=== PATIENT | male | born 1960 | race African-American/Black ===

== ENCOUNTER 2016-08-30 18:08 | Emergency (ER) | payer MEDICAID, MEDICARE ==
[2016-08-30] MEDS ORDERED: ASPIRIN 81 MG TABLET, CHEWABLE PO ONE (18:42)
--- NOTE | 2016-08-30 18:42 | ER Document Report ---
ED Medical Screen (RME) - General Chief Complaint: Chest Pain Stated Complaint: CHEST PAIN,TIGHTNESS Time seen by provider: 18:39 Mode of Arrival: Wheelchair Information source: Patient Notes: 56-year-old male presents to ED for chest pain since Tuesday. States took baby aspirin state home and went to the doctor today and was sent out [facility] and get blood work, chest x-ray and EKG. Around 620 the doctor's office called and told him to come to the emergency room right away for an abnormal EKG. I have greeted and performed a rapid initial assessment of this patient. A comprehensive ED assessment and evaluation of the patient, analysis of test results and completion of medical decision making process will be conducted by an additional ED providers. TRAVEL OUTSIDE OF THE [place] IN LAST 30 DAYS: No - Related Data Allergies/Adverse Reactions: No Known Allergies Allergy (Verified 01/12/15 02:29) Past Medical History - Past Medical History Cardiac Medical History: Reports: Hx Hypertension Endocrine Medical History: Reports: Hx Diabetes Mellitus Type 1, Hx Diabetes Mellitus Type 2 Past Surgical History: Reports: Hx Genitourinary Surgery - biopsy of scrotum, Hx Orthopedic Surgery - torn meniscus in the right knee. bakers cyst - Immunizations Hx Diphtheria, Pertussis, Tetanus Vaccination: Yes
--- NOTE | 2016-08-30 19:00 | EKG REPORT ---
SEVERITY:- BORDERLINE ECG - SINUS RHYTHM LVH BY VOLTAGE : Confirmed by: Anel Escalante 30-Aug-2016 18:59:49
[2016-08-30 20:33] LABS: ABSOLUTE BASOPHILS # (AUTO) 0.1 10^3/uL (0.0-0.2); ABSOLUTE EOSINOPHILS # (AUTO) 0.2 10^3/uL (0.0-0.6); ABSOLUTE LYMPHOCYTES (AUTO) 3.2 10^3/uL (0.5-4.7); ABSOLUTE MONOCYTES (AUTO) 1.1 10^3/uL (0.1-1.4); ABSOLUTE NEUT (AUTO) 7.2 10^3/uL (1.7-8.2); BASOPHILS % (AUTO) 0.6 % (0-2); EOSINOPHILS % (AUTO) 1.8 % (0-6); HEMATOCRIT 34.1 % (37.9-51.0); HEMOGLOBIN 10.7 g/dL (13.5-17.0); LYMPHOCYTES % (AUTO) 27.4 % (13-45); MEAN CORPUSCULAR HEMOGLOBIN 23.6 pg (27.0-33.4); MEAN CORPUSCULAR HGB CONC 31.2 g/dL (32.0-36.0); MEAN CORPUSCULAR VOLUME 76 fl (80-97); RED BLOOD COUNT 4.51 10^6/uL (4.35-5.55); RED CELL DISTRIBUTION WIDTH 16.3 % (11.5-14.0); SEGMENTED NEUTROPHILS % (AUTO) 61.2 % (42-78); WHITE BLOOD COUNT 11.8 10^3/uL (4.0-10.5)
[2016-08-30 20:42] LABS: PROTHROMBIN TIME 13.5 SEC (11.4-15.4)
[2016-08-30 20:43] LABS: PARTIAL THROMBOPLASTIN TIME 33.7 SEC (23.5-35.8)
[2016-08-30 20:52] LABS: ALANINE AMINOTRANSFERASE 19 U/L (21-72); ALBUMIN 4.2 g/dL (3.5-5.0); ALKALINE PHOSPHATASE 76 U/L (38-126); ANION GAP 13 (5-19); ASPARTATE AMINO TRANSFERASE 13 U/L (17-59); BILIRUBIN,TOTAL 0.6 mg/dL (0.2-1.3); BLOOD UREA NITROGEN 21 mg/dL (7-20); CALCIUM 9.5 mg/dL (8.4-10.2); CARBON DIOXIDE 30 mmol/L (22-30); CHLORIDE 97 mmol/L (98-107); CREATINE KINASE 53 U/L (55-170); CREATININE RESULT 1.53 mg/dL (0.52-1.25); GLUCOSE 123 mg/dL (75-110); MAGNESIUM 1.8 mg/dL (1.6-2.3); POTASSIUM 3.3 mmol/L (3.6-5.0); SODIUM 139.9 mmol/L (137-145); TOTAL PROTEIN 7.6 g/dL (6.3-8.2)
[2016-08-30 21:03] LABS: CREATINE KINASE MB 0.31 ng/mL (<4.55); TROPONIN I 0.013 ng/mL
--- NOTE | 2016-08-31 01:52 | ER Document Report ---
ED Cardiac - General Chief Complaint: Abnormal Lab Results Stated Complaint: CHEST PAIN,TIGHTNESS Time seen by provider: 01:49 Mode of Arrival: Wheelchair TRAVEL OUTSIDE OF THE [place] IN LAST 30 DAYS: No - HPI Patient complains to provider of: Chest pain Was the onset of pain: Sudden When did pain begin: 2 days ago Is the pain a: New problem Chest pain location: Under breast - Left side Quality of pain: Sharp, Stabbing Severity now: None Severity at worst: Severe Pain level currently: Denies Chest pain precipitating factors: At Rest Cardiac risk factors: Diabetes, Hypertension, Smoker Positive cardiac history: No Associated symptoms: None Exacerbated by: Torso movement Relieved by: Nothing Similar symptoms previously: No Recently seen / treated by doctor: Yes - seen earlier in the day by Dr. Gamboa Notes: Patient is a 56-year-old male with a history of hypertension, diabetes, chronic back pain, chronic knee pain, anxiety, who was sent to the emergency room by primary care provider for chest pain, patient states this chest pain occurred on Tuesday, 2 days prior to his presentation to the emergency room, he states it was sharp and stabbing in nature in the left anterior chest wall, near the left breast, it lasted a few hours, he states he chewed 4 baby aspirin at home, sat up for an hour, took his blood pressure medications, then fell asleep, when he woke up on Tuesday morning the pain was completely gone and has not come back since, he denies having any shortness of breath with it, no diaphoresis, no cough, cold or congestion, he does report that he was burping excessively at the time he had the chest pain as well and certain movements of the upper trunk made his chest pain worse - Related Data Allergies/Adverse Reactions: No Known Allergies Allergy (Verified 01/12/15 02:29) Past Medical History - General Information source: Patient - Social History Smoking Status: Current Every Day Smoker Family History: Reviewed & Not Pertinent Patient has suicidal ideation: No Patient has homicidal ideation: No - Past Medical History Cardiac Medical History: Reports: Hx Hypertension Endocrine Medical History: Reports: Hx Diabetes Mellitus Type 1, Hx Diabetes Mellitus Type 2 Renal/ Medical History: Denies: Hx Peritoneal Dialysis Past Surgical History: Reports: Hx Genitourinary Surgery - biopsy of scrotum, Hx Orthopedic Surgery - torn meniscus in the right knee. bakers cyst - Immunizations Hx Diphtheria, Pertussis, Tetanus Vaccination: Yes Review of Systems - Review of Systems Constitutional: No symptoms reported EENT: No symptoms reported Cardiovascular: See HPI Respiratory: No symptoms reported Gastrointestinal: No symptoms reported Genitourinary: No symptoms reported Male Genitourinary: No symptoms reported Musculoskeletal: No symptoms reported Skin: No symptoms reported Hematologic/Lymphatic: No symptoms reported Neurological/Psychological: No symptoms reported -: Yes All other systems reviewed and negative Physical Exam - Vital signs Vitals: Temp Pulse Resp BP Pulse Ox 97.6 F 91 16 102/93 H 95 08/30/16 18:39 08/30/16 18:39 08/30/16 18:39 08/30/16 18:39 08/30/16 18:39 Interpretation: Normal - General General appearance: Appears well, Alert - HEENT Head: Normocephalic, Atraumatic Eyes: Normal Pupils: PERRL - Respiratory Respiratory status: No respiratory distress Chest status: Tender - Tender to palpate in the left anterior chest wall Breath sounds: Normal Chest palpation: Normal - Cardiovascular Rhythm: Regular Heart sounds: Normal auscultation Murmur: No - Abdominal Inspection: Normal Distension: No distension Bowel sounds: Normal Tenderness: Nontender Organomegaly: No organomegaly - Back Back: Normal, Nontender - Extremities General upper extremity: Normal inspection, Nontender, Normal color, Normal ROM , Normal temperature General lower extremity: Normal inspection, Nontender, Normal color, Normal ROM , Normal temperature, Normal weight bearing. No: Eddie's sign - Neurological Neuro grossly intact: Yes Cognition: Normal Orientation: AAOx4 [place] Coma Scale Eye Opening: Spontaneous [place] Coma Scale Verbal: Oriented [place] Coma Scale Motor: Obeys Commands [place] Coma Scale Total: 15 Speech: Normal Motor strength normal: LUE, RUE, LLE, RLE Sensory: Normal - Psychological Associated symptoms: Normal affect, Normal mood - Skin Skin Temperature: Warm Skin Moisture: Dry Skin Color: Normal Course - Re-evaluation Re-evalutation: 08/31/16 02:21 Lab and imaging findings discussed with patient and at bedside which are fairly unremarkable, cardiac enzymes 2 negative, EKG with no signs of ischemia , symptoms have been resolved for 2 days, patient was advised to follow-up with his primary care provider and a practice administrator or return if symptoms worsen, patient and acknowledge understanding and agreement with this plan - Vital Signs Vital signs: Temp Pulse Resp BP Pulse Ox 97.6 F 91 21 H 146/87 H 96 08/30/16 18:39 08/30/16 18:39 08/31/16 02:01 08/31/16 02:01 08/31/16 02:01 - Laboratory Result Diagrams: 08/30/16 20:05 08/30/16 20:05 Laboratory results interpreted by me: 08/30/16 08/30/16 08/31/16 20:05 20:05 01:30 WBC 11.8 H Hgb 10.7 L Hct 34.1 L MCV 76 L MCH 23.6 L MCHC 31.2 L RDW 16.3 H Potassium 3.3 L Chloride 97 L BUN 21 H Creatinine 1.53 H Est GFR ( Amer) 57 L Est GFR (Non-Af Amer) 47 L Glucose 123 H AST 13 L ALT 19 L Creatine Kinase 53 L 44 L - Diagnostic Test Radiology reviewed: Image reviewed, Reports reviewed - EKG Interpretation by Me EKG shows normal: Sinus rhythm Rate: Normal Rhythm: NSR When compared to previous EKG there are: No significant change Discharge - Discharge Clinical Impression: Chest pain Qualifiers: Chest pain type: unspecified Qualified Code(s): R07.9 - Chest pain, unspecified Condition: Stable Disposition: HOME, SELF-CARE Instructions: Chest Pain of Unclear Cause ([facility]) Additional Instructions: Follow up with your primary care provider in one to 2 days. Return to the emergency room immediately if symptoms worsen or any additional concerns. Forms: Smoking Cessation Education, Elevated Blood Pressure
[2016-08-31 02:17] LABS: CREATINE KINASE MB 0.3 ng/mL (<4.55); TROPONIN I 0.013 ng/mL
[2016-08-31 02:32] VITALS: BP 115/79
== END 2016-08-31 02:31 | disposition home or self-care (01) ==
LOC: ER 18:08
DX: R07.9 Chest pain, unspecified (principal); E11.9 Type 2 diabetes mellitus without complications; G89.29 Other chronic pain; M54.9 Dorsalgia, unspecified; M25.569 Pain in unspecified knee; F17.200 Nicotine dependence, unspecified, uncomplicated; I10 Essential (primary) hypertension
CPT/HCPCS: 93005 ×2; 99285; 36415; 82553; 82550; 83735; 85025; 85027; 85610; 85730; 80053; 84484; 83036; 80061; 71020; 93010; A9270

== ENCOUNTER → 2016-08-30 | Outpatient (CLI) | payer MEDICAID ==
[2016-08-30 13:24] LABS: HEMATOCRIT 35.1 % (37.9-51.0); HEMOGLOBIN 11.3 g/dL (13.5-17.0); HGB HCT DIFFERENCE -1.2; MEAN CORPUSCULAR HEMOGLOBIN 24.2 pg (27.0-33.4); MEAN CORPUSCULAR HGB CONC 32.2 g/dL (32.0-36.0); MEAN CORPUSCULAR VOLUME 75 fl (80-97); RED BLOOD COUNT 4.67 10^6/uL (4.35-5.55); RED CELL DISTRIBUTION WIDTH 16.2 % (11.5-14.0); WHITE BLOOD COUNT 11.6 10^3/uL (4.0-10.5)
[2016-08-30 13:56] LABS: ALANINE AMINOTRANSFERASE 20 U/L (21-72); ALBUMIN 4.3 g/dL (3.5-5.0); ALKALINE PHOSPHATASE 87 U/L (38-126); ANION GAP 13 (5-19); ASPARTATE AMINO TRANSFERASE 12 U/L (17-59); BILIRUBIN,TOTAL 0.9 mg/dL (0.2-1.3); BLOOD UREA NITROGEN 16 mg/dL (7-20); CALCIUM 9.9 mg/dL (8.4-10.2); CARBON DIOXIDE 31 mmol/L (22-30); CHLORIDE 98 mmol/L (98-107); CHOLESTEROL 242.63 mg/dL (0-200); CREATINE KINASE 41 U/L (55-170); CREATININE RESULT 0.91 mg/dL (0.52-1.25); Direct HDL 44 mg/dL (>40); GLUCOSE 139 mg/dL (75-110); POTASSIUM 3.3 mmol/L (3.6-5.0); SODIUM 141.8 mmol/L (137-145); TOTAL PROTEIN 7.8 g/dL (6.3-8.2); TRIGLYCERIDES 137 mg/dL (<150)
[2016-08-30 14:07] LABS: DIRECT LDL 173 mg/dL (<100)
--- NOTE | 2016-08-30 15:47 | EKG REPORT ---
SEVERITY:- ABNORMAL ECG - SINUS RHYTHM PROBABLE LEFT ATRIAL ABNORMALITY LEFT VENTRICULAR HYPERTROPHY ST ELEVATION, CONSIDER ANTERIOR INJURY VS LVH : Confirmed by: Anel Escalante 30-Aug-2016 15:46:48
== END ==
LOC: OD 12:33
PROVIDERS: ATTEND Obstetrics & Gynecology
DX: R07.9 Chest pain, unspecified (principal); E11.9 Type 2 diabetes mellitus without complications; I10 Essential (primary) hypertension; E78.5 Hyperlipidemia, unspecified
CPT/HCPCS: 36415; 71020; 80053; 80061; 82550; 83036; 85027; 93005; 93010

== ENCOUNTER → 2016-10-11 | Outpatient (CLI) | payer MEDICARE ==
[2016-10-11 12:52] LABS: HEMATOCRIT 24.1 % (37.9-51.0); HGB HCT DIFFERENCE -2.2; MEAN CORPUSCULAR HEMOGLOBIN 20.3 pg (27.0-33.4); MEAN CORPUSCULAR HGB CONC 30.3 g/dL (32.0-36.0); MEAN CORPUSCULAR VOLUME 67 fl (80-97); RED CELL DISTRIBUTION WIDTH 18.9 % (11.5-14.0); WHITE BLOOD COUNT 11.4 10^3/uL (4.0-10.5)
[2016-10-11 13:36] LABS: ANISOCYTOSIS 2+; BASOPHILS % (MANUAL) 0 % (0-2); EOSINOPHILS % (MANUAL) 1 % (0-6); HYPOCHROMASIA 2+; LYMPHOCYTES % (MANUAL) 18 % (13-45); MICROCYTOSIS 2+; POLYCHROMASIA 1+; ROULEAUX 3+; TOTAL CELLS COUNTED 100
[2016-10-11 13:37] LABS: OVALOCYTES SLIGHT; POIKILOCYTOSIS 1+; SCHISTOCYTES SLIGHT; TARGET CELLS 1+; TOXIC GRANULATION SLIGHT
[2016-10-11 13:38] LABS: HEMOGLOBIN 7.3 g/dL (13.5-17.0)
== END ==
LOC: OD 11:12
PROVIDERS: ATTEND Obstetrics & Gynecology
DX: D64.9 Anemia, unspecified (principal); D47.3 Essential (hemorrhagic) thrombocythemia; D72.829 Elevated white blood cell count, unspecified
CPT/HCPCS: 36415; 85025

== ENCOUNTER → 2016-10-13 | Outpatient (CLI) | payer MEDICARE ==
[2016-10-13 12:47] LABS: HEMATOCRIT 27.5 % (37.9-51.0); HEMOGLOBIN 8.8 g/dL (13.5-17.0); HGB HCT DIFFERENCE -1.1; MEAN CORPUSCULAR HEMOGLOBIN 22.2 pg (27.0-33.4); MEAN CORPUSCULAR HGB CONC 31.9 g/dL (32.0-36.0); MEAN CORPUSCULAR VOLUME 70 fl (80-97); RED BLOOD COUNT 3.94 10^6/uL (4.35-5.55); RED CELL DISTRIBUTION WIDTH 20.4 % (11.5-14.0); WHITE BLOOD COUNT 14.9 10^3/uL (4.0-10.5)
[2016-10-13 12:55] LABS: ALANINE AMINOTRANSFERASE 13 U/L (21-72); ALBUMIN 3.9 g/dL (3.5-5.0); ALKALINE PHOSPHATASE 76 U/L (38-126); ANION GAP 18 (5-19); ASPARTATE AMINO TRANSFERASE 14 U/L (17-59); BILIRUBIN,TOTAL 0.3 mg/dL (0.2-1.3); BLOOD UREA NITROGEN 16 mg/dL (7-20); CALCIUM 9.3 mg/dL (8.4-10.2); CARBON DIOXIDE 26 mmol/L (22-30); CHLORIDE 95 mmol/L (98-107); CREATININE RESULT 0.96 mg/dL (0.52-1.25); GLUCOSE 198 mg/dL (75-110); POTASSIUM 3.2 mmol/L (3.6-5.0); SODIUM 139.3 mmol/L (137-145)
[2016-10-13 13:25] LABS: BASOPHILS % (MANUAL) 1 % (0-2); EOSINOPHILS % (MANUAL) 5 % (0-6); LYMPHOCYTES % (MANUAL) 17 % (13-45); ROULEAUX 2+; TOTAL CELLS COUNTED 100
[2016-10-13 13:28] LABS: HYPOCHROMASIA 2+
[2016-10-13 13:31] LABS: MICROCYTOSIS 2+; OVALOCYTES 1+; POIKILOCYTOSIS 1+; POLYCHROMASIA 1+; SCHISTOCYTES SLIGHT; TARGET CELLS SLIGHT
[2016-10-13 13:32] LABS: ANISOCYTOSIS 2+
== END ==
LOC: OD 11:34
PROVIDERS: ATTEND Obstetrics & Gynecology
DX: D47.3 Essential (hemorrhagic) thrombocythemia (principal); D64.9 Anemia, unspecified; I10 Essential (primary) hypertension; E11.9 Type 2 diabetes mellitus without complications
CPT/HCPCS: 36415; 80053; 85025

== ENCOUNTER 2016-10-21 11:48 | Outpatient (CLI) | payer MEDICARE ==
[~2016-10-21 11:48] MED LIST: FERRIC CARBOXYMALTOSE 750 MG in NORMAL SALINE 250 ML IV PRN; NORMAL SALINE 250 ML IV PRN
[2016-10-21 12:24] VITALS: BP 146/72
== END 2016-10-21 13:33 | disposition home or self-care (01) ==
LOC: II 11:48 → 5TH 11:50 → II 13:33
PROVIDERS: ATTEND Internal Medicine
PROC: 3E033GC Introduction of Other Therapeutic Substance into Peripheral Vein, Percutaneous Approach (ICD-10-PCS; principal; 2016-10-21)
DX: D50.8 Other iron deficiency anemias (principal); K90.9 Intestinal malabsorption, unspecified
CPT/HCPCS: 96365; J7050; J1439

== ENCOUNTER 2016-10-28 07:58 | Outpatient (CLI) | payer MEDICARE ==
[2016-10-28 08:56] VITALS: BP 148/87
== END 2016-10-28 09:38 | disposition home or self-care (01) ==
LOC: II 07:58 → 5TH 07:59 → II 09:38
PROVIDERS: ATTEND Internal Medicine
DX: D50.8 Other iron deficiency anemias (principal); K90.9 Intestinal malabsorption, unspecified
CPT/HCPCS: 96365; J7050; J1439; 96367

== ENCOUNTER 2016-11-01 08:14 | Day surgery (SDC) | payer MEDICARE ==
[~2016-11-01 08:14] MED LIST changes: -FERRIC CARBOXYMALTOSE 750 MG in NORMAL SALINE 250 ML IV PRN; -NORMAL SALINE 250 ML IV PRN; +PROPOFOL INJ 200 MG/20 ML VIAL IV ONE
[2016-11-01 10:27] VITALS: BP 182/91
--- NOTE | 2016-11-01 13:25 | Operative Report ---
Operative Report DATE OF SURGERY: 11/01/16 Operative Report: The risks, benefits and alternatives of the procedure including risks of bleeding, perforation requiring surgery are explained to the patient detail and informed consent is obtained. Patient is taken back to the endoscopy suite and placed in a left, lateral decubital position. Timeout is called. Propofol medications administered. A rectal examination was done which did not reveal any masses, tears or fissures. An Olympus video scope was inserted into the patient's rectum. The scope was then gradually advanced all the way to the cecum. The cecum was identified by the usual anatomical landmarks including the ileocecal valve as well as the appendiceal office. Photodocumentation was obtained. Prep is good. Scope was then sequentially pulled back via the rest segments of the colon including the ascending colon, hepatic flexure, transverse colon, some bright flexure, descending colon and finally into the rectosigmoid portions of the colon. Retroflexion maneuvers performed. The risks benefits and alternatives of the procedure explained to the patient in detail and informed consent is obtained that GIF Olympus video scope was inserted into the patient's mouth and hypopharynx the esophagus is identified intubated and insufflated the scope was then advanced through the esophagus stomach and duodenum retroflexion maneuver is done the esophagus stomach and first and second portions of the duodenum examined PREOPERATIVE DIAGNOSIS: Personal history of polyps. Epigastric pain. Blood in stool POSTOPERATIVE DIAGNOSIS: AVMs in the cecum as noted and ablated in situ. Internal hemorrhoids. Nodular gastritis status post biopsy rule out Helicobacter pylori. OPERATION: Colonoscopy with ablation. EGD with biopsy SURGEON: MARQUIS CONWAY ANESTHESIA: LMAC TISSUE REMOVED OR ALTERED: Gastric mucosal specimens obtained to rule out for Helicobacter pylori. Patient has previously been treated for this. Documentation of eradication. COMPLICATIONS: None. ESTIMATED BLOOD LOSS: none. INTRAOPERATIVE FINDINGS: 2 small AVMs are noted in the cecum ablated using ERBE argon asset management lead device. Internal hemorrhoids. Nodular gastritis status post biopsy rule out Helicobacter pylori. PROCEDURE: Patient tolerated the procedure well. No immediate postprocedure complications are noted. Patient is discharged in good condition. Discharge date 11/01/2016. Discharge diet: Regular. Discharge activity: Regular. 2-3 week follow-up to discuss findings. We'll await biopsies. Patient is instructed to call the office or proceed to the emergency room should there be any further problems or questions. If needed he can be retreated for Helicobacter pylori
== END 2016-11-01 11:22 | disposition home or self-care (01) ==
LOC: END 08:14
PROVIDERS: ATTEND Internal Medicine Gastroenterology
PROC: 0D5H8ZZ Destruction of Cecum, Via Natural or Artificial Opening Endoscopic (ICD-10-PCS; principal; 2016-11-01 09:30)
DX: K31.9 Disease of stomach and duodenum, unspecified (principal); Q27.33 Arteriovenous malformation of digestive system vessel; K64.8 Other hemorrhoids; D50.9 Iron deficiency anemia, unspecified; Z87.11 Personal history of peptic ulcer disease; Z86.010 Personal history of colon polyps; Z87.19 Personal history of other diseases of the digestive system; E11.9 Type 2 diabetes mellitus without complications; I10 Essential (primary) hypertension; E78.5 Hyperlipidemia, unspecified; F17.210 Nicotine dependence, cigarettes, uncomplicated; Z79.82 Long term (current) use of aspirin; Z79.899 Other long term (current) drug therapy; Z79.84 Long term (current) use of oral hypoglycemic drugs
CPT/HCPCS: 43239; 45388; 82962; 88342 ×2; 88305 ×2; J2704; 740

== ENCOUNTER → 2016-12-22 | Outpatient (CLI) | payer MEDICARE | LOC: OD 11:42 | PROVIDERS: ATTEND Obstetrics & Gynecology | DX: M54.5 Low back pain (principal); M51.16 Intervertebral disc disorders with radiculopathy, lumbar region | CPT/HCPCS: 72070 ==

== ENCOUNTER → 2017-01-14 | Outpatient (CLI) | payer MEDICARE ==
[2017-01-14 16:33] LABS: ALANINE AMINOTRANSFERASE 19 U/L (21-72); ALBUMIN 4.2 g/dL (3.5-5.0); ALKALINE PHOSPHATASE 149 U/L (38-126); ANION GAP 13 (5-19); ASPARTATE AMINO TRANSFERASE 14 U/L (17-59); BILIRUBIN,DIRECT 0.4 mg/dL (0.0-0.4); BILIRUBIN,TOTAL 0.5 mg/dL (0.2-1.3); BLOOD UREA NITROGEN 16 mg/dL (7-20); CALCIUM 9.5 mg/dL (8.4-10.2); CARBON DIOXIDE 36 mmol/L (22-30); CHLORIDE 84 mmol/L (98-107); CREATININE RESULT 1.02 mg/dL (0.52-1.25); POTASSIUM 3.1 mmol/L (3.6-5.0); SODIUM 132.6 mmol/L (137-145)
[2017-01-14 17:47] LABS: GLUCOSE 515 mg/dL (75-110)
== END ==
LOC: OD 15:42
PROVIDERS: ATTEND Obstetrics & Gynecology
DX: E11.65 Type 2 diabetes mellitus with hyperglycemia (principal)
CPT/HCPCS: 36415; 80053

== ENCOUNTER → 2017-07-06 | Outpatient (CLI) | payer MEDICARE ==
[2017-07-06 19:05] LABS: ABSOLUTE BASOPHILS # (AUTO) 0.1 10^3/uL (0.0-0.2); ABSOLUTE EOSINOPHILS # (AUTO) 0.2 10^3/uL (0.0-0.6); ABSOLUTE LYMPHOCYTES (AUTO) 3.4 10^3/uL (0.5-4.7); ABSOLUTE MONOCYTES (AUTO) 0.8 10^3/uL (0.1-1.4); ABSOLUTE NEUT (AUTO) 5.8 10^3/uL (1.7-8.2); EOSINOPHILS % (AUTO) 1.7 % (0-6); HEMATOCRIT 38.2 % (37.9-51.0); HEMOGLOBIN 13.1 g/dL (13.5-17.0); HGB HCT DIFFERENCE 1.1; LYMPHOCYTES % (AUTO) 33.1 % (13-45); MEAN CORPUSCULAR HEMOGLOBIN 26.8 pg (27.0-33.4); MEAN CORPUSCULAR HGB CONC 34.3 g/dL (32.0-36.0); MEAN CORPUSCULAR VOLUME 78 fl (80-97); RED BLOOD COUNT 4.91 10^6/uL (4.35-5.55); RED CELL DISTRIBUTION WIDTH 15.5 % (11.5-14.0); SEGMENTED NEUTROPHILS % (AUTO) 56.2 % (42-78); WHITE BLOOD COUNT 10.4 10^3/uL (4.0-10.5)
[2017-07-06 19:22] LABS: ALANINE AMINOTRANSFERASE 21 U/L (21-72); ALKALINE PHOSPHATASE 107 U/L (38-126); ANION GAP 13 (5-19); ASPARTATE AMINO TRANSFERASE 15 U/L (17-59); BILIRUBIN,DIRECT 0.3 mg/dL (0.0-0.4); BILIRUBIN,TOTAL 0.4 mg/dL (0.2-1.3); BLOOD UREA NITROGEN 15 mg/dL (7-20); CALCIUM 9.2 mg/dL (8.4-10.2); CARBON DIOXIDE 31 mmol/L (22-30); CHLORIDE 92 mmol/L (98-107); CREATININE RESULT 0.95 mg/dL (0.52-1.25); GLUCOSE 284 mg/dL (75-110); POTASSIUM 3.4 mmol/L (3.6-5.0); SODIUM 135.9 mmol/L (137-145); TOTAL PROTEIN 6.8 g/dL (6.3-8.2)
== END ==
LOC: OD 17:22
PROVIDERS: ATTEND Obstetrics & Gynecology
DX: D47.3 Essential (hemorrhagic) thrombocythemia (principal); E11.9 Type 2 diabetes mellitus without complications; I10 Essential (primary) hypertension; D64.9 Anemia, unspecified
CPT/HCPCS: 36415; 80053; 85025

== ENCOUNTER 2017-08-08 15:09 | Inpatient (IN) | payer MEDICARE ==
[2017-08-08 15:31] LABS: ABSOLUTE BASOPHILS # (AUTO) 0.1 10^3/uL (0.0-0.2); ABSOLUTE LYMPHOCYTES (AUTO) 1.1 10^3/uL (0.5-4.7); ABSOLUTE MONOCYTES (AUTO) 0.5 10^3/uL (0.1-1.4); ABSOLUTE NEUT (AUTO) 16.6 10^3/uL (1.7-8.2); BASOPHILS % (AUTO) 0.6 % (0-2); HEMATOCRIT 42.7 % (37.9-51.0); HEMOGLOBIN 14.3 g/dL (13.5-17.0); LYMPHOCYTES % (AUTO) 5.7 % (13-45); MEAN CORPUSCULAR HGB CONC 33.5 g/dL (32.0-36.0); MEAN CORPUSCULAR VOLUME 78 fl (80-97); MONOCYTES % (AUTO) 2.9 % (3-13); PLATELET COUNT 521 10^3/uL (150-450); RED CELL DISTRIBUTION WIDTH 14.7 % (11.5-14.0); SEGMENTED NEUTROPHILS % (AUTO) 90.8 % (42-78); TOTAL CELLS COUNTED % (AUTO) 100 %; WHITE BLOOD COUNT 18.3 10^3/uL (4.0-10.5)
[2017-08-08 15:32] LABS: VENOUS BLOOD BASE EXCESS 9.2 mmol/L; VENOUS BLOOD HCO3 35.2 mmol/L (20-32); VENOUS BLOOD PCO2 52.9 mmHg (35-63); VENOUS BLOOD PH 7.44 (7.30-7.42)
[2017-08-08 15:38] LABS: INTERNATIONAL RATION (INR) 0.98; PROTHROMBIN TIME 13.7 SEC (11.4-15.4)
[2017-08-08 15:46] LABS: ALBUMIN 4.9 g/dL (3.5-5.0); ASPARTATE AMINO TRANSFERASE 12 U/L (17-59); BLOOD UREA NITROGEN 9 mg/dL (7-20); CALCIUM 10.8 mg/dL (8.4-10.2); CHLORIDE 85 mmol/L (98-107)
[2017-08-08 15:47] LABS: ALANINE AMINOTRANSFERASE 24 U/L (21-72); ALKALINE PHOSPHATASE 162 U/L (38-126); BILIRUBIN,DIRECT 0.5 mg/dL (0.0-0.4); BILIRUBIN,TOTAL 0.9 mg/dL (0.2-1.3); TOTAL PROTEIN 8.3 g/dL (6.3-8.2)
--- NOTE | 2017-08-08 15:59 | ER Document Report ---
ED Fever - General Chief Complaint: Fever Stated Complaint: FEVER Time Seen by Provider: 08/08/17 15:57 Mode of Arrival: Medic Information source: Patient, Relative, Emergency Med Personnel TRAVEL OUTSIDE OF THE [place] IN LAST 30 DAYS: No - HPI Onset: Other - 3 DAYS? Onset/Duration: Gradual Quality of pain: Achy, Dull Severity: Moderate Context: Other - RECENT CVA W/ LEFT SIDED WEAKNESS Associated symptoms: Fever, Headache, Weakness, Other - CONFUSION Similar symptoms previously: No Recently seen / treated by doctor: Yes - DR. BAUTISTA - Related Data Allergies/Adverse Reactions: No Known Allergies Allergy (Verified 11/01/16 08:11) Past Medical History - General Information source: Patient, Relative - Social History Smoking Status: Unknown if Ever Smoked Cigarette use (# per day): No Chew tobacco use (# tins/day): No Frequency of alcohol use: None Drug Abuse: None Lives with: Spouse/Significant other Family History: Reviewed & Not Pertinent - Past Medical History Cardiac Medical History: Reports: Hx Hypertension Denies: Hx Coronary Artery Disease, Hx Heart Attack Pulmonary Medical History: Denies: Hx Asthma, Hx Bronchitis, Hx COPD, Hx Pneumonia Neurological Medical History: Reports: Hx Cerebrovascular Accident. Denies: Hx Seizures Endocrine Medical History: Reports: Hx Diabetes Mellitus Type 1, Hx Diabetes Mellitus Type 2 Renal/ Medical History: Denies: Hx Peritoneal Dialysis Musculoskeltal Medical History: Reports Hx Arthritis Past Surgical History: Reports: Hx Genitourinary Surgery - biopsy of scrotum, Hx Orthopedic Surgery - torn meniscus in the right knee. bakers cyst - Immunizations Hx Diphtheria, Pertussis, Tetanus Vaccination: No Review of Systems - Review of Systems Constitutional: Fever EENT: No symptoms reported Cardiovascular: No symptoms reported Respiratory: No symptoms reported Gastrointestinal: No symptoms reported Musculoskeletal: No symptoms reported Skin: No symptoms reported Neurological/Psychological: See HPI, Confusion, Weakness, Headaches - BIFRONTAL Physical Exam - Vital signs Vitals: Resp BP Pulse Ox 22 H 196/111 H 94 08/08/17 15:20 08/08/17 15:20 08/08/17 15:20 Interpretation: Hypertensive, Tachycardic, Febrile. No: Hypoxic, Tachypneic - General General appearance: Lethargic In distress: None - HEENT Head: Normocephalic Eyes: Normal Conjunctiva: Normal Ears: Normal Nasal: Normal Mouth/Lips: Normal Mucous membranes: Normal Pharynx: Normal Neck: Supple - Respiratory Respiratory status: No respiratory distress Breath sounds: Normal - Cardiovascular Rhythm: Regular, Tachycardia Heart sounds: Normal auscultation Murmur: No - Abdominal Inspection: Normal Distension: No distension Bowel sounds: Hypoactive Tenderness: Nontender - Extremities General upper extremity: Normal inspection General lower extremity: Normal inspection - Neurological Neuro grossly intact: No - L. HEMIPLEGIA Orientation: AAOx4 Speech: Dysarthria Motor strength normal: RUE, RLE. No: LUE, LLE - Psychological Associated symptoms: Confused - Skin Skin Temperature: Hot Skin Moisture: Dry Skin Color: Normal Skin Turgor: Elastic Course - Vital Signs Vital signs: Temp Pulse Resp BP Pulse Ox 102.1 F H 18 199/100 H 95 08/08/17 18:00 08/09/17 00:13 08/09/17 00:11 08/09/17 00:13 - Laboratory Result Diagrams: 08/08/17 15:15 08/08/17 15:15 Laboratory results interpreted by me: 08/08/17 08/08/17 08/08/17 15:15 15:15 15:15 WBC 18.3 H MCV 78 L MCH 26.0 L RDW 14.7 H Plt Count 521 H Seg Neutrophils % 90.8 H Lymphocytes % 5.7 L Monocytes % 2.9 L Absolute Neutrophils 16.6 H VBG pH VBG HCO3 Potassium 3.0 L* Chloride 85 L Carbon Dioxide 35 H Anion Gap 22 H Glucose 586 H* POC Glucose Lactic Acid 2.3 H Calcium 10.8 H Phosphorus Magnesium Direct Bilirubin 0.5 H AST 12 L Alkaline Phosphatase 162 H Creatine Kinase Total Protein 8.3 H TSH Free T4 Urine Protein Urine Glucose (UA) Urine Ketones Urine Blood CSF Glucose CSF Total Protein 08/08/17 08/08/17 08/08/17 15:15 15:15 15:15 WBC MCV MCH RDW Plt Count Seg Neutrophils % Lymphocytes % Monocytes % Absolute Neutrophils VBG pH 7.44 H VBG HCO3 35.2 H Potassium Chloride Carbon Dioxide Anion Gap Glucose POC Glucose Lactic Acid Calcium Phosphorus 5.5 H Magnesium 1.5 L Direct Bilirubin AST Alkaline Phosphatase Creatine Kinase 51 L Total Protein TSH Free T4 Urine Protein Urine Glucose (UA) Urine Ketones Urine Blood CSF Glucose CSF Total Protein 08/08/17 08/08/17 08/08/17 15:15 15:50 21:26 WBC MCV MCH RDW Plt Count Seg Neutrophils % Lymphocytes % Monocytes % Absolute Neutrophils VBG pH VBG HCO3 Potassium Chloride Carbon Dioxide Anion Gap Glucose POC Glucose Lactic Acid Calcium Phosphorus Magnesium Direct Bilirubin AST Alkaline Phosphatase Creatine Kinase Total Protein TSH 0.19 L Free T4 2.48 H Urine Protein >=500 H Urine Glucose (UA) >=500 H Urine Ketones 20 H Urine Blood MODERATE H CSF Glucose 284 H CSF Total Protein 91 H 08/08/17 21:43 WBC MCV MCH RDW Plt Count Seg Neutrophils % Lymphocytes % Monocytes % Absolute Neutrophils VBG pH VBG HCO3 Potassium Chloride Carbon Dioxide Anion Gap Glucose POC Glucose > 550 H* Lactic Acid Calcium Phosphorus Magnesium Direct Bilirubin AST Alkaline Phosphatase Creatine Kinase Total Protein TSH Free T4 Urine Protein Urine Glucose (UA) Urine Ketones Urine Blood CSF Glucose CSF Total Protein - Diagnostic Test Radiology reviewed: Image reviewed, Reports reviewed - EKG Interpretation by Sd EKG shows normal: Sinus rhythm, [place], Intervals. abnormal: QRS Complexes, ST-T Waves Rate: Normal Rhythm: NSR Voltage: Consistant with LVH P Waves: LAE - Consults DR. ROWAN Time consulted: 23:02 Consulted provider: will come to ER Procedures - Lumbar Puncture Lumbar puncture Time completed: 21:25 Consent obtained: Yes Lumbar puncture pre-procedure: Sterile PPE donned, Betadine prep applied, Chloraprep applied, Sterile drapes applied Patient position: Lying Anesthetic type: 2% Lidocaine mL's of anesthetic: 4 Amount/type of drainage: 7 ml CLEAR COLORLESS Number of attempts: 1 Complications: No Critical Care Note - Critical Care Note Total time excluding time spent on procedures (mins): 120 Comments: UNSTABLE VITAL SIGNS REQUIRING AGGRESSIVE INTERVENTIONS, MULTIPLE ORGAN SYSTEM PATHOLOGY, COMPLEX DECISION-MAKING Discharge - Discharge Clinical Impression: Acute febrile illness, Hypertensive emergency, Hypokalemia Hyperglycemia due to type 2 diabetes mellitus Qualifiers: Diabetes mellitus detention insulin use: without detention use Qualified Code(s ): E11.65 - Type 2 diabetes mellitus with hyperglycemia Condition: Fair Disposition: ADMITTED INPATIENT Admitting Provider: Hospitalist Unit Admitted: ICU
[2017-08-08 16:01] LABS: CARBON DIOXIDE 35 mmol/L (22-30); SODIUM 141.5 mmol/L (137-145)
[2017-08-08 16:05] LABS: ANION GAP 22 (5-19)
[2017-08-08 16:07] LABS: GLUCOSE 586 mg/dL (75-110)
[2017-08-08 16:08] LABS: APPEARANCE,URINE CLEAR; BILIRUBIN,URINE NEGATIVE (NEGATIVE); COLOR,URINE STRAW; GLUCOSE, URINE >=500 mg/dL (NEGATIVE); KETONES,URINE 20 mg/dL (NEGATIVE); LEUKOCYTE ESTERASE,URINE NEGATIVE (NEGATIVE); NITRITE,URINE NEGATIVE (NEGATIVE); PROTEIN,URINE >=500 mg/dL (NEGATIVE); URINE SPECIFIC GRAVITY 1.026; UROBILINOGEN,URINE NEGATIVE mg/dL (<2.0)
[2017-08-08] MEDS ORDERED: LABETALOL HCL INJ 20 MG/4 ML DISP.SYRIN IV ONE ×2 (16:16→23:14)
[2017-08-08] MEDS ORDERED: CEFTRIAXONE 2 GM/D5W RTU 2 GM/50 ML RTUPB IV ONE (16:29)
--- NOTE | 2017-08-08 16:34 | RADIOLOGY REPORT (SQ) ---
EXAM DESCRIPTION: CHEST SINGLE VIEW COMPLETED DATE/TIME: 08/08/2017 4:16 pm REASON FOR STUDY: FEVER COMPARISON: 08/30/2016. NUMBER OF VIEWS: One view. TECHNIQUE: Single frontal radiographic view of the chest acquired. LIMITATIONS: None. FINDINGS: LUNGS AND PLEURA: No opacities, masses or pneumothorax. No pleural effusion. MEDIASTINUM AND HILAR STRUCTURES: No masses. Contour normal. HEART AND VASCULAR STRUCTURES: Heart normal in size. Normal vasculature. BONES: No acute findings. HARDWARE: None in the chest. OTHER: No other significant finding. IMPRESSION: NO SIGNIFICANT RADIOGRAPHIC FINDING IN THE CHEST. TECHNICAL DOCUMENTATION: JOB ID: [id number] [employer]- All Rights Reserved
[2017-08-08] MEDS: NICARDIPINE HCL RTU, ISO-OS 20 MG/200 ML RTUINJ IV PRN ×3 (16:54→22:32)
--- NOTE | 2017-08-08 17:49 | RADIOLOGY REPORT (SQ) ---
EXAM DESCRIPTION: CT HEAD WITHOUT COMPLETED DATE/TIME: 08/08/2017 5:39 pm REASON FOR STUDY: FEVER, HEADACHE, LEFT SIDED WEAKNESS COMPARISON: None. TECHNIQUE: Axial images acquired through the brain without intravenous contrast. Images reviewed wi th bone, brain and subdural windows. Images stored on PACS. All CT scanners at this facility use dose modulation, iterative reconstruction, and/or weight based d osing when appropriate to reduce radiation dose to as low as reasonably achievable (ALARA). [facility]: Dose Right [facility]: CareDose [facility]: Dose Right [facility]: Teradose 4D [facility]: [employer] RADIATION DOSE: CT Rad equipment meets quality standard of care and radiation dose reduction techniq ues were employed. CTDIvol: 67.0 mGy. DLP: 1316 mGy-cm. mGy. LIMITATIONS: Mildly skewed positioning in the CT gantry. FINDINGS: VENTRICLES: Normal size and contour. CEREBRUM: No masses. No hemorrhage. No midline shift. No evidence for acute infarction. Normal gra y/white matter differentiation. No areas of low density in the white matter. CEREBELLUM: No masses. No hemorrhage. No alteration of density. No evidence for acute infarction. EXTRAAXIAL SPACES: No fluid collections. No masses. ORBITS AND GLOBE: No intra- or extraconal masses. Normal contour of globe without masses. CALVARIUM: No fracture. PARANASAL SINUSES: No fluid or mucosal thickening. SOFT TISSUES: No mass or hematoma. OTHER: No other significant finding. IMPRESSION: NORMAL BRAIN CT WITHOUT CONTRAST. EVIDENCE OF ACUTE STROKE: NO. COMMENT: Quality ID # [id number]: Final reports with documentation of one or more dose reduction techniques (e.g., Automated exposure control, adjustment of the mA and/or kV according to patient size, use of iterative reconstruction technique) TECHNICAL DOCUMENTATION: JOB ID: [id number] [email or web address]- All Rights Reserved
[2017-08-08] MEDS: POTASSI CL 20 MEQ/50 ML RIDER 20 MEQ/50 ML RTUPB IV SCH ×2 (17:53→20:08)
[2017-08-08] MEDS ORDERED: ACETAMINOPHEN 325 MG TABLET PO ONE (18:15)
[2017-08-08] MEDS ORDERED: INSULIN REG, HUMAN 100 UNIT/ML 3 ML VIAL (PYX) IV ONE ×2 (19:41)
[2017-08-08] MEDS ORDERED: NORMAL SALINE 100 ML with INSULIN REGULAR, HUMAN 100 UNIT IV PRN ×4 (19:43→23:36)
[2017-08-08] MEDS ORDERED: LIDOCAINE 2% INJ (20 MG/ML) 20 ML MDV INJ ONE (20:13)
[2017-08-08 20:19] LABS: CREATINE KINASE MB 0.31 ng/mL (<4.55); TROPONIN I 0.014 ng/mL
[2017-08-08 21:25] LABS: URINE AMPHETAMINES SCREEN NEGATIVE; URINE BARBITURATES SCREEN NEGATIVE; URINE BENZODIAZEPINES SCREEN UNCONFIRMED POSITIVE; URINE COCAINE SCREEN NEGATIVE; URINE MARIJUANA (THC) SCREEN NEGATIVE; URINE METHADONE SCREEN NEGATIVE; URINE PHENCYCLIDINE SCREEN NEGATIVE
[2017-08-08 22:30] LABS: GLUCOSE,CSF 284 mg/dL (40-70); PROTEIN,CSF 91 mg/dL (12-60)
[2017-08-08 22:46] LABS: COLOR ALL TUBES COLORLESS; CSF TUBE NUMBER 1
[2017-08-08 22:47] LABS: APPEARANCE ALL TUBES CLEAR; VOLUME TUBE 1 1.5 CC; VOLUME TUBE 3 1.5 CC
[2017-08-08 22:49] LABS: RED BLOOD CELL,CSF 35 /uL (0-10)
[2017-08-08 22:51] LABS: WHITE BLOOD CELL,CSF 1 /uL (0-5)
[2017-08-08 22:52] LABS: APPEARANCE ALL TUBES CLEAR; COLOR ALL TUBES COLORLESS; CSF TUBE NUMBER 4
[2017-08-08 22:53] LABS: VOLUME TUBE 1 1.5 CC; VOLUME TUBE 3 1.5 CC
[2017-08-08 22:54] LABS: RED BLOOD CELL,CSF 0 /uL (0-10)
[2017-08-08 22:55] LABS: WHITE BLOOD CELL,CSF 0 /uL (0-5)
[2017-08-08] MEDS ORDERED: KETOROLAC TROMETHAMINE INJ/PF 30 MG/1 ML SDV IV ONE (23:12)
[2017-08-08] MEDS ORDERED: ACETAMINOPHEN 650 MG SUPP.RECT PR ONE ×3 (23:12→23:25)
[2017-08-08] MEDS ORDERED: NORMAL SALINE 1000 ML 2,500 ML IV ONE (23:13)
[2017-08-08] MEDS ORDERED: KETOROLAC TROMETHAMINE INJ/PF 30 MG/1 ML SDV ONE (23:23)
[2017-08-08] MEDS ORDERED: ONDANSETRON HCL INJ/PF 4 MG/2 ML SDV IV PRN (23:28)
[2017-08-08] MEDS ORDERED: NORMAL SALINE 1000 ML 1,000 ML IV PRN (23:28)
[2017-08-08] MEDS ORDERED: IPRATROPIUM/ALBUTEROL 0.5-2.5 MG/3 ML AMPUL NEB PRN (23:28)
[2017-08-08] MEDS ORDERED: LORAZEPAM INJ 2 MG/1 ML VIAL IV ONE ×2 (23:32)
[2017-08-08] MEDS ORDERED: LORAZEPAM INJ 2 MG/1 ML VIAL ONE (23:35)
[2017-08-08] MEDS ORDERED: GLUCAGON,HUMAN RECOMB 1 MG INJ IM PRN (23:36)
[2017-08-08] MEDS ORDERED: DEXTROSE 50%-WATER 25 GM/50 ML DISP.SYRIN IV PRN ×2 (23:36)
[2017-08-08] MEDS ORDERED: DEXTROSE 40% GEL 15 GM TUBE PO PRN ×2 (23:36)
[2017-08-08 23:38] LABS: MAGNESIUM 1.5 mg/dL (1.6-2.3); PHOSPHORUS 5.5 mg/dL (2.5-4.5)
[2017-08-08] MEDS ORDERED: VANCOMYCIN HCL 2,000 MG in DEXTROSE 5%-WATER 500 ML IV ONE (23:38)
[2017-08-08] MEDS ORDERED: ACETAMINOPHEN 650 MG SUPP.RECT PR PRN (23:51)
[2017-08-09] MEDS ORDERED: VANCOMYCIN HCL INJ 1000 MG VIAL IV PRN (00:03)
[2017-08-09] MEDS ORDERED: ENALAPRILAT DIHYDRATE INJ/PF 2.5 MG/2 ML SDV IV ONE (00:05)
[2017-08-09] MEDS ORDERED: ACYCLOVIR SODIUM INJ/PF 500 MG/10 ML SDV IV PRN ×2 (00:15→01:44)
[2017-08-09 00:17] LABS: H. INFLUENZAE TYPE B AG NEGATIVE (NEGATIVE); S. PNEUMONIAE AG NEGATIVE (NEGATIVE); STREP. GROUP B AG NEGATIVE (NEGATIVE)
[2017-08-09] MEDS ORDERED: ACYCLOVIR SODIUM 750 MG in NORMAL SALINE 250 ML IV ONE (00:30)
[2017-08-09 00:31] LABS: FREE T4 (FREE THYROXINE) 2.48 ng/dL (0.78-2.19)
[2017-08-09 00:45] LABS: THYROID STIMULATING HORMONE 0.19 uIU/mL (0.47-4.68)
[2017-08-09 00:46] LABS: INTERNATIONAL RATION (INR) 1.09; PROTHROMBIN TIME 14.9 SEC (11.4-15.4)
[2017-08-09 00:47] LABS: PARTIAL THROMBOPLASTIN TIME 29.1 SEC (23.5-35.8)
[2017-08-09 00:48] LABS: ARTERIAL BLOOD BASE EXCESS 4.7 mmol/L; ARTERIAL BLOOD H2CO3 0.98 mmol/L (1.05-1.35); ARTERIAL BLOOD HCO3 26.9 mmol/L (20-26); ARTERIAL BLOOD O2 SATURATION 96.1 % (94-98); ARTERIAL BLOOD PCO2 32.6 mmHg (35-45); ARTERIAL BLOOD PH 7.53 (7.35-7.45); ARTERIAL BLOOD PO2 71.7 mmHg (80-100); ARTERIAL BLOOD TOTAL CO2 27.9 mmol/L (23-27)
[2017-08-09 00:54] LABS: ARTERIAL BLOOD FIO2 21%
[2017-08-09 00:57] LABS: ANION GAP 15 (5-19); BLOOD UREA NITROGEN 14 mg/dL (7-20); CALCIUM 9.3 mg/dL (8.4-10.2); CARBON DIOXIDE 34 mmol/L (22-30); CHLORIDE 97 mmol/L (98-107); CREATINE KINASE 55 U/L (55-170); SODIUM 145.6 mmol/L (137-145)
[2017-08-09] MEDS: MAGNESIUM SULFATE/D5W 1 GM/100 ML RTUPB IV SCH ×2 (01:05→03:07)
[2017-08-09 01:38] LABS: CREATINE KINASE MB < 0.22 ng/mL (<4.55); GLUCOSE 458 mg/dL (75-110); POTASSIUM 2.5 mmol/L (3.6-5.0)
[2017-08-09] MEDS ORDERED: LORAZEPAM INJ 2 MG/1 ML VIAL ONE ×3 (01:44→03:00)
[2017-08-09] MEDS ORDERED: LORAZEPAM INJ 2 MG/1 ML VIAL IV ONE ×2 (01:44→03:00)
[2017-08-09] MEDS ORDERED: POTASSI CL 20 MEQ/50 ML RIDER 20 MEQ/50 ML RTUPB IV ONE (01:51)
[2017-08-09] MEDS ORDERED: ASPIRIN 600 MG SUPP, RECTAL PR ONE (01:52)
[2017-08-09] MEDS ORDERED: ACYCLOVIR SODIUM 800 MG in NORMAL SALINE 250 ML IV ONE (02:00)
[2017-08-09] MEDS: NORMAL SALINE 1000 ML 1,000 ML IV PRN ×2 (02:19→09:30)
[2017-08-09] MEDS ORDERED: ACETAMINOPHEN 650 MG SUPP.RECT PR PRN ×2 (02:35→08:30)
[2017-08-09] MEDS ORDERED: KETOROLAC TROMETHAMINE INJ/PF 30 MG/1 ML SDV IV PRN (02:36)
[2017-08-09] MEDS ORDERED: LORAZEPAM INJ 2 MG/1 ML VIAL IV PRN (02:58)
[2017-08-09] MEDS ORDERED: METOPROLOL TARTRATE PF/INJ 5 MG/5 ML SDV IV ONE (03:00)
--- NOTE | 2017-08-09 03:02 | PDOC H&P ---
History of Present Illness Admission Date/PCP: 08/08/17 23:12 CATALINO BAUTISTA MD History of Present Illness: LEN MACIAS is a 56 year old male with a past medical history of hypertension, diabetes mellitus, recent CVA, chronic benzodiazepine dependence, obesity who presents to the emergency department with fever and confusion. History is obtained from as patient is encephalopathic. She reports he has been fine and his new normal state of health since his CVA when except for today. He she reports a new onset of fever up to 104 in the emergency department and confusion. Patient is quite clearly encephalopathic and unable to provide any history. She is unable to provide a review of systems for him. Past Medical History Cardiac Medical History: Reports: Hypertension Denies: Coronary Artery Disease, Myocardial Infarction Pulmonary Medical History: Denies: Asthma, Bronchitis, Chronic Obstructive Pulmonary Disease (COPD), Pneumonia Neurological Medical History: Reports: Ischemic CVA Denies: Seizures Endocrine Medical History: Reports: Diabetes Mellitus Type 2 Musculoskeltal Medical History: Reports: Arthritis Psychiatric Medical History: Reports: Tobacco Dependency Hematology: Reports: Anemia Past Surgical History Past Surgical History: Reports: Orthopedic Surgery - torn meniscus in the right knee. bakers cyst Social History Lives with: Spouse/Significant other Smoking Status: Current Every Day Smoker Cigarettes Packs Per Day: 1 Frequency of Alcohol Use: None Hx Recreational Drug Use: No - Advance Directive Resuscitation Status: Full Code Surrogate healthcare decision maker:: Enl[place] Family History Family History: CAD, CVA, DM, Hypertension Parental Family History Reviewed: Yes Children Family History Reviewed: Yes Sibling(s) Family History Reviewed.: Yes Medication/Allergy Home Medications: Cyclobenzaprine HCl [Flexeril] 10 mg PO PRN PRN 02/05/12 Multivitamin [Multivitamins] 1 each PO DAILY 02/05/12 Oxycodone HCl/Acetaminophen [Percocet 10-325 Mg Tablet] 1 each PO Q6HP PRN #20 tablet 07/11/13 Alprazolam [Xanax XR 2 mg Tablet Extended Release] 1 tab PO TID 10/28/16 Amlodipine Besylate 10 mg PO DAILY 10/28/16 Aspirin [Aspirin EC] 81 mg PO DAILY 10/28/16 Cetirizine HCl [Zyrtec 10 mg Tablet] 10 mg PO DAILY 10/28/16 Cholecalciferol (Vitamin D3) [Vitamin D3 2000 unit Tablet] 1 tab PO DAILY Enalapril Maleate 20 mg PO DAILY 10/28/16 Ferrous Sulfate [Feosol] 1 tab PO DAILY 10/28/16 Metformin HCl [Glucophage XR 500 mg Tablet] 500 mg PO BID 10/28/16 Metoprolol Succinate 1 tab PO DAILY 10/28/16 Potassium Gluconate 1 tab PO DAILY 10/28/16 Rosuvastatin Calcium 1 tab PO DAILY 10/28/16 Triamterene/Hydrochlorothiazid [Maxzide-25 Tablet] 25 mg PO DAILY 10/28/16 Allergies/Adverse Reactions: No Known Allergies Allergy (Verified 11/01/16 08:11) Review of Systems ROS unobtainable: Due to mental status Physical Exam Vital Signs: Temp Pulse Resp BP Pulse Ox 102.1 F H 25 H 201/95 H 92 08/08/17 18:00 08/09/17 02:19 08/09/17 02:19 08/09/17 02:19 Intake & Output 08/07/17 08/08/17 08/09/17 06:59 06:59 06:59 Output Total 1000 Balance -1000 General appearance: PRESENT: obese, well-developed, well-nourished, other - moderate distress--thrashing Head exam: PRESENT: atraumatic, normocephalic Eye exam: PRESENT: conjunctival injection, conjunctiva pink, EOMI, PERRLA. ABSENT: scleral icterus Ear exam: PRESENT: normal external ear exam Mouth exam: PRESENT: dry mucosa, tongue midline Neck exam: PRESENT: lymphadenopathy. ABSENT: JVD, thyromegaly, tracheal deviation Respiratory exam: PRESENT: clear to auscultation rosa isela, symmetrical, tachypnea, unlabored. ABSENT: accessory muscle use, rales, rhonchi, wheezes Cardiovascular exam: PRESENT: RRR, +S1, +S2, tachycardia. ABSENT: diastolic murmur, gallop, rubs, systolic murmur Pulses: PRESENT: normal dorsalis pedis pul Vascular exam: PRESENT: normal capillary refill GI/Abdominal exam: PRESENT: normal bowel sounds, soft. ABSENT: distended, firm , guarding, mass, Toney's sign, organolmegaly, rebound, rigid, tenderness Rectal exam: PRESENT: deferred Extremities exam: PRESENT: clubbing. ABSENT: calf tenderness, pedal edema Neurological exam: PRESENT: altered, motor sensory deficit - left arm Psychiatric exam: PRESENT: agitated, anxious Skin exam: PRESENT: dry, intact, warm. ABSENT: cyanosis, rash Results Laboratory Results: 08/09/17 00:25 08/09/17 08/09/17 08/09/17 00:25 00:25 00:28 Carbonic Acid 0.98 L HCO3/H2CO3 Ratio 27:1 ABG pH 7.53 H ABG pCO2 32.6 L ABG pO2 71.7 L ABG HCO3 26.9 H ABG O2 Saturation 96.1 ABG Base Excess 4.7 FiO2 21% Sodium 145.6 H Potassium 2.5 L* Chloride 97 L Carbon Dioxide 34 H Anion Gap 15 BUN 14 Creatinine 1.10 Est GFR ( Amer) > 60 Est GFR (Non-Af Amer) > 60 Glucose 458 H* Calcium 9.3 Ammonia 19.5 08/09/17 08/09/17 00:25 00:25 Creatine Kinase 55 CK-MB (CK-2) < 0.22 Troponin I 0.080 08/08/17 08/08/17 08/08/17 15:15 15:15 15:15 WBC 18.3 H Hgb 14.3 MCV 78 L Plt Count 521 H PT INR APTT Lactic Acid 2.3 H Phosphorus 5.5 H Magnesium 1.5 L TSH Free T4 Urine Protein Urine Glucose (UA) Urine Ketones Urine Blood CSF Volume CSF Appearance CSF Color CSF WBC CSF RBC CSF Glucose CSF Total Protein 08/08/17 08/08/17 08/08/17 15:15 15:50 19:35 WBC Hgb MCV Plt Count PT INR APTT Lactic Acid 2.0 Phosphorus Magnesium TSH 0.19 L Free T4 2.48 H Urine Protein >=500 H Urine Glucose (UA) >=500 H Urine Ketones 20 H Urine Blood MODERATE H CSF Volume CSF Appearance CSF Color CSF WBC CSF RBC CSF Glucose CSF Total Protein 08/08/17 08/08/17 08/08/17 21:26 21:26 21:26 WBC Hgb MCV Plt Count PT INR APTT Lactic Acid Phosphorus Magnesium TSH Free T4 Urine Protein Urine Glucose (UA) Urine Ketones Urine Blood CSF Volume 8.0 CSF Appearance CLEAR CLEAR CSF Color COLORLESS COLORLESS CSF WBC 1 0 CSF RBC 35 0 CSF Glucose 284 H CSF Total Protein 91 H 08/09/17 00:25 WBC Hgb MCV Plt Count PT 14.9 INR 1.09 APTT 29.1 Lactic Acid Phosphorus Magnesium TSH Free T4 Urine Protein Urine Glucose (UA) Urine Ketones Urine Blood CSF Volume CSF Appearance CSF Color CSF WBC CSF RBC CSF Glucose CSF Total Protein Impressions: Chest X-Ray 08/08/17 16:03 IMPRESSION: NO SIGNIFICANT RADIOGRAPHIC FINDING IN THE CHEST. Head CT 08/08/17 16:23 IMPRESSION: NORMAL BRAIN CT WITHOUT CONTRAST. EVIDENCE OF ACUTE STROKE: NO. Assessment & Plan - Diagnosis (1) Viral meningitis Is this a current diagnosis for this admission?: Yes Plan: Place patient on treatment for both bacterial and viral meningitis until his directigen panel is negative. Check Bhargavi ink Check HIV Check HSV PCR Check enterovirus PCR Send influenza antibodies. Supportive care (2) Severe sepsis Is this a current diagnosis for this admission?: Yes Plan: Maintain map greater than 65 Present on admission Secondary to viral meningitis (3) Acute encephalopathy Is this a current diagnosis for this admission?: Yes Plan: Secondary to acute illness possibly also meningoencephalitis (4) Hypertensive emergency Is this a current diagnosis for this admission?: Yes Plan: Place patient on IV enalapril scheduled as he takes enalapril as an outpatient and scheduled IV metoprolol. Initially when I obtained this patient from the emergency department, his blood pressure had been taken from 210 systolic to 130 systolic. I stopped his Cardene drip at that time. (5) History of CVA (cerebrovascular accident) Is this a current diagnosis for this admission?: Yes Plan: Supportive care Seizure precautions (6) Hyperglycemia due to type 2 diabetes mellitus Qualifiers: Diabetes mellitus jail insulin use: without rat exterminator use Qualified Code(s): E11.65 - Type 2 diabetes mellitus with hyperglycemia Is this a current diagnosis for this admission?: Yes Plan: Place patient on insulin drip at 8 U/h check a q. Accu-Cheks every hour BMP every 4 hours (7) Hypokalemia Is this a current diagnosis for this admission?: Yes Plan: Monitor on telemetry with concern for arrhythmia. Replete and recheck (8) Obesity (BMI 30.0-34.9) Is this a current diagnosis for this admission?: Yes - Time Time Spent: Greater than 70 Minutes Critical Time spent with patient: 35 or more minutes Medications reviewed and adjusted accordingly: Yes - Inpatient Certification Based on my medical assessment, after consideration of the patient's comorbidities, presenting symptoms, or acuity I expect that the services needed warrant INPATIENT care.: Yes I certify that my determination is in accordance with my understanding of Medicare's requirements for reasonable and necessary INPATIENT services [42 CFR 412.3e].: Yes Medical Necessity: Need For IV Fluids, Need For Continuous Telemetry Monitoring , Need for IV Antibiotics Post Hospital Care: D/C Cook Dessert Documentation - Plan Summary Plan Summary: Total time spent with patient including patient family education, physical examination, discussion with ED physician, and formulation of plan was 60 minutes of critical care time.
[2017-08-09] MEDS ORDERED: ACYCLOVIR 800 MG TABLET ONE ×2 (03:08→03:11)
[2017-08-09] MEDS ORDERED: ASPIRIN 300 MG SUPP, RECTAL PR ONE (03:09)
[2017-08-09] MEDS ORDERED: VANCOMYCIN HCL INJ 1000 MG VIAL ONE (03:09)
[2017-08-09] MEDS: POTASSI CL 20 MEQ/50 ML RIDER 20 MEQ/50 ML RTUPB IV SCH ×3 (03:11→04:50)
--- NOTE | 2017-08-09 03:19 | RADIOLOGY REPORT (SQ) ---
EXAM DESCRIPTION: CHEST SINGLE VIEW CLINICAL HISTORY: 56 years, Male, Central line placement COMPARISON: 08/08/2017. FINDINGS: Right internal jugular central line tip at the right atrium; consider 8.7 cm retraction. Clear lung parenchyma, normal cardiac silhouette, no pneumothorax, and intact bony thorax. IMPRESSION: Right internal jugular central line tip at the right atrium; consider 8.7 cm retraction. 2011 [facility]- All Rights Reserved
[2017-08-09 04:13] LABS: APPEARANCE,URINE CLEAR; BILIRUBIN,URINE NEGATIVE (NEGATIVE); COLOR,URINE STRAW; GLUCOSE, URINE >=500 mg/dL (NEGATIVE); KETONES,URINE NEGATIVE (NEGATIVE); LEUKOCYTE ESTERASE,URINE NEGATIVE (NEGATIVE); NITRITE,URINE NEGATIVE (NEGATIVE); PROTEIN,URINE 100 mg/dL (NEGATIVE); URINE SPECIFIC GRAVITY 1.008; UROBILINOGEN,URINE NEGATIVE mg/dL (<2.0)
[2017-08-09] MEDS ORDERED: INFLUENZA ADLT QUAD (36MOS+) 2017-18 VAC 0.5 ML SYR IM PRN (04:14)
[2017-08-09 04:30] LABS: ANION GAP 16 (5-19); BLOOD UREA NITROGEN 10 mg/dL (7-20); CALCIUM 9.1 mg/dL (8.4-10.2); CARBON DIOXIDE 30 mmol/L (22-30); CHLORIDE 106 mmol/L (98-107); GLUCOSE 154 mg/dL (75-110); SODIUM 152.1 mmol/L (137-145)
[2017-08-09] MEDS ORDERED: ACYCLOVIR SODIUM INJ/PF 500 MG/10 ML SDV IV ONE (04:44)
[2017-08-09] MEDS ORDERED: NITROGLYCERIN 2% OINTMENT 1 GM PACKET TP ONE (04:45)
[2017-08-09] MEDS: METOPROLOL TARTRATE PF/INJ 5 MG/5 ML SDV IV SCH ×4 (05:36→23:56)
[2017-08-09] MEDS: ENALAPRILAT DIHYDRATE INJ/PF 1.25 MG/1 ML SDV IV SCH ×3 (05:37→17:20)
[2017-08-09 05:38] LABS: HEMATOCRIT 38.3 % (37.9-51.0); HEMOGLOBIN 12.9 g/dL (13.5-17.0); MEAN CORPUSCULAR HEMOGLOBIN 25.9 pg (27.0-33.4); MEAN CORPUSCULAR HGB CONC 33.6 g/dL (32.0-36.0); MEAN CORPUSCULAR VOLUME 77 fl (80-97); PLATELET COUNT 397 10^3/uL (150-450); RED BLOOD COUNT 4.97 10^6/uL (4.35-5.55); RED CELL DISTRIBUTION WIDTH 14.9 % (11.5-14.0); WHITE BLOOD COUNT 21.1 10^3/uL (4.0-10.5)
[2017-08-09] MEDS: HEPARIN SOD (PORCINE) 5,000 UNIT/ML 1 ML SYRINGE SUBCUT SCH ×3 (05:38→21:12)
[2017-08-09] MEDS: ACYCLOVIR SODIUM 800 MG in NORMAL SALINE 250 ML IV SCH ×3 (05:47→21:12)
[2017-08-09 05:50] LABS: ALANINE AMINOTRANSFERASE 25 U/L (21-72); ALBUMIN 3.9 g/dL (3.5-5.0); ALKALINE PHOSPHATASE 122 U/L (38-126); ANION GAP 11 (5-19); ASPARTATE AMINO TRANSFERASE 13 U/L (17-59); BILIRUBIN,DIRECT 0.3 mg/dL (0.0-0.4); BILIRUBIN,TOTAL 0.7 mg/dL (0.2-1.3); BLOOD UREA NITROGEN 9 mg/dL (7-20); CALCIUM 8.7 mg/dL (8.4-10.2); CARBON DIOXIDE 33 mmol/L (22-30); CHLORIDE 106 mmol/L (98-107); CREATINE KINASE 133 U/L (55-170); GLUCOSE 130 mg/dL (75-110); SODIUM 150.1 mmol/L (137-145); TOTAL PROTEIN 7.1 g/dL (6.3-8.2)
[2017-08-09 05:53] LABS: ABSOLUTE LYMPHOCYTES# (MANUAL) 3.8 10^3/uL (0.5-4.7); ABSOLUTE MONOCYTES # (MANUAL) 0.8 10^3/uL (0.1-1.4); ABSOLUTE NEUTROPHILS# (MANUAL) 16.5 10^3/uL (1.7-8.2); BAND NEUTROPHILS % (MANUAL) 1 % (3-5); BASOPHILS % (MANUAL) 0 % (0-2); EOSINOPHILS % (MANUAL) 0 % (0-6); LYMPHOCYTES % (MANUAL) 18 % (13-45); MONOCYTES % (MANUAL) 4 % (3-13); SEGMENTED NEUTROPHILS % (MAN) 77 % (42-78); TOTAL CELLS COUNTED 100
[2017-08-09 05:55] LABS: ANISOCYTOSIS SLIGHT; PLATELET COMMENT ADEQUATE; PLATELET LARGE PRESENT
[2017-08-09 05:56] LABS: POTASSIUM 2.9 mmol/L (3.6-5.0)
[2017-08-09 06:00] LABS: CREATINE KINASE MB 0.23 ng/mL (<4.55)
[2017-08-09] MEDS ORDERED: ENALAPRILAT DIHYDRATE INJ/PF 1.25 MG/1 ML SDV IV SCH (06:00)
[2017-08-09] MEDS ORDERED: ACYCLOVIR SODIUM 750 MG in NORMAL SALINE 250 ML IV SCH (06:00)
[2017-08-09 06:03] LABS: TROPONIN I 0.14 ng/mL
[2017-08-09] MEDS ORDERED: ACETAMINOPHEN 100 ML IV ONE ×2 (06:15→07:45)
[2017-08-09] MEDS: POTASSIUM CHLORIDE 20 MEQ/50 ML RTU IV SCH ×7 (06:16→23:56)
--- NOTE | 2017-08-09 06:34 | Operative Report ---
Operative Report DATE OF SURGERY: 08/09/17 PREOPERATIVE DIAGNOSIS: Sepsis POSTOPERATIVE DIAGNOSIS: Same OPERATION: 1. Ultrasound directed insertion of triple-lumen central venous access catheter. 2. Interpretation of portable chest x-ray SURGEON: MAREN AARON ANESTHESIA: Local TISSUE REMOVED OR ALTERED: None COMPLICATIONS: None ESTIMATED BLOOD LOSS: Minimal INTRAOPERATIVE FINDINGS: See below PROCEDURE: Informed consent was obtained. The patient was placed in Trendelenburg the right neck and chest wall were exposed, and prepped and draped in a sterile fashion. Surgical plan and surgical timeout discussed. The right neck was anesthetized with 1% lidocaine without epinephrine. Using the variable frequency linear transducer, real time, a 18-gauge needle and wire were threaded into the right internal jugular vein. The tract was dilated up, the dilator removed, and the triple-lumen central venous access catheter was threaded into the right internal jugular vein uneventfully to the hub. There was excellent aspiration and flush of saline through all 3 lumens. The catheter was affixed to the skin with a Biopatch and 2-0 silk suture; sterile dressing applied. The patient tolerated the procedure well. There were no complications. Portable upright chest x-ray showed no evidence pneumothorax, tip of the catheter in the right atrium. Results of the x-ray discussed with nursing staff
[2017-08-09] MEDS ORDERED: ONDANSETRON HCL INJ/PF 4 MG/2 ML SDV IV PRN (08:30)
[2017-08-09] MEDS ORDERED: IPRATROPIUM/ALBUTEROL 0.5-2.5 MG/3 ML AMPUL NEB PRN (08:30)
[2017-08-09] MEDS: LORAZEPAM INJ 2 MG/1 ML VIAL IV PRN ×2 (08:49→17:19)
[2017-08-09 09:14] LABS: ANION GAP 12 (5-19); BLOOD UREA NITROGEN 8 mg/dL (7-20); CALCIUM 8.5 mg/dL (8.4-10.2); CARBON DIOXIDE 31 mmol/L (22-30); CHLORIDE 104 mmol/L (98-107); GLUCOSE 133 mg/dL (75-110); POTASSIUM 3.1 mmol/L (3.6-5.0); SODIUM 147.4 mmol/L (137-145)
[2017-08-09] MEDS: CEFTRIAXONE 2 GM/D5W RTU 2 GM/50 ML RTUPB IV SCH ×2 (09:21→21:13)
[2017-08-09] MEDS: HYDRALAZINE HCL INJ/PF 20 MG/1 ML SDV IV PRN ×2 (09:27→15:06)
--- NOTE | 2017-08-09 09:28 | EKG REPORT ---
SEVERITY:- ABNORMAL ECG - SINUS RHYTHM PROBABLE LEFT ATRIAL ABNORMALITY LEFT VENTRICULAR HYPERTROPHY NONSPECIFIC ST-T CHANGES : Confirmed by: Anel Escalante 09-Aug-2017 09:27:38
[2017-08-09] MEDS ORDERED: DEXTROSE 50%-WATER 25 GM/50 ML DISP.SYRIN IV PRN ×2 (10:33)
[2017-08-09] MEDS ORDERED: DEXTROSE 40% GEL 15 GM TUBE PO PRN ×2 (10:33)
[2017-08-09] MEDS ORDERED: GLUCAGON,HUMAN RECOMB 1 MG INJ IM PRN (10:33)
[2017-08-09] MEDS: NITROGLYCERIN 2% OINTMENT 1 GM PACKET TP SCH ×3 (11:10→23:56)
[2017-08-09] MEDS: INSULIN LISPRO 100 UNIT/ML 3 ML VIAL SUBCUT PRN ×3 (11:12→22:09)
--- NOTE | 2017-08-09 12:59 | RADIOLOGY REPORT (SQ) ---
EXAM DESCRIPTION: MRI HEAD WITHOUT COMPLETED DATE/TIME: 08/09/2017 12:50 pm REASON FOR STUDY: ? Encephalitis COMPARISON: CT dated 08/08/2017. TECHNIQUE: Multiplanar imaging includes non-contrasted T1, T2, FLAIR, and diffusion with ADC map seq uences. Images stored on PACS. LIMITATIONS: Considerable motion artifact. FINDINGS: ANATOMY: No anomalies. Normal vascular flow voids. Pituitary fossa normal. CSF SPACES: Normal in size and contour. No hemorrhage. CEREBRUM: Sulci and gyri normal in size and contour. Normal white matter signal on FLAIR imaging. No evidence of hemorrhage, mass, or extraaxial fluid collection. POSTERIOR FOSSA: No signal alteration. No hemorrhage. No edema, masses or mass effect. Internal deidra tory canals, cerebello-pontine angles, mastoids normal. DIFFUSION IMAGING: Negative for acute or sub-acute infarction. ORBITS: No masses. Globes normal. PARANASAL SINUSES: No fluid levels. Mucosa normal. OTHER: No other significant finding. IMPRESSION: LIMITED STUDY. UNREMARKABLE MRI OF THE BRAIN WITHOUT INTRAVENOUS GADOLINIUM CONTRAST. EVIDENCE OF ACUTE STROKE: NO. TECHNICAL DOCUMENTATION: JOB ID: [id number] [employer]- All Rights Reserved
[2017-08-09 13:35] LABS: ANION GAP 13 (5-19); BLOOD UREA NITROGEN 9 mg/dL (7-20); CALCIUM 8.5 mg/dL (8.4-10.2); CARBON DIOXIDE 29 mmol/L (22-30); CHLORIDE 103 mmol/L (98-107); CREATINE KINASE 308 U/L (55-170); GLUCOSE 286 mg/dL (75-110); POTASSIUM 3.2 mmol/L (3.6-5.0); SODIUM 144.7 mmol/L (137-145)
[2017-08-09 13:46] LABS: CREATINE KINASE MB 0.77 ng/mL (<4.55); TROPONIN I 0.073 ng/mL
--- NOTE | 2017-08-09 17:12 | PDOC PROGRESS REPORT ---
Subjective Progress Note for:: 08/09/17 Subjective:: 56-year-old male with past medical history of diabetes Benzodiazepine dependence Obesity Hypertension Recent stroke. Nicotine dependence The patient presented to the emergency room on August 08 with sudden onset fever and confusion and was found to be encephalopathic in the emergency room and unable to provide a history. Lumbar puncture done in the emergency room showed the CSF to be clear and colorless with 1 WBC the first bottle and none in the second. CT of the head was unremarkable. Chest x-ray was normal. Is admitted to the intensive care unit with a suspected diagnosis of viral meningitis. Bhargavi ink, HSV PCR and HIV are pending. CSF bacterial antigen panel is pending. I spoke to the patient's this afternoon and she said that 3 weeks ago he developed left-sided weakness and was worked up as an outpatient by his primary care provider and was told he had had a stroke. On Tuesday the patient developed some dizziness and then on Tuesday he got some headache. Yesterday August 08 he developed worsening drooping of his left face and some stuttering so EMS was called and he was brought in to the emergency room and found to have fever and altered mentation. MRI of the brain without contrast was done this morning and there was motion artifact but no gross abnormalities were detected. I have ordered an MR I of the brain with contrast as well as MRA of the head and neck. Reason For Visit: SEVERE SEPSIS, HYPERGLYCEMIA, ACUTE ENCEPHALOPATHY Physical Exam Vital Signs: Temp Pulse Resp BP Pulse Ox 101.8 F H 97 21 H 180/90 H 96 08/09/17 07:43 08/09/17 07:43 08/09/17 07:43 08/09/17 07:43 08/09/17 07:43 Intake & Output 08/08/17 08/09/17 08/10/17 06:59 06:59 06:59 Intake Total 1245 Output Total 2800 420 Balance -1555 -420 Weight 107.8 kg Additional comments: Lased -[place]namese gentleman lying in bed not in acute distress he has periods of lucidity where he wakes up and talks. Currently he is fast asleep and groans to sternal rub. Moves all 4 extremities spontaneously Pupils equal reactive to light moist pink oropharyngeal mucosa Positive neck pain with flexion and is unable to completely touch his chin to the chest Lungs clear to auscultation bilaterally normal respiratory effort Cardiac: Sinus regular no peripheral edema no cyanosis no thrills palpable Abdomen: Soft, obese, no focal tenderness, bowel sounds heard Skin: Warm and dry Results Laboratory Results: 08/09/17 05:25 08/09/17 05:25 08/09/17 08/09/17 08/09/17 00:25 00:25 00:25 WBC RBC Hgb Hct MCV MCH MCHC RDW Plt Count Seg Neutrophils % Lymphocytes % Monocytes % Eosinophils % Basophils % Absolute Neutrophils Absolute Lymphocytes Absolute Monocytes Absolute Eosinophils Absolute Basophils Carbonic Acid HCO3/H2CO3 Ratio ABG pH ABG pCO2 ABG pO2 ABG HCO3 ABG O2 Saturation ABG Base Excess FiO2 Sodium 145.6 H Potassium 2.5 L* Chloride 97 L Carbon Dioxide 34 H Anion Gap 15 BUN 14 Creatinine 1.10 Est GFR ( Amer) > 60 Est GFR (Non-Af Amer) > 60 Glucose 458 H* Calcium 9.3 Total Bilirubin AST ALT Alkaline Phosphatase Ammonia 19.5 Total Protein Albumin Free T3 pg/mL 2.61 L Urine Color Urine Appearance Urine pH Ur Specific [place] Urine Protein Urine Glucose (UA) Urine Ketones Urine Blood Urine Nitrite Ur Leukocyte Esterase Urine WBC (Auto) Urine RBC (Auto) 08/09/17 08/09/17 08/09/17 00:28 03:55 04:01 WBC RBC Hgb Hct MCV MCH MCHC RDW Plt Count Seg Neutrophils % Lymphocytes % Monocytes % Eosinophils % Basophils % Absolute Neutrophils Absolute Lymphocytes Absolute Monocytes Absolute Eosinophils Absolute Basophils Carbonic Acid 0.98 L HCO3/H2CO3 Ratio 27:1 ABG pH 7.53 H ABG pCO2 32.6 L ABG pO2 71.7 L ABG HCO3 26.9 H ABG O2 Saturation 96.1 ABG Base Excess 4.7 FiO2 21% Sodium 152.1 H Potassium 3.0 L* Chloride 106 Carbon Dioxide 30 Anion Gap 16 BUN 10 Creatinine 0.89 Est GFR ( Amer) > 60 Est GFR (Non-Af Amer) > 60 Glucose 154 H Calcium 9.1 Total Bilirubin AST ALT Alkaline Phosphatase Ammonia Total Protein Albumin Free T3 pg/mL Urine Color STRAW Urine Appearance CLEAR Urine pH 6.0 Ur Specific [place] 1.008 Urine Protein 100 H Urine Glucose (UA) >=500 H Urine Ketones NEGATIVE Urine Blood MODERATE H Urine Nitrite NEGATIVE Ur Leukocyte Esterase NEGATIVE Urine WBC (Auto) 1 Urine RBC (Auto) 11 08/09/17 08/09/17 05:25 05:25 WBC 21.1 H RBC 4.97 Hgb 12.9 L Hct 38.3 MCV 77 L MCH 25.9 L MCHC 33.6 RDW 14.9 H Plt Count 397 Seg Neutrophils % Not Reportable Lymphocytes % Not Reportable Monocytes % Not Reportable Eosinophils % Not Reportable Basophils % Not Reportable Absolute Neutrophils Not Reportable Absolute Lymphocytes Not Reportable Absolute Monocytes Not Reportable Absolute Eosinophils Not Reportable Absolute Basophils Not Reportable Carbonic Acid HCO3/H2CO3 Ratio ABG pH ABG pCO2 ABG pO2 ABG HCO3 ABG O2 Saturation ABG Base Excess FiO2 Sodium 150.1 H Potassium 2.9 L* Chloride 106 Carbon Dioxide 33 H Anion Gap 11 BUN 9 Creatinine 0.85 Est GFR ( Amer) > 60 Est GFR (Non-Af Amer) > 60 Glucose 130 H Calcium 8.7 Total Bilirubin 0.7 AST 13 L ALT 25 Alkaline Phosphatase 122 Ammonia Total Protein 7.1 Albumin 3.9 Free T3 pg/mL Urine Color Urine Appearance Urine pH Ur Specific [place] Urine Protein Urine Glucose (UA) Urine Ketones Urine Blood Urine Nitrite Ur Leukocyte Esterase Urine WBC (Auto) Urine RBC (Auto) 08/09/17 08/09/17 08/09/17 00:25 00:25 05:25 Creatine Kinase 55 133 CK-MB (CK-2) < 0.22 Troponin I 0.080 08/09/17 05:25 Creatine Kinase CK-MB (CK-2) 0.23 Troponin I 0.140 Impressions: Head CT 08/08/17 16:23 IMPRESSION: NORMAL BRAIN CT WITHOUT CONTRAST. EVIDENCE OF ACUTE STROKE: NO. Chest X-Ray 08/09/17 00:00 IMPRESSION: Right internal jugular central line tip at the right atrium; consider 8.7 cm retraction. 2010 [employer]- All Rights Reserved Assessment & Plan - Diagnosis (1) Acute encephalopathy Is this a current diagnosis for this admission?: Yes (3) History of CVA (cerebrovascular accident) Is this a current diagnosis for this admission?: Yes (4) Hyperglycemia due to type 2 diabetes mellitus Qualifiers: Diabetes mellitus fci insulin use: without fci use Qualified Code(s): E11.65 - Type 2 diabetes mellitus with hyperglycemia Is this a current diagnosis for this admission?: Yes (5) Hypertensive emergency Is this a current diagnosis for this admission?: Yes (6) Hypokalemia Is this a current diagnosis for this admission?: Yes (7) Obesity (BMI 30.0-34.9) Is this a current diagnosis for this admission?: Yes (8) Viral meningitis Is this a current diagnosis for this admission?: Yes - Time Total Critical Time (Minutes): 60 - Plan Summary Plan Summary: Continue antibiotics and acyclovir. CSF studies pending. Check MRI/MRA. Continue aspirin.
[2017-08-09 17:50] LABS: ANION GAP 9 (5-19); BLOOD UREA NITROGEN 10 mg/dL (7-20); CALCIUM 8.3 mg/dL (8.4-10.2); CARBON DIOXIDE 31 mmol/L (22-30); CHLORIDE 105 mmol/L (98-107); GLUCOSE 229 mg/dL (75-110); POTASSIUM 3.4 mmol/L (3.6-5.0); SODIUM 144.6 mmol/L (137-145)
--- NOTE | 2017-08-09 19:27 | RADIOLOGY REPORT (SQ) ---
EXAM DESCRIPTION: MRI HEAD COMBO; MRA HEAD WITHOUT COMPLETED DATE/TIME: 08/09/2017 7:01 pm REASON FOR STUDY: CVA COMPARISON: CT brain 08/08/2017 MRI brain 08/09/2017 TECHNIQUE: Multiplanar imaging includes noncontrasted T1, T2, FLAIR, diffusion with ADC map and post gadolinium contrast T1 sequences. Images stored on PACS. 3D [id number] [place] MRA exam was performed, reviewed with source data and maximum inte nsity projected images in multiple orientations CONTRAST TYPE AND DOSE: 20 mL Multihance. RENAL FUNCTION: GFR > 60. LIMITATIONS: Motion artifact FINDINGS: ANATOMY: No congenital anomalies. Normal vascular flow voids. Pituitary fossa normal. CSF SPACES: Normal in size and contour. No hemorrhage. CEREBRUM: Sulci and gyri normal in size and contour. Normal white matter signal on FLAIR imaging. No evidence of hemorrhage, mass, or extraaxial fluid collection. No abnormal enhancement post contrast. POSTERIOR FOSSA: No signal alteration. No hemorrhage. No edema, masses, or mass effect. Internal deidra tory canals, cerebellopontine angles, mastoids normal. No enhancing lesions. No abnormal enhancement post contrast. DIFFUSION IMAGING: Negative for acute or subacute infarction. ORBITS: No masses. Globes normal. PARANASAL SINUSES: No fluid levels. Mucosa normal. [place] MRA: No other significant finding. No [place] stenosis, vascular malformat ion, or aneurysm. IMPRESSION: NORMAL MRI OF THE BRAIN WITHOUT AND WITH INTRAVENOUS GADOLINIUM CONTRAST. UNREMARKABLE [place] MRA EXAM EVIDENCE OF ACUTE STROKE: NO. TECHNICAL DOCUMENTATION: JOB ID: [id number] [employer]- All Rights Reserved
--- NOTE | 2017-08-09 19:27 | RADIOLOGY REPORT (SQ) ---
EXAM DESCRIPTION: MRI HEAD COMBO; MRA HEAD WITHOUT COMPLETED DATE/TIME: 08/09/2017 7:01 pm REASON FOR STUDY: CVA COMPARISON: CT brain 08/08/2017 MRI brain 08/09/2017 TECHNIQUE: Multiplanar imaging includes noncontrasted T1, T2, FLAIR, diffusion with ADC map and post gadolinium contrast T1 sequences. Images stored on PACS. 3D [id number]-psfmpk [place] MRA exam was performed, reviewed with source data and maximum inte nsity projected images in multiple orientations CONTRAST TYPE AND DOSE: 20 mL Multihance. RENAL FUNCTION: GFR > 60. LIMITATIONS: Motion artifact FINDINGS: ANATOMY: No congenital anomalies. Normal vascular flow voids. Pituitary fossa normal. CSF SPACES: Normal in size and contour. No hemorrhage. CEREBRUM: Sulci and gyri normal in size and contour. Normal white matter signal on FLAIR imaging. No evidence of hemorrhage, mass, or extraaxial fluid collection. No abnormal enhancement post contrast. POSTERIOR FOSSA: No signal alteration. No hemorrhage. No edema, masses, or mass effect. Internal deidra tory canals, cerebellopontine angles, mastoids normal. No enhancing lesions. No abnormal enhancement post contrast. DIFFUSION IMAGING: Negative for acute or subacute infarction. ORBITS: No masses. Globes normal. PARANASAL SINUSES: No fluid levels. Mucosa normal. [place] MRA: No other significant finding. No [place] stenosis, vascular malformat ion, or aneurysm. IMPRESSION: NORMAL MRI OF THE BRAIN WITHOUT AND WITH INTRAVENOUS GADOLINIUM CONTRAST. UNREMARKABLE [place] MRA EXAM EVIDENCE OF ACUTE STROKE: NO. TECHNICAL DOCUMENTATION: JOB ID: [id number] [employer]- All Rights Reserved
--- NOTE | 2017-08-09 19:32 | RADIOLOGY REPORT (SQ) ---
EXAM DESCRIPTION: MRA NECK COMBO COMPLETED DATE/TIME: 08/09/2017 7:01 pm REASON FOR STUDY: CVA COMPARISON: MRI brain 08/09/2017 CT brain 08/08/2017 TECHNIQUE: MRA of the carotid and vertebral arteries was performed using 2D and 3D lrgc-yn-mpuxal te chniques without and with the use of gadolinium. 3-D MIPs performed at the workstation and stored on PACS. CONTRAST TYPE AND DOSE: 20 mL Multihance. RENAL FUNCTION: Creatinine 0.85 LIMITATIONS: Motion artifact FINDINGS: GREAT VESSEL ORIGINS: Not well seen VERTEBRAL ARTERIES: Origins of the vertebral arteries are not well seen. Remainder of the vertebral arteries demonstrate no stenoses. No evidence for aneurysm or dissection. RIGHT CAROTID SYSTEM: No significant stenosis. LEFT CAROTID SYSTEM: No significant stenosis. OTHER: No other significant finding. IMPRESSION: LIMITED VISUALIZATION OF THE ORIGIN OF THE GREAT VESSELS AND PROXIMAL LEFT VERTEBRAL ART SANDY. OTHERWISE, NORMAL MRA OF THE CAROTIDS WITH AND WITHOUT CONTRAST. COMMENT: Quality ID #[id number]: Measurements of distal internal carotid diameter were used as the denomina tor for stenosis measurement. TECHNICAL DOCUMENTATION: JOB ID: [id number] [employer]- All Rights Reserved
[2017-08-09 21:26] LABS: ANION GAP 9 (5-19); BLOOD UREA NITROGEN 10 mg/dL (7-20); CALCIUM 8.2 mg/dL (8.4-10.2); CARBON DIOXIDE 29 mmol/L (22-30); CHLORIDE 104 mmol/L (98-107); GLUCOSE 216 mg/dL (75-110); POTASSIUM 3.2 mmol/L (3.6-5.0)
[2017-08-10] MEDS: ENALAPRILAT DIHYDRATE INJ/PF 1.25 MG/1 ML SDV IV SCH ×2 (00:47→05:21)
[2017-08-10 01:22] LABS: ANION GAP 9 (5-19); BLOOD UREA NITROGEN 11 mg/dL (7-20); CARBON DIOXIDE 30 mmol/L (22-30); CHLORIDE 106 mmol/L (98-107); GLUCOSE 203 mg/dL (75-110); POTASSIUM 3.9 mmol/L (3.6-5.0); SODIUM 145.4 mmol/L (137-145)
[2017-08-10] MEDS: INSULIN LISPRO 100 UNIT/ML 3 ML VIAL SUBCUT PRN ×4 (02:15→20:40)
[2017-08-10] MEDS: NORMAL SALINE 1000 ML 1,000 ML IV PRN (02:15)
[2017-08-10] MEDS: NITROGLYCERIN 2% OINTMENT 1 GM PACKET TP SCH (05:21)
[2017-08-10] MEDS: METOPROLOL TARTRATE PF/INJ 5 MG/5 ML SDV IV SCH (05:21)
[2017-08-10] MEDS: ACYCLOVIR SODIUM 800 MG in NORMAL SALINE 250 ML IV SCH (05:22)
[2017-08-10] MEDS: HEPARIN SOD (PORCINE) 5,000 UNIT/ML 1 ML SYRINGE SUBCUT SCH (05:23)
[2017-08-10 05:34] LABS: HEMATOCRIT 37.4 % (37.9-51.0); HEMOGLOBIN 12.2 g/dL (13.5-17.0); MEAN CORPUSCULAR HEMOGLOBIN 25.6 pg (27.0-33.4); MEAN CORPUSCULAR HGB CONC 32.5 g/dL (32.0-36.0); MEAN CORPUSCULAR VOLUME 79 fl (80-97); PLATELET COUNT 343 10^3/uL (150-450); RED BLOOD COUNT 4.74 10^6/uL (4.35-5.55); RED CELL DISTRIBUTION WIDTH 14.9 % (11.5-14.0); WHITE BLOOD COUNT 14.9 10^3/uL (4.0-10.5)
[2017-08-10 05:54] LABS: ALANINE AMINOTRANSFERASE 16 U/L (21-72); ALBUMIN 3.2 g/dL (3.5-5.0); ALKALINE PHOSPHATASE 94 U/L (38-126); ANION GAP 8 (5-19); ASPARTATE AMINO TRANSFERASE 17 U/L (17-59); BILIRUBIN,DIRECT 0.3 mg/dL (0.0-0.4); BILIRUBIN,TOTAL 0.8 mg/dL (0.2-1.3); BLOOD UREA NITROGEN 10 mg/dL (7-20); CALCIUM 8.2 mg/dL (8.4-10.2); CARBON DIOXIDE 31 mmol/L (22-30); CHLORIDE 106 mmol/L (98-107); CHOLESTEROL 200.84 mg/dL (0-200); GLUCOSE 184 mg/dL (75-110); MAGNESIUM 1.5 mg/dL (1.6-2.3); POTASSIUM 3.3 mmol/L (3.6-5.0); SODIUM 145.3 mmol/L (137-145); TOTAL PROTEIN 5.8 g/dL (6.3-8.2); TRIGLYCERIDES 223 mg/dL (<150)
[2017-08-10] MEDS: LORAZEPAM INJ 2 MG/1 ML VIAL IV PRN (05:58)
[2017-08-10 06:05] LABS: DIRECT LDL 129 mg/dL (<100)
[2017-08-10 06:06] LABS: VLDL CHOLESTEROL 44.6 mg/dL (10-31)
[2017-08-10] MEDS ORDERED: INSULIN GLARGINE,HUM.REC.ANLOG 1,000 UNIT/10 ML UNIT SUBCUT SCH (07:45)
[2017-08-10] MEDS ORDERED: DEXTROSE 40% GEL 15 GM TUBE PO PRN ×2 (08:11)
[2017-08-10] MEDS ORDERED: DEXTROSE 50%-WATER 25 GM/50 ML DISP.SYRIN IV PRN ×2 (08:11)
[2017-08-10] MEDS ORDERED: GLUCAGON,HUMAN RECOMB 1 MG INJ IM PRN (08:11)
[2017-08-10] MEDS: POTASSIUM CHLORIDE 20 MEQ/50 ML RTU IV SCH ×3 (08:24→22:54)
[2017-08-10 08:56] LABS: ABSOLUTE BASOPHILS # (AUTO) 0.2 10^3/uL (0.0-0.2); ABSOLUTE LYMPHOCYTES (AUTO) 3.1 10^3/uL (0.5-4.7); ABSOLUTE MONOCYTES (AUTO) 1.5 10^3/uL (0.1-1.4); ABSOLUTE NEUT (AUTO) 9.7 10^3/uL (1.7-8.2); BASOPHILS % (AUTO) 1.1 % (0-2); EOSINOPHILS % (AUTO) 0.1 % (0-6); HEMOGLOBIN 12.6 g/dL (13.5-17.0); LYMPHOCYTES % (AUTO) 21.4 % (13-45); MEAN CORPUSCULAR HGB CONC 33.1 g/dL (32.0-36.0); MEAN CORPUSCULAR VOLUME 79 fl (80-97); MONOCYTES % (AUTO) 10.1 % (3-13); PLATELET COUNT 357 10^3/uL (150-450); RED BLOOD COUNT 4.84 10^6/uL (4.35-5.55); RED CELL DISTRIBUTION WIDTH 14.9 % (11.5-14.0); SEGMENTED NEUTROPHILS % (AUTO) 67.3 % (42-78); TOTAL CELLS COUNTED % (AUTO) 100 %; WHITE BLOOD COUNT 14.4 10^3/uL (4.0-10.5)
[2017-08-10 09:10] LABS: ALANINE AMINOTRANSFERASE 24 U/L (21-72); ALBUMIN 3.4 g/dL (3.5-5.0); ALKALINE PHOSPHATASE 102 U/L (38-126); ANION GAP 13 (5-19); ASPARTATE AMINO TRANSFERASE 18 U/L (17-59); BILIRUBIN,DIRECT 0.3 mg/dL (0.0-0.4); BLOOD UREA NITROGEN 9 mg/dL (7-20); CALCIUM 8.3 mg/dL (8.4-10.2); CARBON DIOXIDE 27 mmol/L (22-30); CHLORIDE 103 mmol/L (98-107); GLUCOSE 209 mg/dL (75-110); MAGNESIUM 1.4 mg/dL (1.6-2.3); PHOSPHORUS 2.5 mg/dL (2.5-4.5); POTASSIUM 3.2 mmol/L (3.6-5.0); SODIUM 143.3 mmol/L (137-145); TOTAL PROTEIN 6.3 g/dL (6.3-8.2)
[2017-08-10] MEDS: MULTIVITAMIN TABLET PO SCH (09:39)
[2017-08-10] MEDS: ASPIRIN 325 MG TABLET, ENT COATED PO SCH (09:39)
[2017-08-10] MEDS: MAGNESIUM SULFATE 1 GM/D5W 100 ML IV SCH ×2 (09:41→10:32)
[2017-08-10] MEDS: CEFTRIAXONE 2 GM/D5W RTU 2 GM/50 ML RTUPB IV SCH (09:42)
[2017-08-10] MEDS ORDERED: ASPIRIN 300 MG SUPP, RECTAL PR SCH (10:00)
[2017-08-10] MEDS ORDERED: METOPROLOL SUCCINATE 50 MG TAB.SR.24H PO SCH (10:00)
[2017-08-10] MEDS ORDERED: ENOXAPARIN SODIUM INJ 40 MG/0.4 ML DISP.SYRIN SUBCUT SCH ×2 (10:00)
[2017-08-10] MEDS ORDERED: (PENDING PHARMACY ID) (Enalapril Maleate [Vasotec 20 Mg Tablet] 20 MG) PO SCH (10:00)
[2017-08-10] MEDS ORDERED: INSULIN GLARGINE,HUM.REC.ANLOG 300 UNIT/3 ML INSULN.PEN SUBCUT SCH (10:00)
[2017-08-10] MEDS ORDERED: LACTOBACILLUS ACIDOPHILUS 250 MG TAB PO SCH (10:00)
--- NOTE | 2017-08-10 10:29 | EKG REPORT ---
SEVERITY:- ABNORMAL ECG - SINUS TACHYCARDIA PROBABLE LEFT VENTRICULAR HYPERTROPHY : Confirmed by: Anel Escalante 10-Aug-2017 10:28:20
[2017-08-10] MEDS: ENALAPRIL MALEATE 10 MG TABLET PO SCH ×2 (10:33→20:34)
[2017-08-10] MEDS: ENOXAPARIN SODIUM INJ 40 MG/0.4 ML DISP.SYRIN SUBCUT SCH (10:44)
[2017-08-10 11:28] LABS: INTERNATIONAL RATION (INR) 1.03; PROTHROMBIN TIME 14.2 SEC (11.4-15.4)
[2017-08-10] MEDS ORDERED: LACTOBACILLUS ACIDOPHILUS 250 MG TAB PO ONE (12:00)
[2017-08-10 12:08] LABS: A TYPE INFLUENZA AG NEGATIVE (NEGATIVE); B INFLUENZA AG NEGATIVE (NEGATIVE)
[2017-08-10] MEDS: VANCOMYCIN HCL INJ 500 MG VIAL PO SCH ×3 (12:31→23:40)
[2017-08-10 14:03] LABS: ANION GAP 12 (5-19); BLOOD UREA NITROGEN 10 mg/dL (7-20); CALCIUM 8.8 mg/dL (8.4-10.2); CARBON DIOXIDE 28 mmol/L (22-30); CHLORIDE 100 mmol/L (98-107); GLUCOSE 324 mg/dL (75-110); POTASSIUM 3.6 mmol/L (3.6-5.0)
--- NOTE | 2017-08-10 15:04 | EEG PRO FEE REPORT ---
EEG INTERPRETATION PATIENT NAME: LEN MACIAS ROOM#: [id number] ORDER#: [id number] DATE OF STUDY: 08/09/2017 : 1960 REFERRING MD: VALERIY LOWE M.D. DIAGNOSIS: Seizures REPORT The background activity while the patient is somewhat drowsy is noted was around 6-7 Hz theta throughout. No clear focal slowing or amplitude asymmetry is seen although occasionally early drowsy bursts are noted motion artifact is seen. None of this on video is correlated with any seizure type activity. Again no amplitude asymmetry, focal slowing or epileptiform discharges are noted. IMPRESSION Normal drowsy EEG for age INTERPRETING PHYSICIAN: OTMA AYOUB M.D. /: MTEFFT TT: [id number] ID: [id number] /: [id number] TD: [id number] JOB: [id number] cc:Ana DENNISON M.D. MAY MOKBELPU, M.D. >
--- NOTE | 2017-08-10 16:17 | PDOC PROGRESS REPORT ---
Subjective Progress Note for:: 08/10/17 Subjective:: 56-year-old male with past medical history of diabetes Benzodiazepine dependence Obesity Hypertension Recent stroke. Nicotine dependence The patient presented to the emergency room on August 08 with sudden onset fever and confusion and was found to be encephalopathic in the emergency room and unable to provide a history. Lumbar puncture done in the emergency room showed the CSF to be clear and colorless with 1 WBC the first bottle and none in the second. MRI/MRA brain, MRA neck within normal limits. Likely has viral meningitis which is improving. he is up in his chair eating, oriented, alert. has diarrhea- C dif positive- started on PO Vanc. Reason For Visit: SEVERE SEPSIS, HYPERGLYCEMIA, ACUTE ENCEPHALOPATHY Physical Exam Vital Signs: Temp Pulse Resp BP Pulse Ox 98.4 F 103 H 12 165/95 H 100 08/10/17 14:00 08/10/17 14:00 08/10/17 14:00 08/10/17 14:00 08/10/17 14:00 Intake & Output 08/09/17 08/10/17 08/11/17 06:59 06:59 06:59 Intake Total 1245 4929 Output Total 2800 3890 2575 Balance -1555 1039 -2575 Weight 107.8 kg 106.7 kg Additional comments: AAOx3 no facial droop, moror 5/5 b/l upper and lower extremity sensation intact and equal speech clear and fluent no cerebellar signs/ no tremor cardiac s1 s2 reg. no edema, no cyanosis abdomen: soft, non tender, normal bowel sounds skin: warm and dry Results Laboratory Results: 08/10/17 08:30 08/10/17 13:20 08/09/17 08/09/17 08/10/17 17:10 21:00 00:55 WBC RBC Hgb Hct MCV MCH MCHC RDW Plt Count Seg Neutrophils % Lymphocytes % Monocytes % Eosinophils % Basophils % Absolute Neutrophils Absolute Lymphocytes Absolute Monocytes Absolute Eosinophils Absolute Basophils Sodium 144.6 142.0 145.4 H Potassium 3.4 L 3.2 L 3.9 Chloride 105 104 106 Carbon Dioxide 31 H 29 30 Anion Gap 9 9 9 BUN 10 10 11 Creatinine 0.72 0.68 0.64 Est GFR ( Amer) > 60 > 60 > 60 Est GFR (Non-Af Amer) > 60 > 60 > 60 Glucose 229 H 216 H 203 H Calcium 8.3 L 8.2 L 8.0 L Phosphorus Magnesium Total Bilirubin AST ALT Alkaline Phosphatase Total Protein Albumin Triglycerides Cholesterol LDL Cholesterol Direct VLDL Cholesterol HDL Cholesterol 08/10/17 08/10/17 08/10/17 04:55 04:55 08:30 WBC 14.9 H 14.4 H RBC 4.74 4.84 Hgb 12.2 L 12.6 L Hct 37.4 L 38.0 MCV 79 L 79 L MCH 25.6 L 26.0 L MCHC 32.5 33.1 RDW 14.9 H 14.9 H Plt Count 343 357 Seg Neutrophils % 67.3 Lymphocytes % 21.4 Monocytes % 10.1 Eosinophils % 0.1 Basophils % 1.1 Absolute Neutrophils 9.7 H Absolute Lymphocytes 3.1 Absolute Monocytes 1.5 H Absolute Eosinophils 0.0 Absolute Basophils 0.2 Sodium 145.3 H Potassium 3.3 L Chloride 106 Carbon Dioxide 31 H Anion Gap 8 BUN 10 Creatinine 0.60 Est GFR ( Amer) > 60 Est GFR (Non-Af Amer) > 60 Glucose 184 H Calcium 8.2 L Phosphorus Magnesium 1.5 L Total Bilirubin 0.8 AST 17 ALT 16 L Alkaline Phosphatase 94 Total Protein 5.8 L Albumin 3.2 L Triglycerides 223 H Cholesterol 200.84 H LDL Cholesterol Direct 129 H VLDL Cholesterol 44.6 H HDL Cholesterol 35 L 08/10/17 08/10/17 08:30 13:20 WBC RBC Hgb Hct MCV MCH MCHC RDW Plt Count Seg Neutrophils % Lymphocytes % Monocytes % Eosinophils % Basophils % Absolute Neutrophils Absolute Lymphocytes Absolute Monocytes Absolute Eosinophils Absolute Basophils Sodium 143.3 140.0 Potassium 3.2 L 3.6 Chloride 103 100 Carbon Dioxide 27 28 Anion Gap 13 12 BUN 9 10 Creatinine 0.62 0.62 Est GFR ( Amer) > 60 > 60 Est GFR (Non-Af Amer) > 60 > 60 Glucose 209 H 324 H Calcium 8.3 L 8.8 Phosphorus 2.5 Magnesium 1.4 L Total Bilirubin 1.0 AST 18 ALT 24 Alkaline Phosphatase 102 Total Protein 6.3 Albumin 3.4 L Triglycerides Cholesterol LDL Cholesterol Direct VLDL Cholesterol HDL Cholesterol 08/09/17 19:00 Sputum Gram Stain - Final 08/09/17 19:00 Sputum Sputum Culture - Final C.albicans/C.dubliniensis Normal Jen Absent 08/09/17 08/09/17 08/09/17 00:25 00:25 05:25 Creatine Kinase 55 133 CK-MB (CK-2) < 0.22 Troponin I 0.080 08/09/17 08/09/17 08/09/17 05:25 13:00 13:00 Creatine Kinase 308 H CK-MB (CK-2) 0.23 0.77 Troponin I 0.140 0.073 Impressions: Head CT 08/08/17 16:23 IMPRESSION: NORMAL BRAIN CT WITHOUT CONTRAST. EVIDENCE OF ACUTE STROKE: NO. Brain MRI with MRA 08/09/17 00:00 IMPRESSION: NORMAL MRI OF THE BRAIN WITHOUT AND WITH INTRAVENOUS GADOLINIUM CONTRAST. UNREMARKABLE [place] MRA EXAM EVIDENCE OF ACUTE STROKE: NO. Chest X-Ray 08/09/17 00:00 IMPRESSION: Right internal jugular central line tip at the right atrium; consider 8.7 cm retraction. 2010 [employer]- All Rights Reserved Head MRI 08/09/17 00:00 IMPRESSION: NORMAL MRI OF THE BRAIN WITHOUT AND WITH INTRAVENOUS GADOLINIUM CONTRAST. UNREMARKABLE [place] MRA EXAM EVIDENCE OF ACUTE STROKE: NO. Neck MRA 08/09/17 00:00 IMPRESSION: LIMITED VISUALIZATION OF THE ORIGIN OF THE [place] AND PROXIMAL LEFT VERTEBRAL ARTERY. OTHERWISE, NORMAL MRA OF THE CAROTIDS WITH AND WITHOUT CONTRAST. Assessment & Plan - Diagnosis (1) Acute encephalopathy Is this a current diagnosis for this admission?: Yes (3) History of CVA (cerebrovascular accident) Is this a current diagnosis for this admission?: Yes (4) Hyperglycemia due to type 2 diabetes mellitus Qualifiers: Diabetes mellitus rn long term care insulin use: without mcc use Qualified Code(s): E11.65 - Type 2 diabetes mellitus with hyperglycemia Is this a current diagnosis for this admission?: Yes (5) Hypertensive emergency Is this a current diagnosis for this admission?: Yes (6) Hypokalemia Is this a current diagnosis for this admission?: Yes (7) Obesity (BMI 30.0-34.9) Is this a current diagnosis for this admission?: Yes (8) Viral meningitis Is this a current diagnosis for this admission?: Yes - Time Time Spent with patient: 35 or more minutes - Plan Summary Plan Summary: Acute viral meningitis improving- cont supportive care PO vanc for c diff diarrhea bacterial meningitis ruled out- stop antibiotics history of TIA- continue Aspirin
[2017-08-10] MEDS: LACTOBACILLUS ACIDOPHILUS 250 MG TAB PO SCH (17:09)
[2017-08-10 18:03] LABS: ANION GAP 10 (5-19); BLOOD UREA NITROGEN 10 mg/dL (7-20); CALCIUM 9.3 mg/dL (8.4-10.2); CARBON DIOXIDE 30 mmol/L (22-30); CHLORIDE 99 mmol/L (98-107); GLUCOSE 291 mg/dL (75-110); POTASSIUM 3.2 mmol/L (3.6-5.0); SODIUM 139.4 mmol/L (137-145)
[2017-08-10] MEDS: ACETAMINOPHEN 325 MG TABLET PO PRN (18:05)
[2017-08-10 21:07] LABS: HSV I DNA Negative (Negative)
[2017-08-10 21:15] LABS: ANION GAP 10 (5-19); BLOOD UREA NITROGEN 9 mg/dL (7-20); CALCIUM 9.4 mg/dL (8.4-10.2); CARBON DIOXIDE 30 mmol/L (22-30); CHLORIDE 97 mmol/L (98-107); GLUCOSE 328 mg/dL (75-110); POTASSIUM 3.2 mmol/L (3.6-5.0); SODIUM 136.7 mmol/L (137-145)
[2017-08-10] MEDS: HYDRALAZINE HCL INJ/PF 20 MG/1 ML SDV IV PRN (23:00)
[2017-08-10] MEDS: ALPRAZOLAM 0.5 MG TABLET PO PRN (23:31)
[2017-08-11] MEDS ORDERED: FUROSEMIDE INJ/PF 40 MG/4 ML SDV ONE (00:02)
[2017-08-11] MEDS: HYDRALAZINE HCL INJ/PF 20 MG/1 ML SDV IV PRN ×3 (00:08→16:30)
[2017-08-11] MEDS: POTASSIUM CHLORIDE 20 MEQ/50 ML RTU IV SCH ×5 (00:09→13:12)
[2017-08-11] MEDS ORDERED: HYDRALAZINE HCL INJ/PF 20 MG/1 ML SDV IV ONE (00:15)
[2017-08-11] MEDS ORDERED: FUROSEMIDE INJ/PF 40 MG/4 ML SDV IV ONE (00:15)
[2017-08-11 02:09] LABS: ANION GAP 14 (5-19); BLOOD UREA NITROGEN 9 mg/dL (7-20); CALCIUM 9.2 mg/dL (8.4-10.2); CARBON DIOXIDE 25 mmol/L (22-30); CHLORIDE 100 mmol/L (98-107); GLUCOSE 317 mg/dL (75-110); POTASSIUM 3.3 mmol/L (3.6-5.0); SODIUM 138.6 mmol/L (137-145)
--- NOTE | 2017-08-11 03:46 | RADIOLOGY REPORT (SQ) ---
EXAM DESCRIPTION: CHEST SINGLE VIEW CLINICAL HISTORY: 57 years, Male, sob chf? COMPARISON: None. LIMITATIONS: None. FINDINGS: Adequate lung volume, clear parenchyma, normal cardiac silhouette, and intact bony thorax. Right jugular tip at the right atrium; consider 9 cm retraction. No pneumothorax. Stable. IMPRESSION: No acute cardiopulmonary findings. 2011 [employer]- All Rights Reserved
[2017-08-11] MEDS: VANCOMYCIN HCL INJ 500 MG VIAL PO SCH ×4 (05:10→23:38)
[2017-08-11] MEDS: LANSOPRAZOLE 30 MG TAB.RAP.DR PO SCH (05:11)
[2017-08-11] MEDS: GUAIFENESIN SYRP 200 MG/10 ML UDC PO PRN ×2 (05:11→14:23)
[2017-08-11 06:04] LABS: ANION GAP 11 (5-19); BLOOD UREA NITROGEN 9 mg/dL (7-20); C-REACTIVE PROTEIN 43.1 mg/L (<10.0); CALCIUM 9.2 mg/dL (8.4-10.2); CARBON DIOXIDE 28 mmol/L (22-30); CHLORIDE 100 mmol/L (98-107); GLUCOSE 331 mg/dL (75-110); POTASSIUM 3.7 mmol/L (3.6-5.0); SODIUM 138.9 mmol/L (137-145)
[2017-08-11 07:09] LABS: HSV II DNA Negative (Negative)
[2017-08-11] MEDS: INSULIN LISPRO 100 UNIT/ML 3 ML VIAL SUBCUT PRN ×4 (07:46→23:41)
[2017-08-11] MEDS ORDERED: METOPROLOL TARTRATE PF/INJ 5 MG/5 ML SDV IV ONE (08:24)
[2017-08-11] MEDS ORDERED: GLUCAGON,HUMAN RECOMB 1 MG INJ IM PRN (09:11)
[2017-08-11] MEDS ORDERED: DEXTROSE 50%-WATER 25 GM/50 ML DISP.SYRIN IV PRN ×2 (09:11)
[2017-08-11] MEDS ORDERED: DEXTROSE 40% GEL 15 GM TUBE PO PRN ×2 (09:11)
[2017-08-11] MEDS: LACTOBACILLUS ACIDOPHILUS 250 MG TAB PO SCH ×2 (09:22→18:49)
[2017-08-11] MEDS: ASPIRIN 325 MG TABLET, ENT COATED PO SCH (09:22)
[2017-08-11] MEDS: ACETAMINOPHEN 325 MG TABLET PO PRN (09:23)
[2017-08-11] MEDS: MULTIVITAMIN TABLET PO SCH (09:23)
[2017-08-11] MEDS: ENOXAPARIN SODIUM INJ 40 MG/0.4 ML DISP.SYRIN SUBCUT SCH (09:25)
[2017-08-11] MEDS: AMLODIPINE BESYLATE 5 MG TABLET PO SCH (09:34)
[2017-08-11] MEDS: METOPROLOL SUCCINATE 50 MG TAB.SR.24H PO SCH (09:35)
[2017-08-11] MEDS: INSULIN GLARGINE,HUM.REC.ANLOG 300 UNIT/3 ML INSULN.PEN SUBCUT SCH (09:36)
[2017-08-11] MEDS: ENALAPRIL MALEATE 10 MG TABLET PO SCH ×2 (09:38→22:26)
[2017-08-11] MEDS ORDERED: INSULIN GLARGINE,HUM.REC.ANLOG 300 UNIT/3 ML INSULN.PEN SUBCUT SCH (10:00)
[2017-08-11 10:21] LABS: ALANINE AMINOTRANSFERASE 22 U/L (21-72); ALBUMIN 3.9 g/dL (3.5-5.0); ALKALINE PHOSPHATASE 120 U/L (38-126); ANION GAP 11 (5-19); ASPARTATE AMINO TRANSFERASE 17 U/L (17-59); BILIRUBIN,DIRECT 0.2 mg/dL (0.0-0.4); BILIRUBIN,TOTAL 0.6 mg/dL (0.2-1.3); BLOOD UREA NITROGEN 9 mg/dL (7-20); CALCIUM 9.7 mg/dL (8.4-10.2); CARBON DIOXIDE 29 mmol/L (22-30); CHLORIDE 100 mmol/L (98-107); MAGNESIUM 1.7 mg/dL (1.6-2.3); PHOSPHORUS 2.1 mg/dL (2.5-4.5); POTASSIUM 3.3 mmol/L (3.6-5.0); SODIUM 139.7 mmol/L (137-145); TOTAL PROTEIN 6.8 g/dL (6.3-8.2)
[2017-08-11 10:33] LABS: GLUCOSE 421 mg/dL (75-110)
[2017-08-11] MEDS: CHOLESTYRAMINE/ASPARTAME 4 GM PACKET PO SCH ×3 (11:37→22:26)
[2017-08-11] MEDS: INSULIN LISPRO 100 UNIT/ML 3 ML VIAL SUBCUT SCH ×2 (11:46→16:42)
[2017-08-11] MEDS ORDERED: SODIUM PHOS,M-BASIC-D-BASIC 15 MMOL in NORMAL SALINE 250 ML IV ONE (13:00)
--- NOTE | 2017-08-11 16:56 | PDOC PROGRESS REPORT ---
Subjective Progress Note for:: 08/11/17 Subjective:: 56-year-old male with past medical history of diabetes Benzodiazepine dependence Obesity Hypertension Recent stroke. Nicotine dependence The patient presented to the emergency room on August 08 with sudden onset fever and confusion and was diagnosed with acute viral meningitis. He is doing much better now. He also developed diarrhea positive for C. difficile and is on oral vancomycin. He has an acute bronchitis. Chest x-ray was within normal limits. Reason For Visit: SEVERE SEPSIS, HYPERGLYCEMIA, ACUTE ENCEPHALOPATHY Physical Exam Vital Signs: Temp Pulse Resp BP Pulse Ox 99.0 F 114 H 15 159/105 H 100 08/11/17 12:00 08/11/17 14:00 08/11/17 14:00 08/11/17 12:09 08/11/17 12:09 Intake & Output 08/10/17 08/11/17 08/12/17 06:59 06:59 06:59 Intake Total 4929 1015 250 Output Total 3890 2575 500 Balance 1039 -1560 -250 Weight 106.7 kg 105.6 kg Additional comments: We will developed, well-nourished -Tajik gentleman sitting up in his chair not in acute distress Neuro: Awake and alert oriented 3 no facial droop speech is clear and fluent motor strength 5 out of 5 bilateral upper and lower extremities, sensation is equal and intact bilaterally No cerebellar signs no tremor Cardiac: S1-S2 regular no murmurs heard no peripheral edema no cyanosis no calf tenderness Respiratory: Scattered rhonchi bilaterally no wheezing or crackles normal respiratory effort Abdomen: Soft, no focal tenderness normal bowel sounds Skin: Warm and dry Results Laboratory Results: 08/10/17 08:30 08/11/17 09:50 08/10/17 08/10/17 08/11/17 17:15 20:40 01:48 Sodium 139.4 136.7 L 138.6 Potassium 3.2 L 3.2 L 3.3 L Chloride 99 97 L 100 Carbon Dioxide 30 30 25 Anion Gap 10 10 14 BUN 10 9 9 Creatinine 0.63 0.68 0.63 Est GFR ( Amer) > 60 > 60 > 60 Est GFR (Non-Af Amer) > 60 > 60 > 60 Glucose 291 H 328 H 317 H Calcium 9.3 9.4 9.2 Phosphorus Magnesium Total Bilirubin AST ALT Alkaline Phosphatase C-Reactive Protein Total Protein Albumin 08/11/17 08/11/17 05:24 09:50 Sodium 138.9 139.7 Potassium 3.7 3.3 L Chloride 100 100 Carbon Dioxide 28 29 Anion Gap 11 11 BUN 9 9 Creatinine 0.66 0.72 Est GFR ( Amer) > 60 > 60 Est GFR (Non-Af Amer) > 60 > 60 Glucose 331 H 421 H* Calcium 9.2 9.7 Phosphorus 2.1 L Magnesium 1.7 Total Bilirubin 0.6 AST 17 ALT 22 Alkaline Phosphatase 120 C-Reactive Protein 43.1 H Total Protein 6.8 Albumin 3.9 08/09/17 08/09/17 08/09/17 00:25 00:25 05:25 Creatine Kinase 55 133 CK-MB (CK-2) < 0.22 Troponin I 0.080 NT-Pro-B Natriuret Pep 08/09/17 08/09/17 08/09/17 05:25 13:00 13:00 Creatine Kinase 308 H CK-MB (CK-2) 0.23 0.77 Troponin I 0.140 0.073 NT-Pro-B Natriuret Pep 08/11/17 08/11/17 00:14 09:50 Creatine Kinase CK-MB (CK-2) Troponin I NT-Pro-B Natriuret Pep 212 191 Impressions: Head CT 08/08/17 16:23 IMPRESSION: NORMAL BRAIN CT WITHOUT CONTRAST. EVIDENCE OF ACUTE STROKE: NO. Brain MRI with MRA 08/09/17 00:00 IMPRESSION: NORMAL MRI OF THE BRAIN WITHOUT AND WITH INTRAVENOUS GADOLINIUM CONTRAST. UNREMARKABLE [place] MRA EXAM EVIDENCE OF ACUTE STROKE: NO. Head MRI 08/09/17 00:00 IMPRESSION: NORMAL MRI OF THE BRAIN WITHOUT AND WITH INTRAVENOUS GADOLINIUM CONTRAST. UNREMARKABLE [place] MRA EXAM EVIDENCE OF ACUTE STROKE: NO. Neck MRA 08/09/17 00:00 IMPRESSION: LIMITED VISUALIZATION OF THE ORIGIN OF THE [place] AND PROXIMAL LEFT VERTEBRAL ARTERY. OTHERWISE, NORMAL MRA OF THE CAROTIDS WITH AND WITHOUT CONTRAST. Chest X-Ray 08/10/17 00:00 IMPRESSION: No acute cardiopulmonary findings. 2010 [employer]- All Rights Reserved Assessment & Plan - Diagnosis (1) Acute encephalopathy Is this a current diagnosis for this admission?: Yes (3) History of CVA (cerebrovascular accident) Is this a current diagnosis for this admission?: Yes (4) Hyperglycemia due to type 2 diabetes mellitus Qualifiers: Diabetes mellitus shelter insulin use: without assistant terminal manager use Qualified Code(s): E11.65 - Type 2 diabetes mellitus with hyperglycemia Is this a current diagnosis for this admission?: Yes (5) Hypertensive emergency Is this a current diagnosis for this admission?: Yes (6) Hypokalemia Is this a current diagnosis for this admission?: Yes (7) Obesity (BMI 30.0-34.9) Is this a current diagnosis for this admission?: Yes (8) Viral meningitis Is this a current diagnosis for this admission?: Yes (10) Acute bronchitis Is this a current diagnosis for this admission?: Yes - Time Time Spent with patient: 25-34 minutes - Plan Summary Plan Summary: Continue symptomatic management for viral meningitis. Antitussives for acute bronchitis, most likely viral. Continue p.o. vancomycin for C. difficile diarrhea Continue aspirin and statin for recent stroke. Continue Enalapril. Norvasc added and metoprolol dose increased for better blood pressure control. Gated transfer to telemetry.
[2017-08-11] MEDS: ATORVASTATIN CALCIUM 40 MG TABLET PO SCH (22:22)
[2017-08-11 22:37] LABS: INFLUENZA A AB (SERUM) CF 1:16 (Neg:<1:8)
[2017-08-11] MEDS: ALPRAZOLAM 0.5 MG TABLET PO PRN (23:38)
[2017-08-12] MEDS: ACETAMINOPHEN 325 MG TABLET PO PRN (00:06)
[2017-08-12] MEDS: HYDRALAZINE HCL INJ/PF 20 MG/1 ML SDV IV PRN (00:07)
[2017-08-12 03:06] LABS: ALANINE AMINOTRANSFERASE 23 U/L (21-72); ALBUMIN 3.1 g/dL (3.5-5.0); ALKALINE PHOSPHATASE 87 U/L (38-126); ANION GAP 7 (5-19); ASPARTATE AMINO TRANSFERASE 15 U/L (17-59); BILIRUBIN,DIRECT 0.2 mg/dL (0.0-0.4); BILIRUBIN,TOTAL 0.5 mg/dL (0.2-1.3); BLOOD UREA NITROGEN 7 mg/dL (7-20); CALCIUM 8.8 mg/dL (8.4-10.2); CARBON DIOXIDE 29 mmol/L (22-30); CHLORIDE 105 mmol/L (98-107); GLUCOSE 215 mg/dL (75-110); MAGNESIUM 1.6 mg/dL (1.6-2.3); SODIUM 141.3 mmol/L (137-145); TOTAL PROTEIN 5.7 g/dL (6.3-8.2)
[2017-08-12 03:10] LABS: POTASSIUM 2.8 mmol/L (3.6-5.0)
[2017-08-12] MEDS ORDERED: MAGNESIUM SULFATE/D5W 1 GM/100 ML RTUPB IV ONE (04:00)
[2017-08-12] MEDS ORDERED: POTASSIUM CHLORIDE 10 MEQ TABLET.SA PO ONE (04:30)
[2017-08-12] MEDS: VANCOMYCIN HCL INJ 500 MG VIAL PO SCH ×4 (06:53→23:34)
[2017-08-12] MEDS: POTASSI CL 20 MEQ/50 ML RIDER 20 MEQ/50 ML RTUPB IV SCH ×2 (06:54→08:10)
[2017-08-12] MEDS: LANSOPRAZOLE 30 MG TAB.RAP.DR PO SCH (07:11)
[2017-08-12] MEDS: ENOXAPARIN SODIUM INJ 40 MG/0.4 ML DISP.SYRIN SUBCUT SCH (09:55)
[2017-08-12] MEDS: INSULIN GLARGINE,HUM.REC.ANLOG 300 UNIT/3 ML INSULN.PEN SUBCUT SCH (09:56)
[2017-08-12] MEDS: CHOLESTYRAMINE/ASPARTAME 4 GM PACKET PO SCH ×4 (10:00→23:34)
[2017-08-12] MEDS: MULTIVITAMIN TABLET PO SCH (10:01)
[2017-08-12] MEDS: METOPROLOL SUCCINATE 50 MG TAB.SR.24H PO SCH (10:01)
[2017-08-12] MEDS: ASPIRIN 325 MG TABLET, ENT COATED PO SCH (10:02)
[2017-08-12] MEDS: ENALAPRIL MALEATE 10 MG TABLET PO SCH ×2 (10:02→23:34)
[2017-08-12] MEDS: AMLODIPINE BESYLATE 5 MG TABLET PO SCH (10:02)
[2017-08-12] MEDS: LACTOBACILLUS ACIDOPHILUS 250 MG TAB PO SCH ×2 (10:02→17:17)
[2017-08-12] MEDS: INSULIN LISPRO 100 UNIT/ML 3 ML VIAL SUBCUT SCH ×3 (10:18→17:15)
[2017-08-12] MEDS: INSULIN LISPRO 100 UNIT/ML 3 ML VIAL SUBCUT PRN ×3 (11:53→23:34)
[2017-08-12] MEDS: GUAIFENESIN SYRP 200 MG/10 ML UDC PO PRN ×2 (11:58→23:35)
[2017-08-12 13:09] LABS: INFLUENZA B AB (SERUM) CF 1:16 (Neg:<1:8)
--- NOTE | 2017-08-12 17:29 | XCELERA REPORT ---
[address] [address] Transthoracic Echocardiogram Report Name: LEN MACIAS Age: 57 yrs Gender: Male : 1960 Patient Status: Inpatient Patient Location: [address] [place] [address] Study Date: 08/12/2017 10:29 AM Height: 72 in Weight: 232 lb BSA: 2.3 m2 Procedure: A two-dimensional transthoracic echocardiogram with color flow and Doppler was performed. The study was technically difficult with many images being suboptimal in quality. Reason For Study: LV function, recent CVA History: CVA. Ordering Physician: VALERIY MARTI Performed By: S[place]a [place] Interpretation Summary There is no obvious cardiac source of embolus noted on this transthoracic echocardiogram. Follow-up with a ANAR OSA is suggested if cardiac source is still suspected. A two-dimensional transthoracic echocardiogram with color flow and Doppler was performed. The study was technically difficult with many images being suboptimal in quality. CVA The left ventricle is normal in size. Mild LVH. LV EF is > than65% Left ventricular systolic function is normal. Doppler measurements suggest pseudonormalized left ventricular relaxation, which is associated with grade II/IV or mild to moderate diastolic dysfunction The left ventricular wall motion is normal. There is no thrombus. The right ventricle is grossly normal size. The left atrial size is normal. There is no evidence of mitral valve prolapse. There is no mitral valve stenosis. There is no mitral regurgitation noted. There is no aortic valve stenosis There is no LVOT obstruction. No aortic regurgitation is present. There is no tricuspid stenosis. No tricuspid regurgitation. Unable to calculate RVSP due to insufficient TR jet. There is no pericardial effusion. There is no obvious cardiac source of embolus noted on this transthoracic echocardiogram. Follow-up with a ANA ROSA is suggested if cardiac source is still suspected MMode/2D Measurements & Calculations RVDd: 2.8 cm LVIDd: 5.3 cmFS: 38.3 % Ao root diam: 3.7 cm IVSd: 1.3 cm LVIDs: 3.2 cmEDV(Teich): 132.7 ml LVPWd: 1.3 cmESV(Teich): 42.3 ml Ao root area: 11.0 cm2 EF(Teich): 68.1 % LVOT diam: 2.5 cm LVOT area: 5.0 cm2 Doppler Measurements & Calculations MV E max niya: MV dec slope: Ao V2 max: LV V1 max P.8 cm/sec 416.9 cm/sec2 159.7 cm/sec 5.2 mmHg MV A max niya: MV dec time: Ao max PG: LV V1 max: 121.9 cm/sec 0.16 sec 10.2 mmHg 114.0 cm/sec MV E/A: 0.56 SALTY(V,D): 3.6 cm2 PA V2 max: 110.5 cm/sec PA max P.9 mmHg Left Ventricle The left ventricle is normal in size. Mild LVH. LV EF is > than65%. Left ventricular systolic function is normal. Doppler measurements suggest pseudonormalized left ventricular relaxation, which is associated with grade II/IV or mild to moderate diastolic dysfunction. The left ventricular wall motion is normal. There is no thrombus. Right Ventricle The right ventricle is grossly normal size. The right ventricle is not well visualized secondary to technical limitations. Atria The right atrium is normal. The left atrial size is normal. Mitral Valve There is no evidence of mitral valve prolapse. There is no vegetation seen on the mitral valve. There is no mitral valve stenosis. There is no mitral regurgitation noted. Aortic Valve There is no aortic valvular vegetation. There is no aortic valve stenosis. There is no LVOT obstruction. No aortic regurgitation is present. Tricuspid Valve There is no tricuspid stenosis. No tricuspid regurgitation. Unable to calculate RVSP due to insufficient TR jet. Pulmonic Valve There is no pulmonic valvular stenosis. There is no pulmonic valvular regurgitation. Great Vessels The aortic root is not well visualized. Effusions There is no pericardial effusion. : VALERIY MARTI > Flor Pulido
--- NOTE | 2017-08-12 17:35 | PDOC PROGRESS REPORT ---
Subjective Reason For Visit: SEVERE SEPSIS, HYPERGLYCEMIA, ACUTE ENCEPHALOPATHY Physical Exam Vital Signs: Temp Pulse Resp BP Pulse Ox 98.3 F 102 H 16 162/93 H 97 08/12/17 11:47 08/12/17 11:47 08/12/17 11:47 08/12/17 11:47 08/12/17 11:47 Intake & Output 08/11/17 08/12/17 08/13/17 06:59 06:59 06:59 Intake Total 1015 1519 1680 Output Total 2575 800 700 Balance -1560 719 980 Weight 105.6 kg 106 kg Results Laboratory Results: 08/10/17 08:30 08/12/17 02:29 08/12/17 02:29 Sodium 141.3 Potassium 2.8 L* Chloride 105 Carbon Dioxide 29 Anion Gap 7 BUN 7 Creatinine 0.67 Est GFR ( Amer) > 60 Est GFR (Non-Af Amer) > 60 Glucose 215 H Calcium 8.8 Magnesium 1.6 Total Bilirubin 0.5 AST 15 L ALT 23 Alkaline Phosphatase 87 Total Protein 5.7 L Albumin 3.1 L 08/09/17 08/09/17 08/09/17 00:25 00:25 05:25 Creatine Kinase 55 133 CK-MB (CK-2) < 0.22 Troponin I 0.080 NT-Pro-B Natriuret Pep 08/09/17 08/09/17 08/09/17 05:25 13:00 13:00 Creatine Kinase 308 H CK-MB (CK-2) 0.23 0.77 Troponin I 0.140 0.073 NT-Pro-B Natriuret Pep 08/11/17 08/11/17 00:14 09:50 Creatine Kinase CK-MB (CK-2) Troponin I NT-Pro-B Natriuret Pep 212 191 Impressions: Head CT 08/08/17 16:23 IMPRESSION: NORMAL BRAIN CT WITHOUT CONTRAST. EVIDENCE OF ACUTE STROKE: NO. Brain MRI with MRA 08/09/17 00:00 IMPRESSION: NORMAL MRI OF THE BRAIN WITHOUT AND WITH INTRAVENOUS GADOLINIUM CONTRAST. UNREMARKABLE [place] MRA EXAM EVIDENCE OF ACUTE STROKE: NO. Head MRI 08/09/17 00:00 IMPRESSION: NORMAL MRI OF THE BRAIN WITHOUT AND WITH INTRAVENOUS GADOLINIUM CONTRAST. UNREMARKABLE [place] MRA EXAM EVIDENCE OF ACUTE STROKE: NO. Neck MRA 08/09/17 00:00 IMPRESSION: LIMITED VISUALIZATION OF THE ORIGIN OF THE [place] AND PROXIMAL LEFT VERTEBRAL ARTERY. OTHERWISE, NORMAL MRA OF THE CAROTIDS WITH AND WITHOUT CONTRAST. Chest X-Ray 08/10/17 00:00 IMPRESSION: No acute cardiopulmonary findings. 2010 [employer]- All Rights Reserved Assessment & Plan - Diagnosis (1) History of CVA (cerebrovascular accident) Is this a current diagnosis for this admission?: No Plan: Continue Aspirin, Statin, BP meds (2) Hyperglycemia due to type 2 diabetes mellitus Qualifiers: Diabetes mellitus penitentiary insulin use: without intermediate school teacher use Qualified Code(s): E11.65 - Type 2 diabetes mellitus with hyperglycemia Is this a current diagnosis for this admission?: Yes Plan: Continue Lantus and sliding scale (3) Hypertensive emergency Is this a current diagnosis for this admission?: Yes Plan: resolved. Continue current meds (4) Hypokalemia Is this a current diagnosis for this admission?: Yes Plan: replete (5) Obesity (BMI 30.0-34.9) Is this a current diagnosis for this admission?: Yes (6) Viral meningitis Is this a current diagnosis for this admission?: Yes Plan: Continue supportive care (7) C. difficile diarrhea Is this a current diagnosis for this admission?: Yes Plan: PO Vancomycin (8) Acute bronchitis Is this a current diagnosis for this admission?: Yes Plan: Antitussives, Doxycycline (9) Hypomagnesemia Is this a current diagnosis for this admission?: Yes - Time Time Spent with patient: 25-34 minutes
[2017-08-12] MEDS ORDERED: DOXYCYCLINE HYCLATE 100 MG TABLET PO ONE (18:00)
[2017-08-12] MEDS ORDERED: POTASSIUM CHLORIDE 20 MEQ/15 ML UDCUP PO ONE (18:30)
[2017-08-12] MEDS: MAGNESIUM OXIDE 400 MG TABLET PO SCH (18:37)
[2017-08-12] MEDS: ATORVASTATIN CALCIUM 40 MG TABLET PO SCH (23:33)
[2017-08-13] MEDS: LANSOPRAZOLE 30 MG TAB.RAP.DR PO SCH (05:20)
[2017-08-13] MEDS: DOXYCYCLINE HYCLATE 100 MG TABLET PO SCH ×2 (05:20→17:34)
[2017-08-13] MEDS: VANCOMYCIN HCL INJ 500 MG VIAL PO SCH ×4 (05:20→23:58)
[2017-08-13 05:59] LABS: ABSOLUTE BASOPHILS # (AUTO) 0.1 10^3/uL (0.0-0.2); ABSOLUTE EOSINOPHILS # (AUTO) 0.4 10^3/uL (0.0-0.6); ABSOLUTE LYMPHOCYTES (AUTO) 2.7 10^3/uL (0.5-4.7); ABSOLUTE MONOCYTES (AUTO) 1.2 10^3/uL (0.1-1.4); ABSOLUTE NEUT (AUTO) 6.2 10^3/uL (1.7-8.2); BASOPHILS % (AUTO) 0.6 % (0-2); EOSINOPHILS % (AUTO) 3.5 % (0-6); HEMATOCRIT 35.7 % (37.9-51.0); HEMOGLOBIN 11.6 g/dL (13.5-17.0); LYMPHOCYTES % (AUTO) 25.6 % (13-45); MEAN CORPUSCULAR HEMOGLOBIN 25.6 pg (27.0-33.4); MEAN CORPUSCULAR HGB CONC 32.4 g/dL (32.0-36.0); MEAN CORPUSCULAR VOLUME 79 fl (80-97); MONOCYTES % (AUTO) 11.3 % (3-13); PLATELET COUNT 356 10^3/uL (150-450); RED BLOOD COUNT 4.52 10^6/uL (4.35-5.55); RED CELL DISTRIBUTION WIDTH 14.8 % (11.5-14.0); TOTAL CELLS COUNTED % (AUTO) 100 %; WHITE BLOOD COUNT 10.5 10^3/uL (4.0-10.5)
[2017-08-13 06:14] LABS: ANION GAP 10 (5-19); BLOOD UREA NITROGEN 6 mg/dL (7-20); CALCIUM 9.2 mg/dL (8.4-10.2); CARBON DIOXIDE 25 mmol/L (22-30); CHLORIDE 104 mmol/L (98-107); GLUCOSE 219 mg/dL (75-110); MAGNESIUM 1.6 mg/dL (1.6-2.3); POTASSIUM 3.3 mmol/L (3.6-5.0); SODIUM 139.2 mmol/L (137-145)
[2017-08-13] MEDS: GUAIFENESIN SYRP 200 MG/10 ML UDC PO PRN ×2 (06:54→22:10)
[2017-08-13] MEDS: CHOLESTYRAMINE/ASPARTAME 4 GM PACKET PO SCH ×4 (08:04→22:12)
[2017-08-13] MEDS: INSULIN LISPRO 100 UNIT/ML 3 ML VIAL SUBCUT SCH ×3 (08:05→17:28)
[2017-08-13] MEDS: INSULIN LISPRO 100 UNIT/ML 3 ML VIAL SUBCUT PRN ×3 (08:07→17:31)
[2017-08-13] MEDS ORDERED: POTASSIUM CHLORIDE 10 MEQ TABLET.SA PO ONE (10:00)
[2017-08-13] MEDS: ENOXAPARIN SODIUM INJ 40 MG/0.4 ML DISP.SYRIN SUBCUT SCH (10:06)
[2017-08-13] MEDS: INSULIN GLARGINE,HUM.REC.ANLOG 300 UNIT/3 ML INSULN.PEN SUBCUT SCH (10:07)
[2017-08-13] MEDS: ENALAPRIL MALEATE 10 MG TABLET PO SCH ×2 (10:10→22:12)
[2017-08-13] MEDS: LACTOBACILLUS ACIDOPHILUS 250 MG TAB PO SCH ×2 (10:10→17:27)
[2017-08-13] MEDS: METOPROLOL SUCCINATE 50 MG TAB.SR.24H PO SCH (10:11)
[2017-08-13] MEDS: MULTIVITAMIN TABLET PO SCH (10:17)
[2017-08-13] MEDS: AMLODIPINE BESYLATE 5 MG TABLET PO SCH (10:17)
[2017-08-13] MEDS: MAGNESIUM OXIDE 400 MG TABLET PO SCH ×2 (10:17→17:26)
[2017-08-13] MEDS: ASPIRIN 325 MG TABLET, ENT COATED PO SCH (10:17)
[2017-08-13] MEDS: MAGNESIUM SULFATE/D5W 1 GM/100 ML RTUPB IV SCH ×3 (10:18→13:55)
[2017-08-13] MEDS ORDERED: OSELTAMIVIR PHOSPHATE 75 MG CAPSULE PO ONE (11:00)
[2017-08-13] MEDS ORDERED: IPRATROPIUM/ALBUTEROL 0.5-2.5 MG/3 ML AMPUL NEB PRN (16:10)
--- NOTE | 2017-08-13 16:40 | PDOC PROGRESS REPORT ---
Subjective Progress Note for:: 08/13/17 Subjective:: 56-year-old male with past medical history of diabetes Benzodiazepine dependence Obesity Hypertension Recent stroke. Nicotine dependence The patient presented to the emergency room on August 08 with sudden onset fever and confusion and was diagnosed with acute viral meningitis. He is doing much better now. He also developed diarrhea positive for C. difficile and is on oral vancomycin. He has an acute bronchitis. Chest x-ray was within normal limits. Seum Influenza A and B antibody titers were elevated. He was started on Tamiflu. Continue Doxycycline. Reason For Visit: SEVERE SEPSIS, HYPERGLYCEMIA, ACUTE ENCEPHALOPATHY Physical Exam Vital Signs: Temp Pulse Resp BP Pulse Ox 98.1 F 106 H 13 174/98 H 99 08/13/17 14:43 08/13/17 14:43 08/13/17 14:43 08/13/17 14:43 08/13/17 14:43 Intake & Output 08/12/17 08/13/17 08/14/17 06:59 06:59 06:59 Intake Total 1519 3324 804 Output Total 800 700 800 Balance 719 2624 4 Weight 106 kg 111.2 kg Additional comments: HEENT: pupils equal and reactive to light, normal external ears and nose Cardiac: S1-S2 regular no murmurs heard no peripheral edema no cyanosis no calf tenderness Respiratory: Scattered rhonchi bilaterally no wheezing or crackles normal respiratory effort Abdomen: Soft, no focal tenderness normal bowel sounds Skin: Warm and dry Neuro: Awake and alert oriented 3 no facial droop, speech is clear and fluent motor strength 5 out of 5 bilateral upper and lower extremities, sensation is equal and intact bilaterally No cerebellar signs no tremor Results Laboratory Results: 08/13/17 05:30 08/13/17 05:30 08/13/17 08/13/17 05:30 05:30 WBC 10.5 RBC 4.52 Hgb 11.6 L Hct 35.7 L MCV 79 L MCH 25.6 L MCHC 32.4 RDW 14.8 H Plt Count 356 Seg Neutrophils % 59.0 Lymphocytes % 25.6 Monocytes % 11.3 Eosinophils % 3.5 Basophils % 0.6 Absolute Neutrophils 6.2 Absolute Lymphocytes 2.7 Absolute Monocytes 1.2 Absolute Eosinophils 0.4 Absolute Basophils 0.1 Sodium 139.2 Potassium 3.3 L Chloride 104 Carbon Dioxide 25 Anion Gap 10 BUN 6 L Creatinine 0.70 Est GFR ( Amer) > 60 Est GFR (Non-Af Amer) > 60 Glucose 219 H Calcium 9.2 Magnesium 1.6 08/09/17 08/09/17 08/09/17 00:25 00:25 05:25 Creatine Kinase 55 133 CK-MB (CK-2) < 0.22 Troponin I 0.080 NT-Pro-B Natriuret Pep 08/09/17 08/09/17 08/09/17 05:25 13:00 13:00 Creatine Kinase 308 H CK-MB (CK-2) 0.23 0.77 Troponin I 0.140 0.073 NT-Pro-B Natriuret Pep 08/11/17 08/11/17 00:14 09:50 Creatine Kinase CK-MB (CK-2) Troponin I NT-Pro-B Natriuret Pep 212 191 Impressions: Head CT 08/08/17 16:23 IMPRESSION: NORMAL BRAIN CT WITHOUT CONTRAST. EVIDENCE OF ACUTE STROKE: NO. Brain MRI with MRA 08/09/17 00:00 IMPRESSION: NORMAL MRI OF THE BRAIN WITHOUT AND WITH INTRAVENOUS GADOLINIUM CONTRAST. UNREMARKABLE [place] MRA EXAM EVIDENCE OF ACUTE STROKE: NO. Head MRI 08/09/17 00:00 IMPRESSION: NORMAL MRI OF THE BRAIN WITHOUT AND WITH INTRAVENOUS GADOLINIUM CONTRAST. UNREMARKABLE [place] MRA EXAM EVIDENCE OF ACUTE STROKE: NO. Neck MRA 08/09/17 00:00 IMPRESSION: LIMITED VISUALIZATION OF THE ORIGIN OF THE [place] AND PROXIMAL LEFT VERTEBRAL ARTERY. OTHERWISE, NORMAL MRA OF THE CAROTIDS WITH AND WITHOUT CONTRAST. Chest X-Ray 08/10/17 00:00 IMPRESSION: No acute cardiopulmonary findings. 2010 [employer]- All Rights Reserved Assessment & Plan - Diagnosis (1) History of CVA (cerebrovascular accident) Is this a current diagnosis for this admission?: No (2) Hyperglycemia due to type 2 diabetes mellitus Qualifiers: Diabetes mellitus local company intermodal truck driver insulin use: without local company intermodal truck driver use Qualified Code(s): E11.65 - Type 2 diabetes mellitus with hyperglycemia Is this a current diagnosis for this admission?: Yes (3) Hypertensive emergency Is this a current diagnosis for this admission?: Yes (4) Hypokalemia Is this a current diagnosis for this admission?: Yes (5) Obesity (BMI 30.0-34.9) Is this a current diagnosis for this admission?: Yes (6) Viral meningitis Is this a current diagnosis for this admission?: Yes (7) C. difficile diarrhea Is this a current diagnosis for this admission?: Yes (8) Acute bronchitis Is this a current diagnosis for this admission?: Yes (9) Hypomagnesemia Is this a current diagnosis for this admission?: Yes (10) Influenza A Is this a current diagnosis for this admission?: Yes - Time Time Spent with patient: 25-34 minutes - Plan Summary Plan Summary: Continue antitussives, antibiotics, Tamiflu, neb treatments. Continue Enalapril and Toprol. Amlodipine dose increased for better blood pressure control. Continue statin. Continue Lantus and aspart for diabetes.
[2017-08-13] MEDS: OSELTAMIVIR PHOSPHATE 75 MG CAPSULE PO SCH (17:27)
[2017-08-13] MEDS: ACETAMINOPHEN 325 MG TABLET PO PRN (20:27)
[2017-08-13] MEDS: IPRATROPIUM/ALBUTEROL 0.5-2.5 MG/3 ML AMPUL NEB SCH (21:21)
[2017-08-13] MEDS: ATORVASTATIN CALCIUM 40 MG TABLET PO SCH (22:10)
[2017-08-14] MEDS: HYDRALAZINE HCL INJ/PF 20 MG/1 ML SDV IV PRN (04:06)
[2017-08-14] MEDS ORDERED: METOPROLOL TARTRATE PF/INJ 5 MG/5 ML SDV IV ONE (04:30)
[2017-08-14] MEDS ORDERED: DIAZEPAM INJ 10 MG/2 ML DISP.SYRIN IV ONE (05:30)
[2017-08-14] MEDS: LANSOPRAZOLE 30 MG TAB.RAP.DR PO SCH (05:52)
[2017-08-14] MEDS: DOXYCYCLINE HYCLATE 100 MG TABLET PO SCH ×2 (05:53→18:45)
[2017-08-14] MEDS: VANCOMYCIN HCL INJ 500 MG VIAL PO SCH ×3 (05:55→18:44)
[2017-08-14] MEDS: IPRATROPIUM/ALBUTEROL 0.5-2.5 MG/3 ML AMPUL NEB SCH (07:47)
[2017-08-14] MEDS: ALPRAZOLAM 0.5 MG TABLET PO PRN (08:08)
[2017-08-14] MEDS: INSULIN LISPRO 100 UNIT/ML 3 ML VIAL SUBCUT SCH ×3 (08:08→16:29)
[2017-08-14] MEDS: CHOLESTYRAMINE/ASPARTAME 4 GM PACKET PO SCH ×4 (08:08→21:18)
[2017-08-14] MEDS ORDERED: LEVALBUTEROL HCL NEB 0.63 MG/3 ML AMPUL NEB PRN (08:36)
[2017-08-14] MEDS ORDERED: AMLODIPINE BESYLATE 10 MG TABLET PO SCH (10:00)
[2017-08-14] MEDS: ENOXAPARIN SODIUM INJ 40 MG/0.4 ML DISP.SYRIN SUBCUT SCH (11:06)
[2017-08-14] MEDS: ENALAPRIL MALEATE 10 MG TABLET PO SCH ×2 (11:06→21:18)
[2017-08-14] MEDS: METOPROLOL SUCCINATE 50 MG TAB.SR.24H PO SCH ×2 (11:06→21:16)
[2017-08-14] MEDS: MAGNESIUM OXIDE 400 MG TABLET PO SCH ×2 (11:06→18:45)
[2017-08-14] MEDS: MULTIVITAMIN TABLET PO SCH (11:06)
[2017-08-14] MEDS: INSULIN GLARGINE,HUM.REC.ANLOG 300 UNIT/3 ML INSULN.PEN SUBCUT SCH (11:07)
[2017-08-14] MEDS: LACTOBACILLUS ACIDOPHILUS 250 MG TAB PO SCH ×2 (11:07→18:45)
[2017-08-14] MEDS: ASPIRIN 325 MG TABLET, ENT COATED PO SCH (11:07)
[2017-08-14] MEDS: OSELTAMIVIR PHOSPHATE 75 MG CAPSULE PO SCH ×2 (11:07→18:44)
[2017-08-14] MEDS: LEVALBUTEROL HCL NEB 1.25 MG/3 ML AMPUL NEB SCH ×2 (13:19→20:50)
[2017-08-14] MEDS: GUAIFENESIN SYRP 200 MG/10 ML UDC PO PRN (16:40)
--- NOTE | 2017-08-14 20:24 | PROGRESS NOTE E ---
Progress Note NAME: LEN MACIAS : 1960 AGE: 56Y DATE: 08/14/2017 ROOM: 435 SUBJECTIVE: The patient is doing well. His cough has improved. Diarrhea has also improved. OBJECTIVE: VITAL SIGNS: Stable. LUNGS: He has scattered rhonchi bilaterally. Normal respiratory effort. CARDIAC: S1, S2 regular. No peripheral edema. No cyanosis. ABDOMEN: Soft, no focal tenderness. Normal bowel sounds. SKIN: Warm and dry. ASSESSMENT: 1. INFLUENZA. 2. VIRAL MENINGITIS. 3. C. DIFF COLITIS. 4. HYPERTENSION. 5. RECENT STROKE. PLAN: Continue current medications; antibiotics, neb treatments, p.o. vancomycin and Tamiflu, as well as medications for his recent stroke and hypertension. TIME SPENT: Twenty minutes. DICTATING PHYSICIAN: VALERIY MARTI M.D. [id number] PHY#: [id number] ID: [id number] JOB#: [id number] ACCT: [id number] cc: >
[2017-08-14] MEDS: ACETAMINOPHEN WITH CODEINE #3 TABLET PO PRN (21:15)
[2017-08-14] MEDS: ATORVASTATIN CALCIUM 40 MG TABLET PO SCH (21:18)
[2017-08-14] MEDS: INSULIN LISPRO 100 UNIT/ML 3 ML VIAL SUBCUT PRN (21:42)
[2017-08-15] MEDS: VANCOMYCIN HCL INJ 500 MG VIAL PO SCH ×4 (00:05→19:15)
[2017-08-15] MEDS: ALPRAZOLAM 0.5 MG TABLET PO PRN (05:35)
[2017-08-15] MEDS: LANSOPRAZOLE 30 MG TAB.RAP.DR PO SCH (05:35)
[2017-08-15] MEDS: DOXYCYCLINE HYCLATE 100 MG TABLET PO SCH ×2 (05:35→19:12)
[2017-08-15] MEDS: LEVALBUTEROL HCL NEB 1.25 MG/3 ML AMPUL NEB SCH ×2 (07:28→13:59)
[2017-08-15 07:34] LABS: BLOOD UREA NITROGEN 10 mg/dL (7-20); CALCIUM 9.8 mg/dL (8.4-10.2); GLUCOSE 181 mg/dL (75-110); MAGNESIUM 1.7 mg/dL (1.6-2.3)
[2017-08-15 08:10] LABS: ANION GAP 12 (5-19); CARBON DIOXIDE 27 mmol/L (22-30); CHLORIDE 102 mmol/L (98-107); POTASSIUM 3.7 mmol/L (3.6-5.0); SODIUM 140.8 mmol/L (137-145)
[2017-08-15] MEDS: INSULIN LISPRO 100 UNIT/ML 3 ML VIAL SUBCUT SCH ×3 (08:22→19:21)
[2017-08-15] MEDS: CHOLESTYRAMINE/ASPARTAME 4 GM PACKET PO SCH ×3 (08:22→19:22)
[2017-08-15] MEDS: INSULIN LISPRO 100 UNIT/ML 3 ML VIAL SUBCUT PRN ×2 (08:22→19:21)
[2017-08-15] MEDS: OSELTAMIVIR PHOSPHATE 75 MG CAPSULE PO SCH ×2 (10:52→19:13)
[2017-08-15] MEDS: LACTOBACILLUS ACIDOPHILUS 250 MG TAB PO SCH ×2 (10:53→19:13)
[2017-08-15] MEDS: METOPROLOL SUCCINATE 50 MG TAB.SR.24H PO SCH (10:54)
[2017-08-15] MEDS: MULTIVITAMIN TABLET PO SCH (10:56)
[2017-08-15] MEDS: ASPIRIN 325 MG TABLET, ENT COATED PO SCH (10:56)
[2017-08-15] MEDS: ENALAPRIL MALEATE 10 MG TABLET PO SCH (10:57)
[2017-08-15] MEDS: ENOXAPARIN SODIUM INJ 40 MG/0.4 ML DISP.SYRIN SUBCUT SCH (10:57)
[2017-08-15] MEDS: MAGNESIUM OXIDE 400 MG TABLET PO SCH ×2 (10:57→19:14)
[2017-08-15] MEDS: INSULIN GLARGINE,HUM.REC.ANLOG 300 UNIT/3 ML INSULN.PEN SUBCUT SCH (10:57)
[2017-08-15] MEDS ORDERED: HYDRALAZINE HCL INJ/PF 20 MG/1 ML SDV IV PRN (13:00)
--- NOTE | 2017-08-15 13:55 | PDOC DISCHARGE SUMMARY ---
General - Admit/Disc Date/PCP Admission Date/Primary Care Provider: 08/08/17 23:12 CATALINO BAUTISTA MD Discharge Date: 08/15/17 - Discharge Diagnosis (1) Viral meningitis Is this a current diagnosis for this admission?: Yes (2) C. difficile diarrhea Is this a current diagnosis for this admission?: Yes (3) Influenza A Is this a current diagnosis for this admission?: Yes (4) History of CVA (cerebrovascular accident) Is this a current diagnosis for this admission?: No (5) Hyperglycemia due to type 2 diabetes mellitus Is this a current diagnosis for this admission?: Yes (6) Hypertensive emergency Is this a current diagnosis for this admission?: Yes (7) Hypokalemia Is this a current diagnosis for this admission?: Yes (8) Obesity (BMI 30.0-34.9) Is this a current diagnosis for this admission?: Yes (9) Acute bronchitis Is this a current diagnosis for this admission?: Yes (10) Hypomagnesemia Is this a current diagnosis for this admission?: Yes - Additional Information Resuscitation Status: Full Code Prescriptions: Atorvastatin Calcium [Lipitor 40 mg Tablet] 40 mg PO QHS 30 Days #30 tablet Acetaminophen with Codeine [Tylenol #3 Tablet] 1 each PO Q4HP PRN 3 Days #15 tablet PRN Reason: Cough Albuterol Sulfate [Proair Respiclick] 90 mcg IH Q4HP PRN 30 Days #1 aer.pow.ba PRN Reason: Shortness Of Breath Aspirin [Ecotrin 325 mg EC Tablet] 325 mg PO DAILY 30 Days #30 tabec Doxycycline Hyclate [Vibramycin 100 mg Tablet] 100 mg PO Q12A 5 Days #11 tablet Glucagon,Human Recombinant [Glucagen Inj 1 mg Vial] 1 mg IM PRN PRN 5 Days #1 vial PRN Reason: Insulin Glargine,Hum.rec.anlog [Lantus Insulin 100 Unit/mL] 22 unit SUBCUT DAILY 30 Days #1 insuln.pen Insulin Lispro [Humalog Insulin (Lispro) 100 unit/mL] 0 - 12 unit SUBCUT ACHSP PRN 30 Days #1 unit PRN Reason: Insulin Lispro [Humalog Insulin (Lispro) 100 unit/mL] 3 unit SUBCUT AC 30 Days # 1 unit Metoprolol Succinate [Toprol Xl 50 mg Tab.sr] 100 mg PO Q12 30 Days #60 tab.sr.24h Oseltamivir Phosphate [Tamiflu 75 mg Capsule] 75 mg PO BID 3 Days #7 capsule Home Medications: Alprazolam [Xanax] 2 mg PO Q8 08/09/17 Cholecalciferol (Vitamin D3) [Vitamin D3 1000 Unit Tablet] 1,000 unit PO DAILY 08/09/17 Cyclobenzaprine HCl [Flexeril 10 mg Tablet] 10 mg PO QHS 08/09/17 Dexlansoprazole [Dexilant 60 mg Capsule] 60 mg PO DAILY 08/09/17 Enalapril Maleate [Vasotec 20 mg Tablet] 20 mg PO Q12 08/09/17 Ferrous Sulfate [Feosol 325 mg Tablet] 325 mg PO DAILY 08/09/17 Metformin HCl [Glucophage 500 mg Tablet] 500 mg PO BIDACBS 08/09/17 Multivitamin [Tab-A-Jasson (Multiple Vitamin) Tablet] 1 tab PO DAILY 08/09/17 Oxycodone HCl [Oxy-Ir 5 mg Tablet] 20 mg PO Q6HP PRN 08/09/17 Acetaminophen with Codeine [Tylenol #3 Tablet] 1 each PO Q4HP PRN 3 Days #15 tablet 08/15/17 Albuterol Sulfate [Proair Respiclick] 90 mcg IH Q4HP PRN 30 Days #1 aer.pow.ba 08/15/17 Aspirin [Ecotrin 325 mg EC Tablet] 325 mg PO DAILY 30 Days #30 tabec 08/15/17 Atorvastatin Calcium [Lipitor 40 mg Tablet] 40 mg PO QHS 30 Days #30 tablet 03/25 Doxycycline Hyclate [Vibramycin 100 mg Tablet] 100 mg PO Q12A 5 Days #11 tablet 08/15/17 Glucagon,Human Recombinant [Glucagen Inj 1 mg Vial] 1 mg IM PRN PRN 5 Days #1 vial 08/15/17 Insulin Glargine,Hum.rec.anlog [Lantus Insulin 100 Unit/mL] 22 unit SUBCUT DAILY 30 Days #1 insuln.pen 08/15/17 Insulin Lispro [Humalog Insulin (Lispro) 100 unit/mL] 0 - 12 unit SUBCUT ACHSP PRN 30 Days #1 unit 08/15/17 Insulin Lispro [Humalog Insulin (Lispro) 100 unit/mL] 3 unit SUBCUT AC 30 Days # 1 unit 08/15/17 Metoprolol Succinate [Toprol Xl 50 mg Tab.sr] 100 mg PO Q12 30 Days #60 tab.sr.24h 08/15/17 Oseltamivir Phosphate [Tamiflu 75 mg Capsule] 75 mg PO BID 3 Days #7 capsule 03/25 History of Present Illness History of Present Illness: LEN MACIAS is a 57 year old male with past medical history of diabetes Diabetes Benzodiazepine dependence Obesity Hypertension Recent stroke. Nicotine dependence The patient presented to the emergency room on August 08 with sudden onset fever and confusion and was initially suspected to have meningitis. He was initially admitted to the ICU was close monitoring and was started on empiric antibiotics and Acyclovir for meningitis. CSF bacterial antigens and culture were negative. He was diagnosed with acute viral meningitis. Influenza A and B titers were elevated. He was treated with Tamiflu and Doxycycline and nebs for acute bronchitis. The patient developed diarrhea positive for C. difficile and is on oral vancomycin. Chest x-ray was within normal limits. Hemoglobin A1c was 12.8. He was treated with lantus and Humalog. He is doing better now. Headache cough and diarrhea have improved. He is ready for discharge home. Hospital Course Hospital Course: See above. Physical Exam Vital Signs: Temp Pulse Resp BP Pulse Ox 97.8 F 100 16 151/96 H 100 08/15/17 11:03 08/15/17 11:03 08/15/17 11:03 08/15/17 11:03 08/15/17 11:03 Intake & Output 08/14/17 08/15/17 08/16/17 06:59 06:59 06:59 Intake Total 1376 768 Output Total 1800 Balance -424 768 Weight 110.7 kg 110 kg Additional comments: Cardiac: S1-S2 regular no murmurs heard no peripheral edema no cyanosis no calf tenderness Respiratory: Scattered rhonchi bilaterally no wheezing or crackles normal respiratory effort Abdomen: Soft, no focal tenderness normal bowel sounds Results Laboratory Results: 08/13/17 05:30 08/15/17 06:51 08/15/17 06:51 Sodium 140.8 Potassium 3.7 Chloride 102 Carbon Dioxide 27 Anion Gap 12 BUN 10 Creatinine 0.79 Est GFR ( Amer) > 60 Est GFR (Non-Af Amer) > 60 Glucose 181 H Calcium 9.8 Phosphorus 4.0 Magnesium 1.7 08/09/17 08/09/17 08/09/17 00:25 00:25 05:25 Creatine Kinase 55 133 CK-MB (CK-2) < 0.22 Troponin I 0.080 NT-Pro-B Natriuret Pep 08/09/17 08/09/17 08/09/17 05:25 13:00 13:00 Creatine Kinase 308 H CK-MB (CK-2) 0.23 0.77 Troponin I 0.140 0.073 NT-Pro-B Natriuret Pep 08/11/17 08/11/17 00:14 09:50 Creatine Kinase CK-MB (CK-2) Troponin I NT-Pro-B Natriuret Pep 212 191 Impressions: Head CT 08/08/17 16:23 IMPRESSION: NORMAL BRAIN CT WITHOUT CONTRAST. EVIDENCE OF ACUTE STROKE: NO. Brain MRI with MRA 08/09/17 00:00 IMPRESSION: NORMAL MRI OF THE BRAIN WITHOUT AND WITH INTRAVENOUS GADOLINIUM CONTRAST. UNREMARKABLE [place] APACHE OF JACQUES MRA EXAM EVIDENCE OF ACUTE STROKE: NO. Head MRI 08/09/17 00:00 IMPRESSION: NORMAL MRI OF THE BRAIN WITHOUT AND WITH INTRAVENOUS GADOLINIUM CONTRAST. UNREMARKABLE [place] APACHE OF JACQUES MRA EXAM EVIDENCE OF ACUTE STROKE: NO. Neck MRA 08/09/17 00:00 IMPRESSION: LIMITED VISUALIZATION OF THE ORIGIN OF THE GREAT VESSELS AND PROXIMAL LEFT VERTEBRAL ARTERY. OTHERWISE, NORMAL MRA OF THE CAROTIDS WITH AND WITHOUT CONTRAST. Chest X-Ray 08/10/17 00:00 IMPRESSION: No acute cardiopulmonary findings. 2010 [employer]- All Rights Reserved Plan Discharge Plan: Follow up with PCP in 1 week. Time Spent: Greater than 30 Minutes
[2017-08-15] MEDS: ACETAMINOPHEN WITH CODEINE #3 TABLET PO PRN (19:20)
[2017-08-15 19:29] VITALS: BP 166/85
== END 2017-08-15 19:52 | disposition home health service (06) | DRG 871 ==
LOC: ER 15:09 → EH 23:12 → ICU 08-09 01:15 → 4S 08-11 19:40
PROVIDERS: ADMIT Family Medicine; ATTEND Family Medicine
PROC: 009U3ZX Drainage of Spinal Canal, Percutaneous Approach, Diagnostic (ICD-10-PCS; principal; 2017-08-08)
PROC: 02H633Z Insertion of Infusion Device into Right Atrium, Percutaneous Approach (ICD-10-PCS; 2017-08-09)
PROC: B244ZZ3 Ultrasonography of Right Heart, Intravascular (ICD-10-PCS; 2017-08-09)
PROC: 3E0234Z Introduction of Serum, Toxoid and Vaccine into Muscle, Percutaneous Approach (ICD-10-PCS; 2017-08-15)
DX: A41.9 Sepsis, unspecified organism (principal); G93.40 Encephalopathy, unspecified; A87.9 Viral meningitis, unspecified; A04.72 Enterocolitis due to Clostridium difficile, not specified as recurrent; I16.1 Hypertensive emergency; F13.20 Sedative, hypnotic or anxiolytic dependence, uncomplicated; I10 Essential (primary) hypertension; J20.9 Acute bronchitis, unspecified; E83.42 Hypomagnesemia; E87.6 Hypokalemia; E11.65 Type 2 diabetes mellitus with hyperglycemia; E66.9 Obesity, unspecified; F17.210 Nicotine dependence, cigarettes, uncomplicated; Z79.84 Long term (current) use of oral hypoglycemic drugs; Z79.82 Long term (current) use of aspirin; Z79.891 Long term (current) use of opiate analgesic; Z79.899 Other long term (current) drug therapy; Z68.32 Body mass index [BMI] 32.0-32.9, adult; Z86.73 Personal history of transient ischemic attack (TIA), and cerebral infarction without residual deficits; Z23 Encounter for immunization
CPT/HCPCS: 36415; 70450; 70544; 70549; 70551; 70553; 71045; 80048; 80053; 80061; 80307; 81001; 82140; 82550; 82553; 82803; 82945; 82962; 83036; 83605; 83735; 83880; 84100; 84157; 84439; 84443; 84481; 84484; 85025; 85027; 85610; 85652; 85730; 86140; 86403; 86701; 86710; 87040; 87070; 87086; 87205; 87210; 87493; 87498; 87529; 87804; 89050; 90686; 93005; 93010; 93306; 95819; 96365; 96366; 96367; 96368; 99291; 99292; A9577; C1751; G8978-GP; G8979-GP; G8987-GO; G8988-GO; G8989-GO; J0131; J0133; J0360; J0696; J1644; J1650; J1815; J1885; J1940; J2060; J2405; J3360; J3370; J3475; J3480; J3490; J7030; J7050; J7060; J7620

== ENCOUNTER → 2017-09-05 | Outpatient (CLI) | payer MEDICARE ==
[2017-09-05 13:22] LABS: ABSOLUTE BASOPHILS # (AUTO) 0.1 10^3/uL (0.0-0.2); ABSOLUTE EOSINOPHILS # (AUTO) 0.3 10^3/uL (0.0-0.6); ABSOLUTE LYMPHOCYTES (AUTO) 1.9 10^3/uL (0.5-4.7); ABSOLUTE MONOCYTES (AUTO) 0.8 10^3/uL (0.1-1.4); ABSOLUTE NEUT (AUTO) 8.9 10^3/uL (1.7-8.2); BASOPHILS % (AUTO) 0.8 % (0-2); EOSINOPHILS % (AUTO) 2.8 % (0-6); HEMATOCRIT 35.5 % (37.9-51.0); HEMOGLOBIN 11.8 g/dL (13.5-17.0); LYMPHOCYTES % (AUTO) 15.5 % (13-45); MEAN CORPUSCULAR HEMOGLOBIN 25.8 pg (27.0-33.4); MEAN CORPUSCULAR HGB CONC 33.2 g/dL (32.0-36.0); MEAN CORPUSCULAR VOLUME 78 fl (80-97); MONOCYTES % (AUTO) 6.6 % (3-13); PLATELET COUNT 497 10^3/uL (150-450); RED BLOOD COUNT 4.57 10^6/uL (4.35-5.55); SEGMENTED NEUTROPHILS % (AUTO) 74.3 % (42-78); TOTAL CELLS COUNTED % (AUTO) 100 %
[2017-09-05 13:42] LABS: ALANINE AMINOTRANSFERASE 25 U/L (21-72); ALKALINE PHOSPHATASE 84 U/L (38-126); ANION GAP 14 (5-19); ASPARTATE AMINO TRANSFERASE 17 U/L (17-59); BILIRUBIN,DIRECT 0.4 mg/dL (0.0-0.4); BILIRUBIN,TOTAL 0.5 mg/dL (0.2-1.3); BLOOD UREA NITROGEN 15 mg/dL (7-20); CALCIUM 9.7 mg/dL (8.4-10.2); CARBON DIOXIDE 27 mmol/L (22-30); CHLORIDE 98 mmol/L (98-107); GLUCOSE 83 mg/dL (75-110); POTASSIUM 3.6 mmol/L (3.6-5.0); SODIUM 139.1 mmol/L (137-145); TOTAL PROTEIN 7.2 g/dL (6.3-8.2)
--- NOTE | 2017-09-05 14:06 | RADIOLOGY REPORT (SQ) ---
EXAM DESCRIPTION: CHEST PA/LATERAL COMPLETED DATE/TIME: 09/05/2017 1:00 pm REASON FOR STUDY: PNEUMONIA, UNSPECIFIED ORGANISM, COPD COMPARISON: 08/11/2017 EXAM PARAMETERS: NUMBER OF VIEWS: two views TECHNIQUE: Digital Frontal and Lateral radiographic views of the chest acquired. RADIATION DOSE: NA LIMITATIONS: none FINDINGS: LUNGS AND PLEURA: No opacities, masses or pneumothorax. No pleural effusion. MEDIASTINUM AND HILAR STRUCTURES: No masses or contour abnormalities. HEART AND VASCULAR STRUCTURES: Heart normal size. No evidence for failure. BONES: No acute findings. HARDWARE: None in the chest. OTHER: No other significant finding. IMPRESSION: NO SIGNIFICANT RADIOGRAPHIC FINDING IN THE CHEST. TECHNICAL DOCUMENTATION: JOB ID: [id number] [email or web address]- All Rights Reserved
== END ==
LOC: OD 11:57
PROVIDERS: ATTEND Obstetrics & Gynecology
DX: Z51.89 Encounter for other specified aftercare (principal); J18.9 Pneumonia, unspecified organism; I10 Essential (primary) hypertension; E11.9 Type 2 diabetes mellitus without complications; Z51.81 Encounter for therapeutic drug level monitoring
CPT/HCPCS: 36415; 71046; 80053; 85025

== ENCOUNTER 2018-09-08 10:08 | Inpatient (IN) | payer MEDICARE ==
[2018-09-08 11:43] LABS: HEMATOCRIT 21.9 % (37.9-51.0); MEAN CORPUSCULAR HEMOGLOBIN 25.4 pg (27.0-33.4); MEAN CORPUSCULAR HGB CONC 34.3 g/dL (32.0-36.0); MEAN CORPUSCULAR VOLUME 74 fl (80-97); PLATELET COUNT 755 10^3/uL (150-450); RED BLOOD COUNT 2.95 10^6/uL (4.35-5.55); RED CELL DISTRIBUTION WIDTH 15.7 % (11.5-14.0); WHITE BLOOD COUNT 10.6 10^3/uL (4.0-10.5)
[2018-09-08 11:53] LABS: ALANINE AMINOTRANSFERASE 10 U/L (21-72); ALBUMIN 3.6 g/dL (3.5-5.0); ALKALINE PHOSPHATASE 79 U/L (38-126); ANION GAP 6 (5-19); ASPARTATE AMINO TRANSFERASE 25 U/L (17-59); BILIRUBIN,DIRECT 0.3 mg/dL (0.0-0.4); BILIRUBIN,TOTAL 0.5 mg/dL (0.2-1.3); BLOOD UREA NITROGEN 9 mg/dL (7-20); CARBON DIOXIDE 36 mmol/L (22-30); CHLORIDE 100 mmol/L (98-107); CREATINE KINASE 284 U/L (55-170); GLUCOSE 157 mg/dL (75-110); HEMOGLOBIN 7.5 g/dL (13.5-17.0); POTASSIUM 3.5 mmol/L (3.6-5.0); SODIUM 141.5 mmol/L (137-145); TOTAL PROTEIN 6.6 g/dL (6.3-8.2)
[2018-09-08] MEDS ORDERED: NORMAL SALINE 250 ML IV PRN (11:58)
[2018-09-08] MEDS ORDERED: PANTOPRAZOLE SODIUM 40 MG VIAL IV ONE (12:01)
--- NOTE | 2018-09-08 12:01 | EKG REPORT ---
SEVERITY:- ABNORMAL ECG - SINUS TACHYCARDIA ATRIAL PREMATURE COMPLEX PROBABLE LEFT ATRIAL ABNORMALITY LEFT VENTRICULAR HYPERTROPHY BORDERLINE PROLONGED QT INTERVAL : Confirmed by: Jose Luis Magana MD 08-Sep-2018 12:00:30
[2018-09-08 12:05] LABS: CREATINE KINASE MB 0.24 ng/mL (<4.55)
[2018-09-08 12:06] LABS: TROPONIN I < 0.012 ng/mL
[2018-09-08 12:53] LABS: ABSOLUTE LYMPHOCYTES# (MANUAL) 3.2 10^3/uL (0.5-4.7); ABSOLUTE MONOCYTES # (MANUAL) 1.3 10^3/uL (0.1-1.4); ABSOLUTE NEUTROPHILS# (MANUAL) 6.1 10^3/uL (1.7-8.2); BAND NEUTROPHILS % (MANUAL) 1 % (3-5); BASOPHILS % (MANUAL) 0 % (0-2); EOSINOPHILS % (MANUAL) 0 % (0-6); HYPOCHROMASIA 2+; LYMPHOCYTES % (MANUAL) 30 % (13-45); MONOCYTES % (MANUAL) 12 % (3-13); POLYCHROMASIA SLIGHT; SEGMENTED NEUTROPHILS % (MAN) 57 % (42-78); TOTAL CELLS COUNTED 100
[2018-09-08 12:54] LABS: ANISOCYTOSIS SLIGHT; PLATELET COMMENT ADEQUATE
[2018-09-08 13:05] LABS: APPEARANCE,URINE CLEAR; BILIRUBIN,URINE NEGATIVE (NEGATIVE); COLOR,URINE YELLOW; GLUCOSE, URINE 50 mg/dL (NEGATIVE); KETONES,URINE NEGATIVE (NEGATIVE); LEUKOCYTE ESTERASE,URINE NEGATIVE (NEGATIVE); NITRITE,URINE NEGATIVE (NEGATIVE); PROTEIN,URINE 30 mg/dL (NEGATIVE); URINE SPECIFIC GRAVITY 1.009
[2018-09-08] MEDS ORDERED: ONDANSETRON HCL INJ/PF 4 MG/2 ML SDV IV PRN (14:49)
[2018-09-08] MEDS ORDERED: PROMETHAZINE HCL INJ 25 MG/1 ML VIAL IV PRN (14:49)
[2018-09-08] MEDS ORDERED: IPRATROPIUM/ALBUTEROL 0.5-2.5 MG/3 ML AMPUL NEB PRN (14:49)
[2018-09-08] MEDS ORDERED: ACETAMINOPHEN 650 MG SUPP.RECT PR PRN (14:49)
[2018-09-08] MEDS ORDERED: GLUCAGON,HUMAN RECOMB 1 MG INJ IM PRN (14:56)
[2018-09-08] MEDS ORDERED: DEXTROSE 50%-WATER 25 GM/50 ML DISP.SYRIN IV PRN ×2 (14:56)
[2018-09-08] MEDS ORDERED: DEXTROSE 40% GEL 15 GM TUBE PO PRN ×2 (14:56)
[2018-09-08] MEDS ORDERED: HYDRALAZINE HCL INJ/PF 20 MG/1 ML SDV IV PRN (14:57)
[2018-09-08 15:19] LABS: ACETAMINOPHEN < 10 ug/mL (10-30); SALICYLATE < 1.0 mg/dL (2.0-20.0)
--- NOTE | 2018-09-08 15:24 | RADIOLOGY REPORT (SQ) ---
EXAM DESCRIPTION: CHEST SINGLE VIEW COMPLETED DATE/TIME: 09/08/2018 3:17 pm REASON FOR STUDY: chest pain COMPARISON: 08/30/2016 EXAM PARAMETERS: NUMBER OF VIEWS: One view. TECHNIQUE: Single frontal radiographic view of the chest acquired. RADIATION DOSE: NA LIMITATIONS: None. FINDINGS: LUNGS AND PLEURA: No opacities, masses or pneumothorax. No pleural effusion. MEDIASTINUM AND HILAR STRUCTURES: No masses. Contour normal. HEART AND VASCULAR STRUCTURES: Heart size is stable allowing for AP technique. No congestion. BONES: No acute findings. HARDWARE: None in the chest. OTHER: No other significant finding. IMPRESSION: NO ACUTE RADIOGRAPHIC FINDING IN THE CHEST. TECHNICAL DOCUMENTATION: JOB ID: [id number] [employer]- All Rights Reserved Reading location - IP/workstation name: [email or web address]
[2018-09-08] MEDS: SUCRALFATE SUSP 1 GM/10 ML UDCUP PO SCH ×2 (16:26→22:01)
--- NOTE | 2018-09-08 16:37 | ER Document Report ---
Entered by VINCENT FRAZIER SCRIBE 09/08/18 1105 Acting as scribe for:CHA SCOTT MD ED General - General Chief Complaint: Chest Pain Stated Complaint: ABNORMAL LAB RESULTS Time Seen by Provider: 09/08/18 10:30 Primary Care Provider: CATALINO BAUTISTA MD [Primary Care Provider] - Follow up as needed Mode of Arrival: Ambulatory Information source: Patient Notes: Patient is a 38-year-old male with hypertension, hyperlipidemia, type 2 diabetes and history of sepsis was sent to the emergency department by his PCP complaining of low hemoglobin. Patient saw his provider 2 days ago and was called and instructed to come into the emergency department for a blood transfusion. Lab work from physician's office showed the patient had a hemoglobin of 6.6 and MVC of 77. Patient also complains of dark stool and generalized weakness for the last few days. He describes his stool as like "dark chocolate ice cream" and further states "I've been unable to get a normal poop". He states that he takes a baby aspirin daily and has been taking BC powder due to his arthritis. Patient also complains of back pain that radiates into his right anterior chest wall. Patient states that he originally thought this was caused by a strained muscle. Patient states that he had a colonoscopy approximately a year ago where 3 polyps were found. He states that he is also prescribed oxycodone. Patient's PCP is Dr. Bautista. TRAVEL OUTSIDE OF THE [place] IN LAST 30 DAYS: No - Related Data Allergies/Adverse Reactions: No Known Allergies Allergy (Verified 09/08/18 10:11) Past Medical History - General Information source: Patient - Social History Smoking Status: Current Every Day Smoker Cigarette use (# per day): Yes - 1 cig PD Family History: CAD, CVA, DM, Hypertension - Past Medical History Cardiac Medical History: Reports: Hx Hypertension Neurological Medical History: Reports: Hx Cerebrovascular Accident Endocrine Medical History: Reports: Hx Diabetes Mellitus Type 2 Musculoskeletal Medical History: Reports Hx Arthritis Psychiatric Medical History: Reports: Hx Depression Past Surgical History: Reports: Hx Genitourinary Surgery - biopsy of scrotum, Hx Orthopedic Surgery - torn meniscus in the right knee. bakers cyst - Immunizations Hx Diphtheria, Pertussis, Tetanus Vaccination: No Review of Systems - Review of Systems Constitutional: See HPI, Weakness EENT: No symptoms reported Cardiovascular: See HPI, Chest pain Respiratory: No symptoms reported Gastrointestinal: See HPI, Other - Dark stool Genitourinary: No symptoms reported Male Genitourinary: No symptoms reported Musculoskeletal: See HPI, Back pain Skin: No symptoms reported Hematologic/Lymphatic: No symptoms reported Neurological/Psychological: No symptoms reported -: Yes All other systems reviewed and negative Physical Exam - Vital signs Vitals: Temp Pulse Resp BP Pulse Ox 99.3 F 101 H 18 167/78 H 97 09/08/18 10:27 09/08/18 10:27 09/08/18 10:27 09/08/18 10:09/08/18 10:27 - Notes Notes: GENERAL: Alert, interacts well. No acute distress. HEAD: Normocephalic, atraumatic. EYES: Pupils equal, round, and reactive to light. Extraocular movements intact. ENT: Oral mucosa moist, tongue midline. NECK: Full range of motion. Supple. Trachea midline. LUNGS: Clear to auscultation bilaterally, no wheezes, rales, or rhonchi. No respiratory distress. Right anterior chest wall tender to palpation. HEART: Regular rate and rhythm. No murmurs, gallops, or rubs. ABDOMEN: Soft, non-tender. Non-distended. Bowel sounds present in all 4 quadrants. EXTREMITIES: Moves all 4 extremities spontaneously. No edema, no cyanosis. NEUROLOGICAL: Alert and oriented x3. Normal speech. PSYCH: Normal affect, normal mood. SKIN: Warm, dry, normal turgor. No rashes or lesions noted. BACK: No tenderness palpation. RECTAL: Non-tender to palpation. No stool in vault, however there is a reddish mucus. Course - Re-evaluation Re-evalutation: 09/08/18 12:00 Today the patient's hemoglobin is 7.5, he will be transfused 2 units packed RBCs. I suspect he has an ulcer caused by his regular consumption of BC powders. His lab work and history would suggest a somewhat chronic blood loss anemia that has gotten more acute recently. - Vital Signs Vital signs: Temp Pulse Resp BP Pulse Ox 98.2 F 101 H 21 H 156/79 H 97 09/08/18 13:55 09/08/18 10:27 09/08/18 13:55 09/08/18 13:55 09/08/18 13:55 - Laboratory Result Diagrams: 09/08/18 11:19 09/08/18 11:19 Laboratory results interpreted by me: 09/08/18 09/08/18 09/08/18 11:19 11:19 11:19 WBC 10.6 H RBC 2.95 L Hgb 7.5 L Hct 21.9 L MCV 74 L MCH 25.4 L RDW 15.7 H Plt Count 755 H Band Neutrophils % 1 L Potassium 3.5 L Carbon Dioxide 36 H Glucose 157 H ALT 10 L Creatine Kinase 284 H Urine Protein Urine Glucose (UA) Urine Urobilinogen Crossmatch See Detail 09/08/18 12:04 WBC RBC Hgb Hct MCV MCH RDW Plt Count Band Neutrophils % Potassium Carbon Dioxide Glucose ALT Creatine Kinase Urine Protein 30 H Urine Glucose (UA) 50 H Urine Urobilinogen 2.0 H Crossmatch - EKG Interpretation by Me EKG shows normal: Sinus rhythm, [place], QRS Complexes, ST-T Waves. abnormal: Intervals - Borderline prolonged QT interval Rate: Tachycardia - 101 Rhythm: APC's Voltage: Consistant with LVH P Waves: LAE When compared to previous EKG there are: No significant change - Consults Dr. Parker Time consulted: 12:53 Consulted provider: will see as inpatient - Will be available for consultation if upper endoscopy is needed. Ivet Dyson Time consulted: 12:57 Consulted provider: will come to ER Critical Care Note - Critical Care Note Total time excluding time spent on procedures (mins): 30 Discharge - Discharge Clinical Impression: GI bleed due to NSAIDs, Symptomatic anemia Anemia Qualifiers: Anemia type: iron deficiency Iron deficiency anemia type: chronic blood loss Qualified Code(s): D50.0 - Iron deficiency anemia secondary to blood loss (chronic) Condition: Stable Disposition: ADMITTED INPATIENT Admitting Provider: Hospitalist Unit Admitted: Medical Floor Referrals: CATALINO BAUTISTA MD [Primary Care Provider] - Follow up as needed Scribe Attestation: 09/08/18 12:02 I personally performed the services described in the documentation, reviewed and edited the documentation which was dictated to the scribe in my presence, and it accurately records my words and actions. I personally performed the services described in the documentation, reviewed and edited the documentation which was dictated to the scribe in my presence, and it accurately records my words and actions.
[2018-09-08] MEDS: HYDROMORPHONE HCL INJ/PF 2 MG/ML AMPULE IV PRN ×2 (17:25→22:01)
--- NOTE | 2018-09-08 17:51 | PDOC H&P ---
History of Present Illness Admission Date/PCP: 09/08/18 15:21 CATALINO BAUTISTA MD Patient complains of: Anemia, GI bleed History of Present Illness: LEN MACIAS is a 58 year old male with a past medical history that is limited due to patient and family being poor historians but known to have degenerative disc disease with chronic pain and opiate dependence, anxiety with continuous benzodiazepine use, CVA, hypertension, and diabetes mellitus type 2 who presented to the emergency department today with a complaint of back pain times 3 days that has since resolved; worsened with movement. He reports that he is now having right chest wall pain, described as sharp, increased with movement, and resolved with application of pressure. He reports that he was called by his primary care provider today and told to report to the emergency department due to low hemoglobin. He states that his labs were drawn approximately 1 week ago when he was at the office for routine visit and felt well at that time. He does report possibility of slight melena intermittently for several days. He confirms heavy NSAID use; 4-5 BC powders daily for several months. Evaluation in the emergency department revealed hypertension, mild leukocytosis (WBCs 10.6), hemoglobin 7.5 (baseline of 11), unremarkable chemistry, normal troponin, and concerning urinalysis, and positive occult stool. Aspirin and acetaminophen levels were normal. EKG demonstrated sinus tachycardia (heart rate 101) with LVH, borderline QT interval, unchanged from previous. Chest x- ray was negative for acute findings. The emergency provider has placed him on a Protonix drip, started 2 units PRBC, and has referred the patient to the hospitalist service for admission and management of the above stated complaints. Per the emergency department provider, the surgeon, Dr. Parker, has agreed to assist with evaluation for upper GI bleed. Past Medical History Cardiac Medical History: Reports: Hyperlipidema, Hypertension Denies: Coronary Artery Disease, Myocardial Infarction Pulmonary Medical History: Denies: Asthma, Bronchitis, Chronic Obstructive Pulmonary Disease (COPD), Pneumonia EENT Medical History: Reports: None Neurological Medical History: Reports: Ischemic CVA Denies: Seizures Endocrine Medical History: Reports: Diabetes Mellitus Type 2 Renal/ Medical History: Reports: None Malignancy Medical History: Reports: None GI Medical History: Reports: Gastroesophageal Reflux Disease Musculoskeltal Medical History: Reports: Arthritis, Gout Skin Medical History: Reports: None Psychiatric Medical History: Reports: Depression, General Anxiety Disorder Traumatic Medical History: Reports: None Hematology: Reports: Anemia Past Surgical History Past Surgical History: Reports: Orthopedic Surgery - torn meniscus in the right knee. bakers cyst Social History Information Source: Patient Lives with: Spouse/Significant other Smoking Status: Current Every Day Smoker Cigarettes Packs Per Day: 0.2 Frequency of Alcohol Use: None Hx Recreational Drug Use: No Hx Prescription Drug Abuse: No - Advance Directive Resuscitation Status: Full Code Surrogate healthcare decision maker:: Patient's Family History Family History: CAD, CVA, DM, Hypertension Parental Family History Reviewed: Yes Children Family History Reviewed: Yes Sibling(s) Family History Reviewed.: Yes Medication/Allergy Home Medications: Alprazolam [Xanax] 2 mg PO TID 08/09/17 Dexlansoprazole [Dexilant 60 mg Capsule] 60 mg PO DAILY 08/09/17 Enalapril Maleate [Vasotec 20 mg Tablet] 20 mg PO Q12 08/09/17 Ferrous Sulfate [Feosol 325 mg Tablet] 325 mg PO DAILY 08/09/17 Metformin HCl [Glucophage 500 mg Tablet] 500 mg PO BIDACBS 08/09/17 Multivitamin [Tab-A-Jasson (Multiple Vitamin) Tablet] 1 tab PO DAILY 08/09/17 Atorvastatin Calcium [Lipitor 40 mg Tablet] 40 mg PO QHS 30 Days #30 tablet 08/15/17 Amlodipine Besylate [Norvasc 10 mg Tablet] 10 mg PO DAILY 09/08/18 Aspirin [Aspirin 81 mg Chewable Tablet] 81 mg PO DAILY 09/08/18 Oxycodone HCl 20 mg PO Q4HP PRN 09/08/18 Potassium Gluconate 500 mg PO Q12 09/08/18 Quetiapine Fumarate [Seroquel 100 mg Tablet] 100 mg PO QHS 09/08/18 Tamsulosin HCl [Flomax] 0.4 mg PO DAILY 09/08/18 Allergies/Adverse Reactions: No Known Allergies Allergy (Verified 09/08/18 15:32) Review of Systems Constitutional: PRESENT: chills, fatigue. ABSENT: fever(s), headache(s), weight gain, weight loss Eyes: ABSENT: visual disturbances Ears: ABSENT: hearing changes Cardiovascular: PRESENT: chest pain. ABSENT: dyspnea on exertion, edema, orthropnea, palpitations Respiratory: ABSENT: cough, hemoptysis Gastrointestinal: PRESENT: melena. ABSENT: abdominal pain, constipation, diarrh ea, hematemesis, hematochezia, nausea, vomiting Genitourinary: ABSENT: dysuria, hematuria Musculoskeletal: ABSENT: joint swelling Integumentary: ABSENT: rash, wounds Neurological: ABSENT: abnormal gait, abnormal speech, confusion, dizziness, focal weakness, syncope Psychiatric: ABSENT: anxiety, depression, homidical ideation, suicidal ideation Endocrine: ABSENT: cold intolerance, heat intolerance, polydipsia, polyuria Hematologic/Lymphatic: ABSENT: easy bleeding, easy bruising Physical Exam Vital Signs: Temp Pulse Resp BP Pulse Ox 98.1 F 93 22 H 182/93 H 96 09/08/18 17:27 09/08/18 17:27 09/08/18 17:27 09/08/18 17:27 09/08/18 17:27 Intake & Output 09/07/18 09/08/18 09/09/18 06:59 06:59 06:59 Intake Total 300 Balance 300 Weight 108.862 kg General appearance: PRESENT: no acute distress, obese, well-developed, well- nourished Head exam: PRESENT: atraumatic, normocephalic Eye exam: PRESENT: conjunctiva pink, EOMI, PERRLA. ABSENT: scleral icterus Ear exam: PRESENT: normal external ear exam Mouth exam: PRESENT: moist, tongue midline Neck exam: ABSENT: carotid bruit, JVD, lymphadenopathy, thyromegaly Respiratory exam: PRESENT: clear to auscultation rosa isela, symmetrical, unlabored. ABSENT: rales, rhonchi, wheezes Cardiovascular exam: PRESENT: RRR, +S1, +S2. ABSENT: diastolic murmur, rubs, systolic murmur Pulses: PRESENT: normal dorsalis pedis pul Vascular exam: PRESENT: normal capillary refill GI/Abdominal exam: PRESENT: normal bowel sounds, soft. ABSENT: distended, guarding, mass, organolmegaly, rebound, tenderness Rectal exam: PRESENT: deferred Extremities exam: PRESENT: full ROM. ABSENT: calf tenderness, clubbing, pedal edema Neurological exam: PRESENT: alert, awake, oriented to person, oriented to place, oriented to time, oriented to situation, CN II-XII grossly intact. ABSENT: motor sensory deficit Psychiatric exam: PRESENT: appropriate affect, normal mood. ABSENT: homicidal ideation, suicidal ideation Skin exam: PRESENT: dry, intact, pallor, warm. ABSENT: cyanosis, rash Results Laboratory Results: 09/08/18 11:19 09/08/18 11:19 09/08/18 09/08/18 09/08/18 11:19 11:19 11:19 WBC 10.6 H RBC 2.95 L Hgb 7.5 L Hct 21.9 L MCV 74 L MCH 25.4 L MCHC 34.3 RDW 15.7 H Plt Count 755 H Seg Neutrophils % Not Reportable Lymphocytes % Not Reportable Monocytes % Not Reportable Eosinophils % Not Reportable Basophils % Not Reportable Absolute Neutrophils Not Reportable Absolute Lymphocytes Not Reportable Absolute Monocytes Not Reportable Absolute Eosinophils Not Reportable Absolute Basophils Not Reportable Sodium 141.5 Potassium 3.5 L Chloride 100 Carbon Dioxide 36 H Anion Gap 6 BUN 9 Creatinine 0.89 Est GFR ( Amer) > 60 Est GFR (Non-Af Amer) > 60 Glucose 157 H Calcium 9.0 Total Bilirubin 0.5 AST 25 ALT 10 L Alkaline Phosphatase 79 Total Protein 6.6 Albumin 3.6 Urine Color Urine Appearance Urine pH Ur Specific [place] Urine Protein Urine Glucose (UA) Urine Ketones Urine Blood Urine Nitrite Ur Leukocyte Esterase Urine WBC (Auto) Urine RBC (Auto) Blood Type O POSITIVE Antibody Screen NEGATIVE 09/08/18 12:04 WBC RBC Hgb Hct MCV MCH MCHC RDW Plt Count Seg Neutrophils % Lymphocytes % Monocytes % Eosinophils % Basophils % Absolute Neutrophils Absolute Lymphocytes Absolute Monocytes Absolute Eosinophils Absolute Basophils Sodium Potassium Chloride Carbon Dioxide Anion Gap BUN Creatinine Est GFR ( Amer) Est GFR (Non-Af Amer) Glucose Calcium Total Bilirubin AST ALT Alkaline Phosphatase Total Protein Albumin Urine Color YELLOW Urine Appearance CLEAR Urine pH 9.0 Ur Specific [place] 1.009 Urine Protein 30 H Urine Glucose (UA) 50 H Urine Ketones NEGATIVE Urine Blood NEGATIVE Urine Nitrite NEGATIVE Ur Leukocyte Esterase NEGATIVE Urine WBC (Auto) 0 Urine RBC (Auto) 1 Blood Type Antibody Screen 09/08/18 09/08/18 11:19 11:19 Creatine Kinase 284 H CK-MB (CK-2) 0.24 Troponin I < 0.012 Impressions: Chest X-Ray 09/08/18 14:53 IMPRESSION: NO ACUTE RADIOGRAPHIC FINDING IN THE CHEST. Assessment & Plan - Diagnosis (1) Gastrointestinal hemorrhage due to nonsteroidal antiinflammatory drug Is this a current diagnosis for this admission?: Yes Plan: Patient reports melena intermittently times several weeks. He also reports sev eral months of daily BC powders; 4-5 packets daily. Hemoglobin at his primary care provider's office from last week was 6.6; on arrival today 7.5. Patient received a Protonix bolus and is now placed on Protonix drip. N.p.o. with maintenance IV fluids. Transfuse 2 units packed red blood cells; monitor serial chemistries and continue to transfuse as necessary. Continue the patient's home dose Carafate. Antiemetics as needed. Surgery is consulted; appreciate their assistance in evaluating for upper GI bleed. (2) Anemia Qualifiers: Anemia type: other cause Qualified Code(s): D50.0 - Iron deficiency anemia secondary to blood loss (chronic) Is this a current diagnosis for this admission?: Yes Plan: Acute blood loss anemia secondary to upper GI bleed related to chronic NSAID use. Patient does have a history of chronic iron deficiency anemia; baseline hemoglobin of 11. Hemoglobin was 7.5 on admission. Occult stool positive. Patient is being transfused 2 units packed red blood cells. We will monitor serial CBCs and continue to transfuse as necessary. Registered dietitian is consulted. Otherwise, management workup as above. (3) Hypertension Is this a current diagnosis for this admission?: Yes Plan: Patient was found to have elevated blood pressures today; reportedly has not taken his antihypertensive medications due to not feeling well. BP was noted to be 172/97. Have resumed his home medication regimen of amlodipine 10 mg daily and enalapril 20 mg twice daily. IV hydralazine as needed for blood pressure control. Consider beta-petros. (4) Diabetes Qualifiers: Diabetes mellitus type: type 2 Diabetes mellitus gunner's mate insulin use: without fci use Is this a current diagnosis for this admission?: Yes Plan: Patient is currently in n.p.o. status. Holding metformin while admitted. Accu-Cheks every 6 hours with Humalog for sliding scale coverage. Hypoglycemia protocol in place. Registered dietitian is consulted. (5) History of CVA (cerebrovascular accident) Is this a current diagnosis for this admission?: Yes - Time Time Spent: 50 to 70 Minutes Anticipated discharge: Home Within: within 72 hours - Inpatient Certification Based on my medical assessment, after consideration of the patient's comorbidities, presenting symptoms, or acuity I expect that the services needed warrant INPATIENT care.: Yes I certify that my determination is in accordance with my understanding of Medicare's requirements for reasonable and necessary INPATIENT services [42 CFR 412.3e].: Yes Medical Necessity: Need Close Monitoring Due to Risk of Patient Decompensation, Risk of Complication if Not Cared For in Hospital
[2018-09-08] MEDS: INSULIN LISPRO 100 UNIT/ML 3 ML VIAL SUBCUT SCH (18:00)
[2018-09-08] MEDS ORDERED: (PENDING PHARMACY ID) (Enalapril Maleate [Vasotec 20 Mg Tablet] 20 MG) PO SCH (22:00)
[2018-09-08] MEDS: QUETIAPINE FUMARATE 100 MG TABLET PO SCH (22:01)
[2018-09-08] MEDS: NORMAL SALINE 1000 ML 1,000 ML IV PRN (22:07)
[2018-09-08] MEDS: ENALAPRIL MALEATE 10 MG TABLET PO SCH (22:10)
[2018-09-09] MEDS: INSULIN LISPRO 100 UNIT/ML 3 ML VIAL SUBCUT SCH ×6 (00:01→21:16)
[2018-09-09 05:04] LABS: HEMATOCRIT 26.3 % (37.9-51.0); HEMOGLOBIN 8.9 g/dL (13.5-17.0); MEAN CORPUSCULAR HEMOGLOBIN 25.6 pg (27.0-33.4); MEAN CORPUSCULAR HGB CONC 33.7 g/dL (32.0-36.0); MEAN CORPUSCULAR VOLUME 76 fl (80-97); PLATELET COUNT 678 10^3/uL (150-450); RED BLOOD COUNT 3.47 10^6/uL (4.35-5.55); RED CELL DISTRIBUTION WIDTH 16.6 % (11.5-14.0); WHITE BLOOD COUNT 11.3 10^3/uL (4.0-10.5)
[2018-09-09 05:25] LABS: ANION GAP 8 (5-19); BLOOD UREA NITROGEN 8 mg/dL (7-20); CALCIUM 8.8 mg/dL (8.4-10.2); CARBON DIOXIDE 31 mmol/L (22-30); CHLORIDE 103 mmol/L (98-107); GLUCOSE 92 mg/dL (75-110); POTASSIUM 3.3 mmol/L (3.6-5.0); SODIUM 142.2 mmol/L (137-145)
[2018-09-09] MEDS: HYDROMORPHONE HCL INJ/PF 2 MG/ML AMPULE IV PRN ×2 (05:27→10:18)
[2018-09-09] MEDS ORDERED: LANSOPRAZOLE 30 MG TAB.RAP.DR PO SCH (06:00)
[2018-09-09] MEDS: SUCRALFATE SUSP 1 GM/10 ML UDCUP PO SCH ×4 (08:08→21:13)
[2018-09-09] MEDS: NORMAL SALINE 100 ML with PANTOPRAZOLE SODIUM 80 MG IV PRN ×4 (08:14→17:00)
[2018-09-09] MEDS ORDERED: ENALAPRIL MALEATE 10 MG TABLET PO ONE (09:00)
[2018-09-09] MEDS ORDERED: AMLODIPINE BESYLATE 10 MG TABLET PO ONE (09:00)
[2018-09-09] MEDS ORDERED: INSULIN GLARGINE,HUM.REC.ANLOG 300 UNIT/3 ML INSULN.PEN SUBCUT SCH (10:00)
[2018-09-09] MEDS: AMLODIPINE BESYLATE 10 MG TABLET PO SCH (10:21)
[2018-09-09] MEDS: NORMAL SALINE 1000 ML 1,000 ML IV PRN (10:23)
[2018-09-09] MEDS: ENALAPRIL MALEATE 10 MG TABLET PO SCH ×2 (10:58→21:13)
[2018-09-09] MEDS ORDERED: NORMAL SALINE 1000 ML 1,000 ML IV PRN (11:39)
--- NOTE | 2018-09-09 16:06 | PDOC PROGRESS REPORT ---
Subjective Progress Note for:: 09/09/18 Subjective:: The patient is a 58 year old male with a past medical history that is limited due to patient and family being poor historians but known to have degenerative disc disease with chronic pain and opiate dependence, anxiety with continuous benzodiazepine use, CVA, hypertension, and diabetes mellitus type 2 who was admitted 09/08/18 for acute blood loss anemia secondary to presumed upper GI bleed. The patient was seen on morning rounds. He was found resting in bed comfortably on room air with his present. He is very agitated today at his diet order; has been advanced from n.p.o. to clear liquids per surgery's recommendations. Surgery plans for EGD on Tuesday. Discussed with patient the importance of remaining on clear liquids until his procedure has been completed. Patient expresses understanding. Otherwise, he has no complaints today and states that he feels much better. He denies fever, chills, headaches, dizziness, chest pain, palpitations, dyspne a, orthopnea, abdominal pain, nausea vomiting and diarrhea. He has no other questions or concerns. Nursing reports that patient remains hypertensive; informs me that he is just now receiving his oral blood pressure medications as they were held while in n.p.o. status. Reason For Visit: ANEMIA,GI BLEED Physical Exam Vital Signs: Temp Pulse Resp BP Pulse Ox 98.1 F 62 14 185/100 H 96 09/09/18 12:00 09/09/18 12:38 09/09/18 12:38 09/09/18 12:00 09/09/18 12:38 Intake & Output 09/08/18 09/09/18 09/10/18 06:59 06:59 06:59 Intake Total 1150 550 Balance 1150 550 Weight 99.6 kg General appearance: PRESENT: no acute distress, obese, well-developed, well- nourished Head exam: PRESENT: atraumatic, normocephalic Eye exam: PRESENT: conjunctiva pink, EOMI, PERRLA. ABSENT: scleral icterus Ear exam: PRESENT: normal external ear exam Mouth exam: PRESENT: moist, tongue midline Neck exam: ABSENT: carotid bruit, JVD, lymphadenopathy, thyromegaly Respiratory exam: PRESENT: clear to auscultation rosa isela, symmetrical, unlabored. ABSENT: rales, rhonchi, wheezes Cardiovascular exam: PRESENT: RRR, +S1, +S2. ABSENT: diastolic murmur, rubs, systolic murmur Pulses: PRESENT: normal dorsalis pedis pul Vascular exam: PRESENT: normal capillary refill GI/Abdominal exam: PRESENT: normal bowel sounds, soft. ABSENT: distended, guarding, mass, organolmegaly, rebound, tenderness Rectal exam: PRESENT: deferred Extremities exam: PRESENT: full ROM. ABSENT: calf tenderness, clubbing, pedal edema Neurological exam: PRESENT: alert, awake, oriented to person, oriented to place, oriented to time, oriented to situation, CN II-XII grossly intact. ABSENT: motor sensory deficit Psychiatric exam: PRESENT: agitated, appropriate affect. ABSENT: homicidal ideation, suicidal ideation Skin exam: PRESENT: dry, intact, warm. ABSENT: cyanosis, rash Results Laboratory Results: 09/09/18 04:01 09/09/18 04:01 09/08/18 09/09/18 09/09/18 11:19 04:01 04:01 WBC 11.3 H RBC 3.47 L Hgb 8.9 L Hct 26.3 L MCV 76 L MCH 25.6 L MCHC 33.7 RDW 16.6 H Plt Count 678 H Sodium 142.2 Potassium 3.3 L Chloride 103 Carbon Dioxide 31 H Anion Gap 8 BUN 8 Creatinine 0.77 Est GFR ( Amer) > 60 Est GFR (Non-Af Amer) > 60 Glucose 92 Calcium 8.8 Blood Type O POSITIVE Antibody Screen NEGATIVE 09/08/18 09/08/18 11:19 11:19 Creatine Kinase 284 H CK-MB (CK-2) 0.24 Troponin I < 0.012 Impressions: Chest X-Ray 09/08/18 14:53 IMPRESSION: NO ACUTE RADIOGRAPHIC FINDING IN THE CHEST. Assessment & Plan - Diagnosis (1) Gastrointestinal hemorrhage due to nonsteroidal antiinflammatory drug Is this a current diagnosis for this admission?: Yes Plan: Patient reports melena intermittently times several weeks. He also reports several months of daily BC powders; 4-5 packets daily. Hemoglobin at his primary care provider's office from last week was 6.6; on arrival yesterday 7.5. Now s/p 2 units PRBC Patient received a Protonix bolus and is now placed on Protonix drip. Clear liquid diet. Continue the patient's home dose Carafate. Antiemetics as needed. Surgery is consulted; appreciate their assistance in evaluating for upper GI bleed. Planned EGD on Tuesday per Dr. Posadas. (2) Anemia Qualifiers: Anemia type: other cause Qualified Code(s): D50.0 - Iron deficiency anemia secondary to blood loss (chronic) Is this a current diagnosis for this admission?: Yes Plan: Acute blood loss anemia secondary to upper GI bleed related to chronic NSAID use. Patient does have a history of chronic iron deficiency anemia; baseline hemoglobin of 11. Hemoglobin was 7.5 on admission, now 8.9 Occult stool positive. Post transfusion 2 units packed red blood cells. We will monitor serial CBCs and continue to transfuse as necessary. Registered dietitian is consulted. Otherwise, management workup as above. (3) Hypertension Is this a current diagnosis for this admission?: Yes Plan: Patient was found to have elevated blood pressures today; reportedly has not taken his antihypertensive medications due to not feeling well. BP was noted to be 172/97. Have resumed his home medication regimen of amlodipine 10 mg daily and enalapril 20 mg twice daily; first doses this morning. Have added coreg 6.25 mg twice daily. IV hydralazine as needed for blood pressure control. Low sodium diet. 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 Holding metformin while admitted. Accu-Cheks before meals and at bedtime with Humalog for sliding scale coverage. Hypoglycemia protocol in place. Registered dietitian is consulted. (5) History of CVA (cerebrovascular accident) Is this a current diagnosis for this admission?: Yes - Time Time Spent with patient: 15-24 minutes Medications reviewed and adjusted accordingly: Yes Anticipated discharge: Home Within: within 72 hours
--- NOTE | 2018-09-09 17:07 | PDOC CONSULTATION ---
Consultation Consult Date: 09/09/18 Consult reason:: Anemia History of Present Illness Admission Date/PCP: 09/08/18 15:21 CATALINO BAUTISTA MD History of Present Illness: LEN MACIAS is a 58 year old malewith history of DM,hypertension,CVA noted to have a hgb of 6.6 at his PMD office and 7.4 on admission yesterday. Had 2 units PRBCs with Hgb today at 8.9. Has been taking BC powder 4-5 packets aday for months. Has + stool occult blood. Today claims had a pasty brownish BM. Denies abdominal pains, lightheadedness,fever,N/V.,diarrhea,or constipation.Denies dark stools. Past Medical History Cardiac Medical History: Reports: Hyperlipidema, Hypertension Denies: Coronary Artery Disease, Myocardial Infarction Pulmonary Medical History: Denies: Asthma, Bronchitis, Chronic Obstructive Pulmonary Disease (COPD), Pneumonia EENT Medical History: Reports: None Neurological Medical History: Reports: Ischemic CVA Denies: Seizures Endocrine Medical History: Reports: Diabetes Mellitus Type 1, Diabetes Mellitus Type 2 Renal/ Medical History: Reports: None Malignancy Medical History: Reports: None GI Medical History: Reports: Gastroesophageal Reflux Disease Musculoskeltal Medical History: Reports: Arthritis, Gout Skin Medical History: Reports: None Psychiatric Medical History: Reports: Depression, General Anxiety Disorder Traumatic Medical History: Reports: None Hematology: Reports: Anemia Past Surgical History Past Surgical History: Reports: Orthopedic Surgery - torn meniscus in the right knee. bakers cyst Social History Lives with: Spouse/Significant other Smoking Status: Current Every Day Smoker Cigarettes Packs Per Day: 0.2 Frequency of Alcohol Use: None Hx Recreational Drug Use: No Hx Prescription Drug Abuse: No - Advance Directive Resuscitation Status: Full Code Family History Family History: CAD, CVA, DM, Hypertension Parental Family History Reviewed: Yes Children Family History Reviewed: No Sibling(s) Family History Reviewed.: No Medication/Allergy Home Medications: Alprazolam [Xanax] 2 mg PO TID 08/09/17 Dexlansoprazole [Dexilant 60 mg Capsule] 60 mg PO DAILY 08/09/17 Enalapril Maleate [Vasotec 20 mg Tablet] 20 mg PO Q12 08/09/17 Ferrous Sulfate [Feosol 325 mg Tablet] 325 mg PO DAILY 08/09/17 Metformin HCl [Glucophage 500 mg Tablet] 500 mg PO BIDACBS 08/09/17 Multivitamin [Tab-A-Jasson (Multiple Vitamin) Tablet] 1 tab PO DAILY 08/09/17 Atorvastatin Calcium [Lipitor 40 mg Tablet] 40 mg PO QHS 30 Days #30 tablet 08/15/17 Amlodipine Besylate [Norvasc 10 mg Tablet] 10 mg PO DAILY 09/08/18 Aspirin [Aspirin 81 mg Chewable Tablet] 81 mg PO DAILY 09/08/18 Oxycodone HCl 20 mg PO Q4HP PRN 09/08/18 Potassium Gluconate 500 mg PO Q12 09/08/18 Quetiapine Fumarate [Seroquel 100 mg Tablet] 100 mg PO QHS 09/08/18 Tamsulosin HCl [Flomax] 0.4 mg PO DAILY 09/08/18 Allergies/Adverse Reactions: No Known Allergies Allergy (Verified 09/08/18 15:32) Review of Systems Constitutional: PRESENT: as per HPI Cardiovascular: PRESENT: other - no chest pains,cough Gastrointestinal: PRESENT: as per HPI Genitourinary: PRESENT: other - no dysuria Musculoskeletal: PRESENT: back pain Physical Exam Vital Signs: Temp Pulse Resp BP Pulse Ox 98.1 F 62 14 185/100 H 96 09/09/18 12:00 09/09/18 12:38 09/09/18 12:38 09/09/18 12:00 09/09/18 12:38 Intake & Output 09/08/18 09/09/18 09/10/18 06:59 06:59 06:59 Intake Total 1150 550 Balance 1150 550 Weight 99.6 kg General appearance: PRESENT: no acute distress Head exam: PRESENT: atraumatic Eye exam: PRESENT: conjunctiva pink Mouth exam: PRESENT: moist Neck exam: PRESENT: full ROM Respiratory exam: PRESENT: clear to auscultation rosa isela Cardiovascular exam: PRESENT: RRR Pulses: PRESENT: normal radial pulses Vascular exam: PRESENT: normal capillary refill GI/Abdominal exam: PRESENT: soft - non tender Rectal exam: PRESENT: deferred Extremities exam: PRESENT: full ROM Musculoskeletal exam: PRESENT: ambulatory Neurological exam: PRESENT: alert, oriented to person, oriented to place, oriented to time, oriented to situation Psychiatric exam: PRESENT: appropriate affect Skin exam: PRESENT: normal color, warm Results Laboratory Results: 09/09/18 04:01 09/09/18 04:01 09/08/18 09/09/18 09/09/18 11:19 04:01 04:01 WBC 11.3 H RBC 3.47 L Hgb 8.9 L Hct 26.3 L MCV 76 L MCH 25.6 L MCHC 33.7 RDW 16.6 H Plt Count 678 H Sodium 142.2 Potassium 3.3 L Chloride 103 Carbon Dioxide 31 H Anion Gap 8 BUN 8 Creatinine 0.77 Est GFR ( Amer) > 60 Est GFR (Non-Af Amer) > 60 Glucose 92 Calcium 8.8 Blood Type O POSITIVE Antibody Screen NEGATIVE 09/08/18 09/08/18 11:19 11:19 Creatine Kinase 284 H CK-MB (CK-2) 0.24 Troponin I < 0.012 Impressions: Chest X-Ray 09/08/18 14:53 IMPRESSION: NO ACUTE RADIOGRAPHIC FINDING IN THE CHEST. Assessment & Plan - Diagnosis (1) Anemia Qualifiers: Anemia type: other cause Qualified Code(s): D50.0 - Iron deficiency anemia secondary to blood loss (chronic) Is this a current diagnosis for this admission?: Yes (2) Diabetes Qualifiers: Diabetes mellitus type: type 2 Diabetes mellitus superintendent container terminal insulin use: without superintendent container terminal use Is this a current diagnosis for this admission?: Yes (3) Gastrointestinal hemorrhage due to nonsteroidal antiinflammatory drug Is this a current diagnosis for this admission?: Yes (4) Hypertension Is this a current diagnosis for this admission?: Yes (6) History of CVA (cerebrovascular accident) Is this a current diagnosis for this admission?: Yes - Time Time Spent: 30 to 50 Minutes - Inpatient Certification Medical Necessity: Need Close Monitoring Due to Risk of Patient Decompensation, Need For IV Fluids, Risk of Complication if Not Cared For in Hospital - Plan Summary Plan Summary: Continue monitor H/H OK to have clear diet Possible EGD Tuesday prior to discharge
[2018-09-09] MEDS: OXYCODONE HCL IR 5 MG TABLET PO PRN (20:23)
[2018-09-09] MEDS: ALPRAZOLAM 0.5 MG TABLET PO PRN (20:23)
[2018-09-09] MEDS: ATORVASTATIN CALCIUM 40 MG TABLET PO SCH (21:13)
[2018-09-09] MEDS: CARVEDILOL 6.25 MG TABLET PO SCH (21:14)
[2018-09-09] MEDS: QUETIAPINE FUMARATE 100 MG TABLET PO SCH (21:14)
[2018-09-10] MEDS: OXYCODONE HCL IR 5 MG TABLET PO PRN ×4 (00:32→21:11)
[2018-09-10] MEDS: NORMAL SALINE 100 ML with PANTOPRAZOLE SODIUM 80 MG IV PRN ×2 (03:48)
[2018-09-10 05:28] LABS: HEMATOCRIT 26.6 % (37.9-51.0); HEMOGLOBIN 8.9 g/dL (13.5-17.0); MEAN CORPUSCULAR HEMOGLOBIN 25.3 pg (27.0-33.4); MEAN CORPUSCULAR HGB CONC 33.5 g/dL (32.0-36.0); MEAN CORPUSCULAR VOLUME 76 fl (80-97); PLATELET COUNT 735 10^3/uL (150-450); RED BLOOD COUNT 3.52 10^6/uL (4.35-5.55); RED CELL DISTRIBUTION WIDTH 16.8 % (11.5-14.0); WHITE BLOOD COUNT 12.2 10^3/uL (4.0-10.5)
[2018-09-10 06:01] LABS: ANION GAP 8 (5-19); BLOOD UREA NITROGEN 8 mg/dL (7-20); CALCIUM 8.9 mg/dL (8.4-10.2); CARBON DIOXIDE 31 mmol/L (22-30); CHLORIDE 102 mmol/L (98-107); GLUCOSE 89 mg/dL (75-110); POTASSIUM 3.5 mmol/L (3.6-5.0)
[2018-09-10] MEDS: INSULIN LISPRO 100 UNIT/ML 3 ML VIAL SUBCUT SCH ×4 (08:01→21:13)
[2018-09-10] MEDS: SUCRALFATE SUSP 1 GM/10 ML UDCUP PO SCH ×4 (08:24→21:13)
[2018-09-10] MEDS: MULTIVITAMIN TABLET PO SCH (10:18)
[2018-09-10] MEDS: FERROUS SULFATE 325 MG TABLET PO SCH (10:18)
[2018-09-10] MEDS: AMLODIPINE BESYLATE 10 MG TABLET PO SCH (10:18)
[2018-09-10] MEDS: TAMSULOSIN HCL 0.4 MG CAP.SR.24H PO SCH (10:18)
[2018-09-10] MEDS: ENALAPRIL MALEATE 10 MG TABLET PO SCH ×2 (10:19→21:11)
[2018-09-10] MEDS: CARVEDILOL 6.25 MG TABLET PO SCH ×2 (10:19→21:12)
--- NOTE | 2018-09-10 13:15 | PDOC PROGRESS REPORT ---
Subjective Progress Note for:: 09/10/18 Subjective:: No pains. Hungry Reason For Visit: ANEMIA,GI BLEED Physical Exam Vital Signs: Temp Pulse Resp BP Pulse Ox 98.7 F 87 18 161/75 H 99 09/10/18 11:35 09/10/18 11:35 09/10/18 11:35 09/10/18 11:35 09/10/18 11:35 Intake & Output 09/09/18 09/10/18 09/11/18 06:59 06:59 06:59 Intake Total 1150 1558 Balance 1150 1558 Weight 99.6 kg 99.6 kg Exam: abdomen is soft and non tender Hemoglobin stable at 8.9 Results Laboratory Results: 09/10/18 04:01 09/10/18 04:01 09/10/18 09/10/18 04:01 04:01 WBC 12.2 H RBC 3.52 L Hgb 8.9 L Hct 26.6 L MCV 76 L MCH 25.3 L MCHC 33.5 RDW 16.8 H Plt Count 735 H Sodium 141.0 Potassium 3.5 L Chloride 102 Carbon Dioxide 31 H Anion Gap 8 BUN 8 Creatinine 1.07 Est GFR ( Amer) > 60 Est GFR (Non-Af Amer) > 60 Glucose 89 Calcium 8.9 09/08/18 09/08/18 11:19 11:19 Creatine Kinase 284 H CK-MB (CK-2) 0.24 Troponin I < 0.012 Impressions: Chest X-Ray 09/08/18 14:53 IMPRESSION: NO ACUTE RADIOGRAPHIC FINDING IN THE CHEST. Assessment & Plan - Diagnosis (1) Anemia Qualifiers: Anemia type: other cause Qualified Code(s): D50.0 - Iron deficiency anemia secondary to blood loss (chronic) Is this a current diagnosis for this admission?: Yes (2) Diabetes Qualifiers: Diabetes mellitus type: type 2 Diabetes mellitus tank terminal gauger insulin use: without tank terminal gauger use Is this a current diagnosis for this admission?: Yes (3) Gastrointestinal hemorrhage due to nonsteroidal antiinflammatory drug Is this a current diagnosis for this admission?: Yes (4) Hypertension Is this a current diagnosis for this admission?: Yes (6) History of CVA (cerebrovascular accident) Is this a current diagnosis for this admission?: Yes - Time Time Spent with patient: 15-24 minutes - Plan Summary Plan Summary: For EGD and colonoscopy tomorrow by Dr Castaneda Start bowel prep today
--- NOTE | 2018-09-10 14:15 | PDOC PROGRESS REPORT ---
Subjective Progress Note for:: 09/10/18 Subjective:: The patient is a 58 year old male with a past medical history that is limited due to patient and family being poor historians but known to have degenerative disc disease with chronic pain and opiate dependence, anxiety with continuous benzodiazepine use, CVA, hypertension, and diabetes mellitus type 2 who was admitted 09/08/18 for acute blood loss anemia secondary to presumed upper GI bleed. The patient was seen on morning rounds. He was found resting in bed comfortably on room air. His only complaint continues to be hunger; again requesting to eat. Otherwise, he has no complaints today and states that he feels much better. He denies fever, chills, headaches, dizziness, chest pain, palpitations, dyspnea, orthopnea, abdominal pain, nausea vomiting and diarrhea. He has no other questions or concerns. No concerns per nursing. Reason For Visit: ANEMIA,GI BLEED Physical Exam Vital Signs: Temp Pulse Resp BP Pulse Ox 98.7 F 87 18 161/75 H 99 09/10/18 11:35 09/10/18 11:35 09/10/18 11:35 09/10/18 11:35 09/10/18 11:35 Intake & Output 09/09/18 09/10/18 09/11/18 06:59 06:59 06:59 Intake Total 1150 1558 Balance 1150 1558 Weight 99.6 kg 99.6 kg General appearance: PRESENT: no acute distress, obese, well-developed, well- nourished Head exam: PRESENT: atraumatic, normocephalic Eye exam: PRESENT: conjunctiva pink, EOMI, PERRLA. ABSENT: scleral icterus Ear exam: PRESENT: normal external ear exam Mouth exam: PRESENT: moist, tongue midline Neck exam: ABSENT: carotid bruit, JVD, lymphadenopathy, thyromegaly Respiratory exam: PRESENT: clear to auscultation rosa isela, symmetrical, unlabored. ABSENT: rales, rhonchi, wheezes Cardiovascular exam: PRESENT: RRR, +S1, +S2. ABSENT: diastolic murmur, rubs, systolic murmur Pulses: PRESENT: normal dorsalis pedis pul Vascular exam: PRESENT: normal capillary refill GI/Abdominal exam: PRESENT: normal bowel sounds, soft. ABSENT: distended, guarding, mass, organolmegaly, rebound, tenderness Rectal exam: PRESENT: deferred Extremities exam: PRESENT: full ROM. ABSENT: calf tenderness, clubbing, pedal edema Neurological exam: PRESENT: alert, awake, oriented to person, oriented to place, oriented to time, oriented to situation, CN II-XII grossly intact. ABSENT: motor sensory deficit Psychiatric exam: PRESENT: appropriate affect, normal mood. ABSENT: homicidal ideation, suicidal ideation Skin exam: PRESENT: dry, intact, warm. ABSENT: cyanosis, rash Results Laboratory Results: 09/10/18 04:01 09/10/18 04:01 09/10/18 09/10/18 04:01 04:01 WBC 12.2 H RBC 3.52 L Hgb 8.9 L Hct 26.6 L MCV 76 L MCH 25.3 L MCHC 33.5 RDW 16.8 H Plt Count 735 H Sodium 141.0 Potassium 3.5 L Chloride 102 Carbon Dioxide 31 H Anion Gap 8 BUN 8 Creatinine 1.07 Est GFR ( Amer) > 60 Est GFR (Non-Af Amer) > 60 Glucose 89 Calcium 8.9 09/08/18 09/08/18 11:19 11:19 Creatine Kinase 284 H CK-MB (CK-2) 0.24 Troponin I < 0.012 Impressions: Chest X-Ray 09/08/18 14:53 IMPRESSION: NO ACUTE RADIOGRAPHIC FINDING IN THE CHEST. Assessment & Plan - Diagnosis (1) Gastrointestinal hemorrhage due to nonsteroidal antiinflammatory drug Is this a current diagnosis for this admission?: Yes Plan: Patient reports melena intermittently times several weeks. He also reports several months of daily BC powders; 4-5 packets daily. Hemoglobin at his primary care provider's office from last week was 6.6; on arrival yesterday 7.5. Now s/p 2 units PRBC Protonix twice daily. NPO after midnight with bowel prep for colonoscopy and EGD by surgery tomorrow. Continue the patient's home dose Carafate. Antiemetics as needed. Surgery is consulted; appreciate their assistance in evaluating for upper GI ble ed. (2) Anemia Qualifiers: Anemia type: other cause Qualified Code(s): D50.0 - Iron deficiency anemia secondary to blood loss (chronic) Is this a current diagnosis for this admission?: Yes Plan: Acute blood loss anemia secondary to upper GI bleed related to chronic NSAID use. Patient does have a history of chronic iron deficiency anemia; baseline hemoglobin of 11. Hemoglobin was 7.5 on admission, now 8.9 Occult stool positive. Post transfusion 2 units packed red blood cells. We will monitor serial CBCs and continue to transfuse as necessary. Registered dietitian is consulted. Otherwise, management and workup as above. (3) Hypertension Is this a current diagnosis for this admission?: Yes Plan: Improved with resumption of home medication regiment: amlodipine 10 mg daily and enalapril 20 mg twice daily. Have added coreg 6.25 mg twice daily. IV hydralazine as needed for blood pressure control. Low sodium diet. (4) Diabetes Qualifiers: Diabetes mellitus type: type 2 Diabetes mellitus terminal superintendent insulin use: without alf use Is this a current diagnosis for this admission?: Yes Plan: Cardiac/Consistent Carb clear liquid diet. Holding metformin while admitted. Accu-Cheks before meals and at bedtime with Humalog for sliding scale coverage. Hypoglycemia protocol in place. Registered dietitian is consulted. (5) History of CVA (cerebrovascular accident) Is this a current diagnosis for this admission?: Yes - Time Time Spent with patient: Less than 15 minutes Medications reviewed and adjusted accordingly: Yes Anticipated discharge: Home Within: within 48 hours
[2018-09-10] MEDS ORDERED: PEG 3350/NA SULF,BICARB,CL/KCL 4000 ML PO ONE (15:00)
[2018-09-10] MEDS: ALPRAZOLAM 0.5 MG TABLET PO PRN (21:11)
[2018-09-10] MEDS: ATORVASTATIN CALCIUM 40 MG TABLET PO SCH (21:12)
[2018-09-10] MEDS: PANTOPRAZOLE SODIUM 40 MG VIAL IV SCH (21:13)
[2018-09-10] MEDS: QUETIAPINE FUMARATE 100 MG TABLET PO SCH (21:13)
[2018-09-11 05:27] LABS: HEMATOCRIT 27.7 % (37.9-51.0); HEMOGLOBIN 9.5 g/dL (13.5-17.0); MEAN CORPUSCULAR HEMOGLOBIN 25.7 pg (27.0-33.4); MEAN CORPUSCULAR HGB CONC 34.4 g/dL (32.0-36.0); MEAN CORPUSCULAR VOLUME 75 fl (80-97); PLATELET COUNT 809 10^3/uL (150-450); RED CELL DISTRIBUTION WIDTH 16.6 % (11.5-14.0); WHITE BLOOD COUNT 12.4 10^3/uL (4.0-10.5)
[2018-09-11 05:57] LABS: ANION GAP 13 (5-19); BLOOD UREA NITROGEN 10 mg/dL (7-20); CALCIUM 8.9 mg/dL (8.4-10.2); CARBON DIOXIDE 28 mmol/L (22-30); CHLORIDE 102 mmol/L (98-107); GLUCOSE 113 mg/dL (75-110); POTASSIUM 3.5 mmol/L (3.6-5.0); SODIUM 142.7 mmol/L (137-145)
[2018-09-11] MEDS: SUCRALFATE SUSP 1 GM/10 ML UDCUP PO SCH ×4 (07:42→21:08)
[2018-09-11] MEDS: INSULIN LISPRO 100 UNIT/ML 3 ML VIAL SUBCUT SCH ×4 (07:42→21:09)
[2018-09-11] MEDS ORDERED: MIDAZOLAM 2 MG/2 ML INJ ONE (08:40)
[2018-09-11] MEDS ORDERED: PROPOFOL INJ 200 MG/20 ML VIAL IV ONE ×2 (08:40→09:44)
--- NOTE | 2018-09-11 09:39 | PDOC PROGRESS REPORT ---
Subjective Progress Note for:: 09/11/18 Subjective:: The patient is a 58 year old male with a past medical history that is limited due to patient and family being poor historians but known to have degenerative disc disease with chronic pain and opiate dependence, anxiety with continuous benzodiazepine use, CVA, hypertension, and diabetes mellitus type 2 who was admitted 09/08/18 for acute blood loss anemia secondary to presumed upper GI bleed. The patient was seen on morning rounds with his present. He was found resting in bed comfortably on room air. He reports that he is feeling well today and questions if he can be discharged following his planned procedures today. He is informed that depending upon findings, recovery, he may be ready for discharge late this afternoon versus early tomorrow morning. However, we will need the results of his endoscopy prior to being able to determine a safe discharge and follow-up plan. He denies fever, chills, headaches, dizziness, chest pain, palpitations, dyspne a, orthopnea, abdominal pain, nausea vomiting and diarrhea. He has no other questions or concerns. No concerns per nursing. Reason For Visit: ANEMIA,GI BLEED Physical Exam Vital Signs: Temp Pulse Resp BP Pulse Ox 98.1 F 88 18 139/85 H 95 09/11/18 08:35 09/11/18 08:35 09/11/18 08:35 09/11/18 08:35 09/11/18 08:35 Intake & Output 09/10/18 09/11/18 09/12/18 06:59 06:59 06:59 Intake Total 1558 3325 Balance 1558 3325 Weight 99.6 kg 98.2 kg General appearance: PRESENT: no acute distress, obese, well-developed, well- nourished Head exam: PRESENT: atraumatic, normocephalic Eye exam: PRESENT: conjunctiva pink, EOMI, PERRLA. ABSENT: scleral icterus Ear exam: PRESENT: normal external ear exam Mouth exam: PRESENT: moist, tongue midline Neck exam: ABSENT: carotid bruit, JVD, lymphadenopathy, thyromegaly Respiratory exam: PRESENT: clear to auscultation rosa isela, symmetrical, unlabored. ABSENT: rales, rhonchi, wheezes Cardiovascular exam: PRESENT: RRR, +S1, +S2. ABSENT: diastolic murmur, rubs, systolic murmur Pulses: PRESENT: normal dorsalis pedis pul Vascular exam: PRESENT: normal capillary refill GI/Abdominal exam: PRESENT: normal bowel sounds, soft. ABSENT: distended, guarding, mass, organolmegaly, rebound, tenderness Rectal exam: PRESENT: deferred Extremities exam: PRESENT: full ROM. ABSENT: calf tenderness, clubbing, pedal edema Neurological exam: PRESENT: alert, awake, oriented to person, oriented to place, oriented to time, oriented to situation, CN II-XII grossly intact. ABSENT: motor sensory deficit Psychiatric exam: PRESENT: appropriate affect, normal mood. ABSENT: homicidal ideation, suicidal ideation Skin exam: PRESENT: dry, intact, warm. ABSENT: cyanosis, rash Results Laboratory Results: 09/11/18 04:52 09/11/18 04:52 09/11/18 09/11/18 04:52 04:52 WBC 12.4 H RBC 3.70 L Hgb 9.5 L Hct 27.7 L MCV 75 L MCH 25.7 L MCHC 34.4 RDW 16.6 H Plt Count 809 H Sodium 142.7 Potassium 3.5 L Chloride 102 Carbon Dioxide 28 Anion Gap 13 BUN 10 Creatinine 1.10 Est GFR ( Amer) > 60 Est GFR (Non-Af Amer) > 60 Glucose 113 H Calcium 8.9 09/08/18 09/08/18 11:19 11:19 Creatine Kinase 284 H CK-MB (CK-2) 0.24 Troponin I < 0.012 Impressions: Chest X-Ray 09/08/18 14:53 IMPRESSION: NO ACUTE RADIOGRAPHIC FINDING IN THE CHEST. Assessment & Plan - Diagnosis (1) Gastrointestinal hemorrhage due to nonsteroidal antiinflammatory drug Is this a current diagnosis for this admission?: Yes Plan: Patient reports melena intermittently times several weeks. He also reports several months of daily BC powders; 4-5 packets daily. Hemoglobin at his primary care provider's office from last week was 6.6; on arrival 7.5. Now s/p 2 units PRBC Protonix twice daily. Plan the EGD and colonoscopy by Dr. Castaneda today. Continue the patient's home dose Carafate. Antiemetics as needed. Surgery is consulted; appreciate their assistance in evaluating for upper GI bleed. (2) Anemia Qualifiers: Anemia type: other cause Qualified Code(s): D50.0 - Iron deficiency anemia secondary to blood loss (chronic) Is this a current diagnosis for this admission?: Yes Plan: Acute blood loss anemia secondary to upper GI bleed related to chronic NSAID use. Patient does have a history of chronic iron deficiency anemia; baseline hemo globin of 11. Hemoglobin was 7.5 on admission, now 9.5 Occult stool positive. Post transfusion 2 units packed red blood cells. We will monitor serial CBCs and continue to transfuse as necessary. Registered dietitian is consulted. Otherwise, management and workup as above. (3) Hypertension Is this a current diagnosis for this admission?: Yes Plan: Significantly improved Continue home medication regiment: amlodipine 10 mg daily and enalapril 20 mg twice daily. Have added coreg 6.25 mg twice daily. IV hydralazine as needed for blood pressure control. Low sodium diet. (4) Diabetes Qualifiers: Diabetes mellitus type: type 2 Diabetes mellitus superintendent terminal insulin use: without correction use Is this a current diagnosis for this admission?: Yes Plan: Cardiac/Consistent Carb clear liquid diet. Holding metformin while admitted. Accu-Cheks before meals and at bedtime with Humalog for sliding scale coverage. Hypoglycemia protocol in place. Registered dietitian is consulted. (5) History of CVA (cerebrovascular accident) Is this a current diagnosis for this admission?: Yes - Time Time Spent with patient: Less than 15 minutes Medications reviewed and adjusted accordingly: Yes Anticipated discharge: Home Within: within 24 hours
[2018-09-11] MEDS ORDERED: DIPHENHYDRAMINE HCL 50 MG/ML VIAL IV PRN (09:54)
[2018-09-11] MEDS ORDERED: PROMETHAZINE HCL INJ 25 MG/1 ML VIAL IV PRN ×2 (09:54)
[2018-09-11] MEDS ORDERED: ONDANSETRON HCL INJ/PF 4 MG/2 ML SDV IV PRN (09:54)
[2018-09-11] MEDS ORDERED: MORPHINE SULFATE 10 MG/ML INJ IV PRN (09:54)
[2018-09-11] MEDS ORDERED: MEPERIDINE HCL/PF INJ 25 MG/1 ML DISP.SYRIN IV PRN (09:54)
[2018-09-11] MEDS ORDERED: FENTANYL CITRATE INJ/PF 100 MCG/2 ML AMPUL IV PRN ×3 (09:54)
--- NOTE | 2018-09-11 10:12 | Operative Report ---
Operative Report DATE OF SURGERY: 09/11/18 PREOPERATIVE DIAGNOSIS: 1. Blood loss anemia. 2. Diabetes mellitus. 3. Chr onic pain syndrome POSTOPERATIVE DIAGNOSIS: Same with. 1. Mild gastritis. 2. Sigmoid colon polyp. 3. No source of bleeding or clots identified on upper and lower endosco py OPERATION: 1. Esophagogastroduodenoscopy with cold forceps biopsy of gastric antrum. 2. Total colonoscopy to cecum with photodocumentation. 3. Cold forceps polypectomy of small sigmoid colon polyp SURGEON: MAREN AARON ANESTHESIA: LMAC TISSUE REMOVED OR ALTERED: Polyp and gastric antral biopsy COMPLICATIONS: None ESTIMATED BLOOD LOSS: Scant INTRAOPERATIVE FINDINGS: See below PROCEDURE: Patient was taken to the preop holding area the main operating room where LMAC anesthesia was induced. Patient placed in a semirecumbent position oral mouthpiece inserted and appropriate level of anesthesia confirmed. Surgical plan surgical timeout were conducted. The flexible upper endoscope was advanced to the oropharynx, down the esophagus into the stomach into the duodenum. This was well-tolerated by the patient. There is no evidence of tumor stricture bleeding or polyp in the duodenum stomach or the esophagus. No evidence of varices. The first and second portions of the duodenum were carefully examined. Normal bile identified. The scope was brought back to the pylorus which was grossly unremarkable. There was mild inflammation of the distal gastric antrum. A random biopsy was obtained of the distal antrum and sent for MAYA and histologic analysis. No evidence of retained gastric contents. Small hiatal hernia only. Scope was brought back through the GE junction, with visualization of the distal esophageal mucosa appreciated. Photos taken. No evidence of stricture bleeding tumor etc. No evidence of gastric varices. The scope was withdrawn to the patient's oropharynx. Tolerated procedure well Instrumentation was now set up for colonoscopy. The plan and surgical timeout were conducted The patient was placed in the left lateral decubitus position with knees to chest. A perianal examination was performed. There was no visible or palpable anorectal pathology. Sphincter tone was felt to be normal. The flexible adult colonoscope was advanced through the anal rectal canal, all the way to the cecum. Visualization of the cecum was achieved and the ileocecal valve, the appendiceal orifice and transillumination of the anterior abdominal wall. Unfortunately there was a significant amount of visible matter left in the cecum and ascending colon. We aspirated as much as we could but there was still some residual left. The colonoscope was withdrawn slowly and methodically checked and the mucosa carefully. There was no evidence of tumor, stricture, bleeding; in the sigmoid colon was a small sessile polyp consistent with hyperplastic pathology. It was removed with a cold forceps device. Bleeding minimal. Specimen sent as sigmoid colon polyp. There was no evidence of diverticuloses. The scope was slowly withdrawn through the anal rectal canal. Complete visualization of the rectum was achieved with photodocumentation. The scope was withdrawn to the patient's anus. The patient tolerated the procedure well and was taken to the recovery area in stable condition. Patient be appropriate candidate for follow-up colonoscopy in 3-5 years pending results of histologic analysis of sigmoid colon polyp Of note there was no upper or lower endoscopic evidence of gastrointestinal bleeding, or clots. Results shared with primary care team.
[2018-09-11 10:49] LABS: ABSOLUTE RETICS # 0.102 10^6/uL (0.028-0.122); RETICULOCYTE COUNT (AUTO) 2.69 % (0.66-2.85)
[2018-09-11 11:09] LABS: IRON(TIBC) 19.9 ug/dL (49-181)
[2018-09-11] MEDS: CARVEDILOL 6.25 MG TABLET PO SCH ×2 (11:23→21:09)
[2018-09-11] MEDS: PANTOPRAZOLE SODIUM 40 MG VIAL IV SCH ×2 (11:24→21:08)
[2018-09-11] MEDS: AMLODIPINE BESYLATE 10 MG TABLET PO SCH (11:24)
[2018-09-11] MEDS: ENALAPRIL MALEATE 10 MG TABLET PO SCH ×2 (11:24→21:08)
[2018-09-11] MEDS: FERROUS SULFATE 325 MG TABLET PO SCH (11:24)
[2018-09-11] MEDS: TAMSULOSIN HCL 0.4 MG CAP.SR.24H PO SCH (11:24)
[2018-09-11] MEDS: MULTIVITAMIN TABLET PO SCH (11:24)
[2018-09-11] MEDS: OXYCODONE HCL IR 5 MG TABLET PO PRN ×2 (11:30→19:35)
[2018-09-11] MEDS: ALPRAZOLAM 0.5 MG TABLET PO PRN ×2 (11:31→19:35)
[2018-09-11] MEDS: ATORVASTATIN CALCIUM 40 MG TABLET PO SCH (21:08)
[2018-09-11] MEDS: QUETIAPINE FUMARATE 100 MG TABLET PO SCH (21:08)
[2018-09-12 05:32] LABS: HEMATOCRIT 25.9 % (37.9-51.0); HEMOGLOBIN 8.6 g/dL (13.5-17.0); MEAN CORPUSCULAR HEMOGLOBIN 24.9 pg (27.0-33.4); MEAN CORPUSCULAR VOLUME 76 fl (80-97); PLATELET COUNT 731 10^3/uL (150-450); RED BLOOD COUNT 3.43 10^6/uL (4.35-5.55); RED CELL DISTRIBUTION WIDTH 16.4 % (11.5-14.0); WHITE BLOOD COUNT 11.6 10^3/uL (4.0-10.5)
[2018-09-12] MEDS: INSULIN LISPRO 100 UNIT/ML 3 ML VIAL SUBCUT SCH ×4 (08:22→21:34)
[2018-09-12] MEDS: SUCRALFATE SUSP 1 GM/10 ML UDCUP PO SCH ×4 (08:22→21:20)
[2018-09-12] MEDS: OXYCODONE HCL IR 5 MG TABLET PO PRN ×3 (08:26→21:20)
[2018-09-12] MEDS: PANTOPRAZOLE SODIUM 40 MG VIAL IV SCH ×2 (10:58→21:20)
[2018-09-12] MEDS: ENALAPRIL MALEATE 10 MG TABLET PO SCH ×2 (10:59→21:35)
[2018-09-12] MEDS: TAMSULOSIN HCL 0.4 MG CAP.SR.24H PO SCH (10:59)
[2018-09-12] MEDS: FERROUS SULFATE 325 MG TABLET PO SCH (10:59)
[2018-09-12] MEDS: MULTIVITAMIN TABLET PO SCH (10:59)
[2018-09-12] MEDS: AMLODIPINE BESYLATE 10 MG TABLET PO SCH (10:59)
[2018-09-12] MEDS: CARVEDILOL 6.25 MG TABLET PO SCH ×2 (10:59→21:39)
[2018-09-12] MEDS: ALPRAZOLAM 0.5 MG TABLET PO PRN ×2 (11:13→19:15)
[2018-09-12] MEDS: QUETIAPINE FUMARATE 100 MG TABLET PO SCH (21:21)
[2018-09-12] MEDS: ATORVASTATIN CALCIUM 40 MG TABLET PO SCH (21:34)
--- NOTE | 2018-09-12 22:23 | PDOC PROGRESS REPORT ---
Subjective Progress Note for:: 09/12/18 Subjective:: The patient is a 58 year old male with a past medical history that is limited due to patient and family being poor historians but known to have degenerative disc disease with chronic pain and opiate dependence, anxiety with continuous benzodiazepine use, CVA, hypertension, and diabetes mellitus type 2 who was admitted 09/08/18 for acute blood loss anemia secondary to presumed upper GI bleed. The patient denies abdominal pain, nausea, vomiting, diarrhea or bloody stools. Hgb dropping 9.6->8.6 today. Plan to keep him in patient once more day if hgb continues to drop, plan for transfusion. If hgb stable, can d/c home Reason For Visit: ANEMIA,GI BLEED Physical Exam Vital Signs: Temp Pulse Resp BP Pulse Ox 99.1 F 65 18 158/80 H 98 09/12/18 19:23 09/12/18 21:35 09/12/18 19:23 09/12/18 19:23 09/12/18 19:23 Intake & Output 09/11/18 09/12/18 09/13/18 06:59 06:59 06:59 Intake Total 3325 1143 1272 Output Total 0 Balance 3325 1143 1272 Weight 98.2 kg 98.5 kg General appearance: PRESENT: no acute distress, well-developed, well-nourished Head exam: PRESENT: atraumatic, normocephalic Eye exam: PRESENT: conjunctiva pink, EOMI, PERRLA. ABSENT: scleral icterus Ear exam: PRESENT: normal external ear exam Mouth exam: PRESENT: moist, tongue midline Neck exam: ABSENT: carotid bruit, JVD, lymphadenopathy, thyromegaly Respiratory exam: PRESENT: clear to auscultation rosa isela. ABSENT: rales, rhonchi, wheezes Cardiovascular exam: PRESENT: RRR. ABSENT: diastolic murmur, rubs, systolic murmur Pulses: PRESENT: normal dorsalis pedis pul Vascular exam: PRESENT: normal capillary refill GI/Abdominal exam: PRESENT: normal bowel sounds, soft. ABSENT: distended, guarding, mass, organolmegaly, rebound, tenderness Rectal exam: PRESENT: deferred Extremities exam: PRESENT: full ROM. ABSENT: calf tenderness, clubbing, pedal edema Neurological exam: PRESENT: alert, awake, oriented to person, oriented to place, oriented to time, oriented to situation, CN II-XII grossly intact. ABSENT: m otor sensory deficit Psychiatric exam: PRESENT: appropriate affect, normal mood. ABSENT: homicidal ideation, suicidal ideation Skin exam: PRESENT: dry, intact, warm. ABSENT: cyanosis, rash Results Laboratory Results: 09/12/18 04:15 09/11/18 04:52 09/12/18 04:15 WBC 11.6 H RBC 3.43 L Hgb 8.6 L Hct 25.9 L MCV 76 L MCH 24.9 L MCHC 33.0 RDW 16.4 H Plt Count 731 H 09/08/18 09/08/18 11:19 11:19 Creatine Kinase 284 H CK-MB (CK-2) 0.24 Troponin I < 0.012 Impressions: Chest X-Ray 09/08/18 14:53 IMPRESSION: NO ACUTE RADIOGRAPHIC FINDING IN THE CHEST. Status: Imported from PACS Assessment & Plan - Diagnosis (1) Gastrointestinal hemorrhage due to nonsteroidal antiinflammatory drug Is this a current diagnosis for this admission?: Yes Plan: Patient reports melena intermittently times several weeks. He also reports several months of daily BC powders; 4-5 packets daily. Hemoglobin at his primary care provider's office from last week was 6.6; on arrival 7.5. Now s/p 2 units PRBC Protonix twice daily. EGD and colonoscopy only show polpyps, which were removeed Continue the patient's home dose Carafate. Antiemetics as needed. Surgery is consulted; appreciate their assistance in evaluating for upper GI bleed. (2) Diabetes Qualifiers: Diabetes mellitus type: type 2 Diabetes mellitus detention insulin use: without detention use Diabetes mellitus complication status: without complication Qualified Code(s): E11.9 - Type 2 diabetes mellitus without complications Is this a current diagnosis for this admission?: Yes Plan: Cardiac/Consistent Carb clear liquid diet. Holding metformin while admitted. Accu-Cheks before meals and at bedtime with Humalog for sliding scale coverage. Hypoglycemia protocol in place. Registered dietitian is consulted. (3) Hypertension Is this a current diagnosis for this admission?: Yes Plan: Significantly improved Continue home medication regiment: amlodipine 10 mg daily and enalapril 20 mg twice daily. Have added coreg 6.25 mg twice daily. IV hydralazine as needed for blood pressure control. Low sodium diet. (4) History of CVA (cerebrovascular accident) Is this a current diagnosis for this admission?: Yes - Time Time Spent with patient: 15-24 minutes Medications reviewed and adjusted accordingly: Yes Anticipated discharge: Home - Inpatient Certification Based on my medical assessment, after consideration of the patient's comorbidities, presenting symptoms, or acuity I expect that the services needed warrant INPATIENT care.: Yes I certify that my determination is in accordance with my understanding of Medicare's requirements for reasonable and necessary INPATIENT services [42 CFR 412.3e].: Yes Medical Necessity: Risk of Complication if Not Cared For in Hospital
[2018-09-13] MEDS: OXYCODONE HCL IR 5 MG TABLET PO PRN ×3 (05:15→21:23)
[2018-09-13 07:26] LABS: HEMOGLOBIN 8.7 g/dL (13.5-17.0); MEAN CORPUSCULAR HEMOGLOBIN 24.3 pg (27.0-33.4); MEAN CORPUSCULAR HGB CONC 32.3 g/dL (32.0-36.0); MEAN CORPUSCULAR VOLUME 75 fl (80-97); PLATELET COUNT 711 10^3/uL (150-450); RED BLOOD COUNT 3.59 10^6/uL (4.35-5.55); RED CELL DISTRIBUTION WIDTH 16.4 % (11.5-14.0); WHITE BLOOD COUNT 12.6 10^3/uL (4.0-10.5)
[2018-09-13] MEDS: SUCRALFATE SUSP 1 GM/10 ML UDCUP PO SCH ×4 (07:41→21:09)
[2018-09-13] MEDS: INSULIN LISPRO 100 UNIT/ML 3 ML VIAL SUBCUT SCH ×4 (09:00→21:10)
[2018-09-13] MEDS: CARVEDILOL 6.25 MG TABLET PO SCH ×2 (09:35→21:09)
[2018-09-13] MEDS: AMLODIPINE BESYLATE 10 MG TABLET PO SCH (09:36)
[2018-09-13] MEDS: TAMSULOSIN HCL 0.4 MG CAP.SR.24H PO SCH (09:36)
[2018-09-13] MEDS: FERROUS SULFATE 325 MG TABLET PO SCH (09:36)
[2018-09-13] MEDS: MULTIVITAMIN TABLET PO SCH (09:36)
[2018-09-13] MEDS: PANTOPRAZOLE SODIUM 40 MG VIAL IV SCH (09:37)
[2018-09-13] MEDS: ENALAPRIL MALEATE 10 MG TABLET PO SCH ×2 (11:05→21:12)
[2018-09-13] MEDS ORDERED: SIMETHICONE 80 MG TAB.CHEW PO ONE (15:32)
--- NOTE | 2018-09-13 21:06 | PDOC PROGRESS REPORT ---
Subjective Progress Note for:: 09/13/18 Subjective:: The patient is a 58 year old male with a past medical history that is limited due to patient and family being poor historians but known to have degenerative disc disease with chronic pain and opiate dependence, anxiety with continuous benzodiazepine use, CVA, hypertension, and diabetes mellitus type 2 who was admitted 09/08/18 for acute blood loss anemia secondary to presumed upper GI bleed. The patient states he is wary about going home. He complains of RUQ pain that started 2 hours prior to my assessment. He states the pain improves when he applies pressure over the area. He states there is no change in his pain with inhalation. Vital signs are all at baseline. The patient also reports that he has not had a bowel movement in 2 days. The pain is believed to be gas. He was started on simethicone PRN. Hgb improved today from 8.6->8.7 today. Plan to keep him inpatient one more day. Will recheck hgb in AM and re-evaluate pain. Reason For Visit: ANEMIA,GI BLEED Physical Exam Vital Signs: Temp Pulse Resp BP Pulse Ox 98.4 F 71 16 155/85 H 98 09/13/18 11:28 09/13/18 11:28 09/13/18 11:28 09/13/18 11:28 09/13/18 11:28 Intake & Output 09/12/18 09/13/18 09/14/18 06:59 06:59 06:59 Intake Total 1143 1272 1080 Output Total 0 Balance 1143 1272 1080 Weight 98.5 kg General appearance: PRESENT: no acute distress, well-developed, well-nourished Head exam: PRESENT: atraumatic Eye exam: PRESENT: conjunctiva pink, PERRLA Mouth exam: PRESENT: moist, tongue midline Teeth exam: PRESENT: poor dentation Neck exam: PRESENT: full ROM Respiratory exam: PRESENT: symmetrical, unlabored Cardiovascular exam: PRESENT: +S1, +S2 Vascular exam: ABSENT: pallor GI/Abdominal exam: ABSENT: distended Rectal exam: PRESENT: deferred Extremities exam: PRESENT: full ROM Musculoskeletal exam: PRESENT: ambulatory, full ROM, normal inspection Neurological exam: PRESENT: alert, awake, oriented to person, oriented to place, oriented to time, oriented to situation Skin exam: PRESENT: dry, intact, normal color Results Laboratory Results: 09/13/18 06:15 09/11/18 04:52 09/13/18 06:15 WBC 12.6 H RBC 3.59 L Hgb 8.7 L Hct 27.0 L MCV 75 L MCH 24.3 L MCHC 32.3 RDW 16.4 H Plt Count 711 H 09/08/18 09/08/18 11:19 11:19 Creatine Kinase 284 H CK-MB (CK-2) 0.24 Troponin I < 0.012 Impressions: Chest X-Ray 09/08/18 14:53 IMPRESSION: NO ACUTE RADIOGRAPHIC FINDING IN THE CHEST. Status: Imported from PACS Assessment & Plan - Diagnosis (1) Gastrointestinal hemorrhage due to nonsteroidal antiinflammatory drug Is this a current diagnosis for this admission?: Yes Plan: Resolved Patient reports melena intermittently times several weeks. He also reports several months of daily BC powders; 4-5 packets daily. Hemoglobin at his primary care provider's office from last week was 6.6; on arri akil 7.5. Now s/p 2 units PRBC, Hgb has stabilized since then Protonix twice daily. EGD and colonoscopy only show polpyps, which were removed Continue the patient's home dose Carafate. Antiemetics as needed. Surgery is consulted; appreciate their assistance in evaluating for upper GI bleed. (2) Diabetes Qualifiers: Diabetes mellitus type: type 2 Diabetes mellitus senior living insulin use: without director long term care use Diabetes mellitus complication status: without complication Qualified Code(s): E11.9 - Type 2 diabetes mellitus without complications Is this a current diagnosis for this admission?: Yes Plan: Cardiac/Consistent Carb clear liquid diet. Holding metformin while admitted. Accu-Cheks before meals and at bedtime with Humalog for sliding scale coverage. Hypoglycemia protocol in place. Registered dietitian is consulted. (3) Hypertension Is this a current diagnosis for this admission?: Yes Plan: Resolved Continue home medication regiment: amlodipine 10 mg daily and enalapril 20 mg twice daily. Have added coreg 6.25 mg twice daily. IV hydralazine as needed for blood pressure control. Low sodium diet. (4) History of CVA (cerebrovascular accident) Is this a current diagnosis for this admission?: Yes - Time Time Spent with patient: 15-24 minutes Medications reviewed and adjusted accordingly: Yes Anticipated discharge: Home Within: within 24 hours - Inpatient Certification Based on my medical assessment, after consideration of the patient's comorbidities, presenting symptoms, or acuity I expect that the services needed warrant INPATIENT care.: Yes I certify that my determination is in accordance with my understanding of Medicare's requirements for reasonable and necessary INPATIENT services [42 CFR 412.3e].: Yes Medical Necessity: Risk of Complication if Not Cared For in Hospital - Plan Summary Plan Summary: D/C HOME IN AM. MONITOR HGB.
[2018-09-13] MEDS: ATORVASTATIN CALCIUM 40 MG TABLET PO SCH (21:08)
[2018-09-13] MEDS: ALPRAZOLAM 0.5 MG TABLET PO PRN (21:08)
[2018-09-13] MEDS: QUETIAPINE FUMARATE 100 MG TABLET PO SCH (21:09)
[2018-09-14 08:16] VITALS: BP 150/83
[2018-09-14] MEDS: SUCRALFATE SUSP 1 GM/10 ML UDCUP PO SCH (08:25)
[2018-09-14] MEDS: INSULIN LISPRO 100 UNIT/ML 3 ML VIAL SUBCUT SCH (09:15)
[2018-09-14] MEDS: OXYCODONE HCL IR 5 MG TABLET PO PRN (09:16)
[2018-09-14] MEDS: CARVEDILOL 6.25 MG TABLET PO SCH (09:17)
[2018-09-14] MEDS: FERROUS SULFATE 325 MG TABLET PO SCH (09:17)
[2018-09-14] MEDS: MULTIVITAMIN TABLET PO SCH (09:17)
[2018-09-14] MEDS: TAMSULOSIN HCL 0.4 MG CAP.SR.24H PO SCH (09:17)
[2018-09-14] MEDS: AMLODIPINE BESYLATE 10 MG TABLET PO SCH (09:17)
[2018-09-14] MEDS: ENALAPRIL MALEATE 10 MG TABLET PO SCH (09:20)
[2018-09-14] MEDS ORDERED: SIMETHICONE 80 MG TAB.CHEW PO ONE (09:30)
[2018-09-14] MEDS ORDERED: MAGNESIUM HYDROXIDE SUSP 30 ML UDCUP PO ONE (09:30)
--- NOTE | 2018-09-22 07:22 | PDOC DISCHARGE SUMMARY ---
General - Admit/Disc Date/PCP Admission Date/Primary Care Provider: 09/08/18 15:21 CATALINO BAUTISTA MD Discharge Date: 09/14/18 - Discharge Diagnosis (1) Gastrointestinal hemorrhage due to nonsteroidal antiinflammatory drug Is this a current diagnosis for this admission?: Yes (2) Diabetes Is this a current diagnosis for this admission?: Yes (3) Hypertension Is this a current diagnosis for this admission?: Yes (4) History of CVA (cerebrovascular accident) Is this a current diagnosis for this admission?: Yes - Additional Information Resuscitation Status: Full Code Discharge Diet: Other (Comments) Discharge Activity: Activity As Tolerated, Balance Activity w/Rest Home Medications: Alprazolam [Xanax] 2 mg PO TID 08/09/17 Dexlansoprazole [Dexilant 60 mg Capsule] 60 mg PO DAILY 08/09/17 Enalapril Maleate [Vasotec 20 mg Tablet] 20 mg PO Q12 08/09/17 Ferrous Sulfate [Feosol 325 mg Tablet] 325 mg PO DAILY 08/09/17 Metformin HCl [Glucophage 500 mg Tablet] 500 mg PO BIDACBS 08/09/17 Multivitamin [Tab-A-Jasson (Multiple Vitamin) Tablet] 1 tab PO DAILY 08/09/17 Atorvastatin Calcium [Lipitor 40 mg Tablet] 40 mg PO QHS 30 Days #30 tablet 08/15/17 Amlodipine Besylate [Norvasc 10 mg Tablet] 10 mg PO DAILY 09/08/18 Aspirin [Aspirin 81 mg Chewable Tablet] 81 mg PO DAILY 09/08/18 Oxycodone HCl 20 mg PO Q4HP PRN 09/08/18 Potassium Gluconate 500 mg PO Q12 09/08/18 Quetiapine Fumarate [Seroquel 100 mg Tablet] 100 mg PO QHS 09/08/18 Tamsulosin HCl [Flomax] 0.4 mg PO DAILY 09/08/18 Sucralfate [Carafate Susp 1 gm/10 ml Udcup] 1 gm PO ACHS udc 09/14/18 History of Present Illness History of Present Illness: LEN MACIAS is a 58 year old male with a past medical history that is limited due to patient and family being poor historians but known to have degenerative disc disease with chronic pain and opiate dependence, anxiety with continuous benzodiazepine use, CVA, hypertension, and diabetes mellitus type 2 who presented to the emergency department today with a complaint of back pain times 3 days that has since resolved; worsened with movement. He reports that he is now having right chest wall pain, described as sharp, increased with movement, and resolved with application of pressure. He reports that he was called by his primary care provider today and told to report to the emergency department due to low hemoglobin. He states that his labs were drawn approximately 1 week ago when he was at the office for routine visit and felt well at that time. He does report possibility of slight melena intermittently for several days. He confirms heavy NSAID use; 4-5 BC powders daily for several months. Evaluation in the emergency department revealed hypertension, mild leukocytosis (WBCs 10.6), hemoglobin 7.5 (baseline of 11), unremarkable chemistry, normal troponin, and concerning urinalysis, and positive occult stool. Aspirin and acetaminophen levels were normal. EKG demonstrated sinus tachycardia (heart rate 101) with LVH, borderline QT interval, unchanged from previous. Chest x- ray was negative for acute findings. The emergency provider has placed him on a Protonix drip, started 2 units PRBC, and has referred the patient to the hospitalist service for admission and management of the above stated complaints. Per the emergency department provider, the surgeon, Dr. Parker, has agreed to assist with evaluation for upper GI bleed. Hospital Course Hospital Course: The patient is a 58 year old male with a past medical history that is limited due to patient and family being poor historians but known to have degenerative disc disease with chronic pain and opiate dependence, anxiety with continuous benzodiazepine use, CVA, hypertension, and diabetes mellitus type 2 who was admitted 09/08/18 for acute blood loss anemia secondary to presumed upper GI bleed. The patient's Hgb was 6.6 upon arrival to [facility], for which he received 2 U PRBC. Once the patient's Hgb stabilized, an EGD and colonoscopy was preformed and only show polpyps, which were removed. The patient remained in the hospital for 2 days following his procedure for CBC monitoring. His Hgb began trending upward and the patient stopped passing blood from his rectum. The patient was deemed safe for discharge and instructed to follow up with a pumper head. Additionally, he was instructed to stop using BC packets for pain control and to switch to tylenol. Physical Exam Vital Signs: Temp Pulse Resp BP Pulse Ox 98.3 F 85 18 150/83 H 98 09/14/18 10:06 09/14/18 10:06 09/14/18 10:06 09/14/18 10:06 09/14/18 10:06 Results Laboratory Results: 09/13/18 06:15 09/11/18 04:52 09/08/18 09/08/18 11:19 11:19 Creatine Kinase 284 H CK-MB (CK-2) 0.24 Troponin I < 0.012 Impressions: Chest X-Ray 09/08/18 14:53 IMPRESSION: NO ACUTE RADIOGRAPHIC FINDING IN THE CHEST. Qualifiers - * PATIENT BEING DISCHARGED WITH ANY OF THE FOLLOWING DIAGNOSIS: No
== END 2018-09-14 10:20 | disposition home or self-care (01) | DRG 379 ==
LOC: ER 10:08 → EH 15:21 → 5 18:28
PROVIDERS: ADMIT Internal Medicine; ATTEND Internal Medicine
PROC: 30233N1 Transfusion of Nonautologous Red Blood Cells into Peripheral Vein, Percutaneous Approach (ICD-10-PCS; 2018-09-08)
PROC: 0DB68ZX Excision of Stomach, Via Natural or Artificial Opening Endoscopic, Diagnostic (ICD-10-PCS; principal; 2018-09-11 09:00)
PROC: 0DBN8ZX Excision of Sigmoid Colon, Via Natural or Artificial Opening Endoscopic, Diagnostic (ICD-10-PCS; 2018-09-11 09:00)
DX: K29.01 Acute gastritis with bleeding (principal); E11.9 Type 2 diabetes mellitus without complications; D72.829 Elevated white blood cell count, unspecified; E66.9 Obesity, unspecified; D50.0 Iron deficiency anemia secondary to blood loss (chronic); T39.395A Adverse effect of other nonsteroidal anti-inflammatory drugs [NSAID], initial encounter; G89.29 Other chronic pain; Z79.891 Long term (current) use of opiate analgesic; I10 Essential (primary) hypertension; M54.9 Dorsalgia, unspecified; R00.0 Tachycardia, unspecified; E78.5 Hyperlipidemia, unspecified; M19.90 Unspecified osteoarthritis, unspecified site; M10.9 Gout, unspecified; F32.9 Major depressive disorder, single episode, unspecified; F17.210 Nicotine dependence, cigarettes, uncomplicated; K21.9 Gastro-esophageal reflux disease without esophagitis; F41.1 Generalized anxiety disorder; K63.5 Polyp of colon; Z79.899 Other long term (current) drug therapy; Z86.73 Personal history of transient ischemic attack (TIA), and cerebral infarction without residual deficits; Z82.49 Family history of ischemic heart disease and other diseases of the circulatory system; Z83.3 Family history of diabetes mellitus; Z82.3 Family history of stroke; Z79.84 Long term (current) use of oral hypoglycemic drugs; Z79.82 Long term (current) use of aspirin; Z68.31 Body mass index [BMI] 31.0-31.9, adult
CPT/HCPCS: 00813; 36415; 36430; 43239; 45380; 71045; 80048; 80053; 80307; 81001; 82550; 82553; 82607; 82728; 82746; 82962; 83540; 83550; 84484; 85025; 85027; 85045; 86850; 86900; 86901; 86920; 88305; 93005; 93010; 96374; 99291; J1170; J1815; J2250; J2704; J3490; J7030; J7050; P9016; S0164

== ENCOUNTER 2018-09-23 14:33 | Emergency (ER) | payer MEDICARE ==
[2018-09-23] MEDS ORDERED: LABETALOL HCL 200 MG TABLET PO ONE (15:03)
--- NOTE | 2018-09-23 15:03 | ER Document Report ---
ED Medical Screen (RME) - General Chief Complaint: Leg Swelling Stated Complaint: RIGHT LOWER EXTREMITY SWELLING Time Seen by Provider: 09/23/18 14:57 Primary Care Provider: CATALINO BAUTISTA MD [Primary Care Provider] - Follow up as needed Mode of Arrival: Ambulatory Information source: Patient Notes: This is a 58-year-old man with complicated medical history (chronic back pain, hypertension, CVA, diabetes, recent GI bleed requiring transfusion and EGD) who presents to the emergency room with pain and swelling to the right calf after a recent hospitalization. She denies any chest pain or shortness of breath. Patient is in no acute distress in the emergency room. He does appear to have a superficial phlebitis to the right lower extremity. he is markedly hypertensive. The plan will be to observe his blood pressure, check his H&H given recent history, check a venous ultrasound to make sure there is nothing in the deep system. TRAVEL OUTSIDE OF THE [place] IN LAST 30 DAYS: No - Related Data Allergies/Adverse Reactions: No Known Allergies Allergy (Verified 09/23/18 14:34) Past Medical History - Social History Chew tobacco use (# tins/day): No Frequency of alcohol use: None Drug Abuse: None - Past Medical History Cardiac Medical History: Reports: Hx Hypercholesterolemia, Hx Hypertension Denies: Hx Coronary Artery Disease, Hx Heart Attack Pulmonary Medical History: Denies: Hx Asthma, Hx Bronchitis, Hx COPD, Hx Pneumonia Neurological Medical History: Reports: Hx Cerebrovascular Accident. Denies: Hx Seizures Endocrine Medical History: Reports: Hx Diabetes Mellitus Type 1, Hx Diabetes Mellitus Type 2 Renal/ Medical History: Denies: Hx Peritoneal Dialysis GI Medical History: Reports: Hx Gastroesophageal Reflux Disease Musculoskeltal Medical History: Reports Hx Arthritis, Reports Hx Gout Psychiatric Medical History: Reports: Hx Depression Past Surgical History: Reports: Hx Genitourinary Surgery - biopsy of scrotum, Hx Orthopedic Surgery - torn meniscus in the right knee. bakers cyst - Immunizations Hx Diphtheria, Pertussis, Tetanus Vaccination: No History of Influenza Vaccine for 05/2017 - 10/2017 Season: Unknown Physical Exam - Vital signs Vitals: Temp Pulse Resp BP Pulse Ox 99.0 F 121 H 15 186/113 H 97 09/23/18 14:42 09/23/18 14:42 09/23/18 14:42 09/23/18 14:42 09/23/18 14:42 Course - Vital Signs Vital signs: Temp Pulse Resp BP Pulse Ox 99.0 F 121 H 15 186/113 H 97 09/23/18 14:42 09/23/18 14:42 09/23/18 14:42 09/23/18 14:42 09/23/18 14:42 Doctor's Discharge - Discharge Referrals: CATALINO BAUTISTA MD [Primary Care Provider] - Follow up as needed
[2018-09-23 15:43] LABS: ABSOLUTE BASOPHILS # (AUTO) 0.1 10^3/uL (0.0-0.2); ABSOLUTE EOSINOPHILS # (AUTO) 0.2 10^3/uL (0.0-0.6); ABSOLUTE LYMPHOCYTES (AUTO) 2.8 10^3/uL (0.5-4.7); ABSOLUTE NEUT (AUTO) 7.6 10^3/uL (1.7-8.2); BASOPHILS % (AUTO) 0.7 % (0-2); EOSINOPHILS % (AUTO) 1.7 % (0-6); HEMATOCRIT 30.6 % (37.9-51.0); HEMOGLOBIN 10.2 g/dL (13.5-17.0); LYMPHOCYTES % (AUTO) 23.6 % (13-45); MEAN CORPUSCULAR HEMOGLOBIN 24.7 pg (27.0-33.4); MEAN CORPUSCULAR HGB CONC 33.5 g/dL (32.0-36.0); MEAN CORPUSCULAR VOLUME 74 fl (80-97); MONOCYTES % (AUTO) 8.9 % (3-13); PLATELET COUNT 659 10^3/uL (150-450); RED BLOOD COUNT 4.14 10^6/uL (4.35-5.55); RED CELL DISTRIBUTION WIDTH 16.7 % (11.5-14.0); SEGMENTED NEUTROPHILS % (AUTO) 65.1 % (42-78); TOTAL CELLS COUNTED % (AUTO) 100 %; WHITE BLOOD COUNT 11.7 10^3/uL (4.0-10.5)
--- NOTE | 2018-09-23 15:51 | ER Document Report ---
ED General - General Chief Complaint: Leg Swelling Stated Complaint: RIGHT LOWER EXTREMITY SWELLING Time Seen by Provider: 09/23/18 14:57 Primary Care Provider: CATALINO BAUTISTA MD [Primary Care Provider] - Follow up as needed Mode of Arrival: Ambulatory Notes: Patient is a 58-year-old male that presents today with pain to his right medial calf starting yesterday. Patient feels a small "hard area" there. Patient was released here 2 days ago after following up with his primary care physician for routine visit and found to have a hemoglobin of 6. Endoscopy and colonoscopy was performed and he states that they saw some irritation of the stomach line. They told him to stop his BC powders. Patient denies any and all chest pain or shortness of breath. He denies any cough or history of blood clots. Patient does have a history of abscess x1 in the past. He is a diabetic. He did state that he took his blood pressure medications this morning. He does have a primary care physician here locally in the area. Patient denies any radiation of the pain. He denies any extension into the thigh or groin. He denies any aggravating or relieving factors. TRAVEL OUTSIDE OF THE [place] IN LAST 30 DAYS: No - HPI Similar symptoms previously: No Recently seen / treated by doctor: Yes - Related Data Allergies/Adverse Reactions: No Known Allergies Allergy (Verified 09/23/18 14:34) Past Medical History - General Information source: Patient - Social History Smoking Status: Current Every Day Smoker Chew tobacco use (# tins/day): No Frequency of alcohol use: None Drug Abuse: None Family History: CAD, CVA, DM, Hypertension Patient has suicidal ideation: No Patient has homicidal ideation: No - Past Medical History Cardiac Medical History: Reports: Hx Hypercholesterolemia, Hx Hypertension Denies: Hx Coronary Artery Disease, Hx Heart Attack Pulmonary Medical History: Denies: Hx Asthma, Hx Bronchitis, Hx COPD, Hx Pneumonia Neurological Medical History: Reports: Hx Cerebrovascular Accident. Denies: Hx Seizures Endocrine Medical History: Reports: Hx Diabetes Mellitus Type 1, Hx Diabetes Mellitus Type 2 Renal/ Medical History: Denies: Hx Peritoneal Dialysis GI Medical History: Reports: Hx Gastroesophageal Reflux Disease Musculoskeletal Medical History: Reports Hx Arthritis, Reports Hx Gout Psychiatric Medical History: Reports: Hx Depression Past Surgical History: Reports: Hx Genitourinary Surgery - biopsy of scrotum, Hx Orthopedic Surgery - torn meniscus in the right knee. bakers cyst - Immunizations Hx Diphtheria, Pertussis, Tetanus Vaccination: No Review of Systems - Review of Systems Constitutional: denies: Fever EENT: denies: Eye discharge, Nose discharge Cardiovascular: denies: Chest pain, Palpitations Respiratory: denies: Short of breath Gastrointestinal: denies: Abdominal pain, Vomiting Neurological/Psychological: Other - no slurred speech -: Yes All other systems reviewed and negative Physical Exam - Vital signs Vitals: Temp Pulse Resp BP Pulse Ox 99.0 F 121 H 15 186/113 H 97 09/23/18 14:42 09/23/18 14:42 09/23/18 14:42 09/23/18 14:42 09/23/18 14:42 Notes: Reviewed vital signs and nursing note as charted by RN. CONSTITUTIONAL: Alert and oriented and responds appropriately to questions. Well-appearing; well-nourished HEAD: Normocephalic; atraumatic CARD: Regular rate and rhythm; no murmurs; symmetric distal pulses RESP: Normal chest excursion without splinting or tachypnea; breath sounds clear and equal bilaterally; no wheezes, no rhonchi, no rales ABD/GI: Normal bowel sounds; non-distended; soft, non-tender BACK: The back appears normal and is non-tender to palpation EXT: Normal ROM in all joints; patient has a small circular slightly tender area to the right medial calf. There is no fluctuance or induration present SKIN: See above NEURO: CN 2-12 intact; 5/5 bilateral upper and lower extremity strength with sensation intact to light touch PSYCH: The patient's mood and manner are appropriate. Grooming and personal hygiene are appropriate. Course - Re-evaluation Re-evalutation: 09/23/18 15:50 Given the history and physical examination the patient had a Doppler ultrasound ordered in triage. Given the small circular slightly tender area to the right medial calf, I am unsure whether this is a thrombophlebitis or an early abscess. I do believe DVT to be less likely. Blood pressure medications have been ordered in triage. Patient again denies any and all chest pain or shortness of breath. Patient has no edema to the leg and is neurovascularly intact distally. 09/23/18 17:14 Labs as recorded. Ultrasound Doppler results are pending. 09/23/18 17:35 I called and spoke to the vascular surgeon Dr. Kahn. He states that there is no DVT. He does see the same soft tissue area of swelling and believes that it possibly could be an abscess or hematoma. Did perform a bedside incision and drainage with serosanguineous fluid as well as some small blood clots. Repeat temperature is 98.6. Heart rate is currently 98. Blood pressure is 190/85. Patient's pain is much improved. Patient has no headache or chest pain. Patient is supposed to be on 3 different blood pressure medication since being discharged. He is unsure of his recent compliance. His is in the room and understands the importance of taking these medications. Given the possibility of a small abscess and/or possible thrombophlebitis, I will start the patient on a 7-day course of Bactrim. Strict return precautions have been explained, blood pressure medication adherence has been emphasized, and the patient will follow up with his primary care physician. Hemoglobin here as recorded. - Vital Signs Vital signs: Temp Pulse Resp BP Pulse Ox 98.6 F 121 H 15 190/93 H 95 09/23/18 17:35 09/23/18 14:42 09/23/18 17:34 09/23/18 17:34 09/23/18 17:34 - Laboratory Result Diagrams: 09/23/18 15:15 09/23/18 15:15 Laboratory results interpreted by me: 09/23/18 09/23/18 15:15 15:15 WBC 11.7 H RBC 4.14 L Hgb 10.2 L Hct 30.6 L MCV 74 L MCH 24.7 L RDW 16.7 H Plt Count 659 H Potassium 3.5 L Carbon Dioxide 32 H Glucose 130 H AST 16 L ALT 14 L Procedures - Incision and Drainage Left Leg Type: Simple Anesthetic type: 1% Lidocaine w/epi Blade size: 11 I&D procedure: Betadine prep applied, Chlorprep applied Incision Method: Incision made by scalpel Discharge - Discharge Clinical Impression: Abscess of leg, Elevated blood pressure reading Condition: Good Disposition: HOME, SELF-CARE Additional Instructions: Come back immediately for any increased pain, swelling, any headache or chest pain, shortness of breath, weakness or numbness, fevers, or any other acute problems. Please make sure that you take your blood pressure medications as prescribed. Please take the antibiotics that we have provided. Please follow- up with your primary care physician for reassessment as well as management of your blood pressure. Please change your dressings twice daily and keep the area clean and dry until healing. Prescriptions: Sulfamethoxazole/Trimethoprim [Bactrim Ds Tablet] 1 each PO BID 7 Days #14 tablet Referrals: CATALINO BAUTISTA MD [Primary Care Provider] - Follow up as needed
[2018-09-23 15:58] LABS: ALANINE AMINOTRANSFERASE 14 U/L (21-72); ALBUMIN 4.1 g/dL (3.5-5.0); ALKALINE PHOSPHATASE 114 U/L (38-126); ANION GAP 12 (5-19); ASPARTATE AMINO TRANSFERASE 16 U/L (17-59); BILIRUBIN,DIRECT 0.1 mg/dL (0.0-0.4); BILIRUBIN,TOTAL 0.5 mg/dL (0.2-1.3); BLOOD UREA NITROGEN 12 mg/dL (7-20); CALCIUM 9.4 mg/dL (8.4-10.2); CARBON DIOXIDE 32 mmol/L (22-30); CHLORIDE 100 mmol/L (98-107); GLUCOSE 130 mg/dL (75-110); POTASSIUM 3.5 mmol/L (3.6-5.0); SODIUM 143.9 mmol/L (137-145); TOTAL PROTEIN 7.1 g/dL (6.3-8.2)
[2018-09-23] MEDS ORDERED: LIDOCAINE 1%/EPINEPHRINE INJ 20 ML VIAL INJ ONE (16:16)
[2018-09-23] MEDS ORDERED: SULFAMETHOXAZOLE/TRIMETHOPRIM 800-160 MG TABLET PO ONE (17:42)
[2018-09-23] MEDS ORDERED: MORPHINE SULFATE 10 MG/ML INJ IV ONE (17:58)
[2018-09-23 18:16] VITALS: BP 158/92
--- NOTE | 2018-09-24 13:08 | XCELERA REPORT ---
[address] [place] [facility] [address] Lower Extremity Venous Evaluation Procedure: Color flow and duplex imaging of the veins of the right lower extremity as well as the left Common Femoral vein. Right Sided Venous Evaluation 3.8 x 2.9 x 0.7 cms mass in subcutaneous tissue. Complex with lucent, echogenic area, consistent with hematoma or abscess. Normal vessel filling wall to wall, compression and augmentation as well as Colour flow down to the infrageniculate veins. Critical Findings Discussed with Dr Garcia. Interpretation Summary No duplex evidence of DVT or obstruction in the right lower extremity nor in the left Common Femoral vein. Right calf subcutaneous mass, possible abscess, or hematoma. Name: LEN MACIAS Age: 58 yrs Gender: Male : 1960 Patient Status: Emergency Patient Location: ER Study Date: 09/23/2018 03:57 PM Reason For Study: rle swelling Ordering Physician: CYNDEE GARCIA Performed By: Kike Michael : CYNDEE GARCIA > Paco Kahn
== END 2018-09-23 18:20 | disposition home or self-care (01) ==
LOC: ER 14:33
DX: L02.416 Cutaneous abscess of left lower limb (principal); R22.9 Localized swelling, mass and lump, unspecified; R03.0 Elevated blood-pressure reading, without diagnosis of hypertension; F17.200 Nicotine dependence, unspecified, uncomplicated; E78.00 Pure hypercholesterolemia, unspecified; I10 Essential (primary) hypertension; Z86.73 Personal history of transient ischemic attack (TIA), and cerebral infarction without residual deficits
CPT/HCPCS: 99284; 96374; 36415; 85025; 80053; 93971 ×2; 10060; A9270 ×2; J3490; J2270

== ENCOUNTER 2019-03-19 10:35 | Emergency (ER) | payer MEDICARE ==
--- NOTE | 2019-03-19 11:39 | ER Document Report ---
ED Medical Screen (RME) - General Chief Complaint: Palpitations Stated Complaint: GROIN INJURY Time Seen by Provider: 03/19/19 11:20 Primary Care Provider: CATALINO BAUTISTA MD [Primary Care Provider] - Follow up as needed Notes: HPI: 58-year-old male with a history of a remote CVA, hypertension, here for multiple complaints to include intermittent/worsening left testicular pain/lump/swelling for the last month. he actually has an apt with urology tomorrow for this but since sx got worse he came in for eval. He states he felt a lump in his left testicle and he felt like it burst inside of his testicle yesterday and has had some increased pain and swelling. He also states since this lump burst inside of his testicle he feels like his penis has shrunk and he now has erectile dysfunction. no hx of this before. He denies any changes in medication or diet or trauma to the area. Denies any discharge. He states he has some decreased urinary output and trouble starting his stream. Denies prior history of prostate issues. He also complains of palpitations since yesterday around 5 PM. He also complains of some numbness and tingling in his left thumb and index finger. States he has some chest pain yesterday as well. He states it feels like when he had his previous stroke so his made him come in. Denies any chest pain currently. He states he is due for stress test. He does take a baby aspirin a day but denies any other blood thinners. He also has some mild shortness of breath. No fall or trauma. He is right-handed. Denies any other complaints at this time. ROS neg to include 10 systems, unless mentioned in the hpi. PE:>>>> PHYSICAL_EXAM: GENERAL_APPEARANCE: well_nourished, alert, cooperative, no_acute_distress, no_obvious_discomfort. pleasant, obese, middle-aged black male, smiling, speaking in full sentences, in no sign of pain or resp distress, VITALS: reviewed, see vital signs table. HEAD: no_swelling\tenderness on the head. normocephalic. atraumatic. no carr signs. no raccoons eyes. EYES: PERRL, EOMI, conjunctiva_clear. NOSE: no_nasal_discharge. MOUTH: (-)decreased moisture. THROAT: no_tonsilar_inflammation, no_airway_obstruction. no_lymphadenopathy NECK: supple, no_neck_tenderness, full rom. full strength. no meningeal signs. BACK: no_back_tenderness. CHEST_WALL: no_chest_tenderness. no overlying skin changes LUNGS: no_wheezing, ctab (-)accessory muscle use, good air exchange bilateral. HEART: normal_rate, normal_rhythm, pos systolic ejection 2-3/6_murmur, ABDOMEN: normal_BS, soft, no_abd_tenderness, (-)guarding, (-)rebound, no distension or peritoneal signs. no cva ttp GENITALIA: deferred as pt seen in triage EXTREMITIES: strength 5/5 in all_extremities, good pulses in all_extremities, no_swelling\tenderness in the extremities, no_edema. full rom. normal gait. good pulses. brisk cap refill. 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 neg evaristo sign NEURO: motor and sensation intact, SKIN: warm, dry, good_color, no_rash. MENTAL_STATUS: speech_clear, oriented_X_3, normal_affect, responds_appropriately to questions. MDM: I have ordered labs and initial work-up and patient will be transferred to the main ER for further work-up. I have greeted and performed a rapid initial assessment of this patient. A comprehensive ED assessment and evaluation of the patient, analysis of test results and completion of medical decision making process will be conducted by an additional ED providers. Documentation achieved through voice recording which my lead to some occasional accidental typographical errors. Extensive efforts have been made to proof read documentation to make sure these are the least as possible Temp Pulse Resp BP Pulse Ox 03/19/19 11:15 98.8 F 98 16 185/94 H 98 03/19/19 11:08 98.5 F 106 H 18 180/86 H 98 Category Date Time Status EKG Documentation STAT Care 03/19/19 10:54 Completed CHEST 2 VIEWS [RAD] Stat Exams 03/19/19 11:50 Ordered Testicular [U/S SCROTUM W/DOPPLER] [US] Stat Exams 03/19/19 11:51 Ordered CBC WITH DIFF [HEME] Stat Lab 03/19/19 11:50 Ordered COMPREHENSIVE METABOLIC PANEL [CHEM] Stat Lab 03/19/19 11:50 Ordered CREATINE KINASE MB [CHEM] Stat Lab 03/19/19 11:50 Ordered CREATINE KINASE [CHEM] Stat Lab 03/19/19 11:50 Ordered MAGNESIUM [CHEM] Stat Lab 03/19/19 11:51 Ordered NT PRO BNP [CHEM] Stat Lab 03/19/19 11:50 Ordered PARTIAL THROMBOPLASTIN TIME [COAG] Stat Lab 03/19/19 11:50 Ordered PROTHROMBIN TIME/INR [COAG] Stat Lab 03/19/19 11:50 Ordered T4 [FREE T4 (FREE THYROXINE)] [CHEM] Stat Lab 03/19/19 11:51 Ordered THYROID STIMULATING HORMONE [CHEM] Stat Lab 03/19/19 11:51 Ordered TROPONIN I [CHEM] Stat Lab 03/19/19 11:50 Ordered URINALYSIS [URIN] Stat Lab 03/19/19 11:50 Uncollected EKG ER ONLY [ER] Stat Oth 03/19/19 Active TRAVEL OUTSIDE OF THE [place] IN LAST 30 DAYS: No - Related Data Allergies/Adverse Reactions: No Known Allergies Allergy (Verified 09/23/18 14:34) Past Medical History - Past Medical History Cardiac Medical History: Reports: Hx Hypercholesterolemia, Hx Hypertension Denies: Hx Coronary Artery Disease, Hx Heart Attack Pulmonary Medical History: Denies: Hx Asthma, Hx Bronchitis, Hx COPD, Hx Pneumonia Neurological Medical History: Reports: Hx Cerebrovascular Accident. Denies: Hx Seizures Endocrine Medical History: Reports: Hx Diabetes Mellitus Type 1, Hx Diabetes Mellitus Type 2 Renal/ Medical History: Denies: Hx Peritoneal Dialysis GI Medical History: Reports: Hx Gastroesophageal Reflux Disease Musculoskeltal Medical History: Reports Hx Arthritis, Reports Hx Gout Psychiatric Medical History: Reports: Hx Depression Past Surgical History: Reports: Hx Genitourinary Surgery - biopsy of scrotum, Hx Orthopedic Surgery - torn meniscus in the right knee. bakers cyst - Immunizations Hx Diphtheria, Pertussis, Tetanus Vaccination: No History of Influenza Vaccine for 05/2017 - 10/2017 Season: Unknown Physical Exam - Vital signs Vitals: Temp Pulse Resp BP Pulse Ox 98.5 F 106 H 18 180/86 H 98 03/19/19 11:08 03/19/19 11:08 03/19/19 11:08 03/19/19 11:08 03/19/19 11:08 Course - Vital Signs Vital signs: Temp Pulse Resp BP Pulse Ox 98.8 F 98 16 185/94 H 98 03/19/19 11:15 03/19/19 11:15 03/19/19 11:15 03/19/19 11:15 03/19/19 11:15 Doctor's Discharge - Discharge Referrals: CATALINO BAUTISTA MD [Primary Care Provider] - Follow up as needed
--- NOTE | 2019-03-19 12:40 | RADIOLOGY REPORT (SQ) ---
EXAM DESCRIPTION: CHEST 2 VIEWS COMPLETED DATE/TIME: 03/19/2019 12:31 pm REASON FOR STUDY: palpitations COMPARISON: 09/08/2018. EXAM PARAMETERS: NUMBER OF VIEWS: two views TECHNIQUE: Digital Frontal and Lateral radiographic views of the chest acquired. RADIATION DOSE: NA LIMITATIONS: none FINDINGS: LUNGS AND PLEURA: No opacities, masses or pneumothorax. No pleural effusion. MEDIASTINUM AND HILAR STRUCTURES: No masses or contour abnormalities. HEART AND VASCULAR STRUCTURES: Heart normal size. No evidence for failure. BONES: No acute findings. Degenerative changes in the spine. HARDWARE: None in the chest. OTHER: No other significant finding. IMPRESSION: NO ACUTE RADIOGRAPHIC FINDING IN THE CHEST. TECHNICAL DOCUMENTATION: JOB ID: [id number] [employer] All Rights Reserved Reading location - IP/workstation name: [email or web address]
[2019-03-19 13:10] LABS: ABSOLUTE BASOPHILS # (AUTO) 0.1 10^3/uL (0.0-0.2); ABSOLUTE LYMPHOCYTES (AUTO) 1.5 10^3/uL (0.5-4.7); ABSOLUTE MONOCYTES (AUTO) 0.7 10^3/uL (0.1-1.4); ABSOLUTE NEUT (AUTO) 8.6 10^3/uL (1.7-8.2); BASOPHILS % (AUTO) 0.8 % (0-2); EOSINOPHILS % (AUTO) 0.1 % (0-6); HEMATOCRIT 39.3 % (37.9-51.0); HEMOGLOBIN 12.7 g/dL (13.5-17.0); LYMPHOCYTES % (AUTO) 13.7 % (13-45); MEAN CORPUSCULAR HEMOGLOBIN 23.4 pg (27.0-33.4); MEAN CORPUSCULAR HGB CONC 32.3 g/dL (32.0-36.0); MEAN CORPUSCULAR VOLUME 72 fl (80-97); PLATELET COUNT 542 10^3/uL (150-450); RED BLOOD COUNT 5.42 10^6/uL (4.35-5.55); RED CELL DISTRIBUTION WIDTH 18.2 % (11.5-14.0); SEGMENTED NEUTROPHILS % (AUTO) 79.4 % (42-78); TOTAL CELLS COUNTED % (AUTO) 100 %; WHITE BLOOD COUNT 10.9 10^3/uL (4.0-10.5)
[2019-03-19 13:17] LABS: INTERNATIONAL RATION (INR) 1.06; PROTHROMBIN TIME 13.8 SEC (11.4-15.4)
--- NOTE | 2019-03-19 14:04 | ER Document Report ---
Doctor's Note Notes: 03/19/19 14:02 Triage note -patient has 2 complaints. The most important complaint is he had some mild chest discomfort earlier. States it radiates to his left arm. It is now gone. Describes a sharp. The patient also complains that he felt as if he had a cyst in his scrotum that had ruptured. This happened several weeks ago. He states since then he has been able to obtain an erection he has a urology follow-up appointment this week. Cardiac work-up has been undertaken. Also ultrasound of the scrotum and urina lysis will be done the patient has a follow-up with urology this week and this is a nonemergent plaint we will evaluate his chest pain complaint.
--- NOTE | 2019-03-19 14:11 | RADIOLOGY REPORT (SQ) ---
EXAM DESCRIPTION: U/S SCROTUM W/DOPPLER COMPLETED DATE/TIME: 03/19/2019 2:00 pm REASON FOR STUDY: left testicular pain/swelling x1mth COMPARISON: 06/04/2014. TECHNIQUE: Static and realtime prescott scale imaging of the scrotum and testes. Selected color Doppler and spectral images recorded to document blood flow. LIMITATIONS: None. FINDINGS: RIGHT: TESTICLE: Normal size. Normal echotexture. Normal blood flow. No mass. EPIDIDYMIS: 3 mm cyst in the head of the abdomen. HYDROCELE OR VARICOCELE: No. HERNIA OR EXTRA-TESTICULAR MASS: No. OTHER: No other significant finding. LEFT: TESTICLE: Normal size. Normal echotexture. Normal blood flow. No mass. EPIDIDYMIS: Epididymal cysts measuring 7 mm and 14 mm. HYDROCELE OR VARICOCELE: No. HERNIA OR EXTRA-TESTICULAR MASS: No. OTHER: No other significant finding. IMPRESSION: BILATERAL EPIDIDYMAL CYSTS. OTHERWISE UNREMARKABLE SCROTAL ULTRASOUND. NO EVIDENCE OF T ESTICULAR MASS OR TORSION. TECHNICAL DOCUMENTATION: JOB ID: [id number] [employer]- All Rights Reserved Reading location - IP/workstation name: [email or web address]
[2019-03-19 14:49] LABS: ALBUMIN 4.6 g/dL (3.5-5.0); ALKALINE PHOSPHATASE 122 U/L (38-126); ANION GAP 15 (5-19); ASPARTATE AMINO TRANSFERASE 18 U/L (17-59); BILIRUBIN,DIRECT 0.1 mg/dL (0.0-0.4); BILIRUBIN,TOTAL 0.6 mg/dL (0.2-1.3); BLOOD UREA NITROGEN 12 mg/dL (7-20); CALCIUM 9.9 mg/dL (8.4-10.2); CARBON DIOXIDE 27 mmol/L (22-30); CHLORIDE 97 mmol/L (98-107); CREATINE KINASE 103 U/L (55-170); GLUCOSE 116 mg/dL (75-110)
[2019-03-19 15:07] LABS: FREE T4 (FREE THYROXINE) 2.2 ng/dL (0.78-2.19)
[2019-03-19 15:08] LABS: CREATINE KINASE MB 0.81 ng/mL (<4.55); TROPONIN I 0.017 ng/mL
[2019-03-19] MEDS ORDERED: POTASSIUM CHLORIDE 10 MEQ CAPSULE.ER PO ONE (15:13)
[2019-03-19] MEDS ORDERED: CLONIDINE HCL 0.1 MG TABLET PO ONE (15:16)
[2019-03-19 15:21] LABS: THYROID STIMULATING HORMONE 0.4 uIU/mL (0.47-4.68)
[2019-03-19] MEDS ORDERED: MAGNESIUM OXIDE 400 MG TABLET PO ONE (15:31)
[2019-03-19] MEDS ORDERED: AMLODIPINE BESYLATE 10 MG TABLET PO ONE (15:32)
--- NOTE | 2019-03-19 15:38 | ER Document Report ---
ED General - General Chief Complaint: Palpitations Stated Complaint: GROIN INJURY Time Seen by Provider: 03/19/19 11:20 Primary Care Provider: CATALINO BAUTISTA MD [Primary Care Provider] - Follow up as needed Notes: 58-year-old male with a history of a remote CVA, hypertension, here for multiple complaints to include intermittent/worsening left testicular pain/lump/swelling for the last month. he actually has an apt with urology tomorrow for this but since sx got worse he came in for eval. He states he felt a lump in his left testicle and he felt like it burst inside of his testicle yesterday and has had some increased pain and swelling. He also states since this lump burst inside of his testicle he feels like his penis has shrunk and he now has erectile dysfunction. no hx of this before. He denies any changes in medication or diet or trauma to the area. Denies any discharge. He states he has some decreased urinary output and trouble starting his stream. Denies prior history of prostate issues. He also complains of palpitations since yesterday around 5 PM. He also complains of some numbness and tingling in his left thumb and index finger. States he has some chest painmainly palpitations yesterday as well. He states it feels like when he had his previous stroke so his made him come in. Denies any chest pain currently. He states he is due for stress test. He does take a baby aspirin a day but denies any other blood thinners. He also has some mild shortness of breath. No fall or trauma. He is right-handed. Denies any other complaints at this time. TRAVEL OUTSIDE OF THE [place] IN LAST 30 DAYS: No - Related Data Allergies/Adverse Reactions: No Known Allergies Allergy (Verified 09/23/18 14:34) Past Medical History - Social History Smoking Status: Current Some Day Smoker Chew tobacco use (# tins/day): No Frequency of alcohol use: None Drug Abuse: None Family History: CAD, CVA, DM, Hypertension Patient has suicidal ideation: No Patient has homicidal ideation: No - Past Medical History Cardiac Medical History: Reports: Hx Hypercholesterolemia, Hx Hypertension Denies: Hx Coronary Artery Disease, Hx Heart Attack Pulmonary Medical History: Denies: Hx Asthma, Hx Bronchitis, Hx COPD, Hx Pneumonia Neurological Medical History: Reports: Hx Cerebrovascular Accident. Denies: Hx Seizures Endocrine Medical History: Reports: Hx Diabetes Mellitus Type 1, Hx Diabetes Mellitus Type 2 Renal/ Medical History: Denies: Hx Peritoneal Dialysis GI Medical History: Reports: Hx Gastroesophageal Reflux Disease Musculoskeletal Medical History: Reports Hx Arthritis, Reports Hx Gout Psychiatric Medical History: Reports: Hx Depression Past Surgical History: Reports: Hx Genitourinary Surgery - biopsy of scrotum, Hx Orthopedic Surgery - torn meniscus in the right knee. bakers cyst - Immunizations Hx Diphtheria, Pertussis, Tetanus Vaccination: No Review of Systems - Review of Systems Constitutional: Other - Hot hot flashes, Weight loss. denies: Chills, Fever EENT: denies: Nose congestion Cardiovascular: Chest pain, Palpitations, Heart racing. denies: Syncope, Dizziness, Edema Respiratory: denies: Hurts to breathe, Short of breath Gastrointestinal: Nausea. denies: Diarrhea, Vomiting Genitourinary: Other - Erectile dysfunction Male Genitourinary: denies: Testicular pain, Penile discharge Musculoskeletal: denies: Back pain Neurological/Psychological: denies: Headaches Physical Exam - Vital signs Vitals: Temp Pulse Resp BP Pulse Ox 98.5 F 106 H 18 180/86 H 98 03/19/19 11:08 03/19/19 11:08 03/19/19 11:08 03/19/19 11:08 03/19/19 11:08 - Notes Notes: GENERAL_APPEARANCE: well_nourished, alert, cooperative, no_acute_distress, no_obvious_discomfort. VITALS: reviewed, see vital signs table. HEAD: no_swelling\tenderness on the head. EYES: PERRL, EOMI, conjunctiva_clear. NOSE: no_nasal_discharge. MOUTH: (-)decreased moisture. THROAT: no_tonsilar_inflammation, no_airway_obstruction. no_lymphadenopathy NECK: supple, no_neck_tenderness, (-)thyromegaly. BACK: no_back_tenderness. CHEST_WALL: no_chest_tenderness. LUNGS: no_wheezing, no_rales, no_rhonchi, (-)accessory muscle use, good air exchange bilateral. HEART: normal_rate, normal_rhythm, normal_S1, normal_S2, (-)S3, (-)S4, no_murmur, no_rub. ABDOMEN: normal_BS, soft, no_abd_tenderness, (-)guarding, (-)rebound, no_organomegaly, no_abd_masses. MALE : No testicular pain at this time no redness no swelling no induration no ulcerations on the shaft of the penis no inguinal lymphadenopathy EXTREMITIES:good pulses in all_extremities, no_swelling\tenderness in the extremities, no_edema. SKIN: warm, dry, good_color, no_rash. MENTAL_STATUS: speech_clear, oriented_X_3, anxious_affect, responds_appropriately to questions. NEURO: Neg Motor or Sensory Deficits on exam, CN 2-12 intact, DTR 2+ symmetric x 4, No cerbellar signs Course - Re-evaluation Re-evalutation: 03/19/19 15:37 Who comes in complaining of chest discomfort palpitations hot flashes loss of weight and also erectile dysfunction. Patient's thyroid labs are indicative of hyperthyroidism. Is likely causing his palpitations hot flashes weight loss. We will start him on therapy for that. The patient's ultrasound of his testes show epididymal cyst but otherwise no acute abnormalities no abscess no other abnormalities. Patient has an appointment with urology this coming week there is nothing jana rgent that needs to be done and he can have urology investigate his erectile dysfunction further. As far as the chest discomfort and palpitations this is likely all driven by hyperthyroidism. We will start medications for him. Have him follow-up with his primary care doctor. 03/19/19 15:56 The patient does have a small urinary tract infection will add an antibiotic to his regiment. He was given a dose of antibiotics here. Again he is to follow-up with urology this week. - Vital Signs Vital signs: Temp Pulse Resp BP Pulse Ox 98.8 F 98 21 H 183/114 H 97 03/19/19 11:15 03/19/19 11:15 03/19/19 15:14 03/19/19 15:14 03/19/19 15:14 - Laboratory Result Diagrams: 03/19/19 13:00 03/19/19 14:17 Laboratory results interpreted by me: 03/19/19 03/19/19 03/19/19 13:00 14:17 14:17 WBC 10.9 H Hgb 12.7 L MCV 72 L MCH 23.4 L RDW 18.2 H Plt Count 542 H Seg Neutrophils % 79.4 H Absolute Neutrophils 8.6 H Potassium 3.0 L* Chloride 97 L Glucose 116 H Magnesium 1.5 L TSH 0.40 L Free T4 2.20 H Urine Protein Urine Ketones Urine Blood Urine Nitrite 03/19/19 15:32 WBC Hgb MCV MCH RDW Plt Count Seg Neutrophils % Absolute Neutrophils Potassium Chloride Glucose Magnesium TSH Free T4 Urine Protein 100 H Urine Ketones 20 H Urine Blood SMALL H Urine Nitrite POSITIVE H - Diagnostic Test Radiology reviewed: Reports reviewed Radiology results interpreted by me: 03/19/19 15:36 Chest X-Ray 03/19/19 11:50 IMPRESSION: NO ACUTE RADIOGRAPHIC FINDING IN THE CHEST. Scrotum Ultrasound 03/19/19 11:51 IMPRESSION: BILATERAL EPIDIDYMAL CYSTS. OTHERWISE UNREMARKABLE SCROTAL ULTRASOUND. NO EVIDENCE OF TESTICULAR MASS OR TORSION. - EKG Interpretation by Me EKG shows normal: Sinus rhythm Rate: Tachycardia Rhythm: NSR Discharge - Discharge Clinical Impression: Hyperthyroidism, Hypomagnesemia, Hypokalemia, Palpitations with regular cardiac rhythm Erectile dysfunction Qualifiers: Erectile dysfunction type: unspecified Qualified Code(s): N52.9 - Male erectile dysfunction, unspecified Urinary tract infection Qualifiers: Urinary tract infection type: acute cystitis Hematuria presence: without hematuria Qualified Code(s): N30.00 - Acute cystitis without hematuria Condition: Good Disposition: HOME, SELF-CARE Instructions: Hyperthyroidism ([facility]), Palpitations (Irregular or Rapid Heartrate) ([facility]), Urinary Tract Infection ([facility]) Prescriptions: Ciprofloxacin HCl [Cipro 500 mg Tablet] 500 mg PO BID #20 tablet Methimazole 10 mg PO DAILY #30 tablet Referrals: CATLAINO BAUTISTA MD [Primary Care Provider] - Follow up as needed
[2019-03-19 15:45] LABS: APPEARANCE,URINE CLEAR; BILIRUBIN,URINE NEGATIVE (NEGATIVE); GLUCOSE, URINE NEGATIVE (NEGATIVE); KETONES,URINE 20 mg/dL (NEGATIVE); LEUKOCYTE ESTERASE,URINE NEGATIVE (NEGATIVE); NITRITE,URINE POSITIVE (NEGATIVE); PROTEIN,URINE 100 mg/dL (NEGATIVE); URINE SPECIFIC GRAVITY 1.004; UROBILINOGEN,URINE NEGATIVE mg/dL (<2.0)
[2019-03-19 15:47] LABS: COLOR,URINE DARK YELLOW
[2019-03-19] MEDS ORDERED: AZITHROMYCIN 250 MG TABLET PO ONE (15:51)
[2019-03-19] MEDS ORDERED: CEFTRIAXONE 1 GM/D5W RTU 1 GM/50 ML RTUPB IV ONE (15:51)
[2019-03-19] MEDS ORDERED: CEFTRIAXONE INJ 1000 MG VIAL ONE (15:55)
[2019-03-19 16:26] VITALS: BP 179/95
--- NOTE | 2019-03-20 09:40 | EKG REPORT ---
SEVERITY:- ABNORMAL ECG - SINUS TACHYCARDIA ATRIAL PREMATURE COMPLEX PROBABLE LEFT ATRIAL ABNORMALITY LEFT VENTRICULAR HYPERTROPHY : Confirmed by: Anel Escalante 20-Mar-2019 09:39:48
== END 2019-03-19 16:27 | disposition home or self-care (01) ==
LOC: ER 10:35
DX: N52.9 Male erectile dysfunction, unspecified (principal); N30.00 Acute cystitis without hematuria; E05.90 Thyrotoxicosis, unspecified without thyrotoxic crisis or storm; E83.42 Hypomagnesemia; E87.6 Hypokalemia; R00.2 Palpitations; I10 Essential (primary) hypertension; N50.812 Left testicular pain; N50.89 Other specified disorders of the male genital organs; R20.0 Anesthesia of skin; R06.02 Shortness of breath; F17.200 Nicotine dependence, unspecified, uncomplicated; E11.9 Type 2 diabetes mellitus without complications
CPT/HCPCS: 93005; 36415; 84439; 82553; 82550; 83735; 84443; 85025; 85610; 85730; 80053; 81001; 84484; 83880; 71046; 76870; 93976; 93010; A9270 ×4; J0696; 96374; 99284

== ENCOUNTER 2019-09-07 08:45 | Inpatient (IN) | payer MEDICARE ==
[~2019-09-07 08:45] MED LIST changes: -PROPOFOL INJ 200 MG/20 ML VIAL IV ONE; +SUCCINYLCHOLINE CHLORIDE INJ 200 MG/10 ML VIAL ONE
[2019-09-07] MEDS ORDERED: NORMAL SALINE 1000 ML 1,000 ML IV ONE ×2 (08:51→09:39)
[2019-09-07] MEDS ORDERED: MIDAZOLAM 2 MG/2 ML INJ IV ONE ×2 (09:03→09:35)
[2019-09-07] MEDS ORDERED: MIDAZOLAM 2 MG/2 ML INJ ONE (09:04)
--- NOTE | 2019-09-07 09:12 | RADIOLOGY REPORT (SQ) ---
EXAM DESCRIPTION: CT HEAD WITHOUT COMPLETED DATE/TIME: 09/07/2019 8:56 am REASON FOR STUDY: Acute encephalopathy COMPARISON: CT of the head without contrast from 08/08/2017 TECHNIQUE: Axial images acquired through the brain without intravenous contrast. Images reviewed wi th bone, brain and subdural windows. Additional sagittal and coronal reconstructions were generated. Images stored on PACS. All CT scanners at this facility use dose modulation, iterative reconstruction, and/or weight based d osing when appropriate to reduce radiation dose to as low as reasonably achievable (ALARA). [facility]: Dose Right [facility]: CareDose [facility]: Dose Right [facility]: Teradose 4D [facility]: InSequent RADIATION DOSE: DLP 1017.17 mGy cm. LIMITATIONS: None. FINDINGS: There is no acute intracranial hemorrhage, vascular territorial infarct, extra-axial fluid collection, mass effect or midline shift. There is no effacement of the cerebral sulci or basal sub arachnoid cisterns. The prescott-white matter differentiation is preserved. The caliber of the ventricl es is concordant with the degree of sulcation. The orbits and globes are intact. The paranasal sinuses and the mastoid air cells are clear. There is no fracture of the calvarium. IMPRESSION: No acute intracranial abnormality. EVIDENCE OF ACUTE STROKE: NO. COMMENT: Quality ID # [id number]: Final reports with documentation of one or more dose reduction techniques (e.g., Automated exposure control, adjustment of the mA and/or kV according to patient size, use of iterative reconstruction technique) TECHNICAL DOCUMENTATION: JOB ID: [id number] [employer]- All Rights Reserved Reading location - IP/workstation name: [email or web address]
--- NOTE | 2019-09-07 09:13 | RADIOLOGY REPORT (SQ) ---
EXAM DESCRIPTION: CHEST SINGLE VIEW COMPLETED DATE/TIME: 09/07/2019 9:01 am REASON FOR STUDY: Hyperglycemia, acute encephalopathy COMPARISON: PA and lateral views of the chest from 03/19/2019. EXAM PARAMETERS: NUMBER OF VIEWS: One view. TECHNIQUE: An AP view of the chest was obtained. RADIATION DOSE: NA LIMITATIONS: None. FINDINGS: LUNGS AND PLEURA: Low inspiratory lung volumes without a superimposed consolidation, pleur al effusion or pneumothorax MEDIASTINUM AND HILAR STRUCTURES: No mediastinal or hilar contour abnormality. HEART AND VASCULAR STRUCTURES: The cardiac silhouette and pulmonary vasculature are within normal june its given the low inspiratory lung volumes. BONES: No acute findings. HARDWARE: None in the chest. OTHER: No other finding. IMPRESSION: Low inspiratory lung volumes without a superimposed acute cardiopulmonary process. TECHNICAL DOCUMENTATION: JOB ID: [id number] [employer]- All Rights Reserved Reading location - IP/workstation name: [email or web address]
[2019-09-07] MEDS ORDERED: LABETALOL HCL INJ 20 MG/4 ML DISP.SYRIN IV ONE ×2 (10:05→10:43)
[2019-09-07 10:08] LABS: VENOUS BLOOD BASE EXCESS 5.6 mmol/L; VENOUS BLOOD HCO3 31.2 mmol/L (20-32); VENOUS BLOOD PCO2 48.9 mmHg (35-63); VENOUS BLOOD PH 7.42 (7.30-7.42)
[2019-09-07 10:15] LABS: APPEARANCE,URINE CLEAR; BILIRUBIN,URINE NEGATIVE (NEGATIVE); GLUCOSE, URINE >=500 mg/dL (NEGATIVE); KETONES,URINE TRACE mg/dL (NEGATIVE); LEUKOCYTE ESTERASE,URINE NEGATIVE (NEGATIVE); NITRITE,URINE NEGATIVE (NEGATIVE); PROTEIN,URINE 30 mg/dL (NEGATIVE); URINE SPECIFIC GRAVITY 1.021; UROBILINOGEN,URINE NEGATIVE mg/dL (<2.0)
[2019-09-07 10:16] LABS: COLOR,URINE YELLOW
[2019-09-07 10:18] LABS: HEMATOCRIT 38.3 % (37.9-51.0); MEAN CORPUSCULAR HEMOGLOBIN 23.2 pg (27.0-33.4); MEAN CORPUSCULAR HGB CONC 31.2 g/dL (32.0-36.0); MEAN CORPUSCULAR VOLUME 74 fl (80-97); RED BLOOD COUNT 5.15 10^6/uL (4.35-5.55); RED CELL DISTRIBUTION WIDTH 16.4 % (11.5-14.0); WHITE BLOOD COUNT 11.3 10^3/uL (4.0-10.5)
[2019-09-07] MEDS ORDERED: LORAZEPAM INJ 2 MG/1 ML VIAL IV ONE (10:19)
[2019-09-07] MEDS ORDERED: LEVETIRACETAM 1500 MG/NACL-ISO 1,500 MG/100 ML RTUPB IV ONE (10:20)
[2019-09-07 10:24] LABS: URINE AMPHETAMINES SCREEN NEGATIVE; URINE BARBITURATES SCREEN NEGATIVE; URINE COCAINE SCREEN NEGATIVE; URINE MARIJUANA (THC) SCREEN NEGATIVE; URINE METHADONE SCREEN NEGATIVE; URINE PHENCYCLIDINE SCREEN NEGATIVE
[2019-09-07 10:27] LABS: URINE BENZODIAZEPINES SCREEN UNCONFIRMED POSITIVE
[2019-09-07] MEDS ORDERED: NICARDIPINE HCL RTU, ISO-OS 20 MG/200 ML RTUINJ IV PRN (10:37)
[2019-09-07 10:40] LABS: ABSOLUTE LYMPHOCYTES# (MANUAL) 1.9 10^3/uL (0.5-4.7); ABSOLUTE MONOCYTES # (MANUAL) 0.3 10^3/uL (0.1-1.4); ALBUMIN 4.2 g/dL (3.5-5.0); ALKALINE PHOSPHATASE 194 U/L (38-126); ANION GAP 17 (5-19); ASPARTATE AMINO TRANSFERASE 14 U/L (17-59); BASOPHILS % (MANUAL) 0 % (0-2); BILIRUBIN,DIRECT 0.5 mg/dL (0.0-0.4); BILIRUBIN,TOTAL 0.8 mg/dL (0.2-1.3); BLOOD UREA NITROGEN 13 mg/dL (7-20); CALCIUM 9.9 mg/dL (8.4-10.2); CARBON DIOXIDE 30 mmol/L (22-30); CHLORIDE 88 mmol/L (98-107); CREATINE KINASE 45 U/L (55-170); EOSINOPHILS % (MANUAL) 1 % (0-6); LYMPHOCYTES % (MANUAL) 17 % (13-45); MONOCYTES % (MANUAL) 3 % (3-13); POTASSIUM 3.1 mmol/L (3.6-5.0); SEGMENTED NEUTROPHILS % (MAN) 79 % (42-78); TOTAL CELLS COUNTED 100; TOTAL PROTEIN 7.8 g/dL (6.3-8.2)
[2019-09-07 10:42] LABS: ANISOCYTOSIS 1+; PLATELET CLUMPS PRESENT; PLATELET COMMENT INCREASED; PLATELET COUNT 537 10^3/uL (150-450)
[2019-09-07 10:46] LABS: CREATINE KINASE MB 0.69 ng/mL (<4.55); TROPONIN I 0.013 ng/mL
[2019-09-07] MEDS: INSULIN REG, HUMAN 100 UNIT/ML 3 ML VIAL (PYX) IV ONE ×2 (10:51→11:03)
[2019-09-07 10:55] LABS: GLUCOSE 1049 mg/dL (75-110)
[2019-09-07] MEDS ORDERED: DEXTROSE 5%-WATER 250 ML with NITROPRUSSIDE SODIUM 50 MG IV PRN ×4 (10:56→18:51)
[2019-09-07] MEDS ORDERED: LABETALOL HCL INJ 20 MG/4 ML DISP.SYRIN IV PRN ×2 (10:57→16:18)
[2019-09-07] MEDS ORDERED: DEXTROSE 40% GEL 15 GM TUBE PO PRN ×4 (10:58→13:07)
[2019-09-07] MEDS ORDERED: NORMAL SALINE 100 ML with INSULIN REGULAR, HUMAN 100 UNIT IV PRN ×2 (10:58)
[2019-09-07] MEDS ORDERED: GLUCAGON,HUMAN RECOMB 1 MG INJ IM PRN ×2 (10:58→13:07)
[2019-09-07] MEDS ORDERED: DEXTROSE 50%-WATER 25 GM/50 ML DISP.SYRIN IV PRN ×4 (10:58→13:07)
[2019-09-07] MEDS ORDERED: NITROPRUSSIDE SODIUM 2 ML IV ONE (11:04)
[2019-09-07] MEDS ORDERED: NITROPRUSSIDE 50 MG/2 ML IV PRN (11:15)
[2019-09-07 11:41] LABS: ARTERIAL BLOOD BASE EXCESS 3.9 mmol/L; ARTERIAL BLOOD H2CO3 1.83 mmol/L (1.05-1.35); ARTERIAL BLOOD HCO3 31.5 mmol/L (20-24); ARTERIAL BLOOD O2 SATURATION 48.5 % (94-98); ARTERIAL BLOOD PCO2 60.9 mmHg (35-45); ARTERIAL BLOOD PH 7.33 (7.35-7.45); ARTERIAL BLOOD TOTAL CO2 33.3 mmol/L (23-27)
[2019-09-07 11:50] LABS: ARTERIAL BLOOD FIO2 2L
[2019-09-07 11:52] LABS: ARTERIAL BLOOD PO2 28.7 mmHg (80-100)
[2019-09-07] MEDS: POTASSI CL 20 MEQ/50 ML RIDER 20 MEQ/50 ML RTUPB IV SCH ×2 (12:11→13:57)
[2019-09-07 12:29] LABS: ANION GAP 14 (5-19); BLOOD UREA NITROGEN 14 mg/dL (7-20); CARBON DIOXIDE 33 mmol/L (22-30); CHLORIDE 94 mmol/L (98-107); POTASSIUM 3.4 mmol/L (3.6-5.0)
[2019-09-07 12:40] LABS: GLUCOSE 814 mg/dL (75-110)
[2019-09-07] MEDS ORDERED: PROPOFOL 1,000 MG/100 ML INFUS..BTL IV ONE (12:45)
[2019-09-07] MEDS ORDERED: ETOMIDATE INJ/PF 20 MG/10 ML SDV IV ONE (12:45)
[2019-09-07] MEDS: PROPOFOL 1,000 MG/100 ML INFUS..BTL IV PRN ×3 (12:52→21:04)
[2019-09-07] MEDS ORDERED: GLUCAGON,HUMAN RECOMB 1 MG INJ SUBCUT PRN (12:54)
[2019-09-07] MEDS ORDERED: ACETAMINOPHEN 325 MG TABLET PO PRN (12:54)
[2019-09-07] MEDS ORDERED: IPRATROPIUM/ALBUTEROL 0.5-2.5 MG/3 ML AMPUL NEB PRN (12:54)
--- NOTE | 2019-09-07 12:59 | EKG REPORT ---
SEVERITY:- ABNORMAL ECG - SINUS RHYTHM ALIVIA, CONSIDER BIATRIAL ABNORMALITIES NONSPECIFIC INTRAVENTRICULAR CONDUCTION DELAY LEFT VENTRICULAR HYPERTROPHY : Confirmed by: Anel Escalante 07-Sep-2019 12:58:10
[2019-09-07] MEDS: NORMAL SALINE 1000 ML 1,000 ML IV PRN (13:00)
[2019-09-07] MEDS ORDERED: VANCOMYCIN HCL 0 MG in DEXTROSE 5%-WATER 250 ML IV NR (13:15)
[2019-09-07] MEDS ORDERED: PHARMACY COMMUNICATION ORDER MC NR (13:15)
[2019-09-07] MEDS ORDERED: FENTANYL CITRATE INJ/PF 100 MCG/2 ML AMPUL ONE (13:16)
--- NOTE | 2019-09-07 13:24 | Progress Note ---
Provider Note Provider Note: Procedure: endotracheal intubation Indication: altered mental status, seizures, hypertensive encephalopathy Technique: pt was pre-oxygentated via BVM. Pt was medicated with Etomide 20 mg IV and succinylcholine 100 mg IV. Pt was intubated with a size 7.5 ET tube using the Glidescope. Tube placement was confirmed with good color change on the ETCO2 detector. Pt tolerated the procedure well. CXR pending.
--- NOTE | 2019-09-07 13:40 | RADIOLOGY REPORT (SQ) ---
EXAM DESCRIPTION: CHEST SINGLE VIEW COMPLETED DATE/TIME: 09/07/2019 1:25 pm REASON FOR STUDY: intubation COMPARISON: 09/07/2018 0842 hours EXAM PARAMETERS: NUMBER OF VIEWS: One view TECHNIQUE: Single frontal radiograph of the chest. RADIATION DOSE: N/A LIMITATIONS: None. FINDINGS: TEMPORARY SUPPORT DEVICES:ETT in expected location. NG tube courses below the junior-diaphr agm in to the stomach. LUNGS AND PLEURA: No opacities. No masses. No effusions. No pneumothorax. MEDIASTINUM AND HILAR STRUCTURES: No masses. Contour normal. HEART AND VASCULAR STRUCTURES: Heart size normal. Normal vascularity. Aorta normal for age BONES: No acute findings. OTHER: No other significant finding. IMPRESSION: NO ACUTE RADIOGRAPHIC FINDING IN THE CHEST. SUPPORT DEVICE(S) IN EXPECTED LOCATIONS. TECHNICAL DOCUMENTATION: JOB ID: [id number] [employer]- All Rights Reserved Reading location - IP/workstation name: [email or web address]
[2019-09-07] MEDS: MIDAZOLAM HCL 50 MG/100 ML RTUINJ IV PRN ×2 (13:59→22:11)
[2019-09-07] MEDS ORDERED: FENTANYL CITRATE INJ/PF 100 MCG/2 ML AMPUL IV ONE (14:00)
[2019-09-07] MEDS ORDERED: CEFTRIAXONE 2 GM/D5W RTU 2 GM/50 ML RTUPB IV SCH (14:00)
--- NOTE | 2019-09-07 14:01 | RADIOLOGY REPORT (SQ) ---
EXAM DESCRIPTION: KUB/ABDOMEN (SINGLE VIEW) COMPLETED DATE/TIME: 09/07/2019 1:26 pm REASON FOR STUDY: Check Placement of NG Tube COMPARISON: None. NUMBER OF VIEWS: One view. TECHNIQUE: Supine radiographic image of the abdomen acquired. LIMITATIONS: None. FINDINGS: An NG tube is present. The tube extends to the greater curvature of the stomach. Approxi mately 7 or 8 cm of the tube is in the stomach. IMPRESSION: NG tube placement. TECHNICAL DOCUMENTATION: JOB ID: [id number] [employer]- All Rights Reserved Reading location - IP/workstation name: [email or web address]
--- NOTE | 2019-09-07 14:16 | CRITICAL CARE ADMISSION REPORT ---
HPI Date:: 09/07/19 - Critical Care Attending Note Time:: 13:59 Reason for ICU Reason:: seizures, coma, hypertensive emergency, hypertensive encephalopathy HPI: Pt is a 59 yo man with HTN, DM, CVA who presented to the ED via AMS. His called EMS because pt became confused this am. 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 She states that around 8 am this am, she heard him stumbling around the house. When she we nt to check on him, he was unable to talk. She called EMS and his blood sugar read as "hi". Upon evaluation in the ED, his SBP was 230 and his blood sugar was over 1000. He also had several witnessed seizures. He was started on an insulin drip, given ativan and keppra. Upon arrival to the ICU, I intubated the pt. His SBP was in the 200s and he was obtunded. I spoke to his and his daughter. They stated that pt had not been taking his medications properly and had not been compliant with his diet. - Diagnosis/Plan (1) Hypertensive emergency Is this a current diagnosis for this admission?: Yes (2) Hypertensive encephalopathy Is this a current diagnosis for this admission?: Yes (3) Seizure Is this a current diagnosis for this admission?: Yes (4) Acute respiratory failure Qualifiers: Respiratory failure complication: unspecified whether with hypoxia or hypercapnia Qualified Code(s): J96.00 - Acute respiratory failure, unspecified whether with hypoxia or hypercapnia Is this a current diagnosis for this admission?: Yes (5) Leukocytosis Is this a current diagnosis for this admission?: Yes (6) HHNC (hyperglycemic hyperosmolar nonketotic coma) Is this a current diagnosis for this admission?: Yes (7) Type II diabetes mellitus Qualifiers: Diabetes mellitus termination clerk insulin use: unspecified termination clerk insulin use status Diabetes mellitus complication status: with hyperglycemia Qualified Code(s): E11.65 - Type 2 diabetes mellitus with hyperglycemia Past Medical History Cardiac Medical History: Reports: Hyperlipidema, Hypertension Denies: Coronary Artery Disease, Myocardial Infarction Pulmonary Medical History: Denies: Asthma, Bronchitis, Chronic Obstructive Pulmonary Disease (COPD), Pneumonia Neurological Medical History: Denies: Seizures Endocrine Medical History: Reports: Diabetes Mellitus Type 1, Diabetes Mellitus Type 2 GI Medical History: Reports: Gastroesophageal Reflux Disease Musculoskeltal Medical History: Reports: Arthritis, Gout Psychiatric Medical History: Reports: Depression Hematology: Reports: Anemia Past Surgical History Past Surgical History: Reports: Orthopedic Surgery - torn meniscus in the right knee. bakers cyst Social/Family History - Social History Smoking Status: Current Every Day Smoker Frequency of Alcohol Use: None Hx Recreational Drug Use: No Hx Prescription Drug Abuse: No - Medication/Allergies Home Medications: Alprazolam [Xanax] 2 mg PO TID 08/09/17 Dexlansoprazole [Dexilant 60 mg Capsule] 60 mg PO DAILY 08/09/17 Enalapril Maleate [Vasotec 20 mg Tablet] 20 mg PO Q12 08/09/17 Ferrous Sulfate [Feosol 325 mg Tablet] 325 mg PO DAILY 08/09/17 Metformin HCl [Glucophage 500 mg Tablet] 500 mg PO BIDACBS 08/09/17 Multivitamin [Tab-A-Jasson (Multiple Vitamin) Tablet] 1 tab PO DAILY 08/09/17 Atorvastatin Calcium [Lipitor 40 mg Tablet] 40 mg PO QHS 30 Days #30 tablet 0 08/15/17 Amlodipine Besylate [Norvasc 10 mg Tablet] 10 mg PO DAILY 09/08/18 Aspirin [Aspirin 81 mg Chewable Tablet] 81 mg PO DAILY 09/08/18 Oxycodone HCl 20 mg PO Q4HP PRN 09/08/18 Potassium Gluconate 500 mg PO Q12 09/08/18 Quetiapine Fumarate [Seroquel 100 mg Tablet] 100 mg PO QHS 09/08/18 Tamsulosin HCl [Flomax] 0.4 mg PO DAILY 09/08/18 Sucralfate [Carafate Susp 1 gm/10 ml Udcup] 1 gm PO ACHS udc 09/14/18 Sulfamethoxazole/Trimethoprim [Bactrim Ds Tablet] 1 each PO BID 7 Days #14 tablet 09/23/18 Ciprofloxacin HCl [Cipro 500 mg Tablet] 500 mg PO BID #20 tablet 03/19/19 Methimazole 10 mg PO DAILY #30 tablet 03/19/19 Allergies/Adverse Reactions: No Known Allergies Allergy (Verified 09/23/18 14:34) Review of Systems ROS unobtainable: Due to endotracheal tube Physical Exam Vital Signs: Temp Pulse Resp BP Pulse Ox 100.7 F H 116 H 29 H 200/113 H 95 09/07/19 13:02 09/07/19 13:02 09/07/19 13:02 09/07/19 13:02 09/07/19 13:02 Intake & Output 09/06/19 09/07/19 09/08/19 06:59 06:59 06:59 Intake Total 2100 Balance 2100 Weight 101.4 kg Weight/Height Weight 101.4 kg Height 6 ft 1 in General appearance: PRESENT: well-developed, well-nourished, other - intubated, sedated, NAD Head exam: PRESENT: atraumatic, normocephalic Respiratory exam: PRESENT: clear to auscultation rosa isela, unlabored Cardiovascular exam: PRESENT: RRR GI/Abdominal exam: PRESENT: soft Gentrourinary exam: PRESENT: indwelling catheter Extremities exam: PRESENT: other - no edema Neurological exam: PRESENT: other - sedated Laboratory/Radiographs Laboratory Results: 09/07/19 09:55 09/07/19 11:53 09/07/19 09/07/19 09/07/19 08:30 08:30 09:30 WBC Cancelled RBC Cancelled Hgb Cancelled Hct Cancelled MCV Cancelled MCH Cancelled MCHC Cancelled RDW Cancelled Plt Count Cancelled Seg Neutrophils % Cancelled Carbonic Acid HCO3/H2CO3 Ratio ABG pH ABG pCO2 ABG pO2 ABG HCO3 ABG O2 Saturation ABG Base Excess VBG pH VBG pCO2 VBG HCO3 VBG Base Excess FiO2 Sodium Cancelled Potassium Cancelled Chloride Cancelled Carbon Dioxide Cancelled Anion Gap Cancelled BUN Cancelled Creatinine Cancelled Est GFR ( Amer) Cancelled Est GFR (Non-Af Amer) Cancelled Glucose Cancelled Calcium Cancelled Magnesium Cancelled Total Bilirubin Cancelled AST Cancelled Alkaline Phosphatase Cancelled Total Protein Cancelled Albumin Cancelled Urine Color YELLOW Urine Appearance CLEAR Urine pH 8.0 Ur Specific [place] 1.021 Urine Protein 30 H Urine Glucose (UA) >=500 H Urine Ketones TRACE H Urine Blood NEGATIVE Urine Nitrite NEGATIVE Ur Leukocyte Esterase NEGATIVE Urine WBC (Auto) 0 Urine RBC (Auto) 0 09/07/19 09/07/19 09/07/19 09:55 09:55 09:55 WBC 11.3 H RBC 5.15 Hgb 12.0 L Hct 38.3 MCV 74 L MCH 23.2 L MCHC 31.2 L RDW 16.4 H Plt Count 537 H Seg Neutrophils % Not Reportable Carbonic Acid HCO3/H2CO3 Ratio ABG pH ABG pCO2 ABG pO2 ABG HCO3 ABG O2 Saturation ABG Base Excess VBG pH 7.42 VBG pCO2 48.9 VBG HCO3 31.2 VBG Base Excess 5.6 FiO2 Sodium 134.9 L Potassium 3.1 L Chloride 88 L Carbon Dioxide 30 Anion Gap 17 BUN 13 Creatinine 0.69 Est GFR ( Amer) > 60 Est GFR (Non-Af Amer) Glucose 1049 H* Calcium 9.9 Magnesium 1.7 Total Bilirubin 0.8 AST 14 L Alkaline Phosphatase 194 H Total Protein 7.8 Albumin 4.2 Urine Color Urine Appearance Urine pH Ur Specific [place] Urine Protein Urine Glucose (UA) Urine Ketones Urine Blood Urine Nitrite Ur Leukocyte Esterase Urine WBC (Auto) Urine RBC (Auto) 09/07/19 09/07/19 11:21 11:53 WBC RBC Hgb Hct MCV MCH MCHC RDW Plt Count Seg Neutrophils % Carbonic Acid 1.83 H HCO3/H2CO3 Ratio 17:1 ABG pH 7.33 L ABG pCO2 60.9 H ABG pO2 28.7 L* ABG HCO3 31.5 H ABG O2 Saturation 48.5 L ABG Base Excess 3.9 VBG pH VBG pCO2 VBG HCO3 VBG Base Excess FiO2 2L Sodium 140.5 Potassium 3.4 L Chloride 94 L Carbon Dioxide 33 H Anion Gap 14 BUN 14 Creatinine 0.76 Est GFR ( Amer) > 60 Est GFR (Non-Af Amer) Glucose 814 H* Calcium 10.0 Magnesium Total Bilirubin AST Alkaline Phosphatase Total Protein Albumin Urine Color Urine Appearance Urine pH Ur Specific [place] Urine Protein Urine Glucose (UA) Urine Ketones Urine Blood Urine Nitrite Ur Leukocyte Esterase Urine WBC (Auto) Urine RBC (Auto) 09/07/19 09/07/19 09/07/19 08:30 08:30 09:55 Creatine Kinase Cancelled 45 L CK-MB (CK-2) Cancelled Troponin I Cancelled 09/07/19 09:55 Creatine Kinase CK-MB (CK-2) 0.69 Troponin I 0.013 Impressions: Head CT 09/07/19 08:49 IMPRESSION: No acute intracranial abnormality. EVIDENCE OF ACUTE STROKE: NO. Chest X-Ray 09/07/19 12:53 IMPRESSION: NO ACUTE RADIOGRAPHIC FINDING IN THE CHEST. SUPPORT DEVICE(S) IN EXPECTED LOCATIONS. EKG: [SR] . SINUS RHYTHM [LAACB] . ALIVIA, CONSIDER BIATRIAL ABNORMALITIES [NIVCD] . NONSPECIFIC INTRAVENTRICULAR CONDUCTION DELAY [LVH1] . LEFT VENTRICULAR HYPERTROPHY All labs, radiographs, diagnostic studies and EKGs were personally reviewed: Yes Critical Time Critical Time (minutes): 60 -: The care of a critically ill patient is dynamic. This note represents a static moment in the admission process. 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 This patient requires Critical Care secondary to life threatening organ or limb dysfunction. Without Critical Care services, the patient is at risk for increased mortality and morbidity. Provider Note Provider Note: Assessment: Critically ill 59 yo man with hypertensive emergency, hypetensive encephalopathy, seizures, HONK, acute respiratory failure, leukcytosis, h/o CVA Plan: 1. Respiratory: acute respiratory failure. I intubated the pt. Post-intubation ABG pending 2. CV: hypertensive emergency. Continue nipride drip and wean as tolerated. Follow troponins. Echo ordered 3. Neuro: hypertensive encephalopathy, seizures. Keppra, propofol. LP by radiology. No EEG available until 09/11. MRI when more stable 4. ID: leukocytosis. No obvious source. LP pending. Will start vanc, ampicillin, rocephin. Cultures pending 5. Endocrine: Type II DM, HONK. Continue insulin drip 6. Nutrition: NPO 7. Prophylaxis: scds. No pharmacologic DVT prophylaxis due to LP 8. and daughter at bedside. Updated on pt conditino and plan of care. Critical care time= 60 min, excluding procedures
[2019-09-07] MEDS: VANCOMYCIN HCL 1,500 MG in DEXTROSE 5%-WATER 250 ML IV SCH (14:40)
[2019-09-07] MEDS: ACETAMINOPHEN 325 MG TABLET NG PRN ×2 (14:50→21:12)
[2019-09-07] MEDS: AMPICILLIN SODIUM 2 GM in NORMAL SALINE 100 ML IV SCH ×3 (15:20→21:13)
[2019-09-07 16:03] LABS: INTERNATIONAL RATION (INR) 1.08
[2019-09-07 16:53] LABS: GLUCOSE,CSF 393 mg/dL (40-70); PROTEIN,CSF 123 mg/dL (12-60)
--- NOTE | 2019-09-07 17:03 | RADIOLOGY REPORT (SQ) ---
EXAM DESCRIPTION: LUMBAR PUNCTURE; FLUORO/NEEDLE PLACEMENT/SPINE COMPLETED DATE/TIME: 09/07/2019 4:28 pm REASON FOR STUDY: altered mental status; AMS COMPARISON: CT brain 09/07/2019 Lumbar spine 01/31/2008 FLUOROSCOPY TIME: 23 seconds 2 digital fluoroscopic images saved to PACS. TECHNIQUE: Fluoroscopic guided lumbar puncture. LIMITATIONS: None. PROCEDURE: After written consent and assessment were obtained, the patient was brought into the fluo roscopy room and placed prone on the table. The patient's lower back was prepped in a sterile fashio n and an entry site was selected under live fluoroscopic guidance. The entry site was anesthetized wi th 1% lidocaine. A 22 gauge needle was advanced through the skin and into the thecal sac at the left paracentral L3-4 level. New After approximately 10.5 ml was drained, the needle was removed and a st erile bandage was placed of the site. Specimens were sent to the lab for testing. A fluoroscopic sp ot image was saved to PACS confirming level access. FINDINGS: Clear CSF, laboratory studies pending IMPRESSION: Lumbar puncture under fluoroscopy. No immediate complication. COMMENT: Patient medication list reviewed: Yes- Quality ID# [id number]:Eligible professional attests to doc umenting in the medical record they obtained, updated, or reviewed the patient's current medications. . Quality ID 145: Final reports for procedures using fluoroscopy that document radiation exposure shalini conner, or exposure time and number of fluorographic images (if radiation exposure indices are not avail able) Procedure performed by Dr. Agosto TECHNICAL DOCUMENTATION: JOB ID: [id number] [employer]- All Rights Reserved Reading location - IP/workstation name: [email or web address]
--- NOTE | 2019-09-07 17:03 | RADIOLOGY REPORT (SQ) ---
EXAM DESCRIPTION: LUMBAR PUNCTURE; FLUORO/NEEDLE PLACEMENT/SPINE COMPLETED DATE/TIME: 09/07/2019 4:28 pm REASON FOR STUDY: altered mental status; AMS COMPARISON: CT brain 09/07/2019 Lumbar spine 01/31/2008 FLUOROSCOPY TIME: 23 seconds 2 digital fluoroscopic images saved to PACS. TECHNIQUE: Fluoroscopic guided lumbar puncture. LIMITATIONS: None. PROCEDURE: After written consent and assessment were obtained, the patient was brought into the fluo roscopy room and placed prone on the table. The patient's lower back was prepped in a sterile fashio n and an entry site was selected under live fluoroscopic guidance. The entry site was anesthetized wi th 1% lidocaine. A 22 gauge needle was advanced through the skin and into the thecal sac at the left paracentral L3-4 level. New After approximately 10.5 ml was drained, the needle was removed and a st erile bandage was placed of the site. Specimens were sent to the lab for testing. A fluoroscopic sp ot image was saved to PACS confirming level access. FINDINGS: Clear CSF, laboratory studies pending IMPRESSION: Lumbar puncture under fluoroscopy. No immediate complication. COMMENT: Patient medication list reviewed: Yes- Quality ID# [id number]:Eligible professional attests to doc umenting in the medical record they obtained, updated, or reviewed the patient's current medications. . Quality ID 145: Final reports for procedures using fluoroscopy that document radiation exposure shalini conner, or exposure time and number of fluorographic images (if radiation exposure indices are not avail able) Procedure performed by Dr. Agosto TECHNICAL DOCUMENTATION: JOB ID: [id number] [employer]- All Rights Reserved Reading location - IP/workstation name: [facility]
[2019-09-07] MEDS: HYDRALAZINE HCL INJ/PF 20 MG/1 ML SDV IV PRN (17:05)
[2019-09-07 17:15] LABS: ARTERIAL BLOOD BASE EXCESS 6.2 mmol/L; ARTERIAL BLOOD FIO2 98%; ARTERIAL BLOOD H2CO3 1.47 mmol/L (1.05-1.35); ARTERIAL BLOOD HCO3 31.7 mmol/L (20-24); ARTERIAL BLOOD O2 SATURATION 98.9 % (94-98); ARTERIAL BLOOD PCO2 48.9 mmHg (35-45); ARTERIAL BLOOD PH 7.43 (7.35-7.45); ARTERIAL BLOOD TOTAL CO2 33.2 mmol/L (23-27)
[2019-09-07] MEDS: NORMAL SALINE 100 ML with INSULIN REGULAR, HUMAN 100 UNIT IV PRN ×4 (17:16→23:40)
[2019-09-07] MEDS: TAMSULOSIN HCL 0.4 MG CAP.SR.24H PO SCH (17:20)
[2019-09-07] MEDS: AMLODIPINE BESYLATE 10 MG TABLET PO SCH (17:20)
[2019-09-07] MEDS: ENALAPRIL MALEATE 10 MG TABLET PO SCH (17:21)
[2019-09-07 18:10] LABS: COLOR TUBE 1 COLORLESS; COLOR TUBE 2 COLORLESS; COLOR TUBE 3 COLORLESS; CSF TUBE NUMBER 3
[2019-09-07 18:11] LABS: APPEARANCE ALL TUBES CLEAR; COLOR ALL TUBES COLORLESS; COLOR TUBE 4 COLORLESS
[2019-09-07 18:12] LABS: CSF TOTAL VOLUME 10.7 CC; VOLUME TUBE 3 2.2 CC; VOLUME TUBE 4 3.5 CC
[2019-09-07 18:15] LABS: RED BLOOD CELL,CSF 2 /uL (0-10); WHITE BLOOD CELL,CSF 1 /uL (0-5)
[2019-09-07 20:51] LABS: ANION GAP 18 (5-19); BLOOD UREA NITROGEN 17 mg/dL (7-20); CALCIUM 10.3 mg/dL (8.4-10.2); CARBON DIOXIDE 26 mmol/L (22-30); CHLORIDE 103 mmol/L (98-107); GLUCOSE 327 mg/dL (75-110); PHOSPHORUS 1.4 mg/dL (2.5-4.5)
[2019-09-07] MEDS: FAMOTIDINE INJ/PF 20 MG/2 ML SDV IV SCH (21:13)
[2019-09-07] MEDS: LEVETIRACETAM 500 MG/NACL-ISO 500 MG/100 ML RTUPB IV SCH (21:13)
[2019-09-07] MEDS ORDERED: LEVETIRACETAM 500 MG in NORMAL SALINE 100 ML IV SCH (22:00)
[2019-09-07] MEDS ORDERED: METOPROLOL TARTRATE 50 MG TABLET PO SCH (22:00)
[2019-09-08] MEDS: POTASSI CL 20 MEQ/50 ML RIDER 20 MEQ/50 ML RTUPB IV SCH ×2 (01:23→02:43)
[2019-09-08] MEDS: NORMAL SALINE 1000 ML 1,000 ML IV PRN ×2 (02:40→17:48)
[2019-09-08] MEDS: AMPICILLIN SODIUM 2 GM in NORMAL SALINE 100 ML IV SCH ×6 (02:43→21:22)
[2019-09-08] MEDS: PROPOFOL 1,000 MG/100 ML INFUS..BTL IV PRN ×7 (02:44→23:01)
[2019-09-08] MEDS: VANCOMYCIN HCL 1,500 MG in DEXTROSE 5%-WATER 250 ML IV SCH (03:30)
[2019-09-08] MEDS: HYDRALAZINE HCL INJ/PF 20 MG/1 ML SDV IV PRN ×2 (03:41→17:12)
[2019-09-08] MEDS: ACETAMINOPHEN 325 MG TABLET NG PRN ×3 (06:03→21:24)
[2019-09-08] MEDS: ENALAPRIL MALEATE 10 MG TABLET PO SCH (06:03)
[2019-09-08 06:58] LABS: INTERNATIONAL RATION (INR) 1.19; PROTHROMBIN TIME 15.2 SEC (11.4-15.4)
[2019-09-08] MEDS: MIDAZOLAM HCL 50 MG/100 ML RTUINJ IV PRN ×2 (07:15→15:52)
[2019-09-08 07:17] LABS: ALBUMIN 3.7 g/dL (3.5-5.0); ALKALINE PHOSPHATASE 137 U/L (38-126); ANION GAP 14 (5-19); ASPARTATE AMINO TRANSFERASE 15 U/L (17-59); BILIRUBIN,DIRECT 0.3 mg/dL (0.0-0.4); BILIRUBIN,TOTAL 0.7 mg/dL (0.2-1.3); BLOOD UREA NITROGEN 19 mg/dL (7-20); CALCIUM 9.2 mg/dL (8.4-10.2); CARBON DIOXIDE 24 mmol/L (22-30); CHLORIDE 105 mmol/L (98-107); POTASSIUM 3.2 mmol/L (3.6-5.0); TOTAL PROTEIN 7.1 g/dL (6.3-8.2)
[2019-09-08 07:47] LABS: HEMATOCRIT 37.3 % (37.9-51.0); HEMOGLOBIN 11.6 g/dL (13.5-17.0); MEAN CORPUSCULAR HEMOGLOBIN 22.9 pg (27.0-33.4); MEAN CORPUSCULAR HGB CONC 31.2 g/dL (32.0-36.0); MEAN CORPUSCULAR VOLUME 74 fl (80-97); PLATELET COUNT 450 10^3/uL (150-450); RED BLOOD COUNT 5.08 10^6/uL (4.35-5.55); RED CELL DISTRIBUTION WIDTH 16.5 % (11.5-14.0)
[2019-09-08 07:53] LABS: GLUCOSE 406 mg/dL (75-110)
[2019-09-08 08:20] LABS: WHITE BLOOD COUNT 24.2 10^3/uL (4.0-10.5)
[2019-09-08] MEDS ORDERED: POTASSIUM CHLORIDE 20 MEQ PACKET PO ONE (09:30)
[2019-09-08] MEDS: METOPROLOL TARTRATE 50 MG TABLET PO SCH ×2 (09:38→21:21)
[2019-09-08] MEDS: ASPIRIN 81 MG TABLET, ENT COATED PO SCH (09:39)
[2019-09-08] MEDS: AMLODIPINE BESYLATE 10 MG TABLET PO SCH (09:39)
[2019-09-08] MEDS: LEVETIRACETAM 500 MG/NACL-ISO 500 MG/100 ML RTUPB IV SCH ×2 (09:40→21:20)
[2019-09-08] MEDS: CEFEPIME 1 GM/D5W RTU 1 GM/50 ML RTUPB IV SCH ×2 (09:40→21:20)
[2019-09-08] MEDS: FAMOTIDINE INJ/PF 20 MG/2 ML SDV IV SCH ×2 (09:41→21:22)
--- NOTE | 2019-09-08 11:08 | XCELERA REPORT ---
[address] [address] Transthoracic Echocardiogram Report Name: LEN MACIAS Age: 59 yrs Gender: Male : 1960 Patient Status: Inpatient Patient Location: ICU^606^A Study Date: 09/07/2019 07:18 PM Height: 73 in Weight: 223 lb BSA: 2.3 m2 Procedure: A complete two-dimensional transthoracic echocardiogram was performed (2D, M-mode, spectral and color flow Doppler). The study was technically difficult with many images being suboptimal in quality. Reason For Study: hypertensive emergency Ordering Physician: HALEY TREVIÑO Performed By: Nayana Byrd Interpretation Summary Patient was tachycardic during the study. The left ventricular ejection fraction is normal. There is mild concentric left ventricular hypertrophy. The left ventricle is grossly normal size. Doppler measurements suggest pseudonormalized left ventricular relaxation, which is associated with grade II/IV or mild to moderate diastolic dysfunction Wall motion cannot be accurately commented on, but no definite regional wall motion abnormalities noted. The right ventricular systolic function is normal. The left atrium is mildly dilated. The right atrium is normal. There is a trace amount of mitral regurgitation There is no mitral valve stenosis. No aortic regurgitation is present. There is no aortic valve stenosis There is a trace or physiologic amount of tricuspid regurgitation Tricuspid regurgitation jet envelope not well defined to measure RV systolic pressure accurately. The aortic root is not well visualized but is probably normal size. The inferior vena cava appeared normal and decreased > 50% with respiration (RAP 5-10 mmHg) Minimal pericardial effusion. MMode/2D Measurements & Calculations RVDd: 2.5 cm LVIDd: 4.7 cm FS: 41.8 % Ao root diam: 3.3 cm IVSd: 1.6 cm LVIDs: 2.8 cm EDV(Teich): 104.1 ml Ao root area: 8.5 cm2 LVPWd: 1.4 cm ESV(Teich): 28.4 ml LA dimension: 2.7 cm EF(Teich): 72.7 % Doppler Measurements & Calculations MV E max niya: MV P1/2t max niya: Ao V2 max: LV V1 max P.2 cm/sec 67.8 cm/sec 139.0 cm/sec 7.7 mmHg MV A max niya: MV P1/2t: 73.1 msec Ao max P.7 mmHgLV V1 max: 128.3 cm/sec MVA(P1/2t): 3.0 cm2 138.8 cm/sec MV E/A: 0.48 MV dec slope: 271.4 cm/sec2 MV dec time: 0.20 sec PA V2 max: TR max niya: MV P1/2t-pr_phl: 121.6 cm/sec 179.0 cm/sec 73.1 msec PA max P.9 mmHgTR max P.8 mmHg Left Ventricle The left ventricle is grossly normal size. There is mild concentric left ventricular hypertrophy. The left ventricular ejection fraction is normal. Doppler measurements suggest pseudonormalized left ventricular relaxation, which is associated with grade II/IV or mild to moderate diastolic dysfunction. Wall motion cannot be accurately commented on, but no definite regional wall motion abnormalities noted. Right Ventricle The right ventricle is grossly normal size. There is normal right ventricular wall thickness. The right ventricular systolic function is normal. Atria The right atrium is normal. The left atrium is mildly dilated. Interarterial septum not well visualized and not well dopplered. Cannot comment on ASD/PFO presence. Mitral Valve The mitral valve leaflets are sclerotic, but show no functional abnormalities. There is no mitral valve stenosis. There is a trace amount of mitral regurgitation. Aortic Valve The aortic valve opens well. There is no aortic valve stenosis. No aortic regurgitation is present. Tricuspid Valve The tricuspid valve is not well visualized, but is grossly normal. There is no tricuspid stenosis. There is a trace or physiologic amount of tricuspid regurgitation. Tricuspid regurgitation jet envelope not well defined to measure RV systolic pressure accurately. Pulmonic Valve The pulmonic valve is not well visualized. Great Vessels The aortic root is not well visualized but is probably normal size. The inferior vena cava appeared normal and decreased > 50% with respiration (RAP 5-10 mmHg). Effusions Minimal pericardial effusion. : HALEY TREVIÑO Shyamal
--- NOTE | 2019-09-08 11:15 | PDOC CRITICAL CARE PROG REPORT ---
General Date:: 09/08/19 - Critical Care Attending Resuscitation Status: Full Code Events in the past 12 to 24 Hours:: Pt remains intubated and sedated. Is off nipride. Had NSVT this am. Reason for ICU Addmission:: seizures, coma, hypertensive emergency, hypertensive encephalopathy - Medications: Medications reviewed and adjusted accordingly: Yes Physical Exam Vital Signs: Temp Pulse Resp BP Pulse Ox 100.0 F 105 H 16 134/81 H 100 09/08/19 10:00 09/08/19 10:00 09/08/19 10:00 09/08/19 10:00 09/08/19 10:00 Intake & Output 09/07/19 09/08/19 09/09/19 06:59 06:59 06:59 Intake Total 4815 418 Output Total 1480 165 Balance 3335 253 Weight 98.6 kg 98.6 kg Weight/Height Weight 98.6 kg Height 6 ft 1 in General appearance: PRESENT: no acute distress, well-developed, well-nourished, other - intubated and sedated Head exam: PRESENT: atraumatic, normocephalic Respiratory exam: PRESENT: decreased breath sounds, unlabored Cardiovascular exam: PRESENT: RRR, other - no mrg GI/Abdominal exam: PRESENT: soft Gentrourinary exam: PRESENT: indwelling catheter Extremities exam: PRESENT: other - no pretibial edema Laboratory/Radiographs Laboratory Results: 09/08/19 06:41 09/08/19 06:41 09/07/19 09/07/19 09/07/19 11:21 11:53 15:26 WBC RBC Hgb Hct MCV MCH MCHC RDW Plt Count Carbonic Acid 1.83 H 1.47 H HCO3/H2CO3 Ratio 17:1 21:1 ABG pH 7.33 L 7.43 ABG pCO2 60.9 H 48.9 H ABG pO2 28.7 L* 144.0 H ABG HCO3 31.5 H 31.7 H ABG O2 Saturation 48.5 L 98.9 H ABG Base Excess 3.9 6.2 FiO2 2L 98% Sodium 140.5 Potassium 3.4 L Chloride 94 L Carbon Dioxide 33 H Anion Gap 14 BUN 14 Creatinine 0.76 Est GFR ( Amer) > 60 Glucose 814 H* Calcium 10.0 Phosphorus Magnesium Total Bilirubin AST Alkaline Phosphatase Ammonia Total Protein Albumin TSH Fluid Tube Number CSF Volume CSF Appearance CSF Color CSF WBC CSF RBC CSF Color (1) CSF Color (2) CSF Color (3) CSF Color (4) CSF Glucose CSF Total Protein 09/07/19 09/07/19 09/07/19 16:12 16:12 20:15 WBC RBC Hgb Hct MCV MCH MCHC RDW Plt Count Carbonic Acid HCO3/H2CO3 Ratio ABG pH ABG pCO2 ABG pO2 ABG HCO3 ABG O2 Saturation ABG Base Excess FiO2 Sodium 146.5 H Potassium 3.0 L* Chloride 103 Carbon Dioxide 26 Anion Gap 18 BUN 17 Creatinine 1.46 H Est GFR ( Amer) > 60 Glucose 327 H Calcium 10.3 H Phosphorus 1.4 L Magnesium 1.7 Total Bilirubin AST Alkaline Phosphatase Ammonia Total Protein Albumin TSH Fluid Tube Number 3 CSF Volume 10.7 CSF Appearance CLEAR CSF Color COLORLESS CSF WBC 1 CSF RBC 2 CSF Color (1) COLORLESS CSF Color (2) COLORLESS CSF Color (3) COLORLESS CSF Color (4) COLORLESS CSF Glucose 393 H CSF Total Protein 123 H 09/08/19 09/08/19 09/08/19 06:41 06:41 06:41 WBC 24.2 H D RBC 5.08 Hgb 11.6 L Hct 37.3 L MCV 74 L MCH 22.9 L MCHC 31.2 L RDW 16.5 H Plt Count 450 Carbonic Acid HCO3/H2CO3 Ratio ABG pH ABG pCO2 ABG pO2 ABG HCO3 ABG O2 Saturation ABG Base Excess FiO2 Sodium 143.4 Potassium 3.2 L Chloride 105 Carbon Dioxide 24 Anion Gap 14 BUN 19 Creatinine 2.08 H Est GFR ( Amer) 40 L Glucose 406 H* Calcium 9.2 Phosphorus Magnesium 1.7 Total Bilirubin 0.7 AST 15 L Alkaline Phosphatase 137 H Ammonia < 8.7 L Total Protein 7.1 Albumin 3.7 TSH Fluid Tube Number CSF Volume CSF Appearance CSF Color CSF WBC CSF RBC CSF Color (1) CSF Color (2) CSF Color (3) CSF Color (4) CSF Glucose CSF Total Protein 09/08/19 06:41 WBC RBC Hgb Hct MCV MCH MCHC RDW Plt Count Carbonic Acid HCO3/H2CO3 Ratio ABG pH ABG pCO2 ABG pO2 ABG HCO3 ABG O2 Saturation ABG Base Excess FiO2 Sodium Potassium Chloride Carbon Dioxide Anion Gap BUN Creatinine Est GFR ( Amer) Glucose Calcium Phosphorus Magnesium Total Bilirubin AST Alkaline Phosphatase Ammonia Total Protein Albumin TSH 0.05 L Fluid Tube Number CSF Volume CSF Appearance CSF Color CSF WBC CSF RBC CSF Color (1) CSF Color (2) CSF Color (3) CSF Color (4) CSF Glucose CSF Total Protein 09/07/19 09/07/19 09/07/19 08:30 08:30 09:55 Creatine Kinase Cancelled 45 L CK-MB (CK-2) Cancelled Troponin I Cancelled 09/07/19 09/07/19 09/07/19 09:55 13:05 20:15 Creatine Kinase CK-MB (CK-2) 0.69 Troponin I 0.013 0.016 0.080 09/08/19 02:27 Creatine Kinase CK-MB (CK-2) Troponin I 0.132 Impressions: Guidance Fluoroscopy 09/07/19 00:00 IMPRESSION: Lumbar puncture under fluoroscopy. No immediate complication. Lumbar Puncture 09/07/19 00:00 IMPRESSION: Lumbar puncture under fluoroscopy. No immediate complication. Head CT 09/07/19 08:49 IMPRESSION: No acute intracranial abnormality. EVIDENCE OF ACUTE STROKE: NO. KUB X-Ray 09/07/19 13:13 IMPRESSION: NG tube placement. All labs, radiographs, diagnostic studies and EKGs were personally reviewed: Yes Assessment and Plan - Diagnosis (1) Hypertensive emergency Is this a current diagnosis for this admission?: Yes (2) Hypertensive encephalopathy Is this a current diagnosis for this admission?: Yes (3) Seizure Is this a current diagnosis for this admission?: Yes (4) Acute respiratory failure Qualifiers: Respiratory failure complication: unspecified whether with hypoxia or hy percapnia Qualified Code(s): J96.00 - Acute respiratory failure, unspecified whether with hypoxia or hypercapnia Is this a current diagnosis for this admission?: Yes (5) Leukocytosis Qualifiers: Leukocytosis type: unspecified Qualified Code(s): D72.829 - Elevated white blood cell count, unspecified Is this a current diagnosis for this admission?: Yes (6) HHNC (hyperglycemic hyperosmolar nonketotic coma) Is this a current diagnosis for this admission?: Yes (7) Type II diabetes mellitus Qualifiers: Diabetes mellitus 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 Respiratory: acute respiratory failure.Vent day 2. Continue full vent support. 2. CV: hypertensive emergency,resolved. Off nipride. Had NSVT today. Will increase lopressor. Start oral hydralzine. D/C vasoctec due to DONN. Echo pending. Elevated troponin. Trop is 0.137. On asa. No systemic anticoagulation b/c pt had LP yesterday. Will repeat troponins 3. Neuro: hypertensive encephalopathy, seizures. Keppra, propofol. LP by radiology 09/07/2019. No EEG available until 09/11. MRI when more stable 4. ID: Aspiration PNA. ATBX Day 2. Vanc, ampicillin, rocephin. Will d/c rocephin and start zosyn. Cultures pending 5. Endocrine: Type II DM, HONK. Continue insulin drip 6. Renal: DONN. Cr has increased to 2.08. D/C vasotec. Order renal US and renal artery duplex studies. Hypokalemia, replace potassium 6. Nutrition: tube feeds 7. Prophylaxis: scds. Sq heparin Critical Time Critical Time (minutes): 50 Level of Care: ICU -: 1. The care of a critical patient is a dynamic process. This note is a employment program representative synopsis but static in nature. The timeframe for treatments given in order is not necessarily the actual time these treatments may have been done. 2. This patient requires critical care secondary to ongoing requirements for therapy not offered or safe outside the critical care environment. Transfer to a lower level of care will result in altered life or limb morbidity and mortality. 3. Multidisciplinary rounds completed. 4. ABCDE bundle addressed.
--- NOTE | 2019-09-08 11:18 | RADIOLOGY REPORT (SQ) ---
EXAM DESCRIPTION: CHEST SINGLE VIEW COMPLETED DATE/TIME: 09/08/2019 6:37 am REASON FOR STUDY: resp failure COMPARISON: 09/07/2019 EXAM PARAMETERS: NUMBER OF VIEWS: One view TECHNIQUE: Single frontal radiograph of the chest. RADIATION DOSE: N/A LIMITATIONS: None. FINDINGS: TEMPORARY SUPPORT DEVICES:ETT in expected location. NG tube courses below the junior-diaphr agm in to the stomach. LUNGS AND PLEURA: No opacities. No masses. No effusions. No pneumothorax. MEDIASTINUM AND HILAR STRUCTURES: No masses. Contour normal. HEART AND VASCULAR STRUCTURES: Heart size normal. Normal vascularity. Aorta normal for age BONES: No acute findings. OTHER: No other significant finding. IMPRESSION: NO ACUTE RADIOGRAPHIC FINDING IN THE CHEST. SUPPORT DEVICE(S) IN EXPECTED LOCATIONS. TECHNICAL DOCUMENTATION: JOB ID: [id number] [employer]- All Rights Reserved Reading location - IP/workstation name: [email or web address]
--- NOTE | 2019-09-08 12:11 | RADIOLOGY REPORT (SQ) ---
EXAM DESCRIPTION: DUPLEX ART/MADDISON FLOW COMPLETE COMPLETED DATE/TIME: 09/08/2019 10:34 am REASON FOR STUDY: severe HTN, eval for renal artery stenosis COMPARISON: None. TECHNIQUE: Realtime and static grayscale images acquired. Selected color Doppler, velocities and spe ctral images recorded. LIMITATIONS: None. FINDINGS: RIGHT KIDNEY: RENAL ARTERY VELOCITIES: 61 cm/sec. Segmental artery velocity 82 cm/sec. RENAL VEIN: Color doppler flow present, patent. VELOCITY RATIO: 0.5. Normal waveforms. KIDNEY: Normal size. No significant pathology. LEFT KIDNEY: RENAL ARTERY VELOCITIES: 61 cm/sec. Segmental artery velocity 49 cm/sec. RENAL VEIN: Color doppler flow present, patent. VELOCITY RATIO: 0.5. Normal waveforms. KIDNEY: Normal size. No significant pathology. BLADDER: Not visualized. Hernández catheter present. OTHER: No other significant finding. IMPRESSION: NO DOPPLER EVIDENCE OF HEMODYNAMICALLY SIGNIFICANT RENAL ARTERY STENOSIS. COMMENT: NORMAL RENAL ARTERY/AORTA VELOCITY RATIO IS LESS THAN OR EQUAL TO 3.5. TECHNICAL DOCUMENTATION: JOB ID: [id number] [employer]- All Rights Reserved Reading location - IP/workstation name: [email or web address]
[2019-09-08] MEDS: HYDRALAZINE HCL 50 MG TABLET PO SCH ×2 (14:59→21:21)
[2019-09-08] MEDS: TAMSULOSIN HCL 0.4 MG CAP.SR.24H PO SCH (17:42)
[2019-09-08] MEDS: HEPARIN SOD (PORCINE) 5,000 UNIT/ML 1 ML VIAL SUBCUT SCH (21:21)
[2019-09-08] MEDS ORDERED: DEXTROSE 50%-WATER 25 GM/50 ML DISP.SYRIN IV PRN ×2 (21:34)
[2019-09-08] MEDS ORDERED: GLUCAGON,HUMAN RECOMB 1 MG INJ IM PRN (21:34)
[2019-09-08] MEDS ORDERED: DEXTROSE 40% GEL 15 GM TUBE PO PRN ×2 (21:34)
[2019-09-08] MEDS ORDERED: INSULIN REG, HUMAN 100 UNIT/ML 3 ML VIAL (PYX) SUBCUT SCH (21:45)
[2019-09-08] MEDS: INSULIN REG, HUMAN 100 UNIT/ML 3 ML VIAL (PYX) SUBCUT SCH (22:29)
[2019-09-09] MEDS: INSULIN REG, HUMAN 100 UNIT/ML 3 ML VIAL (PYX) SUBCUT SCH ×2 (01:36→05:43)
[2019-09-09] MEDS: AMPICILLIN SODIUM 2 GM in NORMAL SALINE 100 ML IV SCH ×4 (01:49→17:02)
[2019-09-09] MEDS: MIDAZOLAM HCL 50 MG/100 ML RTUINJ IV PRN ×2 (01:54→12:55)
[2019-09-09] MEDS: PROPOFOL 1,000 MG/100 ML INFUS..BTL IV PRN ×6 (03:01→21:33)
[2019-09-09] MEDS ORDERED: NORMAL SALINE 1000 ML 1,000 ML IV PRN (04:12)
[2019-09-09] MEDS: HYDRALAZINE HCL 50 MG TABLET PO SCH ×3 (05:34→21:34)
[2019-09-09 05:44] LABS: ANION GAP 11 (5-19); BLOOD UREA NITROGEN 31 mg/dL (7-20); CALCIUM 8.4 mg/dL (8.4-10.2); CARBON DIOXIDE 23 mmol/L (22-30); CHLORIDE 110 mmol/L (98-107); GLUCOSE 334 mg/dL (75-110)
[2019-09-09 06:01] LABS: POTASSIUM 2.8 mmol/L (3.6-5.0)
[2019-09-09 06:06] LABS: HEMATOCRIT 30.4 % (37.9-51.0); HEMOGLOBIN 9.7 g/dL (13.5-17.0); MEAN CORPUSCULAR HEMOGLOBIN 22.7 pg (27.0-33.4); MEAN CORPUSCULAR HGB CONC 31.9 g/dL (32.0-36.0); MEAN CORPUSCULAR VOLUME 71 fl (80-97); PLATELET COUNT 389 10^3/uL (150-450); RED BLOOD COUNT 4.26 10^6/uL (4.35-5.55); RED CELL DISTRIBUTION WIDTH 16.3 % (11.5-14.0)
[2019-09-09] MEDS ORDERED: POTASSI CL 20 MEQ/50 ML RIDER 20 MEQ/50 ML RTUPB IV ONE (06:14)
[2019-09-09] MEDS: POTASSI CL 20 MEQ/50 ML RIDER 20 MEQ/50 ML RTUPB IV SCH ×2 (06:35→09:31)
--- NOTE | 2019-09-09 08:52 | RADIOLOGY REPORT (SQ) ---
EXAM DESCRIPTION: CHEST SINGLE VIEW COMPLETED DATE/TIME: 09/09/2019 6:21 am REASON FOR STUDY: resp failure COMPARISON: 09/08/2019. EXAM PARAMETERS: NUMBER OF VIEWS: One view. TECHNIQUE: Single frontal radiographic view of the chest acquired. RADIATION DOSE: NA LIMITATIONS: None. FINDINGS: LUNGS AND PLEURA: Elevated right hemidiaphragm. Faint densities in the left lung base. MEDIASTINUM AND HILAR STRUCTURES: No masses. Contour normal. HEART AND VASCULAR STRUCTURES: Heart normal in size. Normal vasculature. BONES: No acute findings. HARDWARE: Stable endotracheal tube and nasogastric tube. OTHER: No other significant finding. IMPRESSION: ELEVATED RIGHT HEMIDIAPHRAGM. FAINT DENSITIES IN THE LEFT LUNG BASE, PROBABLY MILD ATEL ECTASIS. STABLE LIFE LINES. TECHNICAL DOCUMENTATION: JOB ID: [id number] [employer]- All Rights Reserved Reading location - IP/workstation name: [email or web address]
[2019-09-09] MEDS ORDERED: HYDRALAZINE HCL 50 MG TABLET PO ONE (09:00)
[2019-09-09] MEDS: POTASSI CL 20 MEQ/1/2NS 1L 20 MEQ/1,000 ML RTUINJ IV PRN (09:29)
[2019-09-09] MEDS: VANCOMYCIN HCL 1,500 MG in DEXTROSE 5%-WATER 250 ML IV SCH (09:31)
[2019-09-09] MEDS: NORMAL SALINE 100 ML with INSULIN REGULAR, HUMAN 100 UNIT IV PRN ×2 (09:45)
[2019-09-09] MEDS: ASPIRIN 81 MG TABLET, ENT COATED PO SCH (09:46)
[2019-09-09] MEDS: METOPROLOL TARTRATE 50 MG TABLET PO SCH ×2 (09:46→21:34)
[2019-09-09] MEDS: NITROGLYCERIN 5 MG (0.2 MG/HR) PATCH.TD24 TD SCH (09:46)
[2019-09-09] MEDS: AMLODIPINE BESYLATE 10 MG TABLET PO SCH (09:47)
[2019-09-09] MEDS: HEPARIN SOD (PORCINE) 5,000 UNIT/ML 1 ML VIAL SUBCUT SCH ×2 (09:47→21:35)
[2019-09-09] MEDS: FAMOTIDINE INJ/PF 20 MG/2 ML SDV IV SCH ×2 (09:47→21:34)
[2019-09-09] MEDS: LEVETIRACETAM 500 MG/NACL-ISO 500 MG/100 ML RTUPB IV SCH ×2 (09:55→21:34)
[2019-09-09] MEDS: CEFEPIME 1 GM/D5W RTU 1 GM/50 ML RTUPB IV SCH ×2 (09:55→21:34)
--- NOTE | 2019-09-09 10:41 | PDOC CRITICAL CARE PROG REPORT ---
General Date:: 09/09/19 - Critical Care Attending Resuscitation Status: Full Code Events in the past 12 to 24 Hours:: Pt remains intubated and sedated. He aspirated tube feeds overnight. Reason for ICU Addmission:: seizures, coma, hypertensive emergency, hypertensive encephalopathy - Medications: Medications reviewed and adjusted accordingly: Yes Physical Exam Vital Signs: Temp Pulse Resp BP Pulse Ox 99.0 F 94 15 113/68 100 09/09/19 08:00 09/09/19 08:00 09/09/19 08:00 09/09/19 08:00 09/09/19 09:15 Intake & Output 09/08/19 09/09/19 09/10/19 06:59 06:59 06:59 Intake Total 4815 3573 383 Output Total 1480 1250 35 Balance 3335 2323 348 Weight 98.6 kg 102.1 kg Weight/Height Weight 102.1 kg Height 6 ft 1 in General appearance: PRESENT: no acute distress, well-developed, well-nourished, other - intubated and sedated Head exam: PRESENT: atraumatic, normocephalic Respiratory exam: PRESENT: clear to auscultation rosa isela, unlabored Cardiovascular exam: PRESENT: RRR GI/Abdominal exam: PRESENT: soft Gentrourinary exam: PRESENT: indwelling catheter Extremities exam: PRESENT: other - trace pretibial edema Laboratory/Radiographs Laboratory Results: 09/09/19 03:54 09/09/19 03:54 09/08/19 09/08/19 09/09/19 11:14 12:04 03:54 WBC RBC Hgb Hct MCV MCH MCHC RDW Plt Count Sodium Potassium Chloride Carbon Dioxide Anion Gap BUN Creatinine Est GFR ( Amer) Glucose Calcium Magnesium 1.8 Triglycerides 166 H Free T4 1.72 09/09/19 09/09/19 09/09/19 03:54 03:54 03:54 WBC 17.0 H RBC 4.26 L Hgb 9.7 L Hct 30.4 L MCV 71 L MCH 22.7 L MCHC 31.9 L RDW 16.3 H Plt Count 389 Sodium 144.0 Potassium 2.8 L* Chloride 110 H Carbon Dioxide 23 Anion Gap 11 BUN 31 H Creatinine 2.52 H Est GFR ( Amer) 32 L Glucose 334 H Calcium 8.4 Magnesium 1.9 Triglycerides Free T4 09/07/19 09/07/19 09/07/19 08:30 08:30 09:55 Creatine Kinase Cancelled 45 L CK-MB (CK-2) Cancelled Troponin I Cancelled 09/07/19 09/07/19 09/07/19 09:55 13:05 20:15 Creatine Kinase CK-MB (CK-2) 0.69 Troponin I 0.013 0.016 0.080 09/08/19 09/08/19 09/08/19 02:27 12:04 19:03 Creatine Kinase CK-MB (CK-2) Troponin I 0.132 0.097 0.062 Impressions: Guidance Fluoroscopy 09/07/19 00:00 IMPRESSION: Lumbar puncture under fluoroscopy. No immediate complication. Lumbar Puncture 09/07/19 00:00 IMPRESSION: Lumbar puncture under fluoroscopy. No immediate complication. Head CT 09/07/19 08:49 IMPRESSION: No acute intracranial abnormality. EVIDENCE OF ACUTE STROKE: NO. KUB X-Ray 09/07/19 13:13 IMPRESSION: NG tube placement. Renal Artery Duplex 09/08/19 00:00 IMPRESSION: NO DOPPLER EVIDENCE OF HEMODYNAMICALLY SIGNIFICANT RENAL ARTERY STENOSIS. Chest X-Ray 09/09/19 06:00 IMPRESSION: ELEVATED RIGHT HEMIDIAPHRAGM. FAINT DENSITIES IN THE LEFT LUNG BASE, PROBABLY MILD ATELECTASIS. STABLE LIFE LINES. Assessment and Plan - Diagnosis (1) Hypertensive emergency Is this a current diagnosis for this admission?: Yes (2) Hypertensive encephalopathy Is this a current diagnosis for this admission?: Yes (3) Seizure Is this a current diagnosis for this admission?: Yes (4) Acute respiratory failure Qualifiers: Respiratory failure complication: unspecified whether with hypoxia or hypercapnia Qualified Code(s): J96.00 - Acute respiratory failure, unspecified whether with hypoxia or hypercapnia Is this a current diagnosis for this admission?: Yes (5) Leukocytosis Qualifiers: Leukocytosis type: unspecified Qualified Code(s): D72.829 - Elevated white blood cell count, unspecified Is this a current diagnosis for this admission?: Yes (6) HHNC (hyperglycemic hyperosmolar nonketotic coma) Is this a current diagnosis for this admission?: Yes (7) Type II diabetes mellitus Qualifiers: Diabetes mellitus manager intermediate insulin use: unspecified residential insulin use status Diabetes mellitus complication status: with hyperglycemia Qualified Code(s): E11.65 - Type 2 diabetes mellitus with hyperglycemia Is this a current diagnosis for this admission?: Yes (8) Aspiration pneumonia Qualifiers: Laterality: right Is this a current diagnosis for this admission?: Yes Plan Summary: Assessment: Critically ill 59 yo man with hypertensive emergency, hypetensive encephalopathy, seizures, HONK, acute respiratory failure, leukcytosis, h/o CVA, DONN Plan: 1. Respiratory: acute respiratory failure.Vent day 3. Continue full vent support. 2. CV: hypertensive urgency. Will start NTG infusion and NTG paste Continue lopressor, norvasc. Increase hydralazine. Kane stopped due to worsening renal failure. Elevated troponin. It is trending down. Is 0.62 today. Will repeat. Echo pending. Asa. Systemic anticoagulation not started b/c pt had LP. 3. Neuro: hypertensive encephalopathy, seizures. Keppra, propofol. Wean propofol as tolerated. LP by radiology 09/07/2019. No EEG available until 09/11. MRI when more stable 4. ID: Aspiration PNA. ATBX Day 3. Vanc, ampicillin, cefepime 5. Endocrine: Type II DM, HONK. Still with elevated blood sugars. Resume insulin drip 6. Renal: DONN. Cr has increased to 2.52. Vasotec stopped. Hypokalemia, replace potassium 6. Nutrition: tube feeds on hold due to aspiration. Will resume IVF at low rate 7. Prophylaxis: scds. Sq heparin 8. Spoke with and daughter in law for about 30 min yesterday. Update them on pt condition and plan of care. Critical Time Critical Time (minutes): 50 Level of Care: ICU -: 1. The care of a critical patient is a dynamic process. This note is a claim representative synopsis but static in nature. The timeframe for treatments given in order is not necessarily the actual time these treatments may have been done. 2. This patient requires critical care secondary to ongoing requirements for therapy not offered or safe outside the critical care environment. Transfer to a lower level of care will result in altered life or limb morbidity and mo rtality. 3. Multidisciplinary rounds completed. 4. ABCDE bundle addressed.
[2019-09-09] MEDS: TAMSULOSIN HCL 0.4 MG CAP.SR.24H PO SCH (17:03)
[2019-09-10] MEDS: AMPICILLIN SODIUM 2 GM in NORMAL SALINE 100 ML IV SCH ×3 (00:02→11:24)
[2019-09-10] MEDS: POTASSI CL 20 MEQ/1/2NS 1L 20 MEQ/1,000 ML RTUINJ IV PRN ×2 (00:04→15:52)
[2019-09-10] MEDS: PROPOFOL 1,000 MG/100 ML INFUS..BTL IV PRN ×4 (00:15→10:20)
[2019-09-10] MEDS: HYDRALAZINE HCL 50 MG TABLET PO SCH ×3 (05:50→21:01)
[2019-09-10 07:27] LABS: HEMATOCRIT 29.3 % (37.9-51.0); HEMOGLOBIN 9.5 g/dL (13.5-17.0); MEAN CORPUSCULAR HEMOGLOBIN 22.9 pg (27.0-33.4); MEAN CORPUSCULAR HGB CONC 32.4 g/dL (32.0-36.0); MEAN CORPUSCULAR VOLUME 71 fl (80-97); PLATELET COUNT 372 10^3/uL (150-450); RED BLOOD COUNT 4.14 10^6/uL (4.35-5.55); RED CELL DISTRIBUTION WIDTH 16.9 % (11.5-14.0); WHITE BLOOD COUNT 12.3 10^3/uL (4.0-10.5)
[2019-09-10 07:43] LABS: ALBUMIN 2.8 g/dL (3.5-5.0); ALKALINE PHOSPHATASE 83 U/L (38-126); ANION GAP 6 (5-19); ASPARTATE AMINO TRANSFERASE 22 U/L (17-59); BILIRUBIN,DIRECT 0.3 mg/dL (0.0-0.4); BILIRUBIN,TOTAL 0.6 mg/dL (0.2-1.3); BLOOD UREA NITROGEN 28 mg/dL (7-20); CALCIUM 8.3 mg/dL (8.4-10.2); CARBON DIOXIDE 23 mmol/L (22-30); CHLORIDE 116 mmol/L (98-107); GLUCOSE 114 mg/dL (75-110); POTASSIUM 3.4 mmol/L (3.6-5.0); TOTAL PROTEIN 5.9 g/dL (6.3-8.2)
[2019-09-10 07:47] LABS: VANCOMYCIN,TROUGH 17.3 ug/mL (5.0-20.0)
[2019-09-10] MEDS: VANCOMYCIN HCL 1,500 MG in DEXTROSE 5%-WATER 250 ML IV SCH (08:19)
--- NOTE | 2019-09-10 08:26 | RADIOLOGY REPORT (SQ) ---
EXAM DESCRIPTION: CHEST SINGLE VIEW COMPLETED DATE/TIME: 09/10/2019 6:56 am REASON FOR STUDY: resp failure COMPARISON: None. EXAM PARAMETERS: NUMBER OF VIEWS: One view. TECHNIQUE: Single frontal radiographic view of the chest acquired. RADIATION DOSE: NA LIMITATIONS: None. FINDINGS: LUNGS AND PLEURA: Improved left basilar aeration. No new airspace disease, pleural effusi on or pneumothorax. MEDIASTINUM AND HILAR STRUCTURES: No masses. Contour normal. HEART AND VASCULAR STRUCTURES: Heart normal in size. Normal vasculature. BONES: No acute findings. HARDWARE: Endotracheal tube tip overlies midthoracic trachea. Enteric tube tip overlies proximal gas tric body with side port at GE junction. OTHER: No other significant finding. IMPRESSION: Improved left basilar aeration. No evidence of new cardiopulmonary complication. Enteric tube side port at GE junction. Consider advancing 5-10 cm. TECHNICAL DOCUMENTATION: JOB ID: [id number] [employer]- All Rights Reserved Reading location - IP/workstation name: [email or web address]
[2019-09-10] MEDS ORDERED: (PENDING PHARMACY ID) (Enalapril Maleate [Vasotec 20 Mg Tablet] 20 MG) PO SCH (10:00)
[2019-09-10] MEDS: FAMOTIDINE INJ/PF 20 MG/2 ML SDV IV SCH ×2 (10:20→21:27)
[2019-09-10] MEDS: NITROGLYCERIN 5 MG (0.2 MG/HR) PATCH.TD24 TD SCH (10:21)
[2019-09-10] MEDS: ENALAPRIL MALEATE 10 MG TABLET PO SCH ×2 (10:22→21:28)
[2019-09-10] MEDS: AMLODIPINE BESYLATE 10 MG TABLET PO SCH (10:22)
[2019-09-10] MEDS: METOPROLOL SUCCINATE 50 MG TAB.SR.24H PO SCH ×2 (10:22→21:28)
[2019-09-10] MEDS: CEFEPIME 1 GM/D5W RTU 1 GM/50 ML RTUPB IV SCH (10:22)
[2019-09-10] MEDS: ASPIRIN 81 MG TABLET, ENT COATED PO SCH (10:22)
[2019-09-10] MEDS: LEVETIRACETAM 500 MG/NACL-ISO 500 MG/100 ML RTUPB IV SCH ×2 (10:23→21:27)
[2019-09-10] MEDS: HEPARIN SOD (PORCINE) 5,000 UNIT/ML 1 ML VIAL SUBCUT SCH ×2 (10:23→21:27)
[2019-09-10] MEDS: MULTIVITAMIN TABLET PO SCH (10:24)
--- NOTE | 2019-09-10 10:26 | ER Document Report ---
Entered by NASRA LOWERY SCRIBKareem 09/07/19 0847 Acting as scribe for:CHA SCOTT MD ED Neuro Symptoms/Deficit - General Stated Complaint: POSSIBLE STROKE Mode of Arrival: Medic Information source: Emergency Med Personnel, [facility] Records Cannot obtain history due to: Altered mental status Notes: This 59-year-old male patient brought from home by EMS for altered mental status. reports that he was last seen normal about 4:00 AM this morning. She reports that he was up and down all night going to get something to drink from the kitchen because he was thirsty, and up to the bathroom at least twice tonight. She noted about 8:00 AM this morning that he did not look okay, and he was not responding to his name when she would call it to him. She states he walked to the door which he does not normally do, seemed confused. States he was making noise in his mouth. States he was pointing at his ear indicating he could not hear her. This is when she called 911. EMS reports that on scene the patient was semi-combative, seemed confused, did not seem oriented at all. He states his blood pressure was elevated. His Accu- Chek was too high to read. He was brought to emergency room for further evaluation. His reports that he takes pills for his diabetes does not take insulin. When I asked her about his admission here in August 2017 which seemed to have very similar appearance to what is going on today, she stated that he had a stroke that time. I believe she is mistaken and that the stroke had occurred previously to that admission. The admission in August 2017 was diagnosed as hypoglycemia, hypertensive emergency, encephalopathy, viral meningitis among many other less serious diagnoses. TRAVEL OUTSIDE OF THE [place] IN LAST 30 DAYS: No - Related Data Allergies/Adverse Reactions: No Known Allergies Allergy (Verified 09/23/18 14:34) Past Medical History - General Information source: Emergency Med Personnel, [facility] Records Cannot obtain history due to: Altered mental status - Social History Smoking Status: Current Every Day Smoker Cigarette use (# per day): Yes Chew tobacco use (# tins/day): No Smoking Education Provided: No Frequency of alcohol use: None Lives with: Spouse/Significant other Family History: CAD, CVA, DM, Hypertension - Past Medical History Cardiac Medical History: Reports: Hx Hypercholesterolemia, Hx Hypertension Neurological Medical History: Reports: Hx Cerebrovascular Accident Endocrine Medical History: Reports: Hx Diabetes Mellitus Type 2 GI Medical History: Reports: Hx Gastroesophageal Reflux Disease Musculoskeletal Medical History: Reports Hx Arthritis, Reports Hx Gout Psychiatric Medical History: Reports: Hx Depression Past Surgical History: Reports: Hx Genitourinary Surgery - biopsy of scrotum, Hx Orthopedic Surgery - torn meniscus in the right knee. bakers cyst - Immunizations Hx Diphtheria, Pertussis, Tetanus Vaccination: No Review of Systems - Review of Systems -: Yes ROS unobtainable due to patient's medical condition Physical Exam - Vital signs Interpretation: Hypertensive - General General appearance: Other - Patient is minimally responsive other than noxious stimulus. He is somewhat combative when stimulated. - HEENT Head: Normocephalic, Atraumatic Eyes: Other - Arcus senilis. Patient's eyes are deviated upward. Pupils appear normal and reactive. Conjunctiva: Normal Pupils: PERRL Neck: Supple - Respiratory Respiratory status: No respiratory distress Breath sounds: Normal - Cardiovascular Rhythm: Regular Heart sounds: Normal auscultation Murmur: No - Abdominal Inspection: Normal Bowel sounds: Normal Tenderness: Nontender - Back Back: Normal - Extremities General upper extremity: Normal inspection General lower extremity: Normal inspection - Neurological Notes: Patient does move all extremities. On stroking the bottom of his feet, he briskly withdrawals, the toes do not go up. He does appear to be a little hyperreflexic. The patient occasionally grimaces tightening the muscles in the left face. - Psychological Associated symptoms: Other - Unable to evaluate due to encephalopathic presentation - Skin Skin Temperature: Warm Skin Moisture: Dry Skin Color: Normal Course - Re-evaluation Re-evalutation: 09/07/19 10:58 About 1015 the patient appeared to be having seizure with clenched teeth, breathing fast and deep and tensing up. He also became quite tachycardic during this time. About the same time this started he was being given his first dose of IV labetalol 20 mg. His heart rate dropped after that but the seizure like activity continued. He was given Ativan 2 mg IV, and then a loading dose of Keppra 1500 mg IV. Shortly after the Ativan, he seemed to stop the active seizing, pulse ox dropped to 91% briefly and when he was stimulated he started breathing a little better and pulse ox began coming up. He was put on supplemental oxygen at this time. We were eventually able to get a manual blood pressure to confirm that his systolic was about 235 despite labetalol 20 mg IV twice. At this point he was started on a night pride drip after I found that the hospital does not have nicardipine. I did discuss the case with Dr. Fonseca the media technician who is going to come see the patient - Laboratory Result Diagrams: 09/10/19 07:00 09/10/19 07:00 - Diagnostic Test Radiology reviewed: Image reviewed, Reports reviewed - Chest x-ray shows low lung volumes without acute changes. CT scan of the head does not show acute changes. - EKG Interpretation by Me EKG shows normal: Sinus rhythm, [place], Intervals, QRS Complexes, ST-T Waves Rate: Normal - 99 Rhythm: NSR [place]/QRS: IVCD Voltage: Consistant with LVH P Waves: LAE When compared to previous EKG there are: No significant change Critical Care Note - Critical Care Note Total time excluding time spent on procedures (mins): 55 Comments: Multiple evaluations with minute to minute management of his multiple presenting problems. Several conversations with the media technician as his medical status evolved here in the emergency room. He did have blood sugar greater than 1000, potassium of 3.1, a generalized seizure, hypertensive crisis, encephalopathy. ED Alteplase Inc/Exc Criteria - Inclusion Criteria: 1: Patient presented to ED within 3 hours of acute ischemic stroke symptom onset? -: Yes 2: Did baseline CT exclude intracranial hemorrhage and/or other risk factors? -: Yes 3: Is the age of the patient 18 years of age or greater? -: Yes : If any of the above questions are answered "NO" then stop, patient is not a candidate for Alteplase, : If all of the above questions are answered "YES" then continue with Exclusion Criteria. - Exclusion Criteria: 1: Is there evidence of intracranial hemorrhage on baseline CT? -: No 2: Is there suspicion of subarachnoid hemorrhage (even if CT negative)? -: No 3: Is there a history of serious head trauma, recent previous stroke or MT within 3 months? -: No 4: Does the patient have a clinical presentation consistent with MT or post-MT pericarditis? -: No 5: Is there history of intracranial hemorrhage? -: No 6: On repeated measurement is Systolic BP greater than 185mmHg or Diastolic BP greater that 110 mmHg and is aggressive treatment needed to reduce blood pressure to these limits (e.g. constant infusion of an anti-hypertensive)? -: Yes 7: Did the patient awake with stroke symptoms? -: No 8: Has the patient had a lumbar puncture or an arterial puncture at a non- compressile site within 7 days? -: No 9: With in the last 14 days did the patient have surgery or major trauma? -: No 10: Is the patient or less than 2 weeks? -: No 11: Was there any active bleeding or acute trauma? -: No 12: Does the patient have intracranial neoplasm, arteriovenous malformation or aneurysm? -: No 13: Does the patient have abnormal glucose (less than 50 or greater than 400mg/dl)? Record glucose in Comment. -: Yes 14: Patient has rapidly improving symptoms at the time Alteplase is to be Administered. -: No 15: Does the patient have any risks for bleeding, including but not limited to: a.: Current use of Coumadin with PT greater than 15 seconds or INR greater than 1.7. b.: Current use of Pradaxa (Dabigatran). c.: Heparin administereed within the past 48 hours and PTT elevated. d.: Platelet count less than 100,000/mm. e.: Major surgery or serious trauma within 14 days. f.: Gastrointestinal or gynecological urinary bleeding within 14 days. g.: Myocardial Infarction (MT) within 3 months. -: No : If the answer to any of the above questions is "YES" then stop, the patient is not a candidate for Alteplase. : If the answer to all of the above questions is "NO" then the patient may be eligible for the Administration of Alteplase. : If the patient is noted to have seizure activity at onset of Stroke symptoms; Consult Neurologist for further evaluation. - The patient is: -: Included and is eligible to receive Alteplase. *Initiate bed placement at higher level of care* --: No - Patient does not have localizing symptoms, hypertensive encephalopathy Reviewed risks & benefits of thrombolytic therapy: I have reviewed the risks and benefits of thrombolytic therapy with the patient and/or his/her family. No -: Excluded and not eligible to receive Alteplase for the above exclusions. --: Yes - Hypertensive emergency, blood sugar greater than 1,000 -: Excluded and not eligible to receive Alteplase for other reasons (specify in comments): - Diagnosis of TIA: -: Patient presented with transient symptoms that are now resolved and no other neurologic findings are currently present. List symptoms in comments. -: Patient is NOT a candidate for tPA. -: Yes -: ____(put name in comment) has been consulted for admission and continued evaluation of risk factor assessment. Comment: Dr. Fonseca Discharge - Discharge Clinical Impression: Hypertensive emergency, History of CVA (cerebrovascular accident), Seizures, Encephalopathy acute Hyperglycemia due to type 2 diabetes mellitus Qualifiers: Diabetes mellitus adjunct faculty for medical terminology insulin use: without adjunct faculty for medical terminology use Qualified Code(s): E11.65 - Type 2 diabetes mellitus with hyperglycemia Diabetes Qualifiers: Diabetes mellitus type: type 2 Diabetes mellitus adjunct faculty for medical terminology insulin use: without adjunct faculty for medical terminology use Diabetes mellitus complication status: without complication Qualified Code(s): E11.9 - Type 2 diabetes mellitus without complications Hypertension Qualifiers: Hypertension type: unspecified Qualified Code(s): I10 - Essential (primary) hyp ertension Condition: Critical Disposition: ADMITTED INPATIENT Unit Admitted: ICU - Dr. Fonseca Scribe Attestation: 09/07/19 10:49 I personally performed the services described in the documentation, reviewed and edited the documentation which was dictated to the scribe in my presence, and it accurately records my words and actions. I personally performed the services described in the documentation, reviewed and edited the documentation which was dictated to the scribe in my presence, and it accurately records my words and actions.
[2019-09-10] MEDS: HYDRALAZINE HCL INJ/PF 20 MG/1 ML SDV IV PRN ×2 (12:04→15:44)
[2019-09-10] MEDS: ALPRAZOLAM 0.5 MG TABLET PO SCH ×2 (13:28→21:28)
[2019-09-10 13:46] LABS: ARTERIAL BLOOD BASE EXCESS -1.1 mmol/L; ARTERIAL BLOOD H2CO3 0.97 mmol/L (1.05-1.35); ARTERIAL BLOOD HCO3 22.2 mmol/L (20-24); ARTERIAL BLOOD O2 SATURATION 98.6 % (94-98); ARTERIAL BLOOD PCO2 32.2 mmHg (35-45); ARTERIAL BLOOD PH 7.46 (7.35-7.45); ARTERIAL BLOOD PO2 120.5 mmHg (80-100); ARTERIAL BLOOD TOTAL CO2 23.2 mmol/L (23-27)
[2019-09-10 13:50] LABS: ARTERIAL BLOOD FIO2 35%
--- NOTE | 2019-09-10 14:26 | PDOC CRITICAL CARE PROG REPORT ---
General Date:: 09/10/19 ICU Day:: 3 Ventilator Day:: 3 Hospital Day:: 3 Resuscitation Status: Full Code Events in the past 12 to 24 Hours:: To be extubated. Review of systems relevant to events:: Awake enough to be extubated. Neuro, CV Reason for ICU Addmission:: seizures, coma, hypertensive emergency, hypertensive encephalopathy - Medications: Medications reviewed and adjusted accordingly: Yes Vasopressors:: None Sedation:: Versed and propofol, now off. Physical Exam Vital Signs: Temp Pulse Resp BP Pulse Ox 96.8 F L 116 H 32 H 192/95 H 98 09/10/19 12:00 09/10/19 13:52 09/10/19 13:52 09/10/19 13:52 09/10/19 13:52 Intake & Output 09/09/19 09/10/19 09/11/19 06:59 06:59 06:59 Intake Total 3573 5276 147 Output Total 1250 1645 755 Balance 2323 3631 -608 Weight 102.1 kg 104.2 kg Weight/Height Weight 104.2 kg Height 6 ft 1 in General appearance: PRESENT: no acute distress, cooperative Head exam: PRESENT: atraumatic, normocephalic Eye exam: PRESENT: conjunctiva pink, EOMI, PERRLA. ABSENT: scleral icterus Ear exam: PRESENT: normal external ear exam Mouth exam: PRESENT: moist, tongue midline Respiratory exam: PRESENT: clear to auscultation rosa isela, rhonchi - Occassional. ABSENT: rales, wheezes Cardiovascular exam: PRESENT: RRR. ABSENT: diastolic murmur, rubs, systolic murmur GI/Abdominal exam: PRESENT: normal bowel sounds, soft. ABSENT: distended, guarding, mass, organolmegaly, rebound, tenderness Rectal exam: PRESENT: deferred Gentrourinary exam: PRESENT: indwelling catheter Extremities exam: PRESENT: pedal edema Musculoskeletal exam: PRESENT: normal inspection Neurological exam: PRESENT: alert, awake, other - Cant aasess orientation due to ETT. Skin exam: PRESENT: dry, intact, warm. ABSENT: cyanosis, rash Tubes/Lines: PRESENT: Endotracheal Tube, Nasogastic Tube Laboratory/Radiographs Laboratory Results: 09/10/19 07:00 09/10/19 07:00 09/10/19 09/10/19 09/10/19 07:00 07:00 07:00 WBC 12.3 H RBC 4.14 L Hgb 9.5 L Hct 29.3 L MCV 71 L MCH 22.9 L MCHC 32.4 RDW 16.9 H Plt Count 372 Carbonic Acid HCO3/H2CO3 Ratio ABG pH ABG pCO2 ABG pO2 ABG HCO3 ABG O2 Saturation ABG Base Excess FiO2 Sodium 144.9 Potassium 3.4 L Chloride 116 H Carbon Dioxide 23 Anion Gap 6 BUN 28 H Creatinine 1.64 H Est GFR ( Amer) 52 L Glucose 114 H Calcium 8.3 L Magnesium 1.9 Total Bilirubin 0.6 AST 22 Alkaline Phosphatase 83 Total Protein 5.9 L Albumin 2.8 L 09/10/19 12:50 WBC RBC Hgb Hct MCV MCH MCHC RDW Plt Count Carbonic Acid 0.97 L HCO3/H2CO3 Ratio 22:1 ABG pH 7.46 H ABG pCO2 32.2 L ABG pO2 120.5 H ABG HCO3 22.2 ABG O2 Saturation 98.6 H ABG Base Excess -1.1 FiO2 35% Sodium Potassium Chloride Carbon Dioxide Anion Gap BUN Creatinine Est GFR ( Amer) Glucose Calcium Magnesium Total Bilirubin AST Alkaline Phosphatase Total Protein Albumin 09/07/19 13:01 Sputum Gram Stain - Final 09/07/19 13:01 Sputum Sputum Culture - Final C.albicans/C.dubliniensis Group B Beta Streptococcus Normal Jen 09/07/19 16:12 Cerebral Spinal Fluid - Tube 1 (Csf) Gram Stain - Final 09/07/19 16:12 Cerebral Spinal Fluid - Tube 1 (Csf) CSF Culture - Final NO GROWTH 3 DAYS 09/07/19 09/07/19 09/07/19 08:30 08:30 09:55 Creatine Kinase Cancelled 45 L CK-MB (CK-2) Cancelled Troponin I Cancelled 09/07/19 09/07/19 09/07/19 09:55 13:05 20:15 Creatine Kinase CK-MB (CK-2) 0.69 Troponin I 0.013 0.016 0.080 09/08/19 09/08/19 09/08/19 02:27 12:04 19:03 Creatine Kinase CK-MB (CK-2) Troponin I 0.132 0.097 0.062 Impressions: Guidance Fluoroscopy 09/07/19 00:00 IMPRESSION: Lumbar puncture under fluoroscopy. No immediate complication. Lumbar Puncture 09/07/19 00:00 IMPRESSION: Lumbar puncture under fluoroscopy. No immediate complication. Head CT 09/07/19 08:49 IMPRESSION: No acute intracranial abnormality. EVIDENCE OF ACUTE STROKE: NO. KUB X-Ray 09/07/19 13:13 IMPRESSION: NG tube placement. Renal Artery Duplex 09/08/19 00:00 IMPRESSION: NO DOPPLER EVIDENCE OF HEMODYNAMICALLY SIGNIFICANT RENAL ARTERY STENOSIS. Chest X-Ray 09/10/19 06:00 IMPRESSION: Improved left basilar aeration. No evidence of new cardiopulmonary complication. Enteric tube side port at [facility]. Consider advancing 5-10 cm. All labs, radiographs, diagnostic studies and EKGs were personally reviewed: Yes In addition, reports of radiographic and diagnostic studies were read: Yes Assessment and Plan - Diagnosis (1) Acute encephalopathy Is this a current diagnosis for this admission?: Yes Plan: He now seems to be more oriented. To reassess when ETT is out. Likely due to HHNK as well as HTN, both better controlled. (2) HHNC (hyperglycemic hyperosmolar nonketotic coma) Is this a current diagnosis for this admission?: Yes Plan: BG down to about 200, insulin drip off sliding scale, hold off on metformin until eating. (3) Hypertensive encephalopathy Is this a current diagnosis for this admission?: Yes Plan: Seems to be improved. BP should drop when he is extubated. Plan Summary: Extubate and downgrade later today or in AM. Critical Time Critical Time (minutes): 35 Level of Care: ICU Anticipated discharge: Home Within: within 72 hours -: 1. The care of a critical patient is a dynamic process. This note is a technical sales representatives synopsis but static in nature. The timeframe for treatments g iven in order is not necessarily the actual time these treatments may have been done. 2. This patient requires critical care secondary to ongoing requirements for therapy not offered or safe outside the critical care environment. Transfer to a lower level of care will result in altered life or limb morbidity and mortality. 3. Multidisciplinary rounds completed. 4. ABCDE bundle addressed.
[2019-09-10] MEDS: LABETALOL HCL INJ 20 MG/4 ML DISP.SYRIN IV PRN ×2 (17:20→20:56)
[2019-09-10] MEDS: TAMSULOSIN HCL 0.4 MG CAP.SR.24H PO SCH (18:21)
[2019-09-11] MEDS: LABETALOL HCL INJ 20 MG/4 ML DISP.SYRIN IV PRN ×2 (00:12→16:52)
[2019-09-11] MEDS ORDERED: ENALAPRILAT DIHYDRATE INJ/PF 2.5 MG/2 ML SDV IV ONE (01:53)
[2019-09-11] MEDS ORDERED: LABETALOL HCL INJ 20 MG/4 ML DISP.SYRIN IV PRN ×2 (01:54→01:58)
[2019-09-11] MEDS: ENALAPRIL MALEATE 10 MG TABLET PO SCH ×3 (02:10→21:27)
[2019-09-11] MEDS: METOPROLOL SUCCINATE 50 MG TAB.SR.24H PO SCH ×3 (02:11→21:26)
[2019-09-11] MEDS: ALPRAZOLAM 0.5 MG TABLET PO SCH ×4 (02:11→21:26)
[2019-09-11 04:09] LABS: HEMATOCRIT 30.7 % (37.9-51.0); MEAN CORPUSCULAR HEMOGLOBIN 22.9 pg (27.0-33.4); MEAN CORPUSCULAR HGB CONC 32.4 g/dL (32.0-36.0); MEAN CORPUSCULAR VOLUME 71 fl (80-97); PLATELET COUNT 412 10^3/uL (150-450); RED BLOOD COUNT 4.36 10^6/uL (4.35-5.55); RED CELL DISTRIBUTION WIDTH 16.9 % (11.5-14.0); WHITE BLOOD COUNT 11.5 10^3/uL (4.0-10.5)
[2019-09-11 04:29] LABS: ANION GAP 9 (5-19); BLOOD UREA NITROGEN 20 mg/dL (7-20); CALCIUM 8.5 mg/dL (8.4-10.2); CARBON DIOXIDE 26 mmol/L (22-30); CHLORIDE 111 mmol/L (98-107); GLUCOSE 256 mg/dL (75-110)
[2019-09-11 04:41] LABS: POTASSIUM 2.7 mmol/L (3.6-5.0)
[2019-09-11] MEDS ORDERED: POTASSI CL 20 MEQ/50 ML RIDER 20 MEQ/50 ML RTUPB IV ONE ×2 (05:48→06:07)
[2019-09-11] MEDS: HYDRALAZINE HCL INJ/PF 20 MG/1 ML SDV IV PRN (06:08)
[2019-09-11] MEDS: HYDRALAZINE HCL 50 MG TABLET PO SCH ×3 (06:09→21:27)
[2019-09-11] MEDS: POTASSI CL 20 MEQ/1/2NS 1L 20 MEQ/1,000 ML RTUINJ IV PRN (06:16)
[2019-09-11] MEDS: NORMAL SALINE 100 ML with INSULIN REGULAR, HUMAN 100 UNIT IV PRN ×2 (08:29)
[2019-09-11] MEDS: LEVETIRACETAM 500 MG/NACL-ISO 500 MG/100 ML RTUPB IV SCH ×2 (10:17→21:22)
[2019-09-11] MEDS: NITROGLYCERIN 5 MG (0.2 MG/HR) PATCH.TD24 TD SCH (10:17)
[2019-09-11] MEDS: AMLODIPINE BESYLATE 10 MG TABLET PO SCH (10:17)
[2019-09-11] MEDS: HEPARIN SOD (PORCINE) 5,000 UNIT/ML 1 ML VIAL SUBCUT SCH ×2 (10:17→21:27)
[2019-09-11] MEDS: ASPIRIN 81 MG TABLET, ENT COATED PO SCH (10:18)
[2019-09-11] MEDS: MULTIVITAMIN TABLET PO SCH (10:18)
[2019-09-11] MEDS: FAMOTIDINE INJ/PF 20 MG/2 ML SDV IV SCH (10:18)
[2019-09-11 10:23] LABS: ALBUMIN 3.2 g/dL (3.5-5.0); ALKALINE PHOSPHATASE 108 U/L (38-126); ANION GAP 9 (5-19); ASPARTATE AMINO TRANSFERASE 15 U/L (17-59); BILIRUBIN,DIRECT 0.1 mg/dL (0.0-0.4); BILIRUBIN,TOTAL 0.7 mg/dL (0.2-1.3); BLOOD UREA NITROGEN 17 mg/dL (7-20); CALCIUM 8.8 mg/dL (8.4-10.2); CARBON DIOXIDE 24 mmol/L (22-30); CHLORIDE 112 mmol/L (98-107); GLUCOSE 179 mg/dL (75-110); POTASSIUM 3.1 mmol/L (3.6-5.0); TOTAL PROTEIN 6.5 g/dL (6.3-8.2)
[2019-09-11 10:41] LABS: PHOSPHORUS 2.5 mg/dL (2.5-4.5)
--- NOTE | 2019-09-11 14:51 | PDOC CRITICAL CARE PROG REPORT ---
General Date:: 09/11/19 ICU Day:: 4 Hospital Day:: 4 Resuscitation Status: Full Code Events in the past 12 to 24 Hours:: Off insulin drip. Eating. Still hypertensive. Review of systems relevant to events:: CV. Endocrine. Reason for ICU Addmission:: seizures, coma, hypertensive emergency, hypertensive encephalopathy - Medications: Medications reviewed and adjusted accordingly: Yes Vasopressors:: None Sedation:: None Physical Exam Vital Signs: Temp Pulse Resp BP Pulse Ox 99.9 F 115 H 27 H 186/102 H 95 09/11/19 12:00 09/11/19 14:00 09/11/19 14:00 09/11/19 14:00 09/11/19 14:00 Intake & Output 09/10/19 09/11/19 09/12/19 06:59 06:59 06:59 Intake Total 5276 2449 266 Output Total 1645 4240 1615 Balance 3631 -1791 -1349 Weight 104.2 kg 101.8 kg Weight/Height Weight 101.8 kg Height 6 ft 1 in General appearance: PRESENT: no acute distress, cooperative Head exam: PRESENT: atraumatic, normocephalic Eye exam: PRESENT: conjunctiva pink, EOMI, PERRLA. ABSENT: scleral icterus Ear exam: PRESENT: normal external ear exam Mouth exam: PRESENT: moist, tongue midline Neck exam: ABSENT: carotid bruit, JVD, lymphadenopathy, thyromegaly Respiratory exam: PRESENT: clear to auscultation rosa isela. ABSENT: rales, rhonchi, wheezes Cardiovascular exam: PRESENT: RRR. ABSENT: diastolic murmur, rubs, systolic murmur GI/Abdominal exam: PRESENT: normal bowel sounds, soft. ABSENT: distended, guarding, mass, organolmegaly, rebound, tenderness Rectal exam: PRESENT: deferred Gentrourinary exam: PRESENT: indwelling catheter Extremities exam: PRESENT: pedal edema Musculoskeletal exam: PRESENT: normal inspection Neurological exam: PRESENT: alert, awake, oriented to person, oriented to place, oriented to time, oriented to situation, other - Much more oriented. Skin exam: PRESENT: dry, intact, warm. ABSENT: cyanosis, rash Laboratory/Radiographs Laboratory Results: 09/11/19 03:56 09/11/19 08:45 09/11/19 09/11/19 09/11/19 03:56 03:56 08:45 WBC 11.5 H RBC 4.36 Hgb 10.0 L Hct 30.7 L MCV 71 L MCH 22.9 L MCHC 32.4 RDW 16.9 H Plt Count 412 Sodium 146.4 H Potassium 2.7 L* Chloride 111 H Carbon Dioxide 26 Anion Gap 9 BUN 20 Creatinine 1.05 Est GFR ( Amer) > 60 Glucose 256 H Calcium 8.5 Phosphorus 2.5 Magnesium 1.7 Total Bilirubin AST Alkaline Phosphatase Total Protein Albumin 09/11/19 08:45 WBC RBC Hgb Hct MCV MCH MCHC RDW Plt Count Sodium 144.9 Potassium 3.1 L Chloride 112 H Carbon Dioxide 24 Anion Gap 9 BUN 17 Creatinine 0.99 Est GFR ( Amer) > 60 Glucose 179 H Calcium 8.8 Phosphorus Magnesium Total Bilirubin 0.7 AST 15 L Alkaline Phosphatase 108 Total Protein 6.5 Albumin 3.2 L 09/07/19 13:01 Sputum Gram Stain - Final 09/07/19 13:01 Sputum Sputum Culture - Final C.albicans/C.dubliniensis Group B Beta Streptococcus Normal Jen 09/07/19 09/07/19 09/07/19 08:30 08:30 09:55 Creatine Kinase Cancelled 45 L CK-MB (CK-2) Cancelled Troponin I Cancelled 09/07/19 09/07/19 09/07/19 09:55 13:05 20:15 Creatine Kinase CK-MB (CK-2) 0.69 Troponin I 0.013 0.016 0.080 09/08/19 09/08/19 09/08/19 02:27 12:04 19:03 Creatine Kinase CK-MB (CK-2) Troponin I 0.132 0.097 0.062 Impressions: Guidance Fluoroscopy 09/07/19 00:00 IMPRESSION: Lumbar puncture under fluoroscopy. No immediate complication. Lumbar Puncture 09/07/19 00:00 IMPRESSION: Lumbar puncture under fluoroscopy. No immediate complication. Head CT 09/07/19 08:49 IMPRESSION: No acute intracranial abnormality. EVIDENCE OF ACUTE STROKE: NO. KUB X-Ray 09/07/19 13:13 IMPRESSION: NG tube placement. Renal Artery Duplex 09/08/19 00:00 IMPRESSION: NO DOPPLER EVIDENCE OF HEMODYNAMICALLY SIGNIFICANT RENAL ARTERY STENOSIS. Chest X-Ray 02/03/20 06:00 IMPRESSION: Improved left basilar aeration. No evidence of new cardiopulmonary complication. Enteric tube side port at GE junction. Consider advancing 5-10 cm. All labs, radiographs, diagnostic studies and EKGs were personally reviewed: Yes In addition, reports of radiographic and diagnostic studies were read: Yes Assessment and Plan - Diagnosis (1) Acute encephalopathy Is this a current diagnosis for this admission?: Yes Plan: Resolving. Likely due to both HTN and BG. Both improving as is mental status. (2) HHNC (hyperglycemic hyperosmolar nonketotic coma) Is this a current diagnosis for this admission?: Yes Plan: Off insulin drip. On lantus and diabetic diet. (3) Hypertensive encephalopathy Is this a current diagnosis for this admission?: Yes Plan: Resolving. Plan Summary: Control BNP by PO meds as much as possible. Not yet ready for downgrade. Critical Time Critical Time (minutes): 35 Level of Care: ICU Anticipated discharge: Home Within: Other - Too soon to tell. -: 1. The care of a critical patient is a dynamic process. This note is a environmental marketing representative synopsis but static in nature. The timeframe for treatments given in order is not necessarily the actual time these treatments may have been done. 2. This patient requires critical care secondary to ongoing requirements for therapy not offered or safe outside the critical care environment. Transfer to a lower level of care will result in altered life or limb morbidity and mortality. 3. Multidisciplinary rounds completed. 4. ABCDE bundle addressed.
[2019-09-11] MEDS: INSULIN GLARGINE,HUM.REC.ANLOG 1,000 UNIT/10 ML VIAL SUBCUT SCH ×2 (15:58→21:28)
[2019-09-11] MEDS: TAMSULOSIN HCL 0.4 MG CAP.SR.24H PO SCH (18:55)
[2019-09-11] MEDS ORDERED: CLONIDINE 0.3 MG/24 HR PATCH.TDWK TD SCH (22:15)
[2019-09-12] MEDS: LABETALOL HCL INJ 20 MG/4 ML DISP.SYRIN IV PRN ×5 (00:52→14:52)
[2019-09-12 03:40] LABS: HEMATOCRIT 30.7 % (37.9-51.0); HEMOGLOBIN 10.1 g/dL (13.5-17.0); MEAN CORPUSCULAR HEMOGLOBIN 23.2 pg (27.0-33.4); MEAN CORPUSCULAR VOLUME 70 fl (80-97); PLATELET COUNT 455 10^3/uL (150-450); RED BLOOD COUNT 4.38 10^6/uL (4.35-5.55); RED CELL DISTRIBUTION WIDTH 16.9 % (11.5-14.0); WHITE BLOOD COUNT 12.6 10^3/uL (4.0-10.5)
[2019-09-12 03:59] LABS: ALBUMIN 3.4 g/dL (3.5-5.0); ALKALINE PHOSPHATASE 100 U/L (38-126); ANION GAP 11 (5-19); ASPARTATE AMINO TRANSFERASE 19 U/L (17-59); BILIRUBIN,DIRECT 0.4 mg/dL (0.0-0.4); BILIRUBIN,TOTAL 0.6 mg/dL (0.2-1.3); BLOOD UREA NITROGEN 16 mg/dL (7-20); CALCIUM 8.9 mg/dL (8.4-10.2); CARBON DIOXIDE 26 mmol/L (22-30); CHLORIDE 106 mmol/L (98-107); GLUCOSE 142 mg/dL (75-110); TOTAL PROTEIN 6.9 g/dL (6.3-8.2)
[2019-09-12 04:01] LABS: POTASSIUM 2.6 mmol/L (3.6-5.0)
[2019-09-12] MEDS ORDERED: POTASSI CL 20 MEQ/50 ML RIDER 20 MEQ/50 ML RTUPB IV ONE (04:02)
[2019-09-12] MEDS: ALPRAZOLAM 0.5 MG TABLET PO SCH ×3 (06:39→21:26)
[2019-09-12] MEDS: HYDRALAZINE HCL 50 MG TABLET PO SCH ×3 (06:40→22:48)
[2019-09-12] MEDS: POTASSIUM CHLORIDE 10 MEQ TABLET.ER PO SCH ×2 (06:40→14:53)
[2019-09-12] MEDS: ENALAPRIL MALEATE 10 MG TABLET PO SCH ×2 (10:16→22:49)
[2019-09-12] MEDS: NITROGLYCERIN 5 MG (0.2 MG/HR) PATCH.TD24 TD SCH (10:17)
[2019-09-12] MEDS: HEPARIN SOD (PORCINE) 5,000 UNIT/ML 1 ML VIAL SUBCUT SCH ×2 (10:18→21:23)
[2019-09-12] MEDS: METOPROLOL SUCCINATE 50 MG TAB.SR.24H PO SCH ×2 (10:18→22:47)
[2019-09-12] MEDS: ASPIRIN 81 MG TABLET, ENT COATED PO SCH (10:18)
[2019-09-12] MEDS: AMLODIPINE BESYLATE 10 MG TABLET PO SCH (10:18)
[2019-09-12] MEDS: MULTIVITAMIN TABLET PO SCH (10:18)
[2019-09-12] MEDS: LEVETIRACETAM 500 MG/NACL-ISO 500 MG/100 ML RTUPB IV SCH ×2 (10:19→21:22)
[2019-09-12] MEDS: INSULIN GLARGINE,HUM.REC.ANLOG 1,000 UNIT/10 ML VIAL SUBCUT SCH ×2 (11:42→21:23)
[2019-09-12] MEDS ORDERED: NIFEDIPINE 30 MG TAB.ER.24 PO ONE (14:00)
--- NOTE | 2019-09-12 14:28 | PDOC CRITICAL CARE PROG REPORT ---
General Date:: 09/12/19 ICU Day:: 6 Hospital Day:: 6 Resuscitation Status: Full Code Events in the past 12 to 24 Hours:: Still having high BP near 200 on several antihypertensives. Somewhat confused. Review of systems relevant to events:: Neuro and CV Reason for ICU Addmission:: seizures, coma, hypertensive emergency, hypertensive encephalopathy - Medications: Medications reviewed and adjusted accordingly: Yes Vasopressors:: None Sedation:: None Physical Exam Vital Signs: Temp Pulse Resp BP Pulse Ox 99.6 F 104 H 24 H 197/100 H 87 L 09/12/19 12:00 09/12/19 12:00 09/12/19 12:04 09/12/19 12:04 09/12/19 12:04 Intake & Output 09/11/19 09/12/19 09/13/19 06:59 06:59 06:59 Intake Total 2449 1000 150 Output Total 4240 2850 650 Balance -1791 -1850 -500 Weight 101.8 kg 102.4 kg Weight/Height Weight 102.4 kg Height 6 ft 1 in General appearance: PRESENT: no acute distress, cooperative Head exam: PRESENT: atraumatic Eye exam: PRESENT: conjunctiva pink, EOMI, PERRLA. ABSENT: scleral icterus Ear exam: PRESENT: normal external ear exam Mouth exam: PRESENT: moist, tongue midline Respiratory exam: PRESENT: clear to auscultation rosa isela. ABSENT: rales, rhonchi, wheezes Cardiovascular exam: PRESENT: tachycardia GI/Abdominal exam: PRESENT: normal bowel sounds, soft. ABSENT: distended, guarding, mass, organolmegaly, rebound, tenderness Rectal exam: PRESENT: deferred Musculoskeletal exam: PRESENT: full ROM Neurological exam: PRESENT: alert, altered, awake, oriented to person, other - Confused Skin exam: PRESENT: dry, intact, warm. ABSENT: cyanosis, rash Laboratory/Radiographs Laboratory Results: 09/12/19 03:29 09/12/19 03:29 09/12/19 09/12/19 03:29 03:29 WBC 12.6 H RBC 4.38 Hgb 10.1 L Hct 30.7 L MCV 70 L MCH 23.2 L MCHC 33.0 RDW 16.9 H Plt Count 455 H Sodium 143.4 Potassium 2.6 L* Chloride 106 Carbon Dioxide 26 Anion Gap 11 BUN 16 Creatinine 0.92 Est GFR ( Amer) > 60 Glucose 142 H Calcium 8.9 Total Bilirubin 0.6 AST 19 Alkaline Phosphatase 100 Total Protein 6.9 Albumin 3.4 L 09/07/19 13:30 Blood Blood Culture - Final NO GROWTH IN 5 DAYS 09/07/19 09/07/19 09/07/19 08:30 08:30 09:55 Creatine Kinase Cancelled 45 L CK-MB (CK-2) Cancelled Troponin I Cancelled 09/07/19 09/07/19 09/07/19 09:55 13:05 20:15 Creatine Kinase CK-MB (CK-2) 0.69 Troponin I 0.013 0.016 0.080 09/08/19 09/08/19 09/08/19 02:27 12:04 19:03 Creatine Kinase CK-MB (CK-2) Troponin I 0.132 0.097 0.062 Impressions: Guidance Fluoroscopy 09/07/19 00:00 IMPRESSION: Lumbar puncture under fluoroscopy. No immediate complication. Lumbar Puncture 09/07/19 00:00 IMPRESSION: Lumbar puncture under fluoroscopy. No immediate complication. Head CT 09/07/19 08:49 IMPRESSION: No acute intracranial abnormality. EVIDENCE OF ACUTE STROKE: NO. KUB X-Ray 09/07/19 13:13 IMPRESSION: NG tube placement. Renal Artery Duplex 09/08/19 00:00 IMPRESSION: NO DOPPLER EVIDENCE OF HEMODYNAMICALLY SIGNIFICANT RENAL ARTERY STENOSIS. Chest X-Ray 09/10/19 06:00 IMPRESSION: Improved left basilar aeration. No evidence of new cardiopulmonary complication. Enteric tube side port at GE junction. Consider advancing 5-10 cm. All labs, radiographs, diagnostic studies and EKGs were personally reviewed: Yes In addition, reports of radiographic and diagnostic studies were read: Yes Assessment and Plan - Diagnosis (1) Acute encephalopathy Is this a current diagnosis for this admission?: Yes Plan: Resolved (2) HHNC (hyperglycemic hyperosmolar nonketotic coma) Is this a current diagnosis for this admission?: Yes Plan: Resolved (3) Hypertensive encephalopathy Is this a current diagnosis for this admission?: Yes Plan: This has been an issue since admission. He cleared but is now acting like a hyperactive ICU delerium. Let him sleep. Transfer JUNIOR from ICU and allow to reorient Plan Summary: Add clonidine per Dr Henry, transfer I hope in AM. Critical Time Critical Time (minutes): 35 Level of Care: ICU Anticipated discharge: Home with Homehealth Within: within 72 hours -: 1. The care of a critical patient is a dynamic process. This note is a union representative synopsis but static in nature. The timeframe for treatments given in order is not necessarily the actual time these treatments may have been done. 2. This patient requires critical care secondary to ongoing requirements for therapy not offered or safe outside the critical care environment. Transfer to a lower level of care will result in altered life or limb morbidity and mortality. 3. Multidisciplinary rounds completed. 4. ABCDE bundle addressed.
[2019-09-12] MEDS ORDERED: FUROSEMIDE INJ/PF 20 MG/2 ML SDV IV ONE (15:30)
[2019-09-12] MEDS: CLONIDINE HCL 0.2 MG TABLET PO SCH ×2 (17:23→22:48)
[2019-09-12] MEDS: TAMSULOSIN HCL 0.4 MG CAP.SR.24H PO SCH (17:24)
[2019-09-12] MEDS: NIFEDIPINE 30 MG TAB.ER.24 PO SCH (21:26)
[2019-09-13 04:17] LABS: ANION GAP 13 (5-19); BLOOD UREA NITROGEN 15 mg/dL (7-20); CALCIUM 8.6 mg/dL (8.4-10.2); CARBON DIOXIDE 24 mmol/L (22-30); CHLORIDE 104 mmol/L (98-107); GLUCOSE 119 mg/dL (75-110)
[2019-09-13 04:20] LABS: POTASSIUM 2.7 mmol/L (3.6-5.0)
[2019-09-13] MEDS ORDERED: POTASSI CL 20 MEQ/50 ML RIDER 20 MEQ/50 ML RTUPB IV ONE (04:37)
[2019-09-13] MEDS: ALPRAZOLAM 0.5 MG TABLET PO SCH ×3 (05:23→22:10)
[2019-09-13] MEDS: OXYCODONE HCL IR 5 MG TABLET PO PRN ×2 (06:59→20:14)
[2019-09-13] MEDS: POTASSIUM CHLORIDE 10 MEQ TABLET.ER PO SCH ×2 (08:40→14:35)
[2019-09-13] MEDS: LEVETIRACETAM 500 MG/NACL-ISO 500 MG/100 ML RTUPB IV SCH ×2 (09:38→22:07)
[2019-09-13] MEDS: NIFEDIPINE 30 MG TAB.ER.24 PO SCH ×2 (09:38→22:09)
[2019-09-13] MEDS: METOPROLOL SUCCINATE 50 MG TAB.SR.24H PO SCH ×2 (09:38→22:09)
[2019-09-13] MEDS: HEPARIN SOD (PORCINE) 5,000 UNIT/ML 1 ML VIAL SUBCUT SCH ×2 (09:39→22:12)
[2019-09-13] MEDS: MULTIVITAMIN TABLET PO SCH (09:39)
[2019-09-13] MEDS: NITROGLYCERIN 5 MG (0.2 MG/HR) PATCH.TD24 TD SCH (09:39)
[2019-09-13] MEDS: ASPIRIN 81 MG TABLET, ENT COATED PO SCH (09:39)
--- NOTE | 2019-09-13 10:23 | PDOC CRITICAL CARE PROG REPORT ---
General Date:: 09/13/19 Hospital Day:: 7 Resuscitation Status: Full Code Events in the past 12 to 24 Hours:: Better BP control and clearer sensorium. Review of systems relevant to events:: CV and neurologic. Reason for ICU Addmission:: seizures, coma, hypertensive emergency, hypertensive encephalopathy - Medications: Medications reviewed and adjusted accordingly: Yes Vasopressors:: None Sedation:: None Physical Exam Vital Signs: Temp Pulse Resp BP Pulse Ox 98.7 F 91 30 H 150/87 H 96 09/13/19 07:00 09/13/19 07:00 09/13/19 07:00 09/13/19 07:00 09/13/19 07:00 Intake & Output 09/12/19 09/13/19 09/14/19 06:59 06:59 06:59 Intake Total 1000 850 350 Output Total 2850 2125 Balance -1850 -1275 350 Weight 102.4 kg 100.2 kg Weight/Height Weight 100.2 kg Height 6 ft 1 in General appearance: PRESENT: no acute distress Head exam: PRESENT: atraumatic, normocephalic Eye exam: PRESENT: conjunctiva pink, EOMI, PERRLA. ABSENT: scleral icterus Ear exam: PRESENT: normal external ear exam Mouth exam: PRESENT: moist, tongue midline Respiratory exam: PRESENT: clear to auscultation rosa isela. ABSENT: rales, rhonchi, wheezes Cardiovascular exam: PRESENT: RRR. ABSENT: diastolic murmur, rubs, systolic murmur Vascular exam: PRESENT: normal capillary refill GI/Abdominal exam: PRESENT: normal bowel sounds, soft. ABSENT: distended, guarding, mass, organolmegaly, rebound, tenderness Rectal exam: PRESENT: deferred Gentrourinary exam: PRESENT: indwelling catheter Extremities exam: PRESENT: pedal edema Musculoskeletal exam: PRESENT: normal inspection Neurological exam: PRESENT: alert, awake, oriented to person, oriented to place, oriented to time, oriented to situation, CN II-XII grossly intact. ABSENT: motor sensory deficit Skin exam: PRESENT: dry, intact, warm. ABSENT: cyanosis, rash Laboratory/Radiographs Laboratory Results: 09/12/19 03:29 09/13/19 03:43 09/13/19 09/13/19 03:43 03:43 Sodium 140.5 Potassium 2.7 L* Chloride 104 Carbon Dioxide 24 Anion Gap 13 BUN 15 Creatinine 0.99 Est GFR ( Amer) > 60 Glucose 119 H Calcium 8.6 Magnesium 1.4 L 09/07/19 15:45 Blood Blood Culture - Final NO GROWTH IN 5 DAYS 09/07/19 13:30 Blood Blood Culture - Final NO GROWTH IN 5 DAYS 09/07/19 09/07/19 09/07/19 08:30 08:30 09:55 Creatine Kinase Cancelled 45 L CK-MB (CK-2) Cancelled Troponin I Cancelled 09/07/19 09/07/19 09/07/19 09:55 13:05 20:15 Creatine Kinase CK-MB (CK-2) 0.69 Troponin I 0.013 0.016 0.080 09/08/19 09/08/19 09/08/19 02:27 12:04 19:03 Creatine Kinase CK-MB (CK-2) Troponin I 0.132 0.097 0.062 Impressions: Guidance Fluoroscopy 09/07/19 00:00 IMPRESSION: Lumbar puncture under fluoroscopy. No immediate complication. Lumbar Puncture 09/07/19 00:00 IMPRESSION: Lumbar puncture under fluoroscopy. No immediate complication. Head CT 09/07/19 08:49 IMPRESSION: No acute intracranial abnormality. EVIDENCE OF ACUTE STROKE: NO. KUB X-Ray 09/07/19 13:13 IMPRESSION: NG tube placement. Renal Artery Duplex 09/08/19 00:00 IMPRESSION: NO DOPPLER EVIDENCE OF HEMODYNAMICALLY SIGNIFICANT RENAL ARTERY STENOSIS. Chest X-Ray 09/10/19 06:00 IMPRESSION: Improved left basilar aeration. No evidence of new cardiopulmonary complication. Enteric tube side port at GE junction. Consider advancing 5-10 cm. All labs, radiographs, diagnostic studies and EKGs were personally reviewed: Yes In addition, reports of radiographic and diagnostic studies were read: Yes Assessment and Plan - Diagnosis (1) Acute encephalopathy Is this a current diagnosis for this admission?: Yes Plan: Nearly resolved. Needs a bed out of ICU. (2) HHNC (hyperglycemic hyperosmolar nonketotic coma) Is this a current diagnosis for this admission?: Yes Plan: Resolved (3) Hypertensive encephalopathy Is this a current diagnosis for this admission?: Yes Plan: Resolved Plan Summary: BP is better and hydralazin, vastotec, clonidine on hold. Mobilize, PT to see. Needs C bed. Still may need IV BP meds. Critical Time Critical Time (minutes): 20 Level of Care: IMCU Anticipated discharge: Home Within: within 48 hours -: 1. The care of a critical patient is a dynamic process. This note is a contact center representative synopsis but static in nature. The timeframe for treatments given in order is not necessarily the actual time these treatments may have been done. 2. This patient requires critical care secondary to ongoing requirements for therapy not offered or safe outside the critical care environment. Transfer to a lower level of care will result in altered life or limb morbidity and mortality. 3. Multidisciplinary rounds completed. 4. ABCDE bundle addressed.
[2019-09-13] MEDS: INSULIN GLARGINE,HUM.REC.ANLOG 1,000 UNIT/10 ML VIAL SUBCUT SCH ×2 (10:35→22:08)
[2019-09-13] MEDS ORDERED: THIAMINE HCL 100 MG in NORMAL SALINE 50 ML IV ONE (12:00)
[2019-09-13 13:54] LABS: HSV SOURCE CSF
[2019-09-13] MEDS: TAMSULOSIN HCL 0.4 MG CAP.SR.24H PO SCH (17:44)
[2019-09-13] MEDS: LABETALOL HCL INJ 20 MG/4 ML DISP.SYRIN IV PRN (17:44)
[2019-09-13] MEDS: MAGNESIUM SULFATE/D5W 1 GM/100 ML RTUPB IV SCH (22:06)
[2019-09-13] MEDS: INSULIN REG, HUMAN 100 UNIT/ML 3 ML VIAL (PYX) SUBCUT SCH (22:07)
--- NOTE | 2019-09-13 22:34 | Progress Note ---
Provider Note Provider Note: CARDIOLOGY PROGRESS NOTE by Dr. Flor Pulido on 09/13/2019. OBJECTIVE: The patient is more awake and more alert today. But there is remarkable improvement in the patient's mental status after he received 100 mg of thiamine intravenously. Although the patient and the patient's vehemently denied any history of alcohol abuse. His blood pressure is much better. He denies any chest pain or discomfort. There is no shortness of breath or PND orthopnea. His saturations are good on room air. He has no TIA CVA symptoms. There is no ventricular or atrial arrhythmias seen. PHYSICAL EXAMINATION: The patient is mildly obese.. In no acute distress. Selected Entries 09/13/19 09/13/19 09/13/19 16:00 17:47 19:45 Temperature 98.8 F Temperature Oral Source Pulse Rate 77 Heart Rate ( 84 Monitors) Respiratory 27 H 24 H Rate Blood Pressure 151/86 H Blood Pressure 128/76 H [Upper Arm] Blood Pressure 107 Mean Blood Pressure 93 Mean [Upper Arm ] O2 Sat by Pulse 94 95 95 Oximetry Oxygen Delivery Room Air Method ( includes room air) 09/13/19 09/13/19 20:00 20:45 Temperature 98.3 F Temperature Oral Source Pulse Rate Heart Rate ( 95 89 Monitors) Respiratory Rate Blood Pressure Blood Pressure [Upper Arm] Blood Pressure Mean Blood Pressure Mean [Upper Arm ] O2 Sat by Pulse Oximetry Oxygen Delivery Method ( includes room air) HEAD: Is atraumatic normocephalic. EYES: Pupils are equal round regular reactive to light and accommodation. Extraocular movements are normal. There is no conjunctival pallor. There is no scleral icterus. EARS: Tympanic membranes are intact. External auditory canals are clear. NOSE: There is no deviated nasal septum. There is no inflammation of the nasal mucous membrane. MOUTH: Mucous membranes of mouth are moist. Tongue is moist there is no ulcers there is no bleeding of the gums. THROAT: There is no redness of the oropharynx. There is no exudates. SKIN: There is no skin rashes. There is no petechia or ecchymosis. There is no skin lesions. NECK: Supple. There is no JVD. Carotids are equal there is no carotid bruits. There is no lymphadenopathy. There is no goiter. There is no accessory muscle respiration use. Trachea central. LUNGS: Is clear to auscultation percussion without any rhonchi rales or wheezing. HEART: S1-S2 is heard. There is an S4 gallop present. There is no S3 gallop. There is systolic murmur left sternal border and the apex there is no rub. ABDOMEN: Soft. Nontender. There is no hepatosplenomegaly. Bowel sounds well heard. EXTREMITIES: Femorals are diminished. Femorals are without any bruits. Leg pulses are well felt. There is no pedal edema. There is no DVT or cellulitis. There is no calf tenderness. ROPING TENDER: Post finding infusion the patient is awake alert oriented x3 with no focal deficits. PSYCHIATRIC: The patient at present after the time and his judgment and insight seem to be intact. Labs- All tests 24 hr 09/07/19 09/13/19 09/13/19 16:12 03:43 03:43 Sodium 140.5 Potassium 2.7 L* Chloride 104 Carbon Dioxide 24 Anion Gap 13 BUN 15 Creatinine 0.99 Est GFR ( Amer) > 60 Est GFR (MDRD) Non-Af > 60 Glucose 119 H POC Glucose Calcium 8.6 Magnesium 1.4 L Herpes Simplex Source CSF 09/13/19 09/13/19 09/13/19 09:36 11:21 17:01 Sodium Potassium Chloride Carbon Dioxide Anion Gap BUN Creatinine Est GFR ( Amer) Est GFR (MDRD) Non-Af Glucose POC Glucose 66 L 119 H 124 H Calcium Magnesium Herpes Simplex Source 09/13/19 22:05 Sodium Potassium Chloride Carbon Dioxide Anion Gap BUN Creatinine Est GFR ( Amer) Est GFR (MDRD) Non-Af Glucose POC Glucose 85 Calcium Magnesium Herpes Simplex Source Guidance Fluoroscopy 09/07/19 00:00 IMPRESSION: Lumbar puncture under fluoroscopy. No immediate complication. Lumbar Puncture 09/07/19 00:00 IMPRESSION: Lumbar puncture under fluoroscopy. No immediate complication. Head CT 09/07/19 08:49 IMPRESSION: No acute intracranial abnormality. EVIDENCE OF ACUTE STROKE: NO. Chest X-Ray 09/07/19 08:51 IMPRESSION: Low inspiratory lung volumes without a superimposed acute cardiopulmonary process. Chest X-Ray 09/07/19 12:53 IMPRESSION: NO ACUTE RADIOGRAPHIC FINDING IN THE CHEST. SUPPORT DEVICE(S) IN EXPECTED LOCATIONS. KUB X-Ray 09/07/19 13:13 IMPRESSION: NG tube placement. Renal Artery Duplex 09/08/19 00:00 IMPRESSION: NO DOPPLER EVIDENCE OF HEMODYNAMICALLY SIGNIFICANT RENAL ARTERY STENOSIS. Chest X-Ray 09/08/19 06:00 IMPRESSION: NO ACUTE RADIOGRAPHIC FINDING IN THE CHEST. SUPPORT DEVICE(S) IN EXPECTED LOCATIONS. Chest X-Ray 09/09/19 06:00 IMPRESSION: ELEVATED RIGHT HEMIDIAPHRAGM. FAINT DENSITIES IN THE LEFT LUNG BASE, PROBABLY MILD ATELECTASIS. STABLE LIFE LINES. Chest X-Ray 09/10/19 06:00 IMPRESSION: Improved left basilar aeration. No evidence of new cardiopulmonary complication. Enteric tube side port at GE junction. Consider advancing 5-10 cm. IMPRESSION/RECOMMENDATION: 1. Hypertension uncontrolled earlier one at present patient blood pressure is reasonable. Continue the patient Procardia XL and metoprolol. We will see if we can reinstitute his DUDLEY inhibitor. 2. Encephalopathy most likely secondary to hypertensive encephalopathy although an element of thiamine deficiency causing encephalopathy cannot be excluded. 3. Hypokalemia: The potassium is being replenished. 4. Diabetes mellitus: Continue Accu-Cheks. Continue current treatment regimen. 5. Past history of CVA with transient left-sided weakness with no residual focal deficits. 6. Systolic murmur: Most likely secondary to mitral regurgitation. Will later check an echo. Medications reviewed. Medical regimen and management plan discussed with bilingual speech therapist. Patient stable to be transferred out of the ICU. We will follow the patient. The patient does have multiple CAD risk factors namely age, hypertension, diabetes mellitus. Will check the patient's lipid status in the a.m. We will have the patient undergo IV Lexiscan Cardiolite stress test and also get an echo as an outpatient. Medical decision making is of moderate com plexity at present. 40 minutes spent as patient with more than 50% time spent in direct patient care. Will follow
[2019-09-14] MEDS: MAGNESIUM SULFATE/D5W 1 GM/100 ML RTUPB IV SCH ×2 (00:17→01:27)
[2019-09-14] MEDS: HYDRALAZINE HCL INJ/PF 20 MG/1 ML SDV IV PRN (06:01)
[2019-09-14] MEDS: ALPRAZOLAM 0.5 MG TABLET PO SCH ×3 (06:01→21:43)
[2019-09-14 06:44] LABS: ANION GAP 12 (5-19); BLOOD UREA NITROGEN 13 mg/dL (7-20); CALCIUM 8.6 mg/dL (8.4-10.2); CARBON DIOXIDE 24 mmol/L (22-30); CHLORIDE 104 mmol/L (98-107)
[2019-09-14 06:47] LABS: GLUCOSE 50 mg/dL (75-110); POTASSIUM 2.9 mmol/L (3.6-5.0)
[2019-09-14] MEDS: INSULIN REG, HUMAN 100 UNIT/ML 3 ML VIAL (PYX) SUBCUT SCH ×3 (07:38→16:12)
[2019-09-14] MEDS: POTASSIUM CHLORIDE 10 MEQ TABLET.ER PO SCH ×4 (08:08→20:13)
[2019-09-14] MEDS: METOPROLOL SUCCINATE 50 MG TAB.SR.24H PO SCH ×2 (10:35→21:44)
[2019-09-14] MEDS: MULTIVITAMIN TABLET PO SCH (10:35)
[2019-09-14] MEDS: NITROGLYCERIN 5 MG (0.2 MG/HR) PATCH.TD24 TD SCH (10:36)
[2019-09-14] MEDS: NIFEDIPINE 30 MG TAB.ER.24 PO SCH ×2 (10:36→21:43)
[2019-09-14] MEDS: ASPIRIN 81 MG TABLET, ENT COATED PO SCH (10:36)
[2019-09-14] MEDS: LEVETIRACETAM 500 MG/NACL-ISO 500 MG/100 ML RTUPB IV SCH ×2 (10:41→21:47)
[2019-09-14] MEDS: HEPARIN SOD (PORCINE) 5,000 UNIT/ML 1 ML VIAL SUBCUT SCH ×2 (10:44→21:44)
[2019-09-14] MEDS: THIAMINE HCL 100 MG TABLET PO SCH (12:35)
[2019-09-14] MEDS: TAMSULOSIN HCL 0.4 MG CAP.SR.24H PO SCH (17:07)
--- NOTE | 2019-09-14 17:21 | PDOC PROGRESS REPORT ---
Subjective Progress Note for:: 09/14/19 Subjective:: Patient was transferred out of the ICU overnight. He had been admitted with hypertensive emergency and seizures coma and encephalopathy. Patient appears to be stable and his symptoms have improved since admission. Reason For Visit: HYPETENSIVE EMERGENCY,HYPERTENSIV ENCEPHALOPATHY Physical Exam Vital Signs: Temp Pulse Resp BP Pulse Ox 98.0 F 113 H 20 158/81 H 96 09/14/19 11:45 09/14/19 14:00 09/14/19 11:45 09/14/19 11:45 09/14/19 11:45 Intake & Output 09/13/19 09/14/19 09/15/19 06:59 06:59 06:59 Intake Total 850 1250 350 Output Total 2125 1925 Balance -1275 -675 350 Weight 100.2 kg 105 kg General appearance: PRESENT: no acute distress, well-developed, well-nourished Head exam: PRESENT: atraumatic, normocephalic Eye exam: PRESENT: conjunctiva pink, EOMI, PERRLA. ABSENT: scleral icterus Ear exam: PRESENT: normal external ear exam Mouth exam: PRESENT: moist, tongue midline Neck exam: ABSENT: carotid bruit, JVD, lymphadenopathy, thyromegaly Respiratory exam: PRESENT: clear to auscultation rosa isela. ABSENT: rales, rhonchi, wheezes Cardiovascular exam: PRESENT: RRR. ABSENT: diastolic murmur, rubs, systolic murmur Pulses: PRESENT: normal dorsalis pedis pul Vascular exam: PRESENT: normal capillary refill GI/Abdominal exam: PRESENT: normal bowel sounds, soft. ABSENT: distended, guarding, mass, organolmegaly, rebound, tenderness Rectal exam: PRESENT: deferred Extremities exam: PRESENT: full ROM. ABSENT: calf tenderness, clubbing, pedal edema Neurological exam: PRESENT: alert, awake, oriented to person, oriented to place, oriented to time. ABSENT: motor sensory deficit Psychiatric exam: PRESENT: appropriate affect, normal mood. ABSENT: homicidal ideation, suicidal ideation Skin exam: PRESENT: dry, intact, warm. ABSENT: cyanosis, rash Results Laboratory Results: 09/12/19 03:29 09/14/19 05:42 09/14/19 05:42 Sodium 140.1 Potassium 2.9 L* Chloride 104 Carbon Dioxide 24 Anion Gap 12 BUN 13 Creatinine 0.74 Est GFR ( Amer) > 60 Glucose 50 L Calcium 8.6 09/07/19 09/07/19 09/07/19 08:30 08:30 09:55 Creatine Kinase Cancelled 45 L CK-MB (CK-2) Cancelled Troponin I Cancelled 09/07/19 09/07/19 09/07/19 09:55 13:05 20:15 Creatine Kinase CK-MB (CK-2) 0.69 Troponin I 0.013 0.016 0.080 09/08/19 09/08/19 09/08/19 02:27 12:04 19:03 Creatine Kinase CK-MB (CK-2) Troponin I 0.132 0.097 0.062 Impressions: Guidance Fluoroscopy 09/07/19 00:00 IMPRESSION: Lumbar puncture under fluoroscopy. No immediate complication. Lumbar Puncture 09/07/19 00:00 IMPRESSION: Lumbar puncture under fluoroscopy. No immediate complication. Head CT 09/07/19 08:49 IMPRESSION: No acute intracranial abnormality. EVIDENCE OF ACUTE STROKE: NO. KUB X-Ray 09/07/19 13:13 IMPRESSION: NG tube placement. Renal Artery Duplex 09/08/19 00:00 IMPRESSION: NO DOPPLER EVIDENCE OF HEMODYNAMICALLY SIGNIFICANT RENAL ARTERY STENOSIS. Chest X-Ray 09/10/19 06:00 IMPRESSION: Improved left basilar aeration. No evidence of new cardiopulmonary complication. Enteric tube side port at GE junction. Consider advancing 5-10 cm. Assessment and Plan - Diagnosis (1) HHNC (hyperglycemic hyperosmolar nonketotic coma) Is this a current diagnosis for this admission?: Yes Plan: Resolved (2) Hypertensive emergency Is this a current diagnosis for this admission?: Yes Plan: Blood pressure appears to be better we will continue to monitor and adjust medications as needed (3) Hypertensive encephalopathy Is this a current diagnosis for this admission?: Yes Plan: Likely secondary to hypertensive emergency (4) Seizure Is this a current diagnosis for this admission?: Yes Plan: Patient is on Keppra and will continue with seizure precautions. (5) Hypokalemia Is this a current diagnosis for this admission?: Yes Plan: We will continue to replace and recheck in a.m. (6) Obesity (BMI 30.0-34.9) Is this a current diagnosis for this admission?: Yes - Time Time Spent with patient: 15-24 minutes
[2019-09-14] MEDS: OXYCODONE HCL IR 5 MG TABLET PO PRN (20:20)
[2019-09-14] MEDS: INSULIN GLARGINE,HUM.REC.ANLOG 1,000 UNIT/10 ML VIAL SUBCUT SCH (21:46)
[2019-09-15] MEDS: INSULIN REG, HUMAN 100 UNIT/ML 3 ML VIAL (PYX) SUBCUT SCH ×3 (00:18→13:00)
[2019-09-15] MEDS: ALPRAZOLAM 0.5 MG TABLET PO SCH (05:34)
[2019-09-15 06:38] LABS: ABSOLUTE BASOPHILS # (AUTO) 0.1 10^3/uL (0.0-0.2); ABSOLUTE EOSINOPHILS # (AUTO) 0.8 10^3/uL (0.0-0.6); ABSOLUTE LYMPHOCYTES (AUTO) 2.5 10^3/uL (0.5-4.7); ABSOLUTE MONOCYTES (AUTO) 1.2 10^3/uL (0.1-1.4); ABSOLUTE NEUT (AUTO) 6.1 10^3/uL (1.7-8.2); BASOPHILS % (AUTO) 0.6 % (0-2); EOSINOPHILS % (AUTO) 7.7 % (0-6); HEMATOCRIT 26.9 % (37.9-51.0); LYMPHOCYTES % (AUTO) 23.7 % (13-45); MEAN CORPUSCULAR HEMOGLOBIN 23.7 pg (27.0-33.4); MEAN CORPUSCULAR HGB CONC 33.4 g/dL (32.0-36.0); MEAN CORPUSCULAR VOLUME 71 fl (80-97); MONOCYTES % (AUTO) 11.2 % (3-13); PLATELET COUNT 535 10^3/uL (150-450); RED BLOOD COUNT 3.79 10^6/uL (4.35-5.55); RED CELL DISTRIBUTION WIDTH 16.7 % (11.5-14.0); SEGMENTED NEUTROPHILS % (AUTO) 56.8 % (42-78); TOTAL CELLS COUNTED % (AUTO) 100 %; WHITE BLOOD COUNT 10.7 10^3/uL (4.0-10.5)
[2019-09-15 06:57] LABS: ANION GAP 7 (5-19); BLOOD UREA NITROGEN 12 mg/dL (7-20); CALCIUM 8.7 mg/dL (8.4-10.2); CARBON DIOXIDE 23 mmol/L (22-30); CHLORIDE 109 mmol/L (98-107); GLUCOSE 102 mg/dL (75-110); POTASSIUM 3.4 mmol/L (3.6-5.0)
[2019-09-15] MEDS ORDERED: POTASSIUM CHLORIDE 10 MEQ TABLET.ER PO ONE (08:21)
[2019-09-15] MEDS: NIFEDIPINE 30 MG TAB.ER.24 PO SCH (09:33)
[2019-09-15] MEDS: METOPROLOL SUCCINATE 50 MG TAB.SR.24H PO SCH (09:33)
[2019-09-15] MEDS: MULTIVITAMIN TABLET PO SCH (09:33)
[2019-09-15] MEDS: NITROGLYCERIN 5 MG (0.2 MG/HR) PATCH.TD24 TD SCH (09:33)
[2019-09-15] MEDS: ASPIRIN 81 MG TABLET, ENT COATED PO SCH (09:33)
[2019-09-15] MEDS: THIAMINE HCL 100 MG TABLET PO SCH (09:33)
[2019-09-15] MEDS: HEPARIN SOD (PORCINE) 5,000 UNIT/ML 1 ML VIAL SUBCUT SCH (09:34)
[2019-09-15] MEDS: LEVETIRACETAM 500 MG/NACL-ISO 500 MG/100 ML RTUPB IV SCH (09:35)
--- NOTE | 2019-09-15 12:24 | PDOC DISCHARGE SUMMARY ---
Impression - Admit/DC Date/PCP Admission Date/Primary Care Provider: 09/07/19 11:28 CATALINO BAUTISTA MD Discharge Date: 09/15/19 - Discharge Diagnosis (1) HHNC (hyperglycemic hyperosmolar nonketotic coma) Is this a current diagnosis for this admission?: Yes (2) Hypertensive emergency Is this a current diagnosis for this admission?: Yes (3) Hypertensive encephalopathy Is this a current diagnosis for this admission?: Yes (4) Seizure Is this a current diagnosis for this admission?: Yes (5) Hypokalemia Is this a current diagnosis for this admission?: Yes (6) Obesity (BMI 30.0-34.9) Is this a current diagnosis for this admission?: Yes (7) DONN (acute kidney injury) Is this a current diagnosis for this admission?: Yes (8) Elevated troponin level not due to acute coronary syndrome Is this a current diagnosis for this admission?: Yes - Additional Information Resuscitation Status: Full Code Discharge Diet: Diabetic Discharge Activity: Activity As Tolerated Referrals: CATALINO BAUTISTA MD [Primary Care Provider] - 09/19/19 (Please reevaluate medications and adjust as neededsticker in book) COOKIE HURTADO MD [ACTIVE STAFF] - (Call and make appointment--- sticker in book) Prescriptions: Insulin Detemir [Levemir] 15 unit SQ QHS #2 vial Hydralazine HCl [Apresoline 50 mg Tablet] 50 mg PO Q8 #90 tablet Levetiracetam [Keppra 500 mg Tablet] 500 mg PO Q12 #60 tablet Nifedipine [Nifedipine ER] 60 mg PO Q12 #60 tablet.er Metoprolol Succinate [Toprol Xl] 100 mg PO Q12 #60 tab.er.24h Home Medications: Alprazolam [Xanax] 2 mg PO TID 08/09/17 Dexlansoprazole [Dexilant 60 mg Capsule] 60 mg PO DAILY 08/09/17 Enalapril Maleate [Vasotec 20 mg Tablet] 20 mg PO Q12 08/09/17 Ferrous Sulfate [Feosol 325 mg Tablet] 325 mg PO DAILY 08/09/17 Multivitamin [Tab-A-Jasson (Multiple Vitamin) Tablet] 1 tab PO DAILY 08/09/17 Atorvastatin Calcium [Lipitor 40 mg Tablet] 40 mg PO QHS 30 Days #30 tablet 08/15/17 Aspirin [Aspirin 81 mg Chewable Tablet] 81 mg PO DAILY 09/08/18 Oxycodone HCl 20 mg PO Q4HP PRN 09/08/18 Potassium Gluconate 500 mg PO Q12 09/08/18 Tamsulosin HCl [Flomax] 0.4 mg PO DAILY 09/08/18 Sucralfate [Carafate Susp 1 gm/10 ml Udcup] 1 gm PO ACHS udc 09/14/18 Methimazole 10 mg PO DAILY #30 tablet 03/19/19 Hydralazine HCl [Apresoline 50 mg Tablet] 50 mg PO Q8 #90 tablet 09/15/19 Insulin Detemir [Levemir] 15 unit SQ QHS #2 vial 09/15/19 Levetiracetam [Keppra 500 mg Tablet] 500 mg PO Q12 #60 tablet 09/15/19 Metoprolol Succinate [Toprol Xl] 100 mg PO Q12 #60 tab.er.24h 09/15/19 Nifedipine [Nifedipine ER] 60 mg PO Q12 #60 tablet.er 09/15/19 Quetiapine Fumarate [Seroquel 100 mg Tablet] 100 mg PO QHS #0 09/15/19 Thiamine HCl [Thiamine 100 mg Tablet] 100 mg PO DAILY tablet 09/15/19 History of Present Illiness History of Present Illness: LEN MACIAS is a 59 year old male This patient was initially admitted to the intensive care unit. He presented to the emergency room due to confusion and hypoglycemia. His systolic BP was 230 and blood sugar was over 1000 on initial arrival to the emergency room. Patient also had several witnessed seizures. Hospital Course Hospital Course: He was admitted to the intensive care unit. He was intubated and started on insulin drip, Ativan as well as Keppra. He was also on nipride drip. He also had a lumbar puncture done which was ultimately benign. Patient was also thought to have aspiration pneumonia and was treated with empiric antibiotics. Patient also had acute kidney injury and was hypokalemic with replacement of his potassium is appropriate. Elevated troponin was thought to be due to acute illness anddemand supply mismatch. Patient antihypertensives were adjusted while in hospital. He will need further adjustment of his antihypertensives subsequently as outpatient. Patient apparently has a history of noncompliance and is is been emphasized of the need to be compliant with his medications. He was also seen by cardiology due to his elevated troponins. He will need likely an outpatient stress test patient has been referred to cardiology for follow-up for further evaluation. Seizure was secondary to hypertensive emergency and patient was treated with Keppra. This will need to be reevaluated as outpatient to determine if it needs to be continued Physical Exam Vital Signs: Temp Pulse Resp BP Pulse Ox 98.2 F 84 16 142/75 H 97 09/15/19 08:03 09/15/19 08:03 09/15/19 08:03 09/15/19 08:03 09/15/19 08:03 Intake & Output 09/14/19 09/15/19 09/16/19 06:59 06:59 06:59 Intake Total 1250 1630 100 Output Total 1925 400 Balance -675 1230 100 Weight 105 kg 105.5 kg General appearance: PRESENT: no acute distress, cooperative Respiratory exam: PRESENT: clear to auscultation rosa isela, unlabored Cardiovascular exam: PRESENT: RRR, +S1, +S2 GI/Abdominal exam: PRESENT: soft. ABSENT: tenderness Rectal exam: PRESENT: deferred Extremities exam: ABSENT: calf tenderness Musculoskeletal exam: PRESENT: ambulatory Neurological exam: PRESENT: alert, awake, oriented to person, oriented to place, oriented to time, oriented to situation Results Laboratory Results: WBC 10.7 10^3/uL (4.0-10.5) H 09/15/19 06:22 RBC 3.79 10^6/uL (4.35-5.55) L 09/15/19 06:22 Hgb 9.0 g/dL (13.5-17.0) L 09/15/19 06:22 Hct 26.9 % (37.9-51.0) L 09/15/19 06:22 MCV 71 fl (80-97) L 09/15/19 06:22 MCH 23.7 pg (27.0-33.4) L 09/15/19 06:22 MCHC 33.4 g/dL (32.0-36.0) 09/15/19 06:22 RDW 16.7 % (11.5-14.0) H 09/15/19 06:22 Plt Count 535 10^3/uL (150-450) H 09/15/19 06:22 Lymph % (Auto) 23.7 % (13-45) 09/15/19 06:22 Pike % (Auto) 11.2 % (3-13) 09/15/19 06:22 Eos % (Auto) 7.7 % (0-6) H 09/15/19 06:22 Baso % (Auto) 0.6 % (0-2) 09/15/19 06:22 Absolute Neuts (auto) 6.1 10^3/uL (1.7-8.2) 09/15/19 06:22 Absolute Lymphs (auto) 2.5 10^3/uL (0.5-4.7) 09/15/19 06:22 Absolute Monos (auto) 1.2 10^3/uL (0.1-1.4) 09/15/19 06:22 Absolute Eos (auto) 0.8 10^3/uL (0.0-0.6) H 09/15/19 06:22 Absolute Basos (auto) 0.1 10^3/uL (0.0-0.2) 09/15/19 06:22 Total Counted 100 09/07/19 09:55 Seg Neutrophils % 56.8 % (42-78) 09/15/19 06:22 Seg Neuts % (Manual) 79 % (42-78) H 09/07/19 09:55 Lymphocytes % (Manual) 17 % (13-45) 09/07/19 09:55 Monocytes % (Manual) 3 % (3-13) 09/07/19 09:55 Eosinophils % (Manual) 1 % (0-6) 09/07/19 09:55 Basophils % (Manual) 0 % (0-2) 09/07/19 09:55 Abs Neuts (Manual) 8.9 10^3/uL (1.7-8.2) H 09/07/19 09:55 Abs Lymphs (Manual) 1.9 10^3/uL (0.5-4.7) 09/07/19 09:55 Abs Monocytes (Manual) 0.3 10^3/uL (0.1-1.4) 09/07/19 09:55 Absolute Eos (Manual) 0.1 10^3/uL (0.0-0.6) 09/07/19 09:55 Abs Basophils (Manual) 0.0 10^3/uL (0.0-0.2) 09/07/19 09:55 Platelet Estimate Cancelled 09/07/19 08:30 Clumped Platelets PRESENT 09/07/19 09:55 Platelet Comment INCREASED 09/07/19 09:55 Anisocytosis 1+ 09/07/19 09:55 Microcytosis 1+ 09/07/19 09:55 PT 15.2 SEC (11.4-15.4) 09/08/19 06:41 INR 1.19 09/08/19 06:41 Carbonic Acid 0.97 mmol/L (1.05-1.35) L 09/10/19 12:50 HCO3/H2CO3 Ratio 22:1 09/10/19 12:50 ABG pH 7.46 (7.35-7.45) H 09/10/19 12:50 ABG pCO2 32.2 mmHg (35-45) L 09/10/19 12:50 ABG pO2 120.5 mmHg (80-100) H 09/10/19 12:50 ABG HCO3 22.2 mmol/L (20-24) 09/10/19 12:50 ABG Total CO2 23.2 mmol/L (23-27) 09/10/19 12:50 ABG O2 Saturation 98.6 % (94-98) H 09/10/19 12:50 ABG Base Excess -1.1 mmol/L 09/10/19 12:50 VBG pH 7.42 (7.30-7.42) 09/07/19 09:55 VBG pCO2 48.9 mmHg (35-63) 09/07/19 09:55 VBG HCO3 31.2 mmol/L (20-32) 09/07/19 09:55 VBG Base Excess 5.6 mmol/L 09/07/19 09:55 FiO2 35% 09/10/19 12:50 Sodium 139.2 mmol/L (137-145) 09/15/19 06:22 Potassium 3.4 mmol/L (3.6-5.0) L 09/15/19 06:22 Chloride 109 mmol/L (98-107) H 09/15/19 06:22 Carbon Dioxide 23 mmol/L (22-30) 09/15/19 06:22 Anion Gap 7 (5-19) 09/15/19 06:22 BUN 12 mg/dL (7-20) 09/15/19 06:22 Creatinine 0.88 mg/dL (0.52-1.25) 09/15/19 06:22 Est GFR ( Amer) > 60 (>60) 09/15/19 06:22 Est GFR (Non-Af Amer) Cancelled 09/07/19 08:30 Est GFR (MDRD) Non-Af > 60 (>60) 09/15/19 06:22 Glucose 102 mg/dL (75-110) 09/15/19 06:22 POC Glucose 122 mg/dL (70-110) H 09/15/19 12:00 Hemoglobin A1c % 12.8 % (4.7-6.0) H 09/07/19 09:55 Calcium 8.7 mg/dL (8.4-10.2) 09/15/19 06:22 Phosphorus 2.5 mg/dL (2.5-4.5) 09/11/19 08:45 Magnesium 1.4 mg/dL (1.6-2.3) L 09/13/19 03:43 Total Bilirubin 0.6 mg/dL (0.2-1.3) 09/12/19 03:29 Direct Bilirubin 0.4 mg/dL (0.0-0.4) 09/12/19 03:29 Neonat Total Bilirubin Not Reportable 09/12/19 03:29 Neonat Direct Bilirubin Not Reportable 09/12/19 03:29 Neonat Indirect Bili Not Reportable 09/12/19 03:29 AST 19 U/L (17-59) 09/12/19 03:29 ALT 9 U/L (<50) 09/12/19 03:29 Alkaline Phosphatase 100 U/L (38-126) 09/12/19 03:29 Ammonia < 8.7 umol/L (9-33) L 09/08/19 06:41 Creatine Kinase 45 U/L (55-170) L 09/07/19 09:55 CK-MB (CK-2) 0.69 ng/mL (<4.55) 09/07/19 09:55 Troponin I 0.062 ng/mL 09/08/19 19:03 Total Protein 6.9 g/dL (6.3-8.2) 09/12/19 03:29 Albumin 3.4 g/dL (3.5-5.0) L 09/12/19 03:29 Triglycerides 166 mg/dL (<150) H 09/08/19 12:04 EGFR Cancelled 09/07/19 08:30 TSH 0.05 uIU/mL (0.47-4.68) L 09/08/19 06:41 Free T4 1.72 ng/dL (0.78-2.19) 09/09/19 03:54 Urine Color YELLOW 09/07/19 09:30 Urine Appearance CLEAR 09/07/19 09:30 Urine pH 8.0 (5.0-9.0) 09/07/19 09:30 Ur Specific [place] 1.021 09/07/19 09:30 Urine Protein 30 mg/dL (NEGATIVE) H 09/07/19 09:30 Urine Glucose (UA) >=500 mg/dL (NEGATIVE) H 09/07/19 09:30 Urine Ketones TRACE mg/dL (NEGATIVE) H 09/07/19 09:30 Urine Blood NEGATIVE (NEGATIVE) 09/07/19 09:30 Urine Nitrite NEGATIVE (NEGATIVE) 09/07/19 09:30 Urine Bilirubin NEGATIVE (NEGATIVE) 09/07/19 09:30 Urine Urobilinogen NEGATIVE mg/dL (<2.0) 09/07/19 09:30 Ur Leukocyte Esterase NEGATIVE (NEGATIVE) 09/07/19 09:30 Urine WBC (Auto) 0 /HPF 09/07/19 09:30 Urine RBC (Auto) 0 /HPF 09/07/19 09:30 Urine Bacteria (Auto) TRACE /HPF 09/07/19 09:30 Urine Ascorbic Acid NEGATIVE (NEGATIVE) 09/07/19 09:30 Fluid Tube Number 3 09/07/19 16:12 CSF Volume 10.7 CC 09/07/19 16:12 CSF Appearance CLEAR 09/07/19 16:12 CSF Color COLORLESS 09/07/19 16:12 CSF WBC 1 /uL (0-5) 09/07/19 16:12 CSF RBC 2 /uL (0-10) 09/07/19 16:12 CSF Color (1) COLORLESS 09/07/19 16:12 CSF Color (2) COLORLESS 09/07/19 16:12 CSF Color (3) COLORLESS 09/07/19 16:12 CSF Color (4) COLORLESS 09/07/19 16:12 CSF Glucose 393 mg/dL (40-70) H 09/07/19 16:12 CSF Total Protein 123 mg/dL (12-60) H 09/07/19 16:12 Time Trough Drawn 0700 09/10/19 07:00 Vancomycin Trough 17.3 ug/mL (5.0-20.0) 09/10/19 07:00 Urine Opiates Screen NEGATIVE 09/07/19 09:30 Urine Methadone Screen NEGATIVE 09/07/19 09:30 Ur Barbiturates Screen NEGATIVE 09/07/19 09:30 Ur Phencyclidine Scrn NEGATIVE 09/07/19 09:30 Ur Amphetamines Screen NEGATIVE 09/07/19 09:30 U Benzodiazepines Scrn UNCONFIRMED POSITIVE 09/07/19 09:30 Urine Cocaine Screen NEGATIVE 09/07/19 09:30 U Marijuana (THC) Screen NEGATIVE 09/07/19 09:30 Herpes Simplex Source CSF 09/07/19 16:12 HSV I DNA PCR Negative (Negative) 09/07/19 16:12 HSV II DNA PCR Negative (Negative) 09/07/19 16:12 Slides for Path Review Cancelled 09/07/19 08:30 09/07/19 09/07/19 09/07/19 08:30 09:55 13:05 CK-MB (CK-2) Cancelled 0.69 Troponin I Cancelled 0.013 0.016 09/07/19 09/08/19 09/08/19 20:15 02:27 12:04 CK-MB (CK-2) Troponin I 0.080 0.132 0.097 09/08/19 19:03 CK-MB (CK-2) Troponin I 0.062 Impressions: Guidance Fluoroscopy 09/07/19 00:00 IMPRESSION: Lumbar puncture under fluoroscopy. No immediate complication. Lumbar Puncture 09/07/19 00:00 IMPRESSION: Lumbar puncture under fluoroscopy. No immediate complication. Head CT 09/07/19 08:49 IMPRESSION: No acute intracranial abnormality. EVIDENCE OF ACUTE STROKE: NO. Chest X-Ray 09/07/19 08:51 IMPRESSION: Low inspiratory lung volumes without a superimposed acute cardiopulmonary process. Chest X-Ray 09/07/19 12:53 IMPRESSION: NO ACUTE RADIOGRAPHIC FINDING IN THE CHEST. SUPPORT DEVICE(S) IN EXPECTED LOCATIONS. KUB X-Ray 09/07/19 13:13 IMPRESSION: NG tube placement. Renal Artery Duplex 09/08/19 00:00 IMPRESSION: NO DOPPLER EVIDENCE OF HEMODYNAMICALLY SIGNIFICANT RENAL ARTERY STENOSIS. Chest X-Ray 09/08/19 06:00 IMPRESSION: NO ACUTE RADIOGRAPHIC FINDING IN THE CHEST. SUPPORT DEVICE(S) IN EXPECTED LOCATIONS. Chest X-Ray 09/09/19 06:00 IMPRESSION: ELEVATED RIGHT HEMIDIAPHRAGM. FAINT DENSITIES IN THE LEFT LUNG BASE, PROBABLY MILD ATELECTASIS. STABLE LIFE LINES. Chest X-Ray 09/10/19 06:00 IMPRESSION: Improved left basilar aeration. No evidence of new cardiopulmonary complication. Enteric tube side port at GE junction. Consider advancing 5-10 cm. Plan Plan of Treatment: Please follow-up for medication management and adjustment of his medications as appropriate Time Spent: Greater than 30 Minutes Stroke Is this a Stroke Patient?: No Acute Heart Failure - Is this a Heart Failure Patient?: No
[2019-09-15 12:49] VITALS: BP 148/78
[2019-09-18] MEDS ORDERED: CLONIDINE 0.3 MG/24 HR PATCH.TDWK TD SCH (10:00)
== END 2019-09-15 13:42 | disposition home or self-care (01) | DRG 304 ==
LOC: ER 08:45 → EH 11:28 → ICU 12:28 → 3S 09-13 23:16
PROVIDERS: ADMIT Internal Medicine; ATTEND Internal Medicine
PROC: 5A1945Z Respiratory Ventilation, 24-96 Consecutive Hours (ICD-10-PCS; principal; 2019-09-07)
PROC: 0BH17EZ Insertion of Endotracheal Airway into Trachea, Via Natural or Artificial Opening (ICD-10-PCS; 2019-09-07)
PROC: 009U3ZX Drainage of Spinal Canal, Percutaneous Approach, Diagnostic (ICD-10-PCS; 2019-09-07)
DX: I16.1 Hypertensive emergency (principal); E11.01 Type 2 diabetes mellitus with hyperosmolarity with coma; J69.0 Pneumonitis due to inhalation of food and vomit; J96.00 Acute respiratory failure, unspecified whether with hypoxia or hypercapnia; I67.4 Hypertensive encephalopathy; N17.9 Acute kidney failure, unspecified; R56.9 Unspecified convulsions; E87.6 Hypokalemia; E11.65 Type 2 diabetes mellitus with hyperglycemia; E78.00 Pure hypercholesterolemia, unspecified; K21.9 Gastro-esophageal reflux disease without esophagitis; M10.9 Gout, unspecified; I10 Essential (primary) hypertension; F17.210 Nicotine dependence, cigarettes, uncomplicated; E66.9 Obesity, unspecified; R79.89 Other specified abnormal findings of blood chemistry; Z68.34 Body mass index [BMI] 34.0-34.9, adult; Z79.82 Long term (current) use of aspirin; Z79.4 Long term (current) use of insulin; Z91.14 Patient's other noncompliance with medication regimen; Z86.73 Personal history of transient ischemic attack (TIA), and cerebral infarction without residual deficits; Z82.49 Family history of ischemic heart disease and other diseases of the circulatory system; Z83.3 Family history of diabetes mellitus; Z82.3 Family history of stroke
CPT/HCPCS: 31500; 36415; 62328; 70450; 71045; 74018; 77003; 80048; 80053; 80202; 80307; 81001; 82140; 82550; 82553; 82803; 82945; 82962; 83036; 83735; 84100; 84157; 84439; 84443; 84478; 84484; 85025; 85027; 85610; 87040; 87070; 87077; 87205; 87529; 89050; 93005; 93010; 93306; 93975; 94002; 94003; 94660; 96361; 96365; 96375; 96376; 99291; C1758; J0290; J0330; J0360; J0692; J0696; J1644; J1815; J1940; J1953; J2060; J2250; J2704; J3010; J3370; J3411; J3475; J3480; J3490; J7030; J7050; J7060; S0028

== ENCOUNTER → 2019-11-06 | Outpatient (CLI) | payer MEDICARE ==
[2019-11-06 14:02] LABS: HEMOGLOBIN 8.6 g/dL (13.5-17.0); MEAN CORPUSCULAR HEMOGLOBIN 23.3 pg (27.0-33.4); MEAN CORPUSCULAR VOLUME 71 fl (80-97); PLATELET COUNT 566 10^3/uL (150-450); RED BLOOD COUNT 3.68 10^6/uL (4.35-5.55); WHITE BLOOD COUNT 9.5 10^3/uL (4.0-10.5)
[2019-11-06 14:23] LABS: ALBUMIN 3.7 g/dL (3.5-5.0); ALKALINE PHOSPHATASE 78 U/L (38-126); ANION GAP 12 (5-19); ASPARTATE AMINO TRANSFERASE 13 U/L (17-59); BILIRUBIN,DIRECT 0.3 mg/dL (0.0-0.4); BILIRUBIN,TOTAL 0.3 mg/dL (0.2-1.3); BLOOD UREA NITROGEN 16 mg/dL (7-20); CALCIUM 8.7 mg/dL (8.4-10.2); CARBON DIOXIDE 29 mmol/L (22-30); CHLORIDE 98 mmol/L (98-107); GLUCOSE 74 mg/dL (75-110); POTASSIUM 3.4 mmol/L (3.6-5.0); TOTAL PROTEIN 7.6 g/dL (6.3-8.2)
[2019-11-06 14:45] LABS: INTERNATIONAL RATION (INR) 1.03; PROTHROMBIN TIME 13.5 SEC (11.4-15.4)
[2019-11-06 14:46] LABS: PARTIAL THROMBOPLASTIN TIME 38.2 SEC (23.5-35.8)
== END ==
LOC: OD 12:44
PROVIDERS: ATTEND Obstetrics & Gynecology
DX: K27.0 Acute peptic ulcer, site unspecified, with hemorrhage (principal); I10 Essential (primary) hypertension; E78.5 Hyperlipidemia, unspecified; D64.9 Anemia, unspecified; R03.0 Elevated blood-pressure reading, without diagnosis of hypertension; E11.9 Type 2 diabetes mellitus without complications; Z79.899 Other long term (current) drug therapy
CPT/HCPCS: 36415; 80053; 85027; 85610; 85730

== ENCOUNTER → 2020-01-29 | Outpatient (CLI) | payer MEDICARE ==
[2020-01-29 11:42] LABS: ALBUMIN 4.4 g/dL (3.5-5.0); ALKALINE PHOSPHATASE 100 U/L (38-126); ANION GAP 9 (5-19); ASPARTATE AMINO TRANSFERASE 13 U/L (17-59); BILIRUBIN,TOTAL 0.5 mg/dL (0.2-1.3); BLOOD UREA NITROGEN 17 mg/dL (7-20); CALCIUM 9.3 mg/dL (8.4-10.2); CARBON DIOXIDE 31 mmol/L (22-30); CHLORIDE 101 mmol/L (98-107); GLUCOSE 121 mg/dL (75-110); POTASSIUM 3.4 mmol/L (3.6-5.0); TOTAL PROTEIN 8.1 g/dL (6.3-8.2)
--- NOTE | 2020-01-29 12:59 | RADIOLOGY REPORT (SQ) ---
EXAM DESCRIPTION: KNEE LEFT 4 VIEWS IMAGES COMPLETED DATE/TIME: 01/29/2020 11:22 am REASON FOR STUDY: PAIN,DIFFICULTY WALKING I10 ESSENTIAL (PRIMARY) HYPERTENSION E87.6 HYPOKALEMIA COMPARISON: None. NUMBER OF VIEWS: Four views. TECHNIQUE: AP, lateral, and both oblique radiographic images acquired of the left knee. LIMITATIONS: None. FINDINGS: MINERALIZATION: Normal. BONES: No acute fracture or dislocation. No worrisome bone lesions. JOINT: Slight narrowing of the medial compartment. Posterior patellar osteophytes. No significant j oint effusion. SOFT TISSUES: No soft tissue swelling. No radio-opaque foreign body. OTHER: No other significant finding. IMPRESSION: Mild degenerative joint disease in 2 compartments. TECHNICAL DOCUMENTATION: JOB ID: [id number] 2010 [employer]- All Rights Reserved Reading location - IP/workstation name: [email or web address]
--- NOTE | 2020-01-29 13:01 | RADIOLOGY REPORT (SQ) ---
EXAM DESCRIPTION: KNEE RIGHT 4 VIEWS IMAGES COMPLETED DATE/TIME: 01/29/2020 11:22 am REASON FOR STUDY: PAIN,DIFFICULTY WALKING I10 ESSENTIAL (PRIMARY) HYPERTENSION E87.6 HYPOKALEMIA COMPARISON: None. NUMBER OF VIEWS: Four views. TECHNIQUE: AP, lateral, and both oblique radiographic images acquired of the right knee. LIMITATIONS: None. FINDINGS: MINERALIZATION: Normal. BONES: No acute fracture or dislocation. No worrisome bone lesions. JOINT: Narrowing of the medial compartment with marginal osteophytes. Posterior patellar osteophytes . No joint effusion. SOFT TISSUES: No soft tissue swelling. No radio-opaque foreign body. OTHER: No other significant finding. IMPRESSION: Degenerative joint disease in 2 compartments. TECHNICAL DOCUMENTATION: JOB ID: [id number] 2010 [employer]- All Rights Reserved Reading location - IP/workstation name: [email or web address]
--- NOTE | 2020-01-29 13:06 | RADIOLOGY REPORT (SQ) ---
EXAM DESCRIPTION: LUMBAR SPINE COMPLETE IMAGES COMPLETED DATE/TIME: 01/29/2020 11:22 am REASON FOR STUDY: DDD W/ PAIN DIFFICULTY WALKING I10 ESSENTIAL (PRIMARY) HYPERTENSION E87.6 HYPOK ALEMIA COMPARISON: None. NUMBER OF VIEWS: Five views including obliques. TECHNIQUE: AP, lateral, oblique, and sacral radiographic images acquired of the lumbar spine. LIMITATIONS: None. FINDINGS: MINERALIZATION: Normal. SEGMENTATION: Normal. No transitional anatomy. ALIGNMENT: Normal. VERTEBRAE: Maintained height. No fracture or worrisome bone lesion. DISCS: There is narrowing of the L5-S1 disc. Large bridging osteophytes are present from L2 to S1. POSTERIOR ELEMENTS: Pedicles and facets are intact. No pars defect or posterior arch defects. HARDWARE: None in the spine. PARASPINAL SOFT TISSUES: Normal. PELVIS: Intact as visualized. No fractures or worrisome bone lesions. SI joints intact. OTHER: No other significant finding. IMPRESSION: Degenerative disc disease. Extensive spondylosis. TECHNICAL DOCUMENTATION: JOB ID: [id number] 2010 [employer]- All Rights Reserved Reading location - IP/workstation name: [email or web address]
== END ==
LOC: OD 10:34
PROVIDERS: ATTEND Obstetrics & Gynecology
DX: I10 Essential (primary) hypertension (principal); E87.6 Hypokalemia; M51.36 Other intervertebral disc degeneration, lumbar region; M54.5 Low back pain; R26.2 Difficulty in walking, not elsewhere classified
CPT/HCPCS: 36415; 72110; 80053

== ENCOUNTER → 2020-03-12 | Outpatient (CLI) | payer MEDICARE ==
[2020-03-12 12:02] LABS: ABSOLUTE BASOPHILS # (AUTO) 0.1 10^3/uL (0.0-0.2); ABSOLUTE EOSINOPHILS # (AUTO) 0.3 10^3/uL (0.0-0.6); ABSOLUTE LYMPHOCYTES (AUTO) 2.7 10^3/uL (0.5-4.7); ABSOLUTE NEUT (AUTO) 6.6 10^3/uL (1.7-8.2); BASOPHILS % (AUTO) 1.3 % (0-2); EOSINOPHILS % (AUTO) 2.9 % (0-6); HEMATOCRIT 31.4 % (37.9-51.0); HEMOGLOBIN 9.9 g/dL (13.5-17.0); LYMPHOCYTES % (AUTO) 25.1 % (13-45); MEAN CORPUSCULAR HEMOGLOBIN 22.5 pg (27.0-33.4); MEAN CORPUSCULAR HGB CONC 31.4 g/dL (32.0-36.0); MEAN CORPUSCULAR VOLUME 72 fl (80-97); MONOCYTES % (AUTO) 9.6 % (3-13); PLATELET COUNT 483 10^3/uL (150-450); RED BLOOD COUNT 4.38 10^6/uL (4.35-5.55); RED CELL DISTRIBUTION WIDTH 16.6 % (11.5-14.0); SEGMENTED NEUTROPHILS % (AUTO) 61.1 % (42-78); TOTAL CELLS COUNTED % (AUTO) 100 %; WHITE BLOOD COUNT 10.7 10^3/uL (4.0-10.5)
[2020-03-12 12:26] LABS: ANION GAP 10 (5-19); BLOOD UREA NITROGEN 21 mg/dL (7-20); CALCIUM 8.7 mg/dL (8.4-10.2); CARBON DIOXIDE 31 mmol/L (22-30); CHLORIDE 97 mmol/L (98-107); GLUCOSE 135 mg/dL (75-110); POTASSIUM 3.5 mmol/L (3.6-5.0)
--- NOTE | 2020-03-12 12:57 | RADIOLOGY REPORT (SQ) ---
EXAM DESCRIPTION: CHEST PA/LATERAL IMAGES COMPLETED DATE/TIME: 03/12/2020 12:06 pm REASON FOR STUDY: PRE-OP COMPARISON: 09/10/2019 EXAM PARAMETERS: NUMBER OF VIEWS: two views TECHNIQUE: Digital Frontal and Lateral radiographic views of the chest acquired. RADIATION DOSE: NA LIMITATIONS: none FINDINGS: LUNGS AND PLEURA: No opacities, masses or pneumothorax. No pleural effusion. MEDIASTINUM AND HILAR STRUCTURES: No masses or contour abnormalities. HEART AND VASCULAR STRUCTURES: Heart normal size. No evidence for failure. BONES: No acute findings. HARDWARE: None in the chest. OTHER: No other significant finding. IMPRESSION: NO SIGNIFICANT RADIOGRAPHIC FINDING IN THE CHEST. TECHNICAL DOCUMENTATION: JOB ID: [id number] 2010 [employer]- All Rights Reserved Reading location - IP/workstation name: [email or web address]
--- NOTE | 2020-03-12 18:23 | EKG REPORT ---
SEVERITY:- ABNORMAL ECG - SINUS RHYTHM PROBABLE LEFT ATRIAL ABNORMALITY LEFT VENTRICULAR HYPERTROPHY : Confirmed by: Jose Luis Magana MD 12-Mar-2020 18:22:33
[2020-03-13 11:48] LABS: APPEARANCE,URINE CLEAR; BILIRUBIN,URINE NEGATIVE (NEGATIVE); COLOR,URINE STRAW; GLUCOSE, URINE NEGATIVE (NEGATIVE); KETONES,URINE NEGATIVE (NEGATIVE); LEUKOCYTE ESTERASE,URINE NEGATIVE (NEGATIVE); NITRITE,URINE NEGATIVE (NEGATIVE); PROTEIN,URINE NEGATIVE (NEGATIVE); URINE SPECIFIC GRAVITY 1.005; UROBILINOGEN,URINE NEGATIVE mg/dL (<2.0)
== END ==
LOC: OD 10:42
PROVIDERS: ATTEND Orthopaedic Surgery
DX: Z01.810 Encounter for preprocedural cardiovascular examination (principal); Z01.811 Encounter for preprocedural respiratory examination; Z01.812 Encounter for preprocedural laboratory examination; M17.11 Unilateral primary osteoarthritis, right knee; E11.9 Type 2 diabetes mellitus without complications
CPT/HCPCS: 36415; 71046; 80048; 81001; 83036; 85025; 93005; 93010

== ENCOUNTER 2020-04-07 05:42 | Inpatient (IN) | payer MEDICARE ==
[2020-04-07] MEDS ORDERED: LIDOCAINE 0.5% INJ-PF (5 MG/ML) 50 ML SDV ONE (06:14)
[2020-04-07] MEDS ORDERED: TRANEXAMIC ACID INJ/PF 1,000 MG/10 ML SDV ONE (06:15)
[2020-04-07] MEDS ORDERED: MIDAZOLAM 2 MG/2 ML INJ ONE (06:15)
[2020-04-07] MEDS ORDERED: EPHEDRINE SULFATE INJ 50 MG/1 ML AMPULE ONE (06:15)
[2020-04-07] MEDS ORDERED: FENTANYL CITRATE INJ/PF 100 MCG/2 ML AMPUL ONE (06:15)
[2020-04-07] MEDS ORDERED: ONDANSETRON HCL INJ/PF 4 MG/2 ML SDV ONE (06:15)
[2020-04-07] MEDS ORDERED: PROPOFOL INJ 200 MG/20 ML VIAL IV ONE ×2 (06:16→10:58)
[2020-04-07] MEDS ORDERED: OXYCODONE HCL SR 10 MG TABLET PO ONE (06:24)
[2020-04-07] MEDS ORDERED: PANTOPRAZOLE SODIUM 20 MG TABLET.DR PO ONE (06:24)
[2020-04-07] MEDS ORDERED: VANCOMYCIN HCL INJ 1000 MG VIAL ONE (06:39)
[2020-04-07] MEDS ORDERED: CEFAZOLIN 1 GM/D5W RTU 1 GM/50 ML RTUPB IV ONE (07:14)
[2020-04-07] MEDS ORDERED: BUPIVACAINE HCL 0.25% /EPINEPHRINE INJ/PF 30 ML SDV ONE (07:15)
[2020-04-07] MEDS ORDERED: RINGERS SOLUTION,LACTATED 1,000 ML IV PRN (07:20)
[2020-04-07] MEDS ORDERED: ZOLPIDEM TARTRATE 5 MG TABLET PO PRN (07:20)
[2020-04-07] MEDS ORDERED: MAG HYDROX/AL HYDROX/SIMETH SUSP 30 ML UDCUP PO PRN (07:20)
[2020-04-07] MEDS ORDERED: OXYCODONE HCL IR 5 MG TABLET PO PRN ×2 (07:20→07:30)
[2020-04-07] MEDS ORDERED: TRANEXAMIC ACID INJ/PF 1,000 MG/10 ML SDV IV ONE ×2 (07:20→12:00)
[2020-04-07] MEDS ORDERED: ONDANSETRON 4 MG TAB.RAPDIS PO PRN ×2 (07:20→07:30)
[2020-04-07] MEDS ORDERED: ONDANSETRON HCL INJ/PF 4 MG/2 ML SDV IV PRN (07:20)
[2020-04-07] MEDS ORDERED: MORPHINE SULFATE 10 MG/ML INJ IV PRN ×3 (07:30→08:00)
[2020-04-07] MEDS ORDERED: DIPHENHYDRAMINE HCL 50 MG/ML VIAL IV PRN ×2 (07:30→08:00)
[2020-04-07] MEDS ORDERED: IBUPROFEN 800 MG in NORMAL SALINE 250 ML IV ONE (07:45)
[2020-04-07] MEDS ORDERED: (PENDING PHARMACY ID) (Sucralfate [Carafate Susp 1 Gm/10 Ml Udcup] 1 GM) PO SCH (08:00)
[2020-04-07] MEDS ORDERED: MEPERIDINE HCL/PF INJ 25 MG/1 ML DISP.SYRIN IV PRN (08:00)
[2020-04-07] MEDS ORDERED: PROMETHAZINE HCL INJ 25 MG/1 ML VIAL IV PRN ×2 (08:00)
[2020-04-07] MEDS ORDERED: FENTANYL CITRATE INJ/PF 100 MCG/2 ML AMPUL IV PRN ×3 (08:00)
[2020-04-07] MEDS ORDERED: ROPIVACAINE HCL 0.2% INJ/PF (2 MG/ML) 20 ML SDV ONE (08:25)
--- NOTE | 2020-04-07 08:38 | Operative Report ---
Operative Report DATE OF SURGERY: 04/07/20 PREOPERATIVE DIAGNOSIS: Right knee arthritis OPERATION: Right knee arthroplasty SURGEON: CARLOS MANUEL ELENA ANESTHESIA: Spinal TISSUE REMOVED OR ALTERED: Bone to pathology ESTIMATED BLOOD LOSS: 50 PROCEDURE: Implants used: Femur:[[place] triathlon size 7 CR uncemented femur] Tibia: 6 uncemented tibia Tibial liner: CS insert 40 mm uncemented patella Procedure with the patient supine on the operating table the right the limb is prepped and draped in a sterile fashion. The limb was elevated for exsanguination and the tourniquet inflated to 280 torr. A standard midline median parapatellar approach the knee is taken. Access is gained to the femoral canal through the intercondylar notch. Intramedullary alignment instrumentation used to resect 10 mm of distal femur in 5 of valgus. Sizing guide indicated a size 7 femur. Appropriate cutting jig is then used to fashion anterior posterior and chamfer cuts. A trial reduction femurs performed and this is judged to be adequate. Attention was next turned to the tibia. Using an extra medullary alignment system 9 millimeters was resected off the lateral tibial plateau. This is sized to a size X tibia. A trial reduction was now performed with a 7 femur and a 6 tibia using a 9 millimeters spacer. It is full extension and central patellofemoral tracking. The articular surface the patella was next resected using an oscillating saw. All trial implants were removed. The above implants are impacted into position. The tourniquet was deflated hemostasis obtained the wound is then closed in layers using interrupted Vicryl followed by alessandra. A sterile compressive dressing was applied and the patient returned to recovery room in satisfactory condition.
[2020-04-07] MEDS ORDERED: IBUPROFEN 800 MG in NORMAL SALINE 250 ML IV SCH ×2 (09:00→14:00)
[2020-04-07] MEDS ORDERED: DEXTROSE 50%-WATER SYRINGE 25 GM/50 ML DOSE IV PRN (09:30)
[2020-04-07] MEDS ORDERED: DEXTROSE 50%-WATER SYRINGE 12.5 GM/25 ML DOSE IV PRN (09:30)
[2020-04-07] MEDS ORDERED: DEXTROSE 40% GEL 15 GM TUBE X 2 PO PRN (09:30)
[2020-04-07] MEDS ORDERED: DEXTROSE 40% GEL 15 GM TUBE PO PRN (09:30)
[2020-04-07] MEDS ORDERED: GLUCAGON,HUMAN RECOMB 1 MG INJ IM PRN (09:30)
[2020-04-07] MEDS ORDERED: POTASSIUM GLUCONATE 500 MG PO SCH (10:00)
[2020-04-07] MEDS ORDERED: (PENDING PHARMACY ID) (Methimazole [Methimazole] 10 MG) PO SCH (10:00)
[2020-04-07] MEDS ORDERED: OXYCODONE HCL SR 10 MG TABLET PO SCH (10:00)
[2020-04-07] MEDS ORDERED: PANTOPRAZOLE SODIUM 40 MG TABLET.DR PO SCH (10:00)
[2020-04-07] MEDS ORDERED: PREGABALIN 75 MG CAPSULE PO SCH (10:00)
[2020-04-07] MEDS ORDERED: (PENDING PHARMACY ID) (Nifedipine [Nifedipine Er] 60 MG) PO SCH (10:00)
--- NOTE | 2020-04-07 10:14 | RADIOLOGY REPORT (SQ) ---
EXAM DESCRIPTION: KNEE RIGHT 2 VIEWS IMAGES COMPLETED DATE/TIME: 04/07/2020 10:02 am REASON FOR STUDY: Post OP -Long Cassette in PACU M17.11 UNILATERAL PRIMARY OSTEOARTHRITIS, RIGHT KN EE COMPARISON: 01/29/2020 NUMBER OF VIEWS: Two view(s). TECHNIQUE: Digital radiographic images of the right knee post-procedure. LIMITATIONS: None. FINDINGS: BONES: No worrisome or unexpected findings post-procedure. DEVICE: Total knee arthroplasty SOFT TISSUES: No worrisome findings. Expected postoperative soft tissue changes. IMPRESSION: SATISFACTORY POSTOPERATIVE RIGHT KNEE. TECHNICAL DOCUMENTATION: JOB ID: [id number] 2010 [employer]- All Rights Reserved Reading location - IP/workstation name: [email or web address]
[2020-04-07] MEDS: INSULIN LISPRO 100 UNIT/ML 3 ML VIAL SUBCUT SCH ×3 (12:11→23:58)
[2020-04-07] MEDS: SUCRALFATE 1 GM TABLET PO SCH ×3 (12:19→21:15)
[2020-04-07] MEDS: PRENATAL VITAMIN W DHA CAPSULE PO SCH (12:20)
[2020-04-07] MEDS: FERROUS SULFATE 325 MG TABLET PO SCH (12:20)
[2020-04-07] MEDS: SENNOSIDES/DOCUSATE 8.6-50 MG 1 EACH TABLET PO SCH ×2 (12:20→18:17)
[2020-04-07] MEDS: LEVETIRACETAM 500 MG TABLET PO SCH ×2 (12:21→21:16)
[2020-04-07] MEDS: TAMSULOSIN HCL 0.4 MG CAP.SR.24H PO SCH (12:21)
[2020-04-07] MEDS: OXYCODONE HCL SR 10 MG TABLET PO SCH ×2 (12:22→23:59)
[2020-04-07] MEDS: HYDRALAZINE HCL 50 MG TABLET PO SCH ×2 (14:34→21:15)
[2020-04-07] MEDS: ALPRAZOLAM 0.5 MG TABLET PO SCH ×2 (14:34→18:18)
[2020-04-07] MEDS: IBUPROFEN 800 MG in NORMAL SALINE 250 ML IV SCH (18:18)
[2020-04-07] MEDS: PREGABALIN 75 MG CAPSULE PO SCH (18:18)
[2020-04-07] MEDS ORDERED: VANCOMYCIN HCL 1,000 MG in DEXTROSE 5%-WATER 250 ML IV ONE (19:20)
[2020-04-07] MEDS: QUETIAPINE FUMARATE 100 MG TABLET PO SCH (21:15)
[2020-04-07] MEDS: ATORVASTATIN CALCIUM 40 MG TABLET PO SCH (21:15)
[2020-04-07] MEDS ORDERED: NIFEDIPINE 30 MG TAB.ER.24 PO SCH (22:00)
[2020-04-08] MEDS: IBUPROFEN 800 MG in NORMAL SALINE 250 ML IV SCH ×3 (02:37→19:30)
[2020-04-08] MEDS ORDERED: HYDRALAZINE HCL INJ/PF 20 MG/1 ML SDV IV ONE (04:45)
--- NOTE | 2020-04-08 06:23 | PDOC PROGRESS REPORT ---
Subjective Progress Note for:: 04/08/20 Reason For Visit: M17.11 UNILATERAL PRIMARY OSTEOARTHRITIS, RIGHT KN 59-year-old black male postop day 1 status post right knee arthroplasty. Patient initially with significant complaints of discomfort but he has subsequently been lethargic if not obtunded overnight. His states that he has episodes like this at home preoperatively. Physical Exam Vital Signs: Temp Pulse Resp BP Pulse Ox 36.9 C 101 H 12 191/95 H 96 04/08/20 03:41 04/08/20 03:41 04/08/20 03:41 04/08/20 04:00 04/08/20 03:41 Intake & Output 04/06/20 04/07/20 04/08/20 06:59 06:59 06:59 Intake Total 0 5829 Output Total 905 Balance 0 4924 Physical Exam: Middle-aged black male sleeping soundly in bed. communicates directly. General appearance: PRESENT: no acute distress Head exam: PRESENT: normocephalic Respiratory exam: PRESENT: unlabored Cardiovascular exam: PRESENT: RRR Vascular exam: PRESENT: normal capillary refill GI/Abdominal exam: PRESENT: soft Rectal exam: PRESENT: deferred Musculoskeletal exam: PRESENT: other - Right lower extremity dressing clean dry and intact. Toes demonstrate brisk capillary refill. Results Laboratory Results: 04/07/20 06:25 04/07/20 04/07/20 06:25 06:25 Potassium 3.4 L Glucose 118 H Impressions: Knee X-Ray 04/07/20 07:22 IMPRESSION: SATISFACTORY POSTOPERATIVE RIGHT KNEE. Status: Imported from PACS Assessment & Plan - Diagnosis (1) Arthritis of right knee Is this a current diagnosis for this admission?: Yes Plan: Mobilize with physical therapy and weightbearing as tolerated basis. has expressed the concern about being able to take care of him at home and is requesting residential facility placement. Social work is been consulted for such. (2) Type II diabetes mellitus Qualifiers: Qualified Code(s): E11.65 - Type 2 diabetes mellitus with hyperglycemia Is this a current diagnosis for this admission?: Yes Plan: Patient's blood sugar control has been reasonable with the current regimen - Time Time Spent with patient: 15-24 minutes Anticipated discharge: SNF Anticipated DC Timeframe: when bed available
--- NOTE | 2020-04-08 06:48 | PDOC CONSULTATION ---
Consultation Consult Date: 04/08/20 Attending physician:: MARISA GRAJEDA Provider Consulted: CARLOS MANUEL ELENA Consult reason:: Hypertension History of Present Illness Admission Date/PCP: 04/07/20 05:42 CATALINO BAUTISTA MD History of Present Illness: LEN MACIAS is a 59 year old male past medical history of diabetes, hypertension, CVA, seizure disorder, CKD, arthritis, who was admitted under orthopedic surgery and is status post day 1 right knee replacement. Hospitalist was consulted for management of hypertension. On my encounter patient is comfortably sleeping accompanied by his who is also sleepy, patient appears lethargic but easily arousable and follows co mmand,oriented to place and person, stating that he is here for right knee surgery, denying any shortness of breath, fever, chills, nausea, vomiting, diarrhea, constipation or any urinary symptoms. Past Medical History Cardiac Medical History: Reports: Hyperlipidema, Hypertension Denies: Atrial Fibrillation, Congestive Heart Failure, Coronary Artery Disease, Myocardial Infarction, Peripheral Vascular Disease, Pulmonary Embolism, Heart Murmur Pulmonary Medical History: Reports: Sleep Apnea - DOES NOT USE CPAP Denies: Asthma, Bronchitis, Chronic Obstructive Pulmonary Disease (COPD), Pneumonia, Respiratory Failure, Tuberculosis Neurological Medical History: Denies: Seizures Endocrine Medical History: Reports: Diabetes Mellitus Type 1, Diabetes Mellitus Type 2 Denies: Hyperthyroidism, Hypothyroidism Malignancy Medical History: Denies: Lung Cancer GI Medical History: Musculoskeltal Medical History: Reports: Arthritis, Gout Denies: Fibromyalgia Psychiatric Medical History: Reports: Depression Denies: Bipolar Disorder, Dementia, Post Traumatic Stress Disorder Hematology: Past Surgical History Past Surgical History: Reports: Orthopedic Surgery - torn meniscus in the right knee. bakers cyst Denies: Appendectomy, Cholecystectomy, Coronary Artery Bypass Graft, Gastric Bypass Surgery, Herniorrhaphy, Pacemaker, Tonsillectomy Social History Smoking Status: Former Smoker Frequency of Alcohol Use: None Hx Recreational Drug Use: No Drugs: None Hx Prescription Drug Abuse: No Family History Family History: CAD, CVA, DM, Hypertension Parental Family History Reviewed: Yes Children Family History Reviewed: Yes Sibling(s) Family History Reviewed.: Yes Medication/Allergy Home Medications: Alprazolam [Xanax] 2 mg PO TIDP PRN 08/09/17 Multivitamin [Tab-A-Jasson (Multiple Vitamin) Tablet] 1 tab PO DAILY 08/09/17 Atorvastatin Calcium [Lipitor 40 mg Tablet] 40 mg PO QHS 30 Days #30 tablet 08/15/17 Oxycodone HCl 20 mg PO Q4HP PRN 09/08/18 Amlodipine Besylate [Norvasc 10 mg Tablet] 10 mg PO DAILY 04/07/20 Enalapril Maleate 20 mg PO Q12 04/07/20 Metformin HCl [Glucophage 500 mg Tablet] 500 mg PO BIDACBS 04/07/20 Metoprolol Succinate [Toprol Xl] 100 mg PO Q12 04/07/20 Allergies/Adverse Reactions: No Known Allergies Allergy (Verified 04/07/20 06:11) Review of Systems Review of Systems: as per hpi Physical Exam Vital Signs: Temp Pulse Resp BP Pulse Ox 98.5 F 101 H 12 191/95 H 96 04/08/20 03:41 04/08/20 03:41 04/08/20 03:41 04/08/20 04:00 04/08/20 03:41 Intake & Output 04/06/20 04/07/20 04/08/20 06:59 06:59 06:59 Intake Total 0 5829 Output Total 905 Balance 0 4924 General appearance: PRESENT: no acute distress, obese, well-developed, well- nourished Respiratory exam: PRESENT: clear to auscultation rosa isela. ABSENT: rales, rhonchi, wheezes Cardiovascular exam: PRESENT: RRR, tachycardia. ABSENT: diastolic murmur, rubs, systolic murmur GI/Abdominal exam: PRESENT: normal bowel sounds, soft. ABSENT: distended, guarding, mass, organolmegaly, rebound, tenderness Neurological exam: PRESENT: oriented to person, oriented to place, CN II-XII grossly intact, other - Lethargic but easily arousable Results Laboratory Results: 04/07/20 06:25 04/07/20 04/07/20 06:25 06:25 Potassium 3.4 L Glucose 118 H Impressions: Knee X-Ray 04/07/20 07:22 IMPRESSION: SATISFACTORY POSTOPERATIVE RIGHT KNEE. Assessment and Plan - Diagnosis (1) Hypertension Qualifiers: Hypertension type: unspecified Qualified Code(s): I10 - Essential (primary) hypertension Is this a current diagnosis for this admission?: Yes Plan: Uncontrolled. Mild bilateral lower extremity edema. DC IV fluids. Resume home meds. IV hydralazine as needed. Adjust meds as needed. Resume home meds upon discharge. Outpatient PCP follow- up. (2) Diabetes Qualifiers: Diabetes mellitus type: type 2 Diabetes mellitus manager intermediate insulin use: without usp use Diabetes mellitus complication status: without com plication Qualified Code(s): E11.9 - Type 2 diabetes mellitus without com plications Is this a current diagnosis for this admission?: Yes Plan: Diabetic diet, long-acting insulin, sliding scale insulin, Accu-Chek, hyp oglycemia protocol. Resume home meds upon discharge. (3) Arthritis of right knee Is this a current diagnosis for this admission?: Yes Plan: Status post right knee replacement. Defer management to orthopedic surgery. - Time Time Spent with patient: 25-34 minutes Medications reviewed and adjusted accordingly: Yes Anticipated Discharge Disposition: Home with Home Health Anticipated Discharge Timeframe: within 48 hours
[2020-04-08] MEDS ORDERED: METOPROLOL TARTRATE PF/INJ 5 MG/5 ML SDV IV PRN (06:50)
[2020-04-08] MEDS: HYDRALAZINE HCL 50 MG TABLET PO SCH ×3 (07:10→22:44)
[2020-04-08] MEDS: PREGABALIN 75 MG CAPSULE PO SCH ×2 (07:11→17:19)
[2020-04-08] MEDS: PANTOPRAZOLE SODIUM 40 MG TABLET.DR PO SCH (07:11)
[2020-04-08 07:37] LABS: HEMATOCRIT 30.4 % (37.9-51.0); HEMOGLOBIN 9.9 g/dL (13.5-17.0); MEAN CORPUSCULAR HEMOGLOBIN 22.6 pg (27.0-33.4); MEAN CORPUSCULAR HGB CONC 32.5 g/dL (32.0-36.0); MEAN CORPUSCULAR VOLUME 69 fl (80-97); PLATELET COUNT 485 10^3/uL (150-450); RED BLOOD COUNT 4.39 10^6/uL (4.35-5.55); RED CELL DISTRIBUTION WIDTH 17.8 % (11.5-14.0); WHITE BLOOD COUNT 13.1 10^3/uL (4.0-10.5)
[2020-04-08 07:50] LABS: ALBUMIN 3.8 g/dL (3.5-5.0); ALKALINE PHOSPHATASE 97 U/L (38-126); ANION GAP 11 (5-19); ASPARTATE AMINO TRANSFERASE 15 U/L (17-59); BILIRUBIN,DIRECT 0.2 mg/dL (0.0-0.4); BLOOD UREA NITROGEN 11 mg/dL (7-20); CALCIUM 9.1 mg/dL (8.4-10.2); CARBON DIOXIDE 29 mmol/L (22-30); CHLORIDE 102 mmol/L (98-107); GLUCOSE 137 mg/dL (75-110); TOTAL PROTEIN 6.9 g/dL (6.3-8.2)
[2020-04-08 07:56] LABS: POTASSIUM 2.7 mmol/L (3.6-5.0)
[2020-04-08] MEDS: SUCRALFATE 1 GM TABLET PO SCH ×4 (09:03→22:44)
[2020-04-08] MEDS: INSULIN LISPRO 100 UNIT/ML 3 ML VIAL SUBCUT SCH ×4 (09:03→22:49)
[2020-04-08] MEDS: POTASSI CL 20 MEQ/50 ML RIDER 20 MEQ/50 ML RTUPB IV SCH ×4 (09:04→16:00)
[2020-04-08] MEDS: PRENATAL VITAMIN W DHA CAPSULE PO SCH (11:47)
[2020-04-08] MEDS: ENALAPRIL MALEATE 10 MG TABLET PO SCH ×2 (11:48→22:43)
[2020-04-08] MEDS: METOPROLOL SUCCINATE 50 MG TAB.SR.24H PO SCH ×2 (11:49→22:43)
[2020-04-08] MEDS: ASPIRIN 81 MG TABLET, ENT COATED PO SCH (11:49)
[2020-04-08] MEDS: SENNOSIDES/DOCUSATE 8.6-50 MG 1 EACH TABLET PO SCH ×2 (11:49→17:19)
[2020-04-08] MEDS: AMLODIPINE BESYLATE 10 MG TABLET PO SCH (11:49)
[2020-04-08] MEDS: LEVETIRACETAM 500 MG TABLET PO SCH ×2 (11:50→22:43)
[2020-04-08] MEDS: TAMSULOSIN HCL 0.4 MG CAP.SR.24H PO SCH (11:50)
[2020-04-08] MEDS: FERROUS SULFATE 325 MG TABLET PO SCH (11:50)
[2020-04-08] MEDS: OXYCODONE HCL SR 10 MG TABLET PO SCH (11:51)
[2020-04-08] MEDS: ALPRAZOLAM 0.5 MG TABLET PO SCH ×3 (11:53→17:08)
[2020-04-08] MEDS: METHIMAZOLE 5 MG TABLET PO SCH (11:54)
[2020-04-08] MEDS ORDERED: TRAMADOL HCL 50 MG TABLET PO PRN (12:00)
[2020-04-08 14:43] LABS: APPEARANCE,URINE CLEAR; BILIRUBIN,URINE NEGATIVE (NEGATIVE); COLOR,URINE STRAW; GLUCOSE, URINE NEGATIVE (NEGATIVE); KETONES,URINE NEGATIVE (NEGATIVE); LEUKOCYTE ESTERASE,URINE NEGATIVE (NEGATIVE); NITRITE,URINE NEGATIVE (NEGATIVE); PROTEIN,URINE 30 mg/dL (NEGATIVE); URINE SPECIFIC GRAVITY 1.006; UROBILINOGEN,URINE NEGATIVE mg/dL (<2.0)
--- NOTE | 2020-04-08 15:27 | RADIOLOGY REPORT (SQ) ---
EXAM DESCRIPTION: CHEST SINGLE VIEW IMAGES COMPLETED DATE/TIME: 04/08/2020 3:18 pm REASON FOR STUDY: desaturation COMPARISON: 03/12/2020 EXAM PARAMETERS: NUMBER OF VIEWS: One view. TECHNIQUE: Single frontal radiographic view of the chest acquired. RADIATION DOSE: NA LIMITATIONS: None. FINDINGS: LUNGS AND PLEURA: No opacities, masses or pneumothorax. No pleural effusion. MEDIASTINUM AND HILAR STRUCTURES: No masses. Contour normal. HEART AND VASCULAR STRUCTURES: Heart normal in size. Normal vasculature. BONES: No acute findings. HARDWARE: None in the chest. OTHER: No other significant finding. IMPRESSION: NO ACUTE RADIOGRAPHIC FINDING IN THE CHEST. TECHNICAL DOCUMENTATION: JOB ID: [id number] 2010 [employer]- All Rights Reserved Reading location - IP/workstation name: [email or web address]
[2020-04-08 15:32] LABS: ABSOLUTE LYMPHOCYTES (AUTO) 1.3 10^3/uL (0.5-4.7); ABSOLUTE MONOCYTES (AUTO) 1.8 10^3/uL (0.1-1.4); ABSOLUTE NEUT (AUTO) 11.3 10^3/uL (1.7-8.2); BASOPHILS % (AUTO) 0.2 % (0-2); EOSINOPHILS % (AUTO) 0.3 % (0-6); HEMATOCRIT 30.6 % (37.9-51.0); HEMOGLOBIN 9.8 g/dL (13.5-17.0); LYMPHOCYTES % (AUTO) 9.2 % (13-45); MEAN CORPUSCULAR HEMOGLOBIN 22.2 pg (27.0-33.4); MEAN CORPUSCULAR HGB CONC 31.9 g/dL (32.0-36.0); MEAN CORPUSCULAR VOLUME 70 fl (80-97); MONOCYTES % (AUTO) 12.3 % (3-13); PLATELET COUNT 448 10^3/uL (150-450); RED BLOOD COUNT 4.39 10^6/uL (4.35-5.55); RED CELL DISTRIBUTION WIDTH 17.8 % (11.5-14.0); TOTAL CELLS COUNTED % (AUTO) 100 %; WHITE BLOOD COUNT 14.4 10^3/uL (4.0-10.5)
[2020-04-08] MEDS: ACETAMINOPHEN 325 MG TABLET PO PRN (15:54)
[2020-04-08] MEDS ORDERED: NORMAL SALINE 1000 ML 1,000 ML IV PRN (17:51)
[2020-04-08] MEDS ORDERED: HYDROMORPHONE HCL INJ/PF 2 MG/ML AMPULE IV PRN (17:54)
--- NOTE | 2020-04-08 20:31 | PDOC PROGRESS REPORT ---
Subjective Progress Note for:: 04/08/20 Subjective:: LEN MACIAS a 59-year-old male past medical history of diabetes hypertension stroke seizure disorder CKD arthritis who was admitted under orthopedic surgery and is status post day 1 for right knee replacement. Hospitalist was consulted for management of hypertension. Day 1 of hospital stay: Was seen and examined at bedside he appears to be drowsy and mildly with lethargic. Points of pain on the right knee, denies any chest pain shortness of breath. He is noted to have a fever of 102. And tachycardic to 110. Reason For Visit: M17.11 UNILATERAL PRIMARY OSTEOARTHRITIS, RIGHT KN Physical Exam Vital Signs: Temp Pulse Resp BP Pulse Ox 101.1 F H 107 H 36 H 192/87 H 90 L 04/08/20 17:20 04/08/20 15:45 04/08/20 15:00 04/08/20 15:45 04/08/20 15:45 Intake & Output 04/07/20 04/08/20 04/09/20 06:59 06:59 06:59 Intake Total 0 6079 290 Output Total 1705 1100 Balance 0 4374 -810 Weight 105 kg General appearance: PRESENT: no acute distress, cooperative Head exam: PRESENT: atraumatic, normocephalic Eye exam: PRESENT: EOMI, PERRLA Mouth exam: PRESENT: moist Neck exam: PRESENT: full ROM. ABSENT: JVD, meningismus Respiratory exam: PRESENT: clear to auscultation rosa isela, tachypnea. ABSENT: rales, wheezes Cardiovascular exam: PRESENT: +S1, +S2, tachycardia Pulses: PRESENT: +2 pedal pulses bilateral Vascular exam: PRESENT: normal capillary refill GI/Abdominal exam: PRESENT: normal bowel sounds, soft. ABSENT: guarding, tenderness Rectal exam: PRESENT: deferred Extremities exam: PRESENT: other - Right knee swollen slightly swollen and tender, no crepitus, Musculoskeletal exam: PRESENT: other - Limited range of motion on the right knee Neurological exam: PRESENT: other - Patient is oriented but is somewhat lethargic and drowsy Psychiatric exam: PRESENT: normal mood Skin exam: PRESENT: pallor Results Laboratory Results: 04/08/20 15:22 04/08/20 07:10 04/08/20 04/08/20 04/08/20 07:10 07:10 14:30 WBC 13.1 H RBC 4.39 Hgb 9.9 L Hct 30.4 L MCV 69 L MCH 22.6 L MCHC 32.5 RDW 17.8 H Plt Count 485 H Seg Neutrophils % Sodium 141.8 Potassium 2.7 L* Chloride 102 Carbon Dioxide 29 Anion Gap 11 BUN 11 Creatinine 0.82 Est GFR ( Amer) > 60 Glucose 137 H Lactic Acid Calcium 9.1 Magnesium 1.5 L Total Bilirubin 1.0 AST 15 L Alkaline Phosphatase 97 Total Protein 6.9 Albumin 3.8 Urine Color STRAW Urine Appearance CLEAR Urine pH 7.0 Ur Specific Alex 1.006 Urine Protein 30 H Urine Glucose (UA) NEGATIVE Urine Ketones NEGATIVE Urine Blood NEGATIVE Urine Nitrite NEGATIVE Ur Leukocyte Esterase NEGATIVE Urine WBC (Auto) 0 Urine RBC (Auto) 1 04/08/20 04/08/20 15:22 15:22 WBC 14.4 H RBC 4.39 Hgb 9.8 L Hct 30.6 L MCV 70 L MCH 22.2 L MCHC 31.9 L RDW 17.8 H Plt Count 448 Seg Neutrophils % 78.0 Sodium Potassium Chloride Carbon Dioxide Anion Gap BUN Creatinine Est GFR ( Amer) Glucose Lactic Acid 1.0 Calcium Magnesium Total Bilirubin AST Alkaline Phosphatase Total Protein Albumin Urine Color Urine Appearance Urine pH Ur Specific Alex Urine Protein Urine Glucose (UA) Urine Ketones Urine Blood Urine Nitrite Ur Leukocyte Esterase Urine WBC (Auto) Urine RBC (Auto) Impressions: Knee X-Ray 04/07/20 07:22 IMPRESSION: SATISFACTORY POSTOPERATIVE RIGHT KNEE. Chest X-Ray 04/08/20 00:00 IMPRESSION: NO ACUTE RADIOGRAPHIC FINDING IN THE CHEST. Assessment and Plan - Diagnosis (1) Fever Qualifiers: Fever type: unspecified Qualified Code(s): R50.9 - Fever, unspecified Is this a current diagnosis for this admission?: Yes Plan: -post op fever 102 - WBC count 14 can be secondary to post op changes. received cefazolin and vanc periop - CXR no acute findings - UA negative - lactic acid normal - blood culture ordered - ddx: bacteremia, drug fever (patient started on tramadol, maybe interacting with other meds?) - in light of recent knee replacement. will give 1 dose of Vanc pending blood culture results - unclear source for now (2) Acute encephalopathy Is this a current diagnosis for this admission?: Yes Plan: - noted to be drowsy and lethargic today but able to answer appropriately - WBC 14, lactic acid 1.0 - BG 134, O2 sat 94% - CXR unremarkable, UA no UTI - unclear source for now - will hold his ambien, diphen, tramadol switched to dilaudid for now - no focal deficits to suggest stroke (3) Hypertension Qualifiers: Hypertension type: unspecified Qualified Code(s): I10 - Essential (primary) hypertension Is this a current diagnosis for this admission?: Yes Plan: - currently on enalapril, metoprolol, Po hydralazine - PRN hydralazine (4) Diabetes Qualifiers: Diabetes mellitus type: type 2 Diabetes mellitus oysterman insulin use: without fdc use Diabetes mellitus complication status: without complication Qualified Code(s): E11.9 - Type 2 diabetes mellitus without complications Is this a current diagnosis for this admission?: Yes Plan: Diabetic diet, long-acting insulin, sliding scale insulin, - Accu-Chek, hypoglycemia protocol. - Resume home meds upon discharge. - Plan Summary Summary: Patient developed postoperative fever, unclear source. Cultures pending - Time Time Spent with patient: 25-34 minutes Medications reviewed and adjusted accordingly: Yes Anticipated Discharge Disposition: to be determined Anticipated Discharge Timeframe: to be determined
[2020-04-08] MEDS ORDERED: VANCOMYCIN HCL 1,000 MG in DEXTROSE 5%-WATER 250 ML IV ONE (22:00)
[2020-04-08] MEDS: ATORVASTATIN CALCIUM 40 MG TABLET PO SCH (22:43)
[2020-04-08] MEDS: QUETIAPINE FUMARATE 100 MG TABLET PO SCH (22:49)
[2020-04-09] MEDS: IBUPROFEN 800 MG in NORMAL SALINE 250 ML IV SCH ×3 (02:13→17:48)
[2020-04-09] MEDS: ACETAMINOPHEN 325 MG TABLET PO PRN ×2 (02:14→20:31)
[2020-04-09 05:14] LABS: HEMATOCRIT 28.6 % (37.9-51.0); HEMOGLOBIN 9.1 g/dL (13.5-17.0); MEAN CORPUSCULAR HEMOGLOBIN 22.5 pg (27.0-33.4); MEAN CORPUSCULAR VOLUME 70 fl (80-97); PLATELET COUNT 412 10^3/uL (150-450); RED BLOOD COUNT 4.06 10^6/uL (4.35-5.55); RED CELL DISTRIBUTION WIDTH 18.2 % (11.5-14.0); WHITE BLOOD COUNT 12.9 10^3/uL (4.0-10.5)
[2020-04-09] MEDS: PANTOPRAZOLE SODIUM 40 MG TABLET.DR PO SCH (05:32)
[2020-04-09] MEDS: PREGABALIN 75 MG CAPSULE PO SCH ×2 (05:32→17:48)
[2020-04-09] MEDS: HYDRALAZINE HCL 50 MG TABLET PO SCH ×3 (05:32→22:30)
[2020-04-09 07:53] LABS: ALBUMIN 2.9 g/dL (3.5-5.0); ALKALINE PHOSPHATASE 80 U/L (38-126); ANION GAP 9 (5-19); ASPARTATE AMINO TRANSFERASE 12 U/L (17-59); BILIRUBIN,DIRECT 0.4 mg/dL (0.0-0.4); BILIRUBIN,TOTAL 1.4 mg/dL (0.2-1.3); BLOOD UREA NITROGEN 8 mg/dL (7-20); CALCIUM 8.6 mg/dL (8.4-10.2); CARBON DIOXIDE 28 mmol/L (22-30); CHLORIDE 104 mmol/L (98-107); GLUCOSE 118 mg/dL (75-110); TOTAL PROTEIN 5.9 g/dL (6.3-8.2)
[2020-04-09 07:57] LABS: POTASSIUM 2.7 mmol/L (3.6-5.0)
[2020-04-09] MEDS: INSULIN LISPRO 100 UNIT/ML 3 ML VIAL SUBCUT SCH ×4 (08:01→22:46)
[2020-04-09] MEDS: SUCRALFATE 1 GM TABLET PO SCH ×4 (08:14→22:31)
[2020-04-09] MEDS: POTASSI CL 20 MEQ/50 ML RIDER 20 MEQ/50 ML RTUPB IV SCH ×4 (10:08→23:46)
[2020-04-09] MEDS: METOPROLOL SUCCINATE 50 MG TAB.SR.24H PO SCH ×2 (10:08→22:31)
[2020-04-09] MEDS: SENNOSIDES/DOCUSATE 8.6-50 MG 1 EACH TABLET PO SCH ×2 (10:09→17:48)
[2020-04-09] MEDS: FERROUS SULFATE 325 MG TABLET PO SCH (10:09)
[2020-04-09] MEDS: PRENATAL VITAMIN W DHA CAPSULE PO SCH (10:09)
[2020-04-09] MEDS: TAMSULOSIN HCL 0.4 MG CAP.SR.24H PO SCH (10:09)
[2020-04-09] MEDS: ENALAPRIL MALEATE 10 MG TABLET PO SCH ×2 (10:09→22:30)
[2020-04-09] MEDS: ASPIRIN 81 MG TABLET, ENT COATED PO SCH (10:09)
[2020-04-09] MEDS: AMLODIPINE BESYLATE 10 MG TABLET PO SCH (10:09)
[2020-04-09] MEDS: LEVETIRACETAM 500 MG TABLET PO SCH ×2 (10:09→22:31)
[2020-04-09] MEDS: METHIMAZOLE 5 MG TABLET PO SCH (10:11)
[2020-04-09] MEDS ORDERED: VANCOMYCIN HCL 0 MG in DEXTROSE 5%-WATER 250 ML IV NR (10:15)
[2020-04-09] MEDS ORDERED: HYDROMORPHONE HCL INJ/PF 2 MG/ML AMPULE ONE (10:21)
--- NOTE | 2020-04-09 10:51 | PDOC PROGRESS REPORT ---
Subjective Progress Note for:: 04/09/20 Reason For Visit: M17.11 UNILATERAL PRIMARY OSTEOARTHRITIS, RIGHT KN 59-year-old black male now postop day 2 status post right knee arthroplasty. Patient with limited progress with physical therapy. "My knee hurts, I cannot bend it, I cannot walk on it" Physical Exam Vital Signs: Temp Pulse Resp BP Pulse Ox 36.7 C 92 20 166/77 H 96 04/09/20 07:53 04/09/20 07:53 04/09/20 07:53 04/09/20 07:53 04/09/20 07:53 Intake & Output 04/08/20 04/09/20 04/10/20 06:59 06:59 06:59 Intake Total 6079 1040 Output Total 1705 1100 Balance 4374 -60 Weight 105 kg 105 kg Physical Exam: Middle-aged black male lying in bed with a sheet pulled over his head General appearance: PRESENT: no acute distress, mild distress Head exam: PRESENT: normocephalic Respiratory exam: PRESENT: unlabored Cardiovascular exam: PRESENT: RRR Pulses: PRESENT: +1 pedal pulses bilateral Vascular exam: PRESENT: normal capillary refill GI/Abdominal exam: PRESENT: soft Rectal exam: PRESENT: deferred Extremities exam: PRESENT: other - Original postop OpSite dressing clean dry and intact. Minimal pedal edema. Distal neurovascular examination is intact. Results Laboratory Results: 04/09/20 04:49 04/09/20 04:49 04/08/20 04/08/20 04/08/20 14:30 15:22 15:22 WBC 14.4 H RBC 4.39 Hgb 9.8 L Hct 30.6 L MCV 70 L MCH 22.2 L MCHC 31.9 L RDW 17.8 H Plt Count 448 Seg Neutrophils % 78.0 Sodium Potassium Chloride Carbon Dioxide Anion Gap BUN Creatinine Est GFR ( Amer) Glucose Lactic Acid 1.0 Calcium Magnesium Total Bilirubin AST Alkaline Phosphatase Total Protein Albumin Urine Color STRAW Urine Appearance CLEAR Urine pH 7.0 Ur Specific [place] 1.006 Urine Protein 30 H Urine Glucose (UA) NEGATIVE Urine Ketones NEGATIVE Urine Blood NEGATIVE Urine Nitrite NEGATIVE Ur Leukocyte Esterase NEGATIVE Urine WBC (Auto) 0 Urine RBC (Auto) 1 04/09/20 04/09/20 04/09/20 04:49 04:49 08:00 WBC 12.9 H RBC 4.06 L Hgb 9.1 L Hct 28.6 L MCV 70 L MCH 22.5 L MCHC 32.0 RDW 18.2 H Plt Count 412 Seg Neutrophils % Sodium 141.3 Potassium 2.7 L* Chloride 104 Carbon Dioxide 28 Anion Gap 9 BUN 8 Creatinine 0.76 Est GFR ( Amer) > 60 Glucose 118 H Lactic Acid Calcium 8.6 Magnesium 1.4 L Total Bilirubin 1.4 H AST 12 L Alkaline Phosphatase 80 Total Protein 5.9 L Albumin 2.9 L Urine Color Urine Appearance Urine pH Ur Specific [place] Urine Protein Urine Glucose (UA) Urine Ketones Urine Blood Urine Nitrite Ur Leukocyte Esterase Urine WBC (Auto) Urine RBC (Auto) Impressions: Knee X-Ray 04/07/20 07:22 IMPRESSION: SATISFACTORY POSTOPERATIVE RIGHT KNEE. Chest X-Ray 04/08/20 00:00 IMPRESSION: NO ACUTE RADIOGRAPHIC FINDING IN THE CHEST. Status: Imported from PACS Assessment & Plan - Diagnosis (1) Arthritis of right knee Is this a current diagnosis for this admission?: Yes Plan: Patient needs to be mobilized on a weightbearing as tolerated basis. I have re- enforced to the patient that he is able to bend it and that he is able to walk on it. Plan for custodial facility placement once bed is available. (2) Type II diabetes mellitus Qualifiers: Is this a current diagnosis for this admission?: Yes Plan: Postoperative blood glucose levels under reasonable control - Time Time Spent with patient: 15-24 minutes Anticipated discharge: SNF Anticipated DC Timeframe: when bed available
[2020-04-09] MEDS ORDERED: CEFTRIAXONE 2 GM/D5W RTU 2 GM/50 ML RTUPB IV SCH ×3 (12:00→22:00)
[2020-04-09] MEDS: HYDROMORPHONE HCL INJ/PF 2 MG/ML AMPULE IV PRN ×2 (12:23→20:33)
[2020-04-09] MEDS ORDERED: MAGNESIUM SULFATE/D5W 2 GM/200 ML RTUPB IV ONE (13:23)
[2020-04-09] MEDS ORDERED: POTASSIUM CHLORIDE 20 MEQ PACKET PO ONE (13:30)
[2020-04-09] MEDS: MAGNESIUM SULFATE 1 GM/D5W 100 ML IV SCH ×2 (14:00→15:00)
[2020-04-09] MEDS: MAGNESIUM SULFATE/D5W 1 GM/100 ML RTUPB IV SCH (15:16)
[2020-04-09] MEDS: OXYCODONE HCL IR 5 MG TABLET PO PRN ×2 (15:23→23:59)
[2020-04-09] MEDS: VANCOMYCIN HCL 1,250 MG in DEXTROSE 5%-WATER 250 ML IV SCH ×2 (16:01→21:20)
--- NOTE | 2020-04-09 18:32 | RADIOLOGY REPORT (SQ) ---
EXAM DESCRIPTION: VENOUS UNILATERAL LOWER IMAGES COMPLETED DATE/TIME: 04/09/2020 4:53 pm REASON FOR STUDY: RLE PAIN/ SWELLING M17.11 UNILATERAL PRIMARY OSTEOARTHRITIS, RIGHT KNEE COMPARISON: None. TECHNIQUE: Dynamic and static prescott scale and color images acquired of the right leg venous system. S elected spectral images acquired with additional compression and augmentation maneuvers. The contrala teral common femoral vein and saphenofemoral junction were also imaged. Images stored on PACS. LIMITATIONS: None. FINDINGS: COMMON FEMORAL: Normal phasicity, compression and augmentation. No visualized echogenic ma terial on prescott scale. No defects on color images. FEMORAL: Normal compression and augmentation. No visualized echogenic material on prescott scale. No defe cts on color images. POPLITEAL: Normal compression, augmentation. No visualized echogenic material on prescott scale. No defec ts on color images. CALF VESSELS: Normal compression, augmentation. No visualized echogenic material on prescott scale. No de fects on color images. GSV and SSV: Normal compression, augmentation. No visualized echogenic material on prescott scale. No def ects on color images. ANY DEEP VENOUS INSUFFICIENCY: Not evaluated. ANY EVIDENCE OF POPLITEAL CYST: No. OTHER: No other significant finding. CONTRALATERAL COMMON FEMORAL VEIN AND SAPHENOFEMORAL JUNCTION: Normal phasicity, compression and augmentation. No visualized echogenic material on prescott scale. No de fects on color images. IMPRESSION: NO EVIDENCE DVT OR SVT IN THE RIGHT LEG. TECHNICAL DOCUMENTATION: JOB ID: [id number] 2010 [employer]- All Rights Reserved Reading location - IP/workstation name: [email or web address]
[2020-04-09] MEDS ORDERED: POTASSI CL 20 MEQ/50 ML RIDER 20 MEQ/50 ML RTUPB IV ONE (21:07)
--- NOTE | 2020-04-09 21:26 | PDOC PROGRESS REPORT ---
Subjective Progress Note for:: 04/09/20 Subjective:: LEN MACIAS a 59-year-old male past medical history of diabetes hypertension stroke seizure disorder CKD arthritis who was admitted under orthopedic surgery and is status post day 1 for right knee replacement. Hospitalist was consulted for management of hypertension. Day 1 of hospital stay: Was seen and examined at bedside he appears to be drowsy and mildly with lethargic. Points of pain on the right knee, denies any chest pain shortness of breath. He is noted to have a fever of 102. And tachycardic to 110. day 2 hospital stay 04/09/20 : seen and examined at bedside. Still with considerable pain on left knee. No fever episodes. denies chest pain, SOB, palpitations. Still with leukocytosis. Patient was started on Vanc for presumed infection from surgery. Blood culture no growth. Home pain medications resumed. Reason For Visit: M17.11 UNILATERAL PRIMARY OSTEOARTHRITIS, RIGHT KN Physical Exam Vital Signs: Temp Pulse Resp BP Pulse Ox 100.9 F H 107 H 16 182/87 H 94 04/09/20 20:13 04/09/20 20:13 04/09/20 20:13 04/09/20 20:13 04/09/20 20:13 Intake & Output 04/08/20 04/09/20 04/10/20 06:59 06:59 06:59 Intake Total 6079 1040 1520 Output Total 1705 1100 750 Balance 4374 -60 770 Weight 105 kg 105 kg General appearance: PRESENT: no acute distress, cooperative, other - In pain Head exam: PRESENT: atraumatic, normocephalic Eye exam: PRESENT: EOMI, PERRLA Mouth exam: PRESENT: moist Neck exam: PRESENT: full ROM. ABSENT: JVD, meningismus Respiratory exam: PRESENT: clear to auscultation rosa isela, symmetrical, unlabored. ABSENT: crackles, rales Cardiovascular exam: PRESENT: RRR, +S1, +S2. ABSENT: diastolic murmur, systolic murmur Pulses: PRESENT: +2 pedal pulses bilateral Vascular exam: PRESENT: normal capillary refill GI/Abdominal exam: PRESENT: normal bowel sounds, soft, tenderness Rectal exam: PRESENT: deferred Extremities exam: PRESENT: joint swelling, tenderness - Postoperative site, other - Limited range of motion right knee Neurological exam: PRESENT: alert, awake, oriented to person, oriented to place, oriented to time Psychiatric exam: PRESENT: normal mood Skin exam: PRESENT: normal color Results Laboratory Results: 04/09/20 04:49 04/09/20 04:49 04/09/20 04/09/20 04/09/20 04:49 04:49 08:00 WBC 12.9 H RBC 4.06 L Hgb 9.1 L Hct 28.6 L MCV 70 L MCH 22.5 L MCHC 32.0 RDW 18.2 H Plt Count 412 Sodium 141.3 Potassium 2.7 L* Chloride 104 Carbon Dioxide 28 Anion Gap 9 BUN 8 Creatinine 0.76 Est GFR ( Amer) > 60 Glucose 118 H Calcium 8.6 Magnesium 1.4 L Total Bilirubin 1.4 H AST 12 L Alkaline Phosphatase 80 Total Protein 5.9 L Albumin 2.9 L Impressions: Knee X-Ray 04/07/20 07:22 IMPRESSION: SATISFACTORY POSTOPERATIVE RIGHT KNEE. Chest X-Ray 04/08/20 00:00 IMPRESSION: NO ACUTE RADIOGRAPHIC FINDING IN THE CHEST. Venous Doppler Study 04/09/20 15:00 IMPRESSION: NO EVIDENCE DVT OR SVT IN THE RIGHT LEG. Assessment and Plan - Diagnosis (1) Fever Qualifiers: Fever type: unspecified Qualified Code(s): R50.9 - Fever, unspecified Is this a current diagnosis for this admission?: Yes Plan: -post op fever 102. none today - WBC count 14>12.9 can be secondary to post op changes. received cefazolin and vanc periop - CXR no acute findings - UA negative - lactic acid normal - blood culture no growth x 1 - ddx: bacteremia, drug fever (patient started on tramadol, maybe interacting with other meds?) - in light of recent knee replacement will start patient on Vanc and rocephin - unclear source for now (2) Acute encephalopathy Is this a current diagnosis for this admission?: Yes Plan: - RESOLVED - WBC 14, lactic acid 1.0 - BG 134, O2 sat 94% - CXR unremarkable, UA no UTI - unclear source for now - will hold his ambien, diphen, tramadol switched to dilaudid for now - no focal deficits to suggest stroke (3) Hypertension Qualifiers: Hypertension type: unspecified Qualified Code(s): I10 - Essential (primary) hypertension Is this a current diagnosis for this admission?: Yes Plan: - currently on enalapril, metoprolol, Po hydralazine - PRN hydralazine (4) Diabetes Qualifiers: Diabetes mellitus type: type 2 Diabetes mellitus senior care insulin use: without extermination inspector use Diabetes mellitus complication status: without complication Qualified Code(s): E11.9 - Type 2 diabetes mellitus without complications Is this a current diagnosis for this admission?: Yes Plan: Diabetic diet, long-acting insulin, sliding scale insulin, - Accu-Chek, hypoglycemia protocol. - Resume home meds upon discharge. (6) Arthritis of right knee Is this a current diagnosis for this admission?: Yes Plan: Status post right knee replacement. Defer management to orthopedic surgery. - PT/OT - home pain medications resumed. Please give prior to PT/OT - concern for joint infection in light of fever and increased pain right knee - will update Dr. Chang tomorrow - Plan Summary Summary: Patient developed postoperative fever, unclear source. Cultures pending - Time Time Spent with patient: 25-34 minutes Anticipated Discharge Disposition: to be determined Anticipated Discharge Timeframe: to be determined
[2020-04-09] MEDS: QUETIAPINE FUMARATE 100 MG TABLET PO SCH (22:31)
[2020-04-09] MEDS: ATORVASTATIN CALCIUM 40 MG TABLET PO SCH (22:31)
[2020-04-10] MEDS: IBUPROFEN 800 MG in NORMAL SALINE 250 ML IV SCH ×2 (02:00→12:03)
[2020-04-10 05:44] LABS: HEMATOCRIT 26.6 % (37.9-51.0); HEMOGLOBIN 8.6 g/dL (13.5-17.0); MEAN CORPUSCULAR HEMOGLOBIN 22.5 pg (27.0-33.4); MEAN CORPUSCULAR HGB CONC 32.1 g/dL (32.0-36.0); MEAN CORPUSCULAR VOLUME 70 fl (80-97); PLATELET COUNT 409 10^3/uL (150-450); RED BLOOD COUNT 3.81 10^6/uL (4.35-5.55); RED CELL DISTRIBUTION WIDTH 18.4 % (11.5-14.0); WHITE BLOOD COUNT 13.5 10^3/uL (4.0-10.5)
[2020-04-10 05:59] LABS: ALKALINE PHOSPHATASE 78 U/L (38-126); ANION GAP 10 (5-19); ASPARTATE AMINO TRANSFERASE 13 U/L (17-59); BILIRUBIN,DIRECT 0.3 mg/dL (0.0-0.4); BLOOD UREA NITROGEN 9 mg/dL (7-20); CALCIUM 8.2 mg/dL (8.4-10.2); CARBON DIOXIDE 27 mmol/L (22-30); CHLORIDE 103 mmol/L (98-107); GLUCOSE 124 mg/dL (75-110); TOTAL PROTEIN 5.9 g/dL (6.3-8.2)
[2020-04-10] MEDS: PANTOPRAZOLE SODIUM 40 MG TABLET.DR PO SCH (06:01)
[2020-04-10] MEDS: PREGABALIN 75 MG CAPSULE PO SCH ×2 (06:01→17:48)
[2020-04-10] MEDS: HYDRALAZINE HCL 50 MG TABLET PO SCH ×2 (06:01→15:44)
[2020-04-10] MEDS: VANCOMYCIN HCL 1,250 MG in DEXTROSE 5%-WATER 250 ML IV SCH ×2 (06:02→15:29)
[2020-04-10] MEDS: HEPARIN SOD (PORCINE) 5,000 UNIT/ML 1 ML VIAL SUBCUT SCH ×2 (06:02→15:44)
[2020-04-10 06:07] LABS: POTASSIUM 2.9 mmol/L (3.6-5.0)
--- NOTE | 2020-04-10 07:27 | PDOC TRANSFER SUMMARY ---
Impression - Admit/DC Date/PCP Admission Date/Primary Care Provider: 04/07/20 05:42 CATALINO BAUTISTA MD Discharge Date: 04/10/20 - Discharge Diagnosis (1) Arthritis of right knee Is this a current diagnosis for this admission?: Yes (2) Type II diabetes mellitus Is this a current diagnosis for this admission?: Yes - Additional Information Resuscitation Status: Full Code Discharge Diet: Regular Discharge Activity: Balance Activity w/Rest, No tub bath Referrals: CARLOS MANUEL ELENA MD [ACTIVE STAFF] - 04/22/20 9:00 am Home Medications: Alprazolam [Xanax] 2 mg PO TIDP PRN 08/09/17 Multivitamin [Tab-A-Jasson (Multiple Vitamin) Tablet] 1 tab PO DAILY 08/09/17 Atorvastatin Calcium [Lipitor 40 mg Tablet] 40 mg PO QHS 30 Days #30 tablet 08/15/17 Oxycodone HCl 20 mg PO Q4HP PRN 09/08/18 Amlodipine Besylate [Norvasc 10 mg Tablet] 10 mg PO DAILY 04/07/20 Enalapril Maleate 20 mg PO Q12 04/07/20 Metformin HCl [Glucophage 500 mg Tablet] 500 mg PO BIDACBS 04/07/20 Metoprolol Succinate [Toprol Xl] 100 mg PO Q12 04/07/20 History of Present Illiness History of Present Illness: LEN MACIAS is a 59 year old male 59-year-old black male with progressive right knee pain and functional disability second osteoarthritis. Patient admitted for elective right knee arthroplasty. Hospital Course Hospital Course: Patient is admitted through the operating where he undergoes an uncomplicated right knee arthroplasty. Is returned to the floor in satisfactory condition. The patient is relatively somnolent postoperatively and develops a series of febrile episodes which resolve spontaneously. Patient has a persistent hypokalemia which was supplemented orally with potassium Physical Exam Vital Signs: Temp Pulse Resp BP Pulse Ox 37.3 C 107 H 16 182/87 H 94 04/09/20 21:31 04/09/20 22:30 04/09/20 20:13 04/09/20 22:30 04/09/20 20:13 Intake & Output 04/09/20 04/10/20 04/11/20 06:59 06:59 06:59 Intake Total 1040 2670 Output Total 1100 750 Balance -60 1920 Weight 105 kg 105 kg General appearance: PRESENT: no acute distress, mild distress Head exam: PRESENT: normocephalic Respiratory exam: PRESENT: unlabored Cardiovascular exam: PRESENT: RRR Pulses: PRESENT: +1 pedal pulses bilateral GI/Abdominal exam: PRESENT: soft Rectal exam: PRESENT: deferred Musculoskeletal exam: PRESENT: other - Original postoperative OpSite dressing is in place and is clean dry and intact. Results Laboratory Results: WBC 13.5 10^3/uL (4.0-10.5) H 04/10/20 05:05 RBC 3.81 10^6/uL (4.35-5.55) L 04/10/20 05:05 Hgb 8.6 g/dL (13.5-17.0) L 04/10/20 05:05 Hct 26.6 % (37.9-51.0) L 04/10/20 05:05 MCV 70 fl (80-97) L 04/10/20 05:05 MCH 22.5 pg (27.0-33.4) L 04/10/20 05:05 MCHC 32.1 g/dL (32.0-36.0) 04/10/20 05:05 RDW 18.4 % (11.5-14.0) H 04/10/20 05:05 Plt Count 409 10^3/uL (150-450) 04/10/20 05:05 Lymph % (Auto) 9.2 % (13-45) L 04/08/20 15:22 Parke % (Auto) 12.3 % (3-13) 04/08/20 15:22 Eos % (Auto) 0.3 % (0-6) 04/08/20 15:22 Baso % (Auto) 0.2 % (0-2) 04/08/20 15:22 Absolute Neuts (auto) 11.3 10^3/uL (1.7-8.2) H 04/08/20 15:22 Absolute Lymphs (auto) 1.3 10^3/uL (0.5-4.7) 04/08/20 15:22 Absolute Monos (auto) 1.8 10^3/uL (0.1-1.4) H 04/08/20 15:22 Absolute Eos (auto) 0.0 10^3/uL (0.0-0.6) 04/08/20 15:22 Absolute Basos (auto) 0.0 10^3/uL (0.0-0.2) 04/08/20 15:22 Seg Neutrophils % 78.0 % (42-78) 04/08/20 15:22 Sodium 140.2 mmol/L (137-145) 04/10/20 05:05 Potassium 2.9 mmol/L (3.6-5.0) L* 04/10/20 05:05 Chloride 103 mmol/L (98-107) 04/10/20 05:05 Carbon Dioxide 27 mmol/L (22-30) 04/10/20 05:05 Anion Gap 10 (5-19) 04/10/20 05:05 BUN 9 mg/dL (7-20) 04/10/20 05:05 Creatinine 0.87 mg/dL (0.52-1.25) 04/10/20 05:05 Est GFR ( Amer) > 60 (>60) 04/10/20 05:05 Est GFR (MDRD) Non-Af > 60 (>60) 04/10/20 05:05 Glucose 124 mg/dL (75-110) H 04/10/20 05:05 POC Glucose 137 mg/dL (70-110) H 04/10/20 06:21 Lactic Acid 1.0 mmol/L (0.7-2.1) 04/08/20 15:22 Calcium 8.2 mg/dL (8.4-10.2) L 04/10/20 05:05 Magnesium 1.4 mg/dL (1.6-2.3) L 04/09/20 08:00 Total Bilirubin 1.0 mg/dL (0.2-1.3) 04/10/20 05:05 Direct Bilirubin 0.3 mg/dL (0.0-0.4) 04/10/20 05:05 Neonat Total Bilirubin Not Reportable 04/10/20 05:05 Neonat Direct Bilirubin Not Reportable 04/10/20 05:05 Neonat Indirect Bili Not Reportable 04/10/20 05:05 AST 13 U/L (17-59) L 04/10/20 05:05 ALT 7 U/L (<50) 04/10/20 05:05 Alkaline Phosphatase 78 U/L (38-126) 04/10/20 05:05 Total Protein 5.9 g/dL (6.3-8.2) L 04/10/20 05:05 Albumin 3.0 g/dL (3.5-5.0) L 04/10/20 05:05 Urine Color STRAW 04/08/20 14:30 Urine Appearance CLEAR 04/08/20 14:30 Urine pH 7.0 (5.0-9.0) 04/08/20 14:30 Ur Specific [place] 1.006 04/08/20 14:30 Urine Protein 30 mg/dL (NEGATIVE) H 04/08/20 14:30 Urine Glucose (UA) NEGATIVE mg/dL (NEGATIVE) 04/08/20 14:30 Urine Ketones NEGATIVE mg/dL (NEGATIVE) 04/08/20 14:30 Urine Blood NEGATIVE (NEGATIVE) 04/08/20 14:30 Urine Nitrite NEGATIVE (NEGATIVE) 04/08/20 14:30 Urine Bilirubin NEGATIVE (NEGATIVE) 04/08/20 14:30 Urine Urobilinogen NEGATIVE mg/dL (<2.0) 04/08/20 14:30 Ur Leukocyte Esterase NEGATIVE (NEGATIVE) 04/08/20 14:30 Urine WBC (Auto) 0 /HPF 04/08/20 14:30 Urine RBC (Auto) 1 /HPF 04/08/20 14:30 Urine Mucus (Auto) RARE /LPF 04/08/20 14:30 Urine Ascorbic Acid NEGATIVE (NEGATIVE) 04/08/20 14:30 COVID-19 Source NASOPHARYNGEAL 04/03/20 10:25 COVID-19 (AMAYA) NOT DETECTED 04/03/20 10:25 Impressions: Knee X-Ray 04/07/20 07:22 IMPRESSION: SATISFACTORY POSTOPERATIVE RIGHT KNEE. Chest X-Ray 04/08/20 00:00 IMPRESSION: NO ACUTE RADIOGRAPHIC FINDING IN THE CHEST. Venous Doppler Study 04/09/20 15:00 IMPRESSION: NO EVIDENCE DVT OR SVT IN THE RIGHT LEG. Plan Plan of Treatment: [facility] in a weightbearing as tolerated basis. Return to see Dr. Charlene Bauer [place] for surgery in 2 weeks for staple removal. Stroke Is this a Stroke Patient?: No Stroke Pt being discharged on Anti-thrombolytic therapy?: Yes Acute Heart Failure - Is this a Heart Failure Patient?: No
[2020-04-10] MEDS: POTASSIUM CHLORIDE 20 MEQ/50 ML RTU IV SCH ×2 (07:55→09:55)
[2020-04-10] MEDS: POTASSIUM CHLORIDE 10 MEQ TABLET.ER PO SCH ×3 (07:57→17:48)
[2020-04-10] MEDS: SUCRALFATE 1 GM TABLET PO SCH ×3 (07:57→15:45)
[2020-04-10] MEDS: INSULIN LISPRO 100 UNIT/ML 3 ML VIAL SUBCUT SCH ×3 (08:07→16:18)
[2020-04-10] MEDS: OXYCODONE HCL IR 5 MG TABLET PO PRN ×3 (08:11→15:46)
[2020-04-10] MEDS: LEVETIRACETAM 500 MG TABLET PO SCH (09:52)
[2020-04-10] MEDS: AMLODIPINE BESYLATE 10 MG TABLET PO SCH (09:52)
[2020-04-10] MEDS: ASPIRIN 81 MG TABLET, ENT COATED PO SCH (09:52)
[2020-04-10] MEDS: ENALAPRIL MALEATE 10 MG TABLET PO SCH (09:53)
[2020-04-10] MEDS: SENNOSIDES/DOCUSATE 8.6-50 MG 1 EACH TABLET PO SCH ×2 (09:53→17:48)
[2020-04-10] MEDS: METOPROLOL SUCCINATE 50 MG TAB.SR.24H PO SCH (09:53)
[2020-04-10] MEDS: TAMSULOSIN HCL 0.4 MG CAP.SR.24H PO SCH (09:53)
[2020-04-10] MEDS: FERROUS SULFATE 325 MG TABLET PO SCH (09:54)
[2020-04-10] MEDS: PRENATAL VITAMIN W DHA CAPSULE PO SCH (09:54)
[2020-04-10] MEDS: METHIMAZOLE 5 MG TABLET PO SCH (09:54)
[2020-04-10 15:21] LABS: VANCOMYCIN,TROUGH 10.5 ug/mL (5.0-20.0)
[2020-04-10] MEDS: ACETAMINOPHEN 325 MG TABLET PO PRN (15:45)
[2020-04-10 17:41] VITALS: BP 192/87
--- NOTE | 2020-04-10 19:48 | PDOC PROGRESS REPORT ---
Subjective Progress Note for:: 04/10/20 Subjective:: LEN MACIAS a 59-year-old male past medical history of diabetes hypertension stroke seizure disorder CKD arthritis who was admitted under orthopedic surgery and is status post day 1 for right knee replacement. Hospitalist was consulted for management of hypertension. Day 1 of hospital stay: Was seen and examined at bedside he appears to be drowsy and mildly with lethargic. Points of pain on the right knee, denies any chest pain shortness of breath. He is noted to have a fever of 102. And tachycardic to 110. day 2 hospital stay 04/09/20 : seen and examined at bedside. Still with considerable pain on left knee. No fever episodes. denies chest pain, SOB, palpitations. Still with leukocytosis. Patient was started on Vanc for presumed infection from surgery. Blood culture no growth. Home pain medications resumed. day 3 hospital stay 04/10/20. Afebrile, able to work more with physical therapy. Spoke to Dr. Chang, recommended to be discharged on abx and DVT prophylaxis other than aspirin. Mu Mathew said no need for abx Reason For Visit: M17.11 UNILATERAL PRIMARY OSTEOARTHRITIS, RIGHT KN Physical Exam Vital Signs: Temp Pulse Resp BP Pulse Ox 98.0 F 93 16 192/87 H 99 04/10/20 17:37 04/10/20 17:37 04/10/20 17:37 04/10/20 17:37 04/10/20 17:37 Intake & Output 04/09/20 04/10/20 04/11/20 06:59 06:59 06:59 Intake Total 1040 2670 2040 Output Total 1100 750 Balance -60 1920 2040 Weight 105 kg 105 kg General appearance: PRESENT: no acute distress, cooperative Head exam: PRESENT: atraumatic, normocephalic Eye exam: PRESENT: EOMI, PERRLA Mouth exam: PRESENT: moist Neck exam: PRESENT: full ROM. ABSENT: JVD Respiratory exam: PRESENT: clear to auscultation rosa isela, symmetrical, unlabored. ABSENT: tachypnea Cardiovascular exam: PRESENT: RRR, +S1, +S2 Pulses: PRESENT: +2 pedal pulses bilateral GI/Abdominal exam: PRESENT: normal bowel sounds, soft. ABSENT: rebound, tenderness Extremities exam: ABSENT: +2 edema Musculoskeletal exam: PRESENT: other - limited ROM right knee but much better today than yesterday Neurological exam: PRESENT: alert, awake, oriented to person, oriented to place, oriented to time Psychiatric exam: PRESENT: normal mood Results Laboratory Results: 04/10/20 05:05 04/10/20 05:05 04/10/20 04/10/20 04/10/20 05:05 05:05 05:05 WBC 13.5 H RBC 3.81 L Hgb 8.6 L Hct 26.6 L MCV 70 L MCH 22.5 L MCHC 32.1 RDW 18.4 H Plt Count 409 Sodium 140.2 Potassium 2.9 L* Chloride 103 Carbon Dioxide 27 Anion Gap 10 BUN 9 Creatinine 0.87 Est GFR ( Amer) > 60 Glucose 124 H Calcium 8.2 L Magnesium 1.6 Total Bilirubin 1.0 AST 13 L Alkaline Phosphatase 78 Total Protein 5.9 L Albumin 3.0 L Impressions: Knee X-Ray 04/07/20 07:22 IMPRESSION: SATISFACTORY POSTOPERATIVE RIGHT KNEE. Chest X-Ray 04/08/20 00:00 IMPRESSION: NO ACUTE RADIOGRAPHIC FINDING IN THE CHEST. Venous Doppler Study 04/09/20 15:00 IMPRESSION: NO EVIDENCE DVT OR SVT IN THE RIGHT LEG. Assessment and Plan - Diagnosis (1) Fever Qualifiers: Fever type: unspecified Qualified Code(s): R50.9 - Fever, unspecified Is this a current diagnosis for this admission?: Yes Plan: -post op fever 102. none today - WBC count 14>12.9 can be secondary to post op changes. received cefazolin and vanc periop - CXR no acute findings - UA negative - lactic acid normal - blood culture no growth x 1 - ddx: bacteremia, drug fever (patient started on tramadol, maybe interacting with other meds?) - recommend antibiotics on discharge. Dr. Chang informed via phone call. He stated that he does not need it (2) Acute encephalopathy Is this a current diagnosis for this admission?: Yes Plan: - RESOLVED - WBC 14, lactic acid 1.0 - BG 134, O2 sat 94% - CXR unremarkable, UA no UTI - unclear source for now - will hold his ambien, diphen, tramadol switched to dilaudid for now - no focal deficits to suggest stroke (3) Hypertension Qualifiers: Hypertension type: unspecified Qualified Code(s): I10 - Essential (primary) hypertension Is this a current diagnosis for this admission?: Yes Plan: - currently on enalapril, metoprolol, Po hydralazine - PRN hydralazine (4) Diabetes Qualifiers: Diabetes mellitus type: type 2 Diabetes mellitus director long term care insulin use: without assisted use Diabetes mellitus complication status: without complication Qualified Code(s): E11.9 - Type 2 diabetes mellitus without complications Is this a current diagnosis for this admission?: Yes Plan: Diabetic diet, long-acting insulin, sliding scale insulin, - Accu-Chek, hypoglycemia protocol. - Resume home meds upon discharge. (5) Arthritis of knee, degenerative Is this a current diagnosis for this admission?: Yes Plan: - s/p knee arthroplasty - recommend another form of DVT prophylaxis other than aspirin - Time Time Spent with patient: 15-24 minutes Medications reviewed and adjusted accordingly: Yes Anticipated Discharge Disposition: Home, Self Care Anticipated Discharge Timeframe: within 24 hours
== END 2020-04-10 18:27 | disposition home health service (06) | DRG 470 ==
LOC: INOR 05:42 → 4W 10:04
PROVIDERS: ADMIT Orthopaedic Surgery; ATTEND Orthopaedic Surgery
PROC: 0SRC0JA Replacement of Right Knee Joint with Synthetic Substitute, Uncemented, Open Approach (ICD-10-PCS; principal; 2020-04-07 07:30)
DX: M17.11 Unilateral primary osteoarthritis, right knee (principal); G93.40 Encephalopathy, unspecified; E11.22 Type 2 diabetes mellitus with diabetic chronic kidney disease; E87.6 Hypokalemia; G40.909 Epilepsy, unspecified, not intractable, without status epilepticus; I12.9 Hypertensive chronic kidney disease with stage 1 through stage 4 chronic kidney disease, or unspecified chronic kidney disease; N18.9 Chronic kidney disease, unspecified; E78.5 Hyperlipidemia, unspecified; G47.30 Sleep apnea, unspecified; M10.9 Gout, unspecified; F32.9 Major depressive disorder, single episode, unspecified; E66.9 Obesity, unspecified; R00.0 Tachycardia, unspecified; R50.82 Postprocedural fever; Z79.84 Long term (current) use of oral hypoglycemic drugs; Z79.899 Other long term (current) drug therapy; Z86.73 Personal history of transient ischemic attack (TIA), and cerebral infarction without residual deficits; Z87.891 Personal history of nicotine dependence; Z82.49 Family history of ischemic heart disease and other diseases of the circulatory system; Z83.3 Family history of diabetes mellitus; Z82.3 Family history of stroke; Z68.30 Body mass index [BMI] 30.0-30.9, adult; Z11.59 Encounter for screening for other viral diseases
CPT/HCPCS: 01402; 36415; 71045; 80053; 80202; 81001; 82947; 82962; 83605; 83735; 84132; 85027; 87040; 87070; 87635; 88305; 88311; 93971; 94799; C1776; C9803; J0360; J0690; J0696; J1170; J1644; J1741; J1815; J2250; J2270; J2405; J2704; J2795; J3010; J3370; J3475; J3480; J3490; J7030; J7050; J7060

== ENCOUNTER 2020-07-30 11:12 | Emergency (ER) | payer MEDICARE ==
--- NOTE | 2020-07-30 11:45 | ER Document Report ---
ED Dizziness/Weakness - General Chief Complaint: General Weakness Stated Complaint: WEAKNESS Time Seen by Provider: 07/30/20 11:28 Primary Care Provider: CATALINO BAUTISTA MD [Primary Care Provider] - Follow up as needed Mode of Arrival: Medic Information source: Patient, Relative Notes: 07/30/20 11:15 (created 07/30/20 11:28) - Nursing Note by SUZETTE MARTE [facility] Num: [id number] : 1960 Patient Age: 59 pt arrived by EMS from home. EMS reported called for lift assist from toilet back to bed and pt was ambulatory with assistance. EMS reported pt was presenting with baseline normal since CVA in August. EMS reported pt denied complaint and did not want to be transferred to hospital though EMS advised to be checked due to elevated BP 207/105 which pt did advise he had taken his BP medication this Am. pt BGL 163 enroute. pt presented A/O denying any pain or complaint. pt aware of pending ED provider assessment with continued POC Initialized on 07/30/20 11:28 - END OF NOTE MY NOTES 59-year-old black male arrives by EMS after he needed assistance from bathroom to his bedroom and family called EMS for transfer only. It was noted that the patient had 207/105 blood pressure prior to taking his blood pressure medicines this morning and therefore they advised him to come to the ER. Patient took his BP meds prior to arrival and his blood pressure still elevated. We will obtain orthostatic BPs. 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 He has a prior history of diabetes osteoarthritis hypertension hyperlipidemia anem ia and CVA back in August of this year. Patient is oriented to self and situation. Around 1600 the patient's Eugene and the patient's niece Ivet as family members arrived who report that the patient has symptoms of weakness and fell last night around 0 200 in his bedroom and he has a lump on his right parietal scalp. Patients attempted to get her son but the son was involved with a sick and when attempting to get the daughter who is 21 years old she is also sick with fever and temperature and will need a Covid test. Ivet was called. She works here at [employer] nighttime shift and she went home at 07 30 thinking that her aunt would call her if anything else was wrong. At 0 900 she was called for second time and helped patient to the toilet and called 911. CT of head was done today which was negative an MRI was ordered. Also labs on this patient were ordered. TRAVEL OUTSIDE OF THE [place] IN LAST 30 DAYS: No - HPI Patient complains to provider of: Weakness Onset: This morning Onset/Duration: Sudden Quality of pain: No pain Pain Level: Denies Context: denies: Chronic dizziness, Trauma, Vertigo Associated symptoms: denies: Chest pain, Confused, Diarrhea, Dizzy, Ear pain, Almost fainted, Fainted, Headache, Hearing loss, Less responsive, Lightheaded, Loss of motor function, Loss of strength, Loss of sensation, Nausea, Palpitations, Paralysis, Recent fall, Recent trauma, Short of breath, Sleeping more, Sweating, Vertigo, Vomiting Baseline gait: Uses a cane - Related Data Allergies/Adverse Reactions: No Known Allergies Allergy (Verified 07/30/20 11:24) Past Medical History - General Information source: Patient - Social History Smoking Status: Smoker,Current Status Unk Cigarette use (# per day): Yes Chew tobacco use (# tins/day): No Smoking Education Provided: Yes Frequency of alcohol use: None Drug Abuse: None Lives with: Family Family History: CAD, CVA, DM, Hypertension Patient has suicidal ideation: No Patient has homicidal ideation: No - Past Medical History Cardiac Medical History: Reports: Hx Hypercholesterolemia, Hx Hypertension Denies: Hx Atrial Fibrillation, Hx Congestive Heart Failure, Hx Coronary Artery Disease, Hx Heart Attack, Hx Peripheral Vascular Disease, Hx Pulmonary Embolism, Hx Heart Murmur Pulmonary Medical History: Reports: Hx Sleep Apnea - DOES NOT USE CPAP Denies: Hx Asthma, Hx Bronchitis, Hx COPD, Hx Pneumonia, Hx Respiratory Failure, Hx Tuberculosis Neurological Medical History: Reports: Hx Cerebrovascular Accident - 2018 WITH SOME MEMORY LOSS. Denies: Hx Seizures, Hx Parkinson's Disease Endocrine Medical History: Reports: Hx Diabetes Mellitus Type 1, Hx Diabetes Mellitus Type 2. Denies: Hx Graves' Disease, Hx Hyperthyroidism, Hx Hypothyroidism Renal/ Medical History: Malignancy Medical History: Denies Hx Lung Cancer GI Medical History: Musculoskeletal Medical History: Reports Hx Arthritis, Denies Hx Fibromyalgia, Reports Hx Gout, Denies Hx Multiple Sclerosis, Denies Hx Muscular Dystrophy, Denies Hx Systemic Lupus Erythematosus Psychiatric Medical History: Reports: Hx Depression Denies: Hx Bipolar Disorder, Hx Dementia, Hx Post Traumatic Stress Disorder, Hx Schizophrenia Traumatic Medical History: Denies: Hx Fractures Past Surgical History: Reports: Hx Genitourinary Surgery - biopsy of scrotum, Hx Orthopedic Surgery - torn meniscus in the right knee. bakers cyst. Denies: Hx Appendectomy, Hx Bowel Surgery, Hx Cholecystectomy, Hx Coronary Artery Bypass Graft, Hx Gastric Bypass Surgery, Hx Herniorrhaphy, Hx Pacemaker, Hx Tonsillectomy - Immunizations Hx Diphtheria, Pertussis, Tetanus Vaccination: No Review of Systems - Review of Systems Constitutional: See HPI, Weakness EENT: No symptoms reported Cardiovascular: No symptoms reported Respiratory: No symptoms reported Gastrointestinal: No symptoms reported Genitourinary: No symptoms reported Male Genitourinary: No symptoms reported Musculoskeletal: No symptoms reported Skin: No symptoms reported Hematologic/Lymphatic: No symptoms reported Neurological/Psychological: See HPI, Weakness -: Yes All other systems reviewed and negative Physical Exam - Vital signs Vitals: Resp BP Pulse Ox 23 H 194/92 H 98 07/30/20 11:14 07/30/20 11:14 07/30/20 11:14 Interpretation: Hypertensive, Febrile - General General appearance: Appears well, Alert - HEENT Head: Normocephalic, Atraumatic Eyes: Normal Pupils: PERRL - Respiratory Respiratory status: No respiratory distress Chest status: Nontender Breath sounds: Normal Chest palpation: Normal - Cardiovascular Rhythm: Regular Heart sounds: Normal auscultation Murmur: No - Abdominal Inspection: Normal Distension: No distension Bowel sounds: Normal Tenderness: Nontender Organomegaly: No organomegaly - Rectal Prostate: Other - deferred - Genitourinary Scrotum: Other - deferred - Back Back: Normal, Nontender - Extremities General upper extremity: Normal inspection, Nontender, Normal color, Normal ROM, Normal temperature General lower extremity: Normal inspection, Nontender, Normal color, Normal ROM, Normal temperature, Normal weight bearing. No: Eddie's sign - Neurological Neuro grossly intact: Yes Cognition: Normal Orientation: AAOx4 Daniel Coma Scale Eye Opening: Spontaneous [place]a Coma Scale Verbal: Oriented Daniel Coma Scale Motor: Obeys Commands Daniel Coma Scale Total: 15 Speech: Normal Motor strength normal: LUE, RUE, LLE, RLE Sensory: Normal - Psychological Associated symptoms: Normal affect, Normal mood - Skin Skin Temperature: Warm Skin Moisture: Dry Skin Color: Normal Course - Vital Signs Vital signs: Temp Pulse Resp BP Pulse Ox 99 F 85 18 175/75 H 98 07/30/20 11:15 07/30/20 13:06 07/30/20 17:02 07/30/20 17:02 07/30/20 17:02 - Laboratory Results Result Diagrams: 07/30/20 17:47 07/30/20 17:47 Laboratory Results Interpreted: 07/30/20 07/30/20 17:47 17:47 WBC 12.0 H RBC 4.34 L Hgb 9.8 L Hct 30.7 L MCV 71 L MCH 22.7 L RDW 17.1 H Plt Count 481 H Parke % (Auto) 14.2 H Absolute Monos (auto) 1.7 H Potassium 2.6 L* Carbon Dioxide 33 H Critical Laboratory Results Reviewed: Yes Attending or Supervising Physician who Reviewed Labs: CATALINO ALFONSO JR - Radiology Results Radiology Results Interpreted: 07/30/20 14:03 Dr. Barnard radiologist read chest x-ray as nad 07/30/20 19:04 Dr. Christine ricci radiologist for CT head Critical Radiology Results Reviewed: No Critical Results Attending or Supervising Physician who Reviewed Radiology: CATALINO ALFONSO JR Discharge - Discharge Clinical Impression: Weakness, Hypokalemia Hypertension Qualifiers: Hypertension type: unspecified Qualified Code(s): I10 - Essential (primary) hypertension Fever Qualifiers: Fever type: unspecified Qualified Code(s): R50.9 - Fever, unspecified Anemia Qualifiers: Anemia type: iron deficiency Iron deficiency anemia type: other iron deficiency Qualified Code(s): D50.8 - Other iron deficiency anemias Condition: Stable Disposition: HOME, SELF-CARE Additional Instructions: Follow-up with personal doctor this week as needed; return to ER as needed; take medicines as directed; encourage fluids Prescriptions: Ferrous Fumarate/Ascorbic Acid [Esthela-Sequels 65-25 mg Caplet] 1 each PO DAILY 30 Days #30 tablet.er Potassium Chloride 20 meq PO DAILY 30 Days #30 tab.er.prt Referrals: CATALINO BAUTISTA MD [Primary Care Provider] - Follow up as needed
--- NOTE | 2020-07-30 13:18 | RADIOLOGY REPORT (SQ) ---
EXAM DESCRIPTION: CHEST SINGLE VIEW IMAGES COMPLETED DATE/TIME: 07/30/2020 11:23 am REASON FOR STUDY: weak. COMPARISON: 04/08/2020 EXAM PARAMETERS: NUMBER OF VIEWS: One view. TECHNIQUE: Single frontal radiographic view of the chest acquired. RADIATION DOSE: NA LIMITATIONS: None. FINDINGS: LUNGS AND PLEURA: No opacities, masses or pneumothorax. No pleural effusion. MEDIASTINUM AND HILAR STRUCTURES: No masses. Contour normal. HEART AND VASCULAR STRUCTURES: Mild cardiomegaly. No pulmonary vascular congestion. BONES: No acute findings. HARDWARE: None in the chest. OTHER: No other significant finding. IMPRESSION: No acute cardiopulmonary disease. Mild cardiomegaly with no pulmonary edema. TECHNICAL DOCUMENTATION: JOB ID: [id number] 2010 [employer]- All Rights Reserved Reading location - IP/workstation name: [email or web address]
[2020-07-30] MEDS ORDERED: CLONIDINE HCL 0.1 MG TABLET PO ONE (14:04)
--- NOTE | 2020-07-30 15:13 | EKG REPORT ---
SEVERITY:- ABNORMAL ECG - SINUS RHYTHM PROBABLE LEFT ATRIAL ABNORMALITY LEFT VENTRICULAR HYPERTROPHY ST ELEVATION, CONSIDER ANTERIOR INJURY, ATYPICAL, CLINICAL CORRELATION NEEDED. : Confirmed by: Jose Luis Magana MD 30-Jul-2020 15:13:04
--- NOTE | 2020-07-30 16:29 | RADIOLOGY REPORT (SQ) ---
EXAM DESCRIPTION: CT HEAD WITHOUT IMAGES COMPLETED DATE/TIME: 07/30/2020 4:21 pm REASON FOR STUDY: weakness COMPARISON: 09/07/2019 TECHNIQUE: Axial images acquired through the brain without intravenous contrast. Images reviewed wi th bone, brain and subdural windows. Additional sagittal and coronal reconstructions were generated. Images stored on PACS. All CT scanners at this facility use dose modulation, iterative reconstruction, and/or weight based d osing when appropriate to reduce radiation dose to as low as reasonably achievable (ALARA). [facility]: Dose Right [facility]: CareDose [facility]: Dose Right [facility]: Teradose 4D [facility]: Smart [place] SPARK RADIATION DOSE: CT Rad equipment meets quality standard of care and radiation dose reduction techniq ues were employed. CTDIvol: 53.2 mGy. DLP: 1070 mGy-cm. mGy. LIMITATIONS: None. FINDINGS: VENTRICLES: Prominent. CEREBRUM: No masses. No hemorrhage. No midline shift. Areas of low density in the white matter mos t likely due to chronic micro-vascular ischemic change. No evidence for acute infarction. CEREBELLUM: No masses. No hemorrhage. No alteration of density. No evidence for acute infarction. EXTRAAXIAL SPACES: Mild age-related involutional change. No fluid collections. No masses. ORBITS AND GLOBE: No intra- or extraconal masses. Normal contour of globe without masses. CALVARIUM: No fracture. PARANASAL SINUSES: No fluid or mucosal thickening. SOFT TISSUES: No mass or hematoma. OTHER: No other significant finding. IMPRESSION: MILD CHRONIC CHANGES OF ATROPHY AND MICROVASCULAR ISCHEMIA. NO ACUTE PROCESS. FINDINGS ARE STABLE WHEN COMPARED TO AUGUST. EVIDENCE OF ACUTE STROKE: NO. TECHNICAL DOCUMENTATION: JOB ID: [id number] Quality ID # [id number]: Final reports with documentation of one or more dose reduction techniques (e.g., Au tomated exposure control, adjustment of the mA and/or kV according to patient size, use of iterative reconstruction technique) 2010 [employer]- All Rights Reserved Reading location - IP/workstation name: [email or web address]
[2020-07-30] MEDS ORDERED: LABETALOL HCL INJ 20 MG/4 ML DISP.SYRIN IV ONE (16:46)
[2020-07-30] MEDS ORDERED: ENALAPRILAT DIHYDRATE INJ/PF 2.5 MG/2 ML SDV IV ONE (16:46)
[2020-07-30 18:12] LABS: ABSOLUTE BASOPHILS # (AUTO) 0.1 10^3/uL (0.0-0.2); ABSOLUTE LYMPHOCYTES (AUTO) 1.9 10^3/uL (0.5-4.7); ABSOLUTE MONOCYTES (AUTO) 1.7 10^3/uL (0.1-1.4); ABSOLUTE NEUT (AUTO) 8.2 10^3/uL (1.7-8.2); EOSINOPHILS % (AUTO) 0.4 % (0-6); HEMATOCRIT 30.7 % (37.9-51.0); HEMOGLOBIN 9.8 g/dL (13.5-17.0); INTERNATIONAL RATION (INR) 1.16; LYMPHOCYTES % (AUTO) 15.9 % (13-45); MEAN CORPUSCULAR HEMOGLOBIN 22.7 pg (27.0-33.4); MEAN CORPUSCULAR VOLUME 71 fl (80-97); MONOCYTES % (AUTO) 14.2 % (3-13); PLATELET COUNT 481 10^3/uL (150-450); RED BLOOD COUNT 4.34 10^6/uL (4.35-5.55); RED CELL DISTRIBUTION WIDTH 17.1 % (11.5-14.0); SEGMENTED NEUTROPHILS % (AUTO) 68.5 % (42-78); TOTAL CELLS COUNTED % (AUTO) 100 %
[2020-07-30 18:25] LABS: ALBUMIN 3.5 g/dL (3.5-5.0); ALKALINE PHOSPHATASE 85 U/L (38-126); ANION GAP 8 (5-19); ASPARTATE AMINO TRANSFERASE 31 U/L (17-59); BILIRUBIN,DIRECT 0.1 mg/dL (0.0-0.4); BLOOD UREA NITROGEN 12 mg/dL (7-20); CALCIUM 9.3 mg/dL (8.4-10.2); CARBON DIOXIDE 33 mmol/L (22-30); CHLORIDE 100 mmol/L (98-107); GLUCOSE 100 mg/dL (75-110); TOTAL PROTEIN 6.8 g/dL (6.3-8.2)
[2020-07-30] MEDS ORDERED: FERROUS SULFATE LIQUID 300 MG/5 ML UDC PO ONE (18:27)
[2020-07-30] MEDS ORDERED: CYANOCOBALAMIN (VITAMIN B-12) INJ 1000 MCG/1 ML VIAL IM ONE (18:28)
[2020-07-30 18:29] LABS: POTASSIUM 2.6 mmol/L (3.6-5.0)
[2020-07-30] MEDS ORDERED: POTASSI CL 20 MEQ/50 ML RIDER 20 MEQ/50 ML RTUPB IV ONE (18:29)
[2020-07-30] MEDS ORDERED: POTASSIUM CHLORIDE 20 MEQ PACKET PO ONE (18:29)
--- NOTE | 2020-07-30 19:10 | RADIOLOGY REPORT (SQ) ---
EXAM DESCRIPTION: MRI HEAD WITHOUT IMAGES COMPLETED DATE/TIME: 07/30/2020 6:56 pm REASON FOR STUDY: weakness COMPARISON: 08/09/2017 TECHNIQUE: Multiplanar imaging includes non-contrasted T1, T2, FLAIR, and diffusion with ADC map seq uences. Images stored on PACS. LIMITATIONS: None. FINDINGS: ANATOMY: No anomalies. Normal vascular flow voids. Pituitary fossa normal. CSF SPACES: Normal in size and contour. No hemorrhage. CEREBRUM: Sulci and gyri normal in size and contour. Normal white matter signal on FLAIR imaging. Th ere is a small old right cerebellar infarction. No evidence of hemorrhage, mass, or extraaxial fluid collection. POSTERIOR FOSSA: No signal alteration. No hemorrhage. No edema, masses or mass effect. Internal deidra tory canals, cerebello-pontine angles, mastoids normal. DIFFUSION IMAGING: Negative for acute or sub-acute infarction. ORBITS: No masses. Globes normal. PARANASAL SINUSES: No fluid levels. Mucosa normal. OTHER: No other significant finding. 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 No acute intracranial imaging findings. EVIDENCE OF ACUTE STROKE: NO. TECHNICAL DOCUMENTATION: JOB ID: [id number] 2010 [employer]- All Rights Reserved Reading location - IP/workstation name: [email or web address]
--- NOTE | 2020-07-30 21:23 | ER Document Report ---
Doctor's Note Notes: 07/30/20 21:23 Received patient in signout. MRI report is available, per radiology there are no acute findings. Potassium infusion has finished. I went to update patient's and patient. Patient is appropriate for discharge at this time.
[2020-07-30 21:50] VITALS: BP 185/95
== END 2020-07-30 22:00 | disposition home or self-care (01) ==
LOC: ER 11:12
DX: E87.6 Hypokalemia (principal); R53.1 Weakness; I10 Essential (primary) hypertension; R50.9 Fever, unspecified; D50.8 Other iron deficiency anemias; Z86.73 Personal history of transient ischemic attack (TIA), and cerebral infarction without residual deficits; F17.210 Nicotine dependence, cigarettes, uncomplicated; E78.5 Hyperlipidemia, unspecified; E11.9 Type 2 diabetes mellitus without complications; Z20.828 Contact with and (suspected) exposure to other viral communicable diseases
CPT/HCPCS: 93005; 99285; 96372; 96375; 96365; 96366; 36415; 85025; 85610; 80053; 70551; 71045; 70450; 93010; U0003; J3490 ×4; A9270; J3420; J3480; C9803; 87635